=== PATIENT | female | born 1970 | race Caucasian/White ===

== ENCOUNTER → 2020-02-26 09:39 | Outpatient (BNVA) | payer OTHER, SELFPAY | PROVIDERS: PCP Internal Medicine; Referring Provider Internal Medicine; Visit Provider Physician Assistant | DX: K58.0 Irritable bowel syndrome with diarrhea (principal); K21.9 Gastro-esophageal reflux disease without esophagitis; Z79.899 Other long term (current) drug therapy | CPT/HCPCS: 99212 ==

== ENCOUNTER → 2020-03-02 09:09 | Outpatient (REF) | payer OTHER, SELFPAY ==
--- NOTE | 2020-03-02 09:16 | CA_ITS ---
Acquisition Time: 2020-03-02 10:24:54 Total Exercise Time: 00:06:39 Test Indications: Palpitations Medications: SEE H Protocol: SAVANNA Max HR: 160 BPM 93% of Pred: 172 BPM Max BP: 154/072 mmHG Max Work Load: 8.0 METS Exercise nuclear stress test using Savanna protocol. Total of 6 min 39 sec. THR up to 87% anf with METS 8.0. Pt tolerated well, denies any anginal sx. Isolated PVC in recovery. EKG with no ischemic changes. Nuclear images to follow. Normotensive resaponse to exercise. Test reviewed with Dr. Obando. Referred By: Hoang Bowman Overread By: Edgard Tapia
--- NOTE | 2020-03-02 09:30 | NM_ITS ---
Exercise Myocardial perfusion study Indication: Chest pain to evaluate for myocardial ischemia Technique: The patient was brought in for an exercise perfusion study on 03/02/2020. Patient performed exercise as per Bimal protocol and was injected 30 mCi of sestamibi was given intravenously one target HR was achieved. Images were obtained using the SPECT gamma camera interlaced with the gating device. Images were obtained in supine position. Resting perfusion study was performed on 03/03/2020. Patient was administered 30 mCi of sestamibi intravenously at rest. Images were then obtained in supine position. Images obtained with and without CT attenuation. Total DLP 96 MGY-CM. Images were processed with the software and compared side to side in short axis, horizontal long axis and vertical long axis views. Findings: The stress perfusion study showed non attenuated images show normal uptake of radiotracer in all segments LV myocardium. Impression corrected images show mildly reduced uptake in the apex of the LV myocardium. The gated study shows normal LV systolic function with calculated LVEF of greater than 70 %. LV cavity is normal in size. The gated study shows normal systolic wall thickening and contraction of all segments. There is no transient ischemic dilation. Resting study shows no change in perfusion pattern compared to stress perfusion study. Gating at rest reveals normal systolic wall motion with ejection fraction at 59%. The findings are consistent with normal myocardial perfusion. NM/NM rocky perf SPECT rest & str Impression: 1. Normal myocardial perfusion 2. Gated LVEF is 69% 3. Transient ischemic dilatation not present Stress EKG is negative for ischemia
== END ==
LOC: HO.CARD 09:09
PROVIDERS: Visit Provider Internal Medicine Cardiovascular Disease
DX: R07.89 Other chest pain (principal)
CPT/HCPCS: 78452; 93017; A9500

== ENCOUNTER → 2020-05-19 12:14 | Outpatient (BNVA) | payer OTHER, SELFPAY | PROVIDERS: PCP Internal Medicine; Visit Provider Physician Assistant | DX: Z76.89 Persons encountering health services in other specified circumstances (principal) | CPT/HCPCS: Q3014 ==

== ENCOUNTER → 2020-07-14 08:55 | Outpatient (BNVA) | payer OTHER, SELFPAY | PROVIDERS: Visit Provider Physician Assistant | DX: R19.7 Diarrhea, unspecified (principal); K58.9 Irritable bowel syndrome, unspecified | CPT/HCPCS: Q3014 ==

== ENCOUNTER 2020-08-17 08:46 | Day surgery (SDC) | payer OTHER, SELFPAY ==
[2020-08-12 12:25] VITALS: BMI 40.6
--- NOTE | 2020-08-13 14:18 | HO.ANESPROP2 ---
Documented by User: Shelby Rivas 08/14/20 11:57 HPI - Anesthesia Eval Consult details Narrative: 50yo F for Upper Endoscopy and Colonoscopy Cardiac cleared Last K 04/2019 elevated at 5.9. Repeat DOS. PMFSH Active Problems Active Problems: All Active Problems (Updated 08/12/20 @ 12:30 by Adry Nguyen) Gastric bypass status for obesity (Acute) Acid reflux (Acute) PTSD (post-traumatic stress disorder) (Acute) IBS (irritable bowel syndrome) (Acute) Past Medical History Medical History (Updated 08/12/20 @ 12:30 by Adry Nguyen) Acid reflux Anemia Arthritis COVID-19 vaccine administered Depression History of anxiety Hx MRSA infection Hx of renal calculi IBS (irritable bowel syndrome) Myocardial infarction PTSD (post-traumatic stress disorder) Family History Family History Father No problems noted. Mother No problems noted. Surgical History Surgical History (Updated 08/12/20 @ 12:28 by Adry Nguyen) Gastric bypass status for obesity Hx of cardiac catheterization Social History Social History (Updated 08/12/20 @ 12:31 by Adry Nguyen) Household Members: None Household Members Other:: Daughter has a cystic fibrosis Are you a primary acute care assistant to a significant other at home: No Do you presently have visiting nurse or other home services: No Alcohol intake: former Year quit: 5 Smoking Status: Never smoker Use of substances other than those prescribed or required for medical reasons: No Have you been hit, kicked, punched, or otherwise hurt by someone within the past year? If so, by whom?: No Advance Directives Information Provided: No Recently lost weight without trying: No Eating poorly because of decreased appetite: No Nutrition Risks: No Nutritional Risk Patient : No FDLMP: 08/04/20 Poor oral hygiene: No (upper & lower full denture) Current occupational status: disabled Meds Allergies Allergy/AdvReac Type Severity Reaction Status Date / Time latex Allergy Severe Rash Verified 08/12/20 12:32 lisinopril Allergy Severe anaphylaxis Verified 07/14/20 08:57 NSAIDS (Non-Steroidal Allergy Mild Diarrhea Verified 08/12/20 12:32 Anti-Inflamma Home Medications Medication Instructions Recorded Confirmed Last Taken Type cholecalciferol (vitamin D3) 25 25 mcg PO DAILY 02/26/20 08/12/20 Unknown History mcg (1,000 unit) capsule gabapentin 600 mg tablet 600 mg PO BID 02/26/20 08/12/20 08/17/20 04:30 History metoprolol succinate 50 mg 50 mg PO DAILY 02/26/20 08/12/20 08/17/20 04:30 History tablet,extended release 24 hr vitamin B complex 1 tab PO DAILY 02/26/20 08/12/20 Unknown History vitamin B12 0.5 mg-folic acid 1 mg 1 tab PO DAILY 02/26/20 08/12/20 Unknown History tablet trazodone 50 mg tablet 50 mg PO BEDTIME PRN 05/19/20 08/12/20 Unknown History citalopram [Celexa] 40 mg PO DAILY 08/12/20 08/12/20 08/17/20 04:30 History Exam Exam Date and Time: August 13, 2020 1418 Height,Weight and Vital Signs: Height 4 ft 11 in Weight 91.172 kg Narrative Narrative: EKG NSR @ 73 Inferior infarct, old ECHO 05/2019 Normal LV function LV systolic function is normal with EF 55-60% Diastolic filling pattern normal NM rocky perf SPECT rest & str 03/02/20 Impression: 1. Normal myocardial perfusion 2. Gated LVEF is 69% 3. Transient ischemic dilatation not present Stress EKG is negative for ischemia Assessment and Plan Assessment Anesthesia Assessment: Chart Reviewed Documented by User: Sary Turner 08/17/20 09:57 [facility] Past Medical History Medical History (Updated 08/12/20 @ 12:30 by Adry Nguyen) Acid reflux Anemia Arthritis COVID-19 vaccine administered Depression History of anxiety Hx MRSA infection Hx of renal calculi IBS (irritable bowel syndrome) Myocardial infarction PTSD (post-traumatic stress disorder) Family History Family History Father No problems noted. Mother No problems noted. Surgical History Surgical History (Updated 08/12/20 @ 12:28 by Adry Nguyen) Gastric bypass status for obesity Hx of cardiac catheterization Social History Social History (Updated 08/12/20 @ 12:31 by Adry Nguyen) Household Members: None Household Members Other:: Daughter has a cystic fibrosis Are you a primary acute care assistant to a significant other at home: No Do you presently have visiting nurse or other home services: No Alcohol intake: former Year quit: 5 Smoking Status: Never smoker Use of substances other than those prescribed or required for medical reasons: No Have you been hit, kicked, punched, or otherwise hurt by someone within the past year? If so, by whom?: No Advance Directives Information Provided: No Recently lost weight without trying: No Eating poorly because of decreased appetite: No Nutrition Risks: No Nutritional Risk Patient : No FDLMP: 08/04/20 Poor oral hygiene: No (upper & lower full denture) Current occupational status: disabled Meds Allergies Allergy/AdvReac Type Severity Reaction Status Date / Time latex Allergy Severe Rash Verified 08/12/20 12:32 lisinopril Allergy Severe anaphylaxis Verified 07/14/20 08:57 NSAIDS (Non-Steroidal Allergy Mild Diarrhea Verified 08/12/20 12:32 Anti-Inflamma Home Medications Medication Instructions Recorded Confirmed Last Taken Type cholecalciferol (vitamin D3) 25 25 mcg PO DAILY 02/26/20 08/12/20 Unknown History mcg (1,000 unit) capsule gabapentin 600 mg tablet 600 mg PO BID 02/26/20 08/12/20 08/17/20 04:30 History metoprolol succinate 50 mg 50 mg PO DAILY 02/26/20 08/12/20 08/17/20 04:30 History tablet,extended release 24 hr vitamin B complex 1 tab PO DAILY 02/26/20 08/12/20 Unknown History vitamin B12 0.5 mg-folic acid 1 mg 1 tab PO DAILY 02/26/20 08/12/20 Unknown History tablet trazodone 50 mg tablet 50 mg PO BEDTIME PRN 05/19/20 08/12/20 Unknown History citalopram [Celexa] 40 mg PO DAILY 08/12/20 08/12/20 08/17/20 04:30 History Exam Airway Mallampati Class: II TM Dist: >3cm Neck ROM: Full Denture: Upper and Lower Heart: RRR Lungs: CtA. L Assessment and Plan Assessment Anesthesia Assessment: Anesthesia Plan Discussed and Chart Reviewed Final Anesthetic Review NPO: Yes (Sip water with med) ASA Class: III Final Preanesthetic Review: No Changes in Pt Med Stat and Consent Obtained/Reviewed Patient Risk: Intermediate Procedure Risk: Intermediate Anesthetic Plan Anesthetic Plan: MAC: Disposition: Standard PACU
[2020-08-17 09:24] LABS: UPreg QC Valid YES; Urine Pregnancy NEGATIVE (NEGATIVE)
[2020-08-17] MEDS: Lactated Ringers 1,000 ML 100 ML IVCONT (09:28)
--- NOTE | 2020-08-17 09:31 | P.HPSUR_ITS ---
Pre-Procedural Eval Section B Chief Complaint: Iritable bowel syndrome, Acid Reflux Details of Present Illness: diarrhea Relevant Family History (Specify if Yes): No Relevant Social History: None Present Medications: see Short Stay Collaborative assessment Medical History: Significant History (Acid reflux Anemia Arthritis COVID-19 vaccine administered Depression History of anxiety Hx MRSA infection Hx of renal calculi IBS (irritable bowel syndrome) Myocardial infarction PTSD (post- traumatic stress disorder)) History of Previous Operations: Relevant previous surgery/procedure and date(s) (gastric bypass surgery, cardiac cath) Allergies: Allergies Allergy/AdvReac Type Severity Reaction Status Date / Time latex Allergy Severe Rash Verified 08/12/20 12:32 lisinopril Allergy Severe anaphylaxis Verified 07/14/20 08:57 NSAIDS (Non-Steroidal Allergy Mild Diarrhea Verified 08/12/20 12:32 Anti-Inflamma Review of Systems Sugical H&P ROS: Negative: Constitution, Cardiovascular, Respiratory, Neurological, Psychiatric, Hem-Onc, Allergic/Immunologic, Gastrointestinal, Genitourinary, Musculoskeletal, Integumentary, Endocrine and Eyes/Ears/Nose/Throat Exam Surgical H&P Exam: Normal: HEENT, Normal: Heart, Normal: Lungs, Normal: Extremities, Normal: Abdomen, Normal: Skin and Normal: Neurological Plan Diagnosis/Plan: Unchanged I have reviewed the history and physical and performed a pertinent physical examination on my patient. No changes have occurred unless specified.
[2020-08-17 09:45] LABS: Anion Gap 9 (12-20); Blood Urea Nitrogen 10 mg/dL (9-16); Calcium 9.1 mg/dL (8.4-10.2); Carbon Dioxide 29 mmol/L (22-29); Chloride 104 mmol/L (96-108); Creatinine Clr Calc Pharmacy 79.6; Estimated Glomerular Filt Rate > 60; Glucose Fasting 96 mg/dL (60-99); Potassium 4.2 mmol/L (3.3-5.1); Sodium 138 mmol/L (135-145)
--- NOTE | 2020-08-17 10:17 | P.BOP_ITS ---
Brief Operative Note Date of Service: 08/17/20 Pre-op diagnosis: diarrhea, GERD Post-op diagnosis: same Procedure: see op note Surgeon: Bella Park MD Anesthesia: MAC Was an Public Health Assistant used for this Procedure?: No Estimated blood loss (mL): 0 Condition: stable Disposition: PACU
--- NOTE | 2020-08-17 10:18 | P.OP_ITS ---
Operative Note Operative Note Date of Service: 08/17/20 Narrative: Operative Information Procedure Description: EGD, Colonoscopy FLEXIBLE TRANSORAL UPPER GASTROINTESTINAL ENDOSCOPY AND COLONOSCOPY PROCEDURE NOTE UPPER ENDOSCOPY Consent: Indications for the procedure and potential complications of bleeding, perforation, reaction to medications and missed diagnosis were discussed with the patient and informed consent was obtained. Instrument: Olympus GIF H 190 J mid size upper endoscope Monitoring: Vital signs and clinical assessment, continuous EKG monitoring, Pulse oximetry, Carbon Dioxide monitoring and blood pressure monitoring were done throughout the procedure. Procedure: The patient was placed in the left lateral decubitis position and pre-procedure medications were administered and a bite block was placed. The endoscope was inserted into the mouth and advanced under direct vision to the third part of duodenum. A careful inspection was made as the upper endoscope was withdrawn including a retroflexed examination of the proximal stomach; Findings and interventions are described below. Hx of gastric miguel a en Y bypass Findings: Larynx:normal Esophagus: GE junction at 35 cm, diaphragm hiatus at 35 cm, random esophagus bx taken also one salmon pink path noted in distal esophagus about 10 mm, biopsy taken to r/o Barretts Stomach pouch: Pretty short, measured about 4 cm. Normal mucosa. Biopsies were obtained. Grade 2 flap valve on retroflexed examination of the cardia. No fistula noted. Jejunum: Normal--bx taken Intervention: Biopsies as noted above COLONOSCOPY Instrument: Olympus variable stiffness pediatric scope 190L Colonoscopy Monitoring: Vital signs and clinical assessment, continuous EKG monitoring, Pulse oximetry, Carbon Dioxide monitoring and blood pressure monitoring were done throughout the procedure. Colon withdrawal time was 8 minutes. Procedure: The patient was placed in the left lateral decubitis position and pre-procedure medications were administered. After a digital rectal examination of the ano-rectum, the video colonoscope was inserted into the rectum and advanced through the colon to the cecum/TI. The colonoscope was slowly withdrawn in a retrograde panoramic fashion and the colon mucosa was carefully examined including a retroflexed view of the rectum. Findings and interventions are described below. Procedure Difficulty:easy Findings: Terminal Ileum-normal, bx taken random colon bx also taken Cecum:normal Ascending Colon: normal Transverse Colon -normal Descending Colon:normal Sigmoid Colon: normal Rectum: Retroflexion with small internal hemorrhoids, grade I Anorectum - normal Colon preparation: [place] Bowel Preparation Scale Right colon; 2 Transverse colon: 2 Left colon; 2 (0 = Unprepared colon segment with mucosa not seen due to solid stool that cannot be cleared. 1 = Portion of mucosa of the colon segment seen, but other areas of the colon segment not well seen due to staining, residual stool and/or opaque liquid. 2 = Minor amount of residual staining, small fragments of stool and/or opaque liquid, but mucosa of colon segment seen well. 3 = Entire mucosa of colon segment seen well with no residual staining, small fragments of stool or opaque liquid) Impression and Post Procedure Diagnosis: Endoscopy Findings: possible barretts Colonoscopy Findings: internal hemorrhoids Plan: Await Pathology results Repeat Colonoscopy in 10 years or earlier if clinically indicated High fiber diet leaflet avoid straining at stool, epsom salts and sitz bath, anusol supps or cream may need repeat EGD in 3-5 yrs will await bx Above findings were reviewed with the patient and relevant handouts were provided if indicated.
[2020-08-17 10:40] VITALS: BP 128/72; PULSE 64; RESP 16; TEMP 36.1; O2SAT 96
[2020-08-17 10:55] VITALS: BP 139/83; PULSE 62; RESP 18; TEMP 36.1; O2SAT 100
== END 2020-08-17 11:50 | disposition home or self-care (01) ==
PROVIDERS: Nurse Practitioner; PCP Family Medicine; Visit Provider Internal Medicine Gastroenterology
PROC: (CPT 45378; principal; 2020-08-17 10:10)
DX: K58.9 Irritable bowel syndrome, unspecified (principal); K64.0 First degree hemorrhoids; K21.9 Gastro-esophageal reflux disease without esophagitis; K44.9 Diaphragmatic hernia without obstruction or gangrene; Z98.84 Bariatric surgery status; I10 Essential (primary) hypertension; Z79.899 Other long term (current) drug therapy; Z86.14 Personal history of Methicillin resistant Staphylococcus aureus infection; Z88.8 Allergy status to other drugs, medicaments and biological substances; Z91.040 Latex allergy status
CPT/HCPCS: 45378; 43239; 36415; 80048; 81025; 88305; 88342

== ENCOUNTER → 2020-08-27 09:51 | Outpatient (BNVA) | payer OTHER, SELFPAY | PROVIDERS: Visit Provider Physician Assistant | DX: K21.9 Gastro-esophageal reflux disease without esophagitis (principal) | CPT/HCPCS: Q3014 ==

== ENCOUNTER 2020-10-13 09:34 | Outpatient (REF) | payer OTHER, SELFPAY ==
--- NOTE | ~2020-10-13 | XR_ITS ---
EXAMINATION: XR HAND, RIGHT CLINICAL INFORMATION: Right hand pain COMPARISON: None TECHNIQUE: PA, lateral, and oblique views of the right hand. FINDINGS: Normal alignment. No acute fracture. Mild degenerative changes of the MCP joints. No periarticular osteopenia, erosions, or suspicious soft tissue calcifications. XR/XR hand RT min 3V IMPRESSION: Mild degenerative changes as described. No acute abnormality.
== END 2020-10-13 09:35 | disposition home or self-care (01) ==
LOC: HO.XRAY 09:34
PROVIDERS: PCP Family Medicine; Visit Provider Family Medicine
DX: M79.641 Pain in right hand (principal)
CPT/HCPCS: 73130

== ENCOUNTER 2020-10-27 12:12 | Outpatient (REF) | payer OTHER, SELFPAY ==
--- NOTE | ~2020-10-27 | XR_ITS ---
EXAMINATION: XR CHEST CLINICAL INFORMATION: Shortness of breath COMPARISON: None TECHNIQUE: 2 views of the chest were obtained. FINDINGS: The cardiac and mediastinal contours are normal. The lungs are clear. There is no pleural fusion or pneumothorax. There are degenerative changes of the spine. XR/XR chest 2V IMPRESSION: Unremarkable examination.
--- NOTE | 2020-10-27 14:30 | ECG_ITS ---
Test Reason : RO6.02 Blood Pressure : / mmHG Vent. Rate : 075 BPM Atrial Rate : 075 BPM P-R Int : 160 ms QRS Dur : 076 ms QT Int : 416 ms P-R-T Axes : 016 002 020 degrees QTc Int : 464 ms Normal sinus rhythm Normal ECG No previous ECGs available Referred By: Analia Castro Electronically Signed By:Joe Haynes
[2020-10-27 14:52] LABS: MANUAL DIFF FLAG NO
[2020-10-27 14:54] LABS: Basophils Percent Auto 0.4 % (0-2); Eosinophils Absolute Auto 0.1 X10*3/uL (0.0-0.4); Eosinophils Percent Auto 1.3 % (0-4); Hemoglobin 12.9 g/dl (12.0-16.0); Imm Gran Abs Auto 0.03 X10*3/uL (0.00-0.03); Imm Gran Pct Auto 0.4 % (0.0-0.4); Lymphocytes Absolute Auto 2.1 X10*3/uL (1.2-4.9); Mean Corpuscular HGB Conc 33.1 g/dl (31.0-35.0); Mean Corpuscular Hemoglobin 31.4 pg (27.0-33.0); Mean Corpuscular Volume 94.9 fL (80-98); Mean Platelet Volume 9.8 fL (9.4-12.3); Monocytes Absolute Auto 0.3 X10*3/uL (0.1-1.2); Monocytes Percent Auto 4.6 % (2-11); Neutrophils Absolute Auto 4.6 X10*3/uL (2.0-8.3); Neutrophils Percent Auto 64.3 % (45-73); Platelet Count 243 X10*3/uL (160-400); Red Blood Count 4.11 X10*6/uL (4.20-5.50); White Blood Count 7.1 X10*3/uL (4.8-10.8)
[2020-10-27 15:08] LABS: Estimated Average Glucose 100 mg/dL; Hemoglobin A1c % 5.1 %
[2020-10-27 15:20] LABS: Alanine Aminotransferase 51 U/L (0-31); Albumin Level 3.7 g/dL (3.5-5.0); Alkaline Phosphatase 80 U/L (39-117); Anion Gap 13 (12-20); Aspartate Amino Transferase 18 U/L (5-31); Bilirubin Total 0.3 mg/dL (0.0-1.0); Blood Urea Nitrogen 12 mg/dL (9-16); C Reactive Protein 0.55 mg/dL (< or = 0.50); Calcium 8.7 mg/dL (8.4-10.2); Carbon Dioxide 26 mmol/L (22-29); Chloride 105 mmol/L (96-108); Cholesterol 175 mg/dL; Estimated Glomerular Filt Rate > 60; Glucose Fasting 109 mg/dL (60-99); HDL Cholesterol 45 mg/dL; Iron 45 mcg/dL (30-160); LDL Cholesterol Calculated 85 mg/dl; Percent Iron Saturation 14 % (15-50); Potassium 4.7 mmol/L (3.3-5.1); Sodium 139 mmol/L (135-145); Total Iron Binding Capacity 316 mcg/dL (228-428); Triglycerides 225 mg/dL; Unsaturated Iron Binding 271 ug/dL
[2020-10-27 15:41] LABS: Vitamin D 25-OH Total 22.8 ng/mL (>30)
[2020-10-27 15:48] LABS: Vitamin B12 494 pg/mL (200-900)
[2020-10-28 13:51] LABS: Calcium (PTHI) 8.6 mg/dL (8.6-10.2); PTHI 90 pg/mL (14-64)
[2020-10-30 15:47] LABS: Zinc 42 mcg/dL (60-130)
[2020-10-31 12:06] LABS: Vitamin B1 22 nmol/L (8-30)
[2020-11-02 19:05] LABS: Vitamin A 73 mcg/dL (38-98)
== END 2020-10-27 12:13 | disposition home or self-care (01) ==
LOC: HO.LAB 12:12
PROVIDERS: PCP Family Medicine; Referring Provider Family Medicine; Visit Provider Surgery
DX: Z01.818 Encounter for other preprocedural examination (principal); K91.2 Postsurgical malabsorption, not elsewhere classified; R06.02 Shortness of breath; E66.01 Morbid (severe) obesity due to excess calories; Z68.42 Body mass index [BMI] 45.0-49.9, adult; Z98.84 Bariatric surgery status; Z90.3 Acquired absence of stomach [part of]; Z71.3 Dietary counseling and surveillance
CPT/HCPCS: 36415; 71046; 80053; 80061; 82306; 82607; 83036; 83540; 83970; 84425; 84443; 84590; 84630; 85025; 86140; 93005; 99202

== ENCOUNTER 2020-11-05 09:59 | Outpatient (REF) | payer OTHER, SELFPAY ==
--- NOTE | ~2020-11-05 | XR_ITS ---
EXAMINATION: XR HAND, LEFT CLINICAL INFORMATION: Injury. COMPARISON: None TECHNIQUE: 4 views of the left and, including scaphoid view. FINDINGS: No fracture or dislocation. Alignment is anatomic. Joint spaces are maintained. Prominent soft tissue swelling of the hand. Carpal rows are well aligned. XR/XR hand wrist LT IMPRESSION: Prominent soft tissue swelling without acute osseous abnormality.
== END 2020-11-05 10:00 | disposition home or self-care (01) ==
LOC: HO.XRAY 09:59
PROVIDERS: PCP Family Medicine; Referring Provider Family Medicine; Visit Provider General Practice
DX: S69.92XA Unspecified injury of left wrist, hand and finger(s), initial encounter (principal); X58.XXXA Exposure to other specified factors, initial encounter; Y93.9 Activity, unspecified; Y92.9 Unspecified place or not applicable; Y99.8 Other external cause status
CPT/HCPCS: 73110; 73130

== ENCOUNTER → 2020-11-12 08:30 | Outpatient (BNVA) | payer OTHER, SELFPAY | PROVIDERS: PCP Family Medicine; Referring Provider Family Medicine; Visit Provider Physician Assistant | DX: E66.01 Morbid (severe) obesity due to excess calories (principal); Z98.84 Bariatric surgery status | CPT/HCPCS: 99212 ==

== ENCOUNTER 2020-11-18 06:13 | Day surgery (SDC) | payer OTHER, SELFPAY ==
--- NOTE | 2020-11-17 09:17 | HO.ANESPROP2 ---
Documented by User: Shelby Rivas 11/17/20 09:22 HPI - Anesthesia Eval Consult details Narrative: 50yo F for ?Upper Endoscopy s/p EGD and colo 08/2020 with [facility] Active Problems Active Problems: All Active Problems (Updated 11/16/20 @ 12:49 by Mell Chavez, [facility]) Anxiety (Acute) Normal colonoscopy (Acute) Shortness of breath (Acute) Preoperative examination (Acute) Morbid obesity due to excess calories (Acute) Vitamin D deficiency (Acute) Zinc deficiency (Acute) Mild episode of recurrent major depressive disorder (Acute) Gastric bypass status for obesity (Acute) Acid reflux (Acute) PTSD (post-traumatic stress disorder) (Acute) IBS (irritable bowel syndrome) (Acute) Past Medical History Medical History Acid reflux Anemia Anxiety Arthritis BMI 45.0-49.9, adult COVID-19 vaccine administered Depression History of anxiety HTN (hypertension) Hx MRSA infection Hx of renal calculi Hypercholesterolemia IBS (irritable bowel syndrome) Insomnia Myocardial infarction PCOS (polycystic ovarian syndrome) PTSD (post-traumatic stress disorder) Family History Family History Father No problems noted. Mother No problems noted. Sister No problems noted. Brother MYLK2-related hypertropic cardiomyopathy Daughter Cystic fibrosis Daughter No problems noted. Surgical History Surgical History Gastric bypass status for obesity Hx of cardiac catheterization Hx of section Hx of colonoscopy Hx of endoscopy S/P panniculectomy Social History Social History Household Members: None Household Members Other:: Daughter has a cystic fibrosis Are you a primary healthcare marketer to a significant other at home: No Do you presently have visiting nurse or other home services: No Alcohol intake: former Year quit: 5 Patient Tobacco Use Status: Never used Tobacco Advance Directives Information Provided: No Current occupational status: unemployed Meds Allergies Allergy/AdvReac Type Severity Reaction Status Date / Time latex Allergy Severe Rash Verified 11/18/20 06:57 lisinopril Allergy Severe anaphylaxis Verified 11/18/20 06:57 NSAIDS (Non-Steroidal Allergy Mild Diarrhea Verified 11/18/20 06:57 Anti-Inflamma Home Medications Medication Instructions Recorded Confirmed Last Taken Type cholecalciferol (vitamin D3) 25 25 mcg PO DAILY 02/26/20 11/12/20 Unknown History mcg (1,000 unit) capsule gabapentin 600 mg tablet 600 mg PO BID 02/26/20 11/12/20 11/18/20 04:00 History metoprolol succinate 50 mg 50 mg PO DAILY 02/26/20 11/12/20 11/18/20 04:00 History tablet,extended release 24 hr vitamin B complex (B 1 tab PO DAILY 02/26/20 11/12/20 Unknown History Complex-Vitamin B12) vitamin B12 0.5 mg-folic acid 1 mg 1 tab PO DAILY 02/26/20 11/12/20 Unknown History tablet (Foltrate) trazodone 50 mg tablet 50 mg PO BEDTIME PRN 05/19/20 11/12/20 Unknown History citalopram 40 mg tablet (Celexa) 40 mg PO DAILY 08/12/20 11/12/20 11/18/20 04:00 History Lactobacillus acidophilus 100 mmu cells PO TID 10/27/20 11/12/20 Unknown History (Acidophilus) methylcellulose (laxative) 500 mg 500 mg PO DAILY 10/27/20 11/12/20 Unknown History tablet (Fiber Laxative (methylcellulose)) multivitamin 1 tab PO DAILY 10/27/20 11/12/20 Unknown History terbinafine HCl 250 mg tablet 250 mg PO DAILY 10/27/20 11/12/20 Unknown History oxycodone 5 mg tablet 0 mg PO 11/12/20 11/12/20 Unknown History Exam Exam Date and Time: November 17, 2020 0917 Height,Weight and Vital Signs: Height 4 ft 10.5 in Narrative Narrative: EKG 10/2020 Vent. Rate : 075 BPM ? ? Atrial Rate : 075 BPM ?? P-R Int : 160 ms? QRS Dur : 076 ms ? ? QT Int : 416 ms ? ? ? P-R-T Axes : 016 002 020 degrees ?? QTc Int : 464 ms ? Normal sinus rhythm Normal ECG No previous ECGs available ECHO 05/2019 Normal LV function LV systolic function is normal with EF 55-60% Diastolic filling pattern normal NM rocky perf SPECT rest & str 03/02/20 Impression: ? 1.? Normal myocardial perfusion 2.? Gated LVEF is 69% 3. Transient ischemic dilatation not present ? Stress EKG is negative for ischemia Assessment and Plan Assessment Anesthesia Assessment: Chart Reviewed Documented by User: Rashida Guillen 11/18/20 08:01 [facility] Past Medical History Medical History Acid reflux Anemia Anxiety Arthritis BMI 45.0-49.9, adult COVID-19 vaccine administered Depression History of anxiety HTN (hypertension) Hx MRSA infection Hx of renal calculi Hypercholesterolemia IBS (irritable bowel syndrome) Insomnia Myocardial infarction PCOS (polycystic ovarian syndrome) PTSD (post-traumatic stress disorder) Family History Family History Father No problems noted. Mother No problems noted. Sister No problems noted. Brother MYLK2-related hypertropic cardiomyopathy Daughter Cystic fibrosis Daughter No problems noted. Family history of problems with anesthesia: No Surgical History Surgical History Gastric bypass status for obesity Hx of cardiac catheterization Hx of section Hx of colonoscopy Hx of endoscopy S/P panniculectomy History of Problems with Anesthesia: No Social History Social History Household Members: None Household Members Other:: Daughter has a cystic fibrosis Are you a primary healthcare marketer to a significant other at home: No Do you presently have visiting nurse or other home services: No Alcohol intake: former Year quit: 5 Patient Tobacco Use Status: Never used Tobacco Advance Directives Information Provided: No Current occupational status: unemployed Meds Allergies Allergy/AdvReac Type Severity Reaction Status Date / Time latex Allergy Severe Rash Verified 11/18/20 06:57 lisinopril Allergy Severe anaphylaxis Verified 11/18/20 06:57 NSAIDS (Non-Steroidal Allergy Mild Diarrhea Verified 11/18/20 06:57 Anti-Inflamma Home Medications Medication Instructions Recorded Confirmed Last Taken Type cholecalciferol (vitamin D3) 25 25 mcg PO DAILY 02/26/20 11/12/20 Unknown History mcg (1,000 unit) capsule gabapentin 600 mg tablet 600 mg PO BID 02/26/20 11/12/20 11/18/20 04:00 History metoprolol succinate 50 mg 50 mg PO DAILY 02/26/20 11/12/20 11/18/20 04:00 History tablet,extended release 24 hr vitamin B complex (B 1 tab PO DAILY 02/26/20 11/12/20 Unknown History Complex-Vitamin B12) vitamin B12 0.5 mg-folic acid 1 mg 1 tab PO DAILY 02/26/20 11/12/20 Unknown History tablet (Foltrate) trazodone 50 mg tablet 50 mg PO BEDTIME PRN 05/19/20 11/12/20 Unknown History citalopram 40 mg tablet (Celexa) 40 mg PO DAILY 08/12/20 11/12/20 11/18/20 04:00 History Lactobacillus acidophilus 100 mmu cells PO TID 10/27/20 11/12/20 Unknown History (Acidophilus) methylcellulose (laxative) 500 mg 500 mg PO DAILY 10/27/20 11/12/20 Unknown History tablet (Fiber Laxative (methylcellulose)) multivitamin 1 tab PO DAILY 10/27/20 11/12/20 Unknown History terbinafine HCl 250 mg tablet 250 mg PO DAILY 10/27/20 11/12/20 Unknown History oxycodone 5 mg tablet 0 mg PO 11/12/20 11/12/20 Unknown History Exam Height,Weight and Vital Signs: Height 4 ft 10.5 in Vital Signs Temp Pulse Resp BP Pulse Ox 11/18/20 07:20 98.0 F 73 20 113/68 97 Lab Results 11/18/20 11/18/20 Range/Units 07:05 07:05 Urine Test NEGATIVE (NEGATIVE) COVID-19 (JOYCE) Negative (Negative) COVID-19 Clin Com See Note Airway Mallampati Class: II (Short large tongue) TM Dist: >3cm Neck ROM: Full Denture: Upper and Lower Heart: RRR Lungs: CTAB Assessment and Plan Assessment Anesthesia Assessment: Anesthesia Plan Discussed and Chart Reviewed Final Anesthetic Review Family History of Problems with Anesthesia: No History of Problems with Anesthesia: No NPO: Yes ASA Class: III Final Preanesthetic Review: No Changes in Pt Med Stat, Meds/Allgs Chart Reviewed, Consent Obtained/Reviewed and Anes Risks/Benef Reviewed Patient Risk: Intermediate Procedure Risk: Low Assessment/Block/Sedation in SS: Assess/Block/Sedation-SS Anesthetic Plan Anesthetic Plan: MAC: Disposition: Standard PACU
--- NOTE | 2020-11-17 16:34 | MHC.SHP ---
Pre-Procedural Eval Section A Date of Service: 11/17/20 Section B Chief Complaint: Bariatric Surgery Status Allergies: Allergies Allergy/AdvReac Type Severity Reaction Status Date / Time latex Allergy Severe Rash Verified 11/12/20 08:41 lisinopril Allergy Severe anaphylaxis Verified 11/12/20 08:41 NSAIDS (Non-Steroidal Allergy Mild Diarrhea Verified 11/12/20 08:41 Anti-Inflamma Review of Systems Sugical H&P ROS: Negative: Constitution, Cardiovascular, Respiratory, Neurological, Psychiatric, Hem-Onc, Allergic/Immunologic, Gastrointestinal, Genitourinary, Musculoskeletal, Integumentary, Endocrine and Eyes/Ears/Nose/Throat Exam Surgical H&P Exam: Normal: HEENT, Normal: Heart, Normal: Lungs, Normal: Extremities, Normal: Abdomen, Normal: Skin and Normal: Neurological Plan Diagnosis/Plan: Unchanged I have reviewed the history and physical and performed a pertinent physical examination on my patient. No changes have occurred unless specified. Patient has severe GERD we will plan to evaluate the stomach for hiatal hernia or other mucosal lesions and perform biopsy of the antrum to rule out H pylori.
[2020-11-18 07:20] VITALS: BP 113/68; PULSE 73; RESP 20; TEMP 36.7; O2SAT 97
[2020-11-18 07:22] VITALS: BMI 42.7
[2020-11-18 07:28] LABS: UPreg QC Valid YES; Urine Pregnancy NEGATIVE (NEGATIVE)
[2020-11-18] MEDS: Lactated Ringers 1,000 ML 100 ML IVCONT (07:30)
[2020-11-18 07:56] LABS: COVID-19 Test Negative (Negative)
[2020-11-18 08:11] VITALS: BP 106/58; PULSE 81; RESP 16; TEMP 36.4; O2SAT 99
[2020-11-18 08:26] VITALS: BP 112/73; PULSE 76; RESP 16; TEMP 36.4; O2SAT 99
--- NOTE | 2020-11-18 08:29 | P.BOP_ITS ---
Brief Operative Note Date of Service: 11/18/20 Pre-op diagnosis: Weight gain after gastric bypass, gastroesophageal reflux disease Post-op diagnosis: same Procedure: Esophagogastroduodenoscopy, enteroscopy to 90 cm from the incisors, gastric pouch biopsy x2 Implants: None Surgeon: Analia Castro MD Anesthesia: MAC Was an Ecommerce Marketing Manager used for this Procedure?: No Estimated blood loss (mL): 0 Pathology: other (Gastric biopsy x2) Condition: stable Disposition: PACU
--- NOTE | 2020-11-18 08:51 | OP_ITS ---
SURGEON: Analia Castro MD PREOPERATIVE DIAGNOSIS: POSTOPERATIVE DIAGNOSIS: PROCEDURE PERFORMED: Esophagogastroduodenoscopy, enteroscopy to 90 cm from incisors, and gastric pouch biopsy. ESTIMATED BLOOD LOSS: COMPLICATIONS: None. ANESTHESIA: Total intravenous anesthesia with propofol given by the nurse windows deployment technician. ASSISTANTS: None. SPECIMENS: PREPROCEDURE DIAGNOSES: Severe gastroesophageal reflux disease as well as weight gain after gastric bypass. FINDINGS: A gastric pouch, which was slightly larger than it should be for its age. The anastomosis was located about 2 to 3 cm from the GE junction. There was no evidence of hiatal hernia. There was some mild erythema into the gastric pouch. The gastrojejunal anastomosis was enlarged. No other abnormalities were seen. CONDITION: Postprocedure, good. DESCRIPTION OF PROCEDURE: The patient was brought into the operating room on the stretcher and placed in the left lateral decubitus position. A safety time-out was performed. Total intravenous anesthesia was administered using propofol by the nurse windows deployment technician. Once the patient was adequately sedated, the gastroscope was placed into posterior oropharynx, passed down the esophagus, evaluating the esophageal mucosa which was normal. The GE junction was located at 36 cm from the incisors. There was no evidence of hiatal hernia or mucosal lesions. The gastroscope was easily passed into the gastric pouch, which was slightly enlarged for its age. There was a small extra pouch located laterally. The anastomosis was medially located. The anastomosis was very large. There was slight erythema of the enlarged portion of the gastric pouch, which was biopsied x2 for H pylori. There were no mucosal lesions. The anastomosis was located at about 38 to 39 cm from the incisors. The gastroscope was easily passed into the efferent limb of the Ada limb. This was passed down to 90 cm from the incisors, all of which was normal. All of these portions of the upper endoscopy were documented using photo documentation. Gastroscope was retracted back into the stomach and stomach was desufflated without difficulty. The patient tolerated the procedure well and was sent to recovery room in stable condition. Analia Castro MD UM/MODL / [id number]
== END 2020-11-18 09:25 | disposition home or self-care (01) ==
PROVIDERS: Nurse Practitioner; PCP Family Medicine; Visit Provider Surgery
PROC: 0DJ08ZZ Inspection of Upper Intestinal Tract, Via Natural or Artificial Opening Endoscopic (ICD-10-PCS; CPT 43235; principal; 2020-11-18 07:30)
DX: K21.9 Gastro-esophageal reflux disease without esophagitis (principal); Z98.84 Bariatric surgery status; E66.01 Morbid (severe) obesity due to excess calories; Z68.42 Body mass index [BMI] 45.0-49.9, adult; I10 Essential (primary) hypertension; D64.9 Anemia, unspecified; Z79.899 Other long term (current) drug therapy; Z88.8 Allergy status to other drugs, medicaments and biological substances; Z91.040 Latex allergy status; Z20.822 Contact with and (suspected) exposure to COVID-19
CPT/HCPCS: 43239; 36415; 81025; 87635; 88305; 88342

== ENCOUNTER → 2020-11-26 08:15 | Outpatient (BNVA) | payer OTHER, SELFPAY | PROVIDERS: PCP Family Medicine; Visit Provider Dietitian, Registered | DX: E66.01 Morbid (severe) obesity due to excess calories (principal) | CPT/HCPCS: 97802 ==

== ENCOUNTER 2020-12-01 15:42 | Outpatient (REF) | payer OTHER, SELFPAY ==
[2020-12-02 14:41] LABS: H Pylori Breath Test NOT DETECTED (NOT DETECTED)
== END 2020-12-01 15:43 | disposition home or self-care (01) ==
LOC: HO.LNP 15:42
PROVIDERS: PCP Family Medicine; Referring Provider Family Medicine; Visit Provider Surgery
DX: Z01.818 Encounter for other preprocedural examination (principal); Z11.0 Encounter for screening for intestinal infectious diseases; E66.01 Morbid (severe) obesity due to excess calories; Z68.41 Body mass index [BMI] 40.0-44.9, adult
CPT/HCPCS: 83013; 99211; 99212

== ENCOUNTER → 2020-12-23 08:09 | Outpatient (BNVA) | payer OTHER, SELFPAY | PROVIDERS: PCP Family Medicine; Referring Provider Family Medicine; Visit Provider Dietitian, Registered | DX: E66.01 Morbid (severe) obesity due to excess calories (principal); Z68.41 Body mass index [BMI] 40.0-44.9, adult | CPT/HCPCS: 97803 ==

== ENCOUNTER 2020-12-30 09:15 | Outpatient (REF) | payer OTHER, SELFPAY ==
--- NOTE | ~2020-12-30 | XR_ITS ---
EXAMINATION: XR WRIST, LEFT CLINICAL INFORMATION: Pain COMPARISON: 11/05/2020 TECHNIQUE: PA, lateral, oblique, and scaphoid views of the left wrist. FINDINGS: There is a subacute fracture of the base of the second metacarpal extending to the CMC articulation with the trapezoid. The fracture fragments are displaced 2 mm, with mild impaction. There is ill-definition of the fracture margins with increasing lucency at the fracture margins reflective. Soft tissue swelling dorsal to the hand is decreased from the previous exam. No soft tissue gas. XR/XR wrist LT min 3V IMPRESSION: Subacute fracture at the base of the second metacarpal with intra-articular extension to the CMC joint, mild displacement and impaction as described.
== END 2020-12-30 09:16 | disposition home or self-care (01) ==
LOC: HO.XRAY 09:15
PROVIDERS: PCP Family Medicine; Visit Provider Family Medicine
DX: M79.642 Pain in left hand (principal)
CPT/HCPCS: 73110

== ENCOUNTER 2021-01-08 09:38 | Outpatient (REF) | payer OTHER, SELFPAY ==
[2021-01-08 12:25] LABS: MANUAL DIFF FLAG NO
[2021-01-08 12:26] LABS: Basophils Percent Auto 0.6 % (0-2); Eosinophils Absolute Auto 0.1 X10*3/uL (0.0-0.4); Eosinophils Percent Auto 1.9 % (0-4); Hematocrit 41.5 % (37-47); Hemoglobin 13.9 g/dl (12.0-16.0); Imm Gran Abs Auto 0.01 X10*3/uL (0.00-0.03); Imm Gran Pct Auto 0.2 % (0.0-0.4); Lymphocytes Absolute Auto 1.1 X10*3/uL (1.2-4.9); Lymphocytes Percent Auto 20.8 % (20-40); Mean Corpuscular HGB Conc 33.5 g/dl (31.0-35.0); Mean Corpuscular Hemoglobin 31.4 pg (27.0-33.0); Mean Corpuscular Volume 93.7 fL (80-98); Mean Platelet Volume 10.1 fL (9.4-12.3); Monocytes Absolute Auto 0.4 X10*3/uL (0.1-1.2); Monocytes Percent Auto 7.2 % (2-11); Neutrophils Absolute Auto 3.6 X10*3/uL (2.0-8.3); Neutrophils Percent Auto 69.3 % (45-73); Platelet Count 270 X10*3/uL (160-400); Red Blood Count 4.43 X10*6/uL (4.20-5.50); Red Cell Distribution Width 12.7 % (11.0-16.0); White Blood Count 5.3 X10*3/uL (4.8-10.8)
[2021-01-08 13:01] LABS: Vitamin D 25-OH Total 35.1 ng/mL (>30)
[2021-01-08 13:02] LABS: Thyroid Stimulating Hormone 1.31 uIU/mL (0.32-4.0)
[2021-01-12 13:37] LABS: Zinc 110 mcg/dL (60-130)
== END 2021-01-08 09:39 | disposition home or self-care (01) ==
LOC: HO.LAB 09:38
PROVIDERS: Physician Assistant; PCP Family Medicine; Referring Provider Family Medicine; Visit Provider Surgery
DX: Z01.818 Encounter for other preprocedural examination (principal); K59.09 Other constipation; R74.01 Elevation of levels of liver transaminase levels; E55.9 Vitamin D deficiency, unspecified; E60 Dietary zinc deficiency; E66.01 Morbid (severe) obesity due to excess calories; Z68.41 Body mass index [BMI] 40.0-44.9, adult; Z71.3 Dietary counseling and surveillance
CPT/HCPCS: 36415; 82306; 84443; 84630; 85025; 99212

== ENCOUNTER → 2021-01-11 08:14 | Outpatient (BNVA) | payer OTHER, SELFPAY | PROVIDERS: PCP Family Medicine; Visit Provider Dietitian, Registered | DX: E66.01 Morbid (severe) obesity due to excess calories (principal) | CPT/HCPCS: 97803 ==

== ENCOUNTER → 2021-02-04 11:13 | Outpatient (BNVA) | payer OTHER, SELFPAY | PROVIDERS: PCP Family Medicine; Referring Provider Family Medicine; Visit Provider Physician Assistant Surgical | DX: E66.01 Morbid (severe) obesity due to excess calories (principal); K21.9 Gastro-esophageal reflux disease without esophagitis; Z68.41 Body mass index [BMI] 40.0-44.9, adult | CPT/HCPCS: 99212 ==

== ENCOUNTER → 2021-03-08 08:46 | Outpatient (BNVA) | payer OTHER, SELFPAY | PROVIDERS: PCP Family Medicine; Referring Provider Family Medicine; Visit Provider Physician Assistant Surgical | DX: E66.01 Morbid (severe) obesity due to excess calories (principal); Z68.41 Body mass index [BMI] 40.0-44.9, adult | CPT/HCPCS: 99212 ==

== ENCOUNTER → 2021-04-07 08:04 | Outpatient (BNVA) | payer OTHER, SELFPAY | PROVIDERS: PCP Family Medicine; Visit Provider Physician Assistant Surgical | DX: E66.01 Morbid (severe) obesity due to excess calories (principal); Z68.41 Body mass index [BMI] 40.0-44.9, adult | CPT/HCPCS: Q3014 ==

== ENCOUNTER 2021-04-22 07:51 | Outpatient (REF) | payer OTHER, SELFPAY ==
--- NOTE | ~2021-04-22 | US_ITS ---
EXAMINATION: US COMPLETE ABDOMEN WITH LIVER ELASTOGRAPHY CLINICAL INFORMATION: Bariatric service evaluation. E66.01 COMPARISON: None. TECHNIQUE: Real-time imaging of the abdominal viscera. Noninvasive ultrasound liver fibrosis assessment is performed using [employer] point quantification shear wave elastography (2D-SWE) with a C5-2 MHz transducer. Multiple elastography samples are obtained. FINDINGS: PANCREAS: The visualized pancreas is normal in size and contour and echogenicity. No pancreatic ductal distention. Pancreatic tail obscured by bowel gas and not imaged. ABDOMINAL AORTA: The visualized aorta is normal in caliber. Portions mid abdominal aorta obscured by bowel gas and not imaged. INFERIOR VENA CAVA: Visualized portions are normal. LIVER: The liver is within limits of normal size and smooth in contour. There is increased hepatic parenchymal echogenicity consistent with hepatic steatosis. No focal hepatic parenchymal lesion. No intrahepatic biliary ductal dilatation. The right lobe measures 18.0 cm in length. The left lobe measures 9.6 cm in length. Portal flow is towards the liver (hepatopetal). Shear wave liver elastography median stiffness is 1.73 m/s (reference: normal median stiffness is 1.3 m/s or less). IQR/median stiffness to assess sampling precision is 0.2 (reference: good quality data set is IQR/median stiffness of 0.15 or less). GALLBLADDER: There is a 0.6 cm stone seen in the dependent gallbladder, possibly second smaller calculus present. No gallbladder wall thickening. Negative sonographic Caldera's sign. COMMON BILE DUCT: Mild fullness common duct measuring 0.8-1.0 cm. No visible ductal calculus or sludge. RIGHT KIDNEY: Normal. No hydronephrosis. No renal calculi or focal parenchymal lesions. The kidney measures 11.6 cm in maximum dimension. LEFT KIDNEY: No hydronephrosis. No renal calculi. The kidney measures 10.6 cm in maximum dimension. There is a complicated circumscribed cyst interpolar region measuring 2.3 x 1.9 x 1.9 cm. This has a mildly thickened avascular internal septation measuring just under 4 mm thickness. The lesion is consistent with Bosniak 2F lesion and six-month follow-up imaging is recommended to confirm stability. SPLEEN: Normal. The spleen measures 10.9 cm in maximum dimension. FREE FLUID: None. US/US abdomen comp w elastography IMPRESSION: 1. Hepatic steatosis. No focal parenchymal lesion. 2. Liver elastography: Although measurements are suggestive of compensated advanced chronic liver disease, there is statistical variability of the sampling which decreases accuracy. 3. Complicated cyst interpolar left kidney 2.3 cm with mildly thickened avascular internal septation (Bosniak 2F). Recommend six-month follow-up imaging confirm stability (ultrasound or pre and postcontrast MRI). REFERENCE: Society of Radiologists in Ultrasound Liver Stiffness Thresholds (2020): LIVER STIFFNESS THRESHOLDS: *Liver Stiffness equal or less than 1.3 m/s: High probability of being normal. *Liver Stiffness less than 1.7 m/s: In the absence of other known clinical signs, rules out compensated advanced chronic liver disease. *Liver Stiffness 1.7-2.1 m/s: Suggestive of compensated advanced chronic liver disease but need further test for confirmation. *Liver Stiffness over 2.1 m/s: Rules in compensated advanced chronic liver disease. *Liver Stiffness over 2.4 m/s: Suggestive of clinically significant portal hypertension. QUALITY OF DATA SET: *IQR/Median value equal or less than 0.15 implies a quality data set. *IQR/Median value over 0.15 implies a poor quality data set. SIGNIFICANT CHANGE FROM PRIOR EXAM: Significant change if liver stiffness measurement is 10% or greater from prior exam. OTHER CONSIDERATIONS: The stage of liver fibrosis may be overestimated in the setting of acute hepatitis, liver inflammation, elevated liver function tests, hepatic vascular congestion, obstructive cholestasis, non-fasting state, and infiltrative diseases such as amyloidosis and lymphoma. In some patients with NAFLD, the liver stiffness thresholds for compensated advanced chronic liver disease may be lower. In causes other than viral hepatitis and NAFLD, liver stiffness thresholds are not well established.
--- NOTE | ~2021-04-22 | FL_ITS ---
EXAMINATION: FL FLUOROSCOPY UPPER GI WITH AIR CLINICAL INFORMATION: Morbid to severe obesity due to excess calories. COMPARISON: None TECHNIQUE: Routine upper GI air-contrast study. FINDINGS: Following oral administration of thick barium and effervescent granules, there is normal propagation of the bolus from the oral cavity through the pharynx, esophagus into the stomach without any evidence of obstruction, narrowing or stricture. On placing the patient supine and prone lying, a very small stomach is noted with the gastrojejunal anastomosis being widely patent. Mild gastroesophageal reflux is seen in the right decubitus view. The duodenum appears unremarkable. FLUOROSCOPY TIME: 1.5 minutes DOSE AREA PRODUCT: 28.029 uGy-m2 (microgray-meter squared) FL/FL upper GI w air IMPRESSION: There is a very small stomach visualized post surgery with patent gastrojejunal anastomosis. There is mild gastroesophageal reflux in the right decubitus view. The mucosal pattern is unremarkable. The esophagus is unremarkable.
== END 2021-04-22 07:52 | disposition home or self-care (01) ==
LOC: HO.US 07:51
PROVIDERS: PCP Family Medicine; Visit Provider Physician Assistant Surgical
DX: E66.01 Morbid (severe) obesity due to excess calories (principal); N28.1 Cyst of kidney, acquired; K31.89 Other diseases of stomach and duodenum; E65 Localized adiposity; I10 Essential (primary) hypertension; E78.00 Pure hypercholesterolemia, unspecified; F41.8 Other specified anxiety disorders; Z68.41 Body mass index [BMI] 40.0-44.9, adult; Z88.2 Allergy status to sulfonamides; Z88.8 Allergy status to other drugs, medicaments and biological substances; Z91.040 Latex allergy status; Z79.899 Other long term (current) drug therapy; Z71.3 Dietary counseling and surveillance
CPT/HCPCS: 74246; 76705; 76981; 99212

== ENCOUNTER → 2021-05-17 08:30 | Outpatient (BNVA) | payer OTHER, SELFPAY | PROVIDERS: PCP Family Medicine; Visit Provider Physician Assistant Surgical | DX: E66.01 Morbid (severe) obesity due to excess calories (principal); Z68.41 Body mass index [BMI] 40.0-44.9, adult | CPT/HCPCS: Q3014 ==

== ENCOUNTER → 2021-06-30 08:20 | Outpatient (BNVA) | payer OTHER, SELFPAY | PROVIDERS: PCP Family Medicine; Referring Provider Family Medicine; Visit Provider Physician Assistant Surgical | DX: E66.9 Obesity, unspecified (principal); Z68.38 Body mass index [BMI] 38.0-38.9, adult | CPT/HCPCS: Q3014 ==

== ENCOUNTER → 2021-07-06 08:21 | Outpatient (BNVA) | payer OTHER, SELFPAY | PROVIDERS: PCP Family Medicine; Referring Provider Family Medicine; Visit Provider Physician Assistant | DX: K52.9 Noninfective gastroenteritis and colitis, unspecified (principal); K21.9 Gastro-esophageal reflux disease without esophagitis; K58.9 Irritable bowel syndrome, unspecified; Z98.84 Bariatric surgery status | CPT/HCPCS: 99212 ==

== ENCOUNTER 2021-07-16 08:27 | Outpatient (REF) | payer OTHER, SELFPAY ==
[2021-07-16 08:59] LABS: MANUAL DIFF FLAG NO
[2021-07-16 09:17] LABS: Basophils Absolute Auto 0.1 X10*3/uL (0.0-0.2); Basophils Percent Auto 0.8 % (0-2); Eosinophils Absolute Auto 0.2 X10*3/uL (0.0-0.4); Eosinophils Percent Auto 2.5 % (0-4); Hematocrit 41.2 % (37.0-47.0); Hemoglobin 13.4 g/dl (12.0-16.0); Imm Gran Abs Auto 0.02 X10*3/uL (0.00-0.03); Imm Gran Pct Auto 0.3 % (0.0-0.4); Lymphocytes Absolute Auto 1.8 X10*3/uL (1.2-4.9); Lymphocytes Percent Auto 29.8 % (20-40); Mean Corpuscular HGB Conc 32.5 g/dl (31.0-35.0); Mean Corpuscular Hemoglobin 29.9 pg (27.0-33.0); Mean Platelet Volume 10.1 fL (9.4-12.3); Monocytes Absolute Auto 0.3 X10*3/uL (0.1-1.2); Monocytes Percent Auto 4.7 % (2-11); Neutrophils Absolute Auto 3.6 x10*3/uL (2.0-8.3); Neutrophils Percent Auto 61.9 % (45-73); Platelet Count 292 X10*3/uL (160-400); Red Blood Count 4.48 X10*6/uL (4.20-5.50); Red Cell Distribution Width 13.1 % (11.0-16.0); White Blood Count 5.9 X10*3/uL (4.8-10.8)
[2021-07-16 09:52] LABS: Alanine Aminotransferase 15 U/L (0-31); Alkaline Phosphatase 64 U/L (39-117); Anion Gap 11 (12-20); Aspartate Amino Transferase 14 U/L (5-31); Bilirubin Total 0.2 mg/dL (0.0-1.0); Blood Urea Nitrogen 12 mg/dL (9-16); Calcium 9.6 mg/dL (8.4-10.2); Carbon Dioxide 28 mmol/L (22-29); Chloride 104 mmol/L (96-108); Estimated Glomerular Filt Rate 58; Gamma Glutamyl Transpeptidase 23 U/L (7-33); Glucose Random 110 mg/dL (60-115); Potassium 4.8 mmol/L (3.3-5.1); Sodium 138 mmol/L (135-145); Total Protein 6.3 g/dL (6.5-8.0)
[2021-07-16 10:02] LABS: Thyroid Stimulating Hormone 1.91 uIU/mL (0.32-4.0)
[2021-07-16 10:08] LABS: Erythrocyte Sedimentation Rate 6 MM/HR (0-20)
[2021-07-19 13:52] LABS: Transglutaminase IgA <1.0 U/mL
[2021-07-21 15:21] LABS: Endomysial IgA Antibody Negative (Negative)
== END 2021-07-16 08:28 | disposition home or self-care (01) ==
LOC: HO.LAB 08:27
PROVIDERS: PCP Family Medicine; Visit Provider Physician Assistant
DX: K21.9 Gastro-esophageal reflux disease without esophagitis (principal); K58.9 Irritable bowel syndrome, unspecified; K52.9 Noninfective gastroenteritis and colitis, unspecified; K59.09 Other constipation
CPT/HCPCS: 36415; 80053; 82977; 84443; 85025; 85652; 86231; 86364

== ENCOUNTER 2021-07-22 09:10 | Outpatient (REF) | payer OTHER, SELFPAY ==
[2021-07-28 23:51] LABS: Calprotectin, Fecal 155 mcg/g
== END 2021-07-22 09:11 | disposition home or self-care (01) ==
LOC: HO.LNP 09:10
PROVIDERS: Visit Provider Physician Assistant
DX: R19.7 Diarrhea, unspecified (principal)
CPT/HCPCS: 83993; 87329

== ENCOUNTER → 2021-08-03 08:44 | Outpatient (BNVA) | payer OTHER, SELFPAY | PROVIDERS: PCP Family Medicine; Referring Provider Family Medicine; Visit Provider Physician Assistant | DX: Z13.89 Encounter for screening for other disorder (principal) | CPT/HCPCS: Q3014 ==

== ENCOUNTER → 2021-08-05 08:12 | Outpatient (BNVA) | payer OTHER, SELFPAY | PROVIDERS: PCP Family Medicine; Referring Provider Surgery; Visit Provider Physician Assistant Surgical | DX: E66.01 Morbid (severe) obesity due to excess calories (principal); Z68.41 Body mass index [BMI] 40.0-44.9, adult | CPT/HCPCS: Q3014 ==

== ENCOUNTER → 2021-09-28 09:22 | Outpatient (BNVA) | payer OTHER, SELFPAY | PROVIDERS: PCP Family Medicine; Visit Provider Physician Assistant | DX: K58.9 Irritable bowel syndrome, unspecified (principal) | CPT/HCPCS: Q3014 ==

== ENCOUNTER → 2021-10-05 08:58 | Outpatient (BNVA) | payer OTHER, SELFPAY | PROVIDERS: PCP Family Medicine; Visit Provider Physician Assistant Surgical | DX: E66.9 Obesity, unspecified (principal); R53.83 Other fatigue; Z68.38 Body mass index [BMI] 38.0-38.9, adult | CPT/HCPCS: Q3014 ==

== ENCOUNTER 2021-10-11 14:36 | Outpatient (REF) | payer OTHER, SELFPAY ==
--- NOTE | ~2021-10-11 | US_ITS ---
EXAMINATION: US RETROPERITONEAL LIMITED (RENAL ONLY) CLINICAL INFORMATION: Cyst of kidney, acquired. COMPARISON: US abdomen complete with liver elastography 04/22/2021. TECHNIQUE: Real-time imaging of the kidneys. FINDINGS: RIGHT KIDNEY: 10.7 x 5.1 x 6.7 cm (SAG x AP x TRV). The kidney is normal in size, contour, and echogenicity. Renal cortical thickness is normal. No calculi or focal parenchymal lesions. No hydronephrosis. LEFT KIDNEY: 10.5 x 5.4 x 5.5 cm (SAG x AP x TRV). The kidney is normal in size, contour, and echogenicity. Renal cortical thickness is normal. No calculi or focal parenchymal lesions. No hydronephrosis. The previously noted left renal complex cyst is not identified on today's study. US/US renal BI IMPRESSION: No renal abnormality appreciated. Previously noted complex left renal cyst is not identified on today's study..
[2021-10-11 16:27] LABS: MANUAL DIFF FLAG NO
[2021-10-11 16:33] LABS: Basophils Percent Auto 0.5 % (0-2); Eosinophils Absolute Auto 0.2 X10*3/uL (0.0-0.4); Eosinophils Percent Auto 2.8 % (0-4); Hematocrit 39.3 % (37.0-47.0); Imm Gran Abs Auto 0.04 X10*3/uL (0.00-0.03); Imm Gran Pct Auto 0.5 % (0.0-0.4); Lymphocytes Absolute Auto 2.3 X10*3/uL (1.2-4.9); Lymphocytes Percent Auto 26.5 % (20-40); Mean Corpuscular HGB Conc 33.1 g/dl (31.0-35.0); Mean Corpuscular Hemoglobin 30.7 pg (27.0-33.0); Mean Corpuscular Volume 92.9 fL (80.0-98.0); Mean Platelet Volume 10.1 fL (9.4-12.3); Monocytes Absolute Auto 0.6 X10*3/uL (0.1-1.2); Monocytes Percent Auto 6.5 % (2-11); Neutrophils Absolute Auto 5.4 x10*3/uL (2.0-8.3); Neutrophils Percent Auto 63.2 % (45-73); Platelet Count 265 X10*3/uL (160-400); Red Blood Count 4.23 X10*6/uL (4.20-5.50); Red Cell Distribution Width 12.8 % (11.0-16.0); White Blood Count 8.6 X10*3/uL (4.8-10.8)
[2021-10-11 16:58] LABS: Iron 165 mcg/dL (30-160); Percent Iron Saturation 54 % (15-50); Total Iron Binding Capacity 307 mcg/dL (228-428); Unsaturated Iron Binding 142 ug/dL
[2021-10-11 17:19] LABS: Vitamin D 25-OH Total 24.5 ng/mL (>30)
[2021-10-11 17:24] LABS: Vitamin B12 872 pg/mL (200-900)
[2021-10-16 05:57] LABS: Vitamin B1 16 nmol/L (8-30)
[2021-10-16 16:51] LABS: Vitamin A 48 mcg/dL (38-98)
== END 2021-10-11 14:37 | disposition home or self-care (01) ==
LOC: HO.HMGCX 14:36
PROVIDERS: PCP Family Medicine; Visit Provider Physician Assistant Surgical
DX: R53.83 Other fatigue (principal); E66.9 Obesity, unspecified
CPT/HCPCS: 36415; 76775; 82306; 82607; 82746; 83540; 84425; 84590; 85025

== ENCOUNTER 2021-10-15 12:28 | Outpatient (REF) | payer OTHER, SELFPAY ==
[2021-10-22 01:07] LABS: Calprotectin, Fecal 181 mcg/g
== END 2021-10-15 12:29 | disposition home or self-care (01) ==
LOC: HO.LNP 12:28
PROVIDERS: Visit Provider Physician Assistant
DX: R19.7 Diarrhea, unspecified (principal)
CPT/HCPCS: 83993

== ENCOUNTER → 2021-11-03 10:26 | Outpatient (BNVA) | payer OTHER, SELFPAY | PROVIDERS: PCP Family Medicine; Visit Provider Physician Assistant | DX: K52.9 Noninfective gastroenteritis and colitis, unspecified (principal); R19.5 Other fecal abnormalities; F41.9 Anxiety disorder, unspecified | CPT/HCPCS: Q3014 ==

== ENCOUNTER 2021-12-06 13:55 | Outpatient (REF) | payer OTHER, SELFPAY ==
--- NOTE | ~2021-12-06 | CT_ITS ---
EXAMINATION: CT ENTEROGRAPHY ABDOMEN AND PELVIS WITH CONTRAST CLINICAL INFORMATION: Noninfective gastroenteritis and colitis COMPARISON: Abdominal ultrasound April 2021 and renal ultrasound September 2021 TECHNIQUE: Study performed with oral VoLumen (1350 mL) and 480 mL of water to distend the abdomen. The patient was injected with 85 mL Omnipaque 350 intravenous contrast which was administered without adverse effect. Coronal and sagittal reformatted images were obtained at the technologist's workstation. This CT examination was performed using dose optimization techniques as appropriate, variously including the following: *Automated exposure control *Adjustment of mA and/or kV according to patient size (this includes techniques or standardized protocols for targeted exams where dose is matched to indication/reason for exam; i.e. extremities or head) *Use of iterative reconstruction technique DLP: 337 mGy-cm FINDINGS: GASTROINTESTINAL FINDINGS: Stomach: There are postsurgical changes from gastric bypass. The stomach is otherwise unremarkable. Small intestine: Satisfactorily distended. There are postsurgical changes from gastric bypass with surgical staple lines in the left upper quadrant. Small bowel is otherwise normal. Large intestine: Well-distended and normal in appearance. No perirectal changes demonstrated. The appendix is normal. Additional findings: No abnormal enhancement of the vasa recta or significant mesenteric or retroperitoneal lymphadenopathy is seen. No abdominal abscess or fistulous tract demonstrated. ABDOMINAL AND PELVIC CT FINDINGS: Liver, gallbladder, biliary tract: Normal Pancreas: Normal Spleen: Normal Adrenal glands and kidneys: The adrenal glands are normal. There is a small 2 mm stone in the upper pole of the right kidney. The kidneys are otherwise normal. Ureters and bladder: Normal Lymphovascular structures: Normal Bones: Degenerative changes of the lower lumbar spine. Lung bases: Normal Small umbilical hernia containing fat. CT/CT enterography IMPRESSION: Postsurgical change from gastric bypass. Small nonobstructing right renal stone. Otherwise unremarkable exam. No evidence of enteritis or colitis.
[2021-12-06] MEDS: Sorbitol/Mannit/Xanth Imaging 500 ML LIQUID 1500 ML PO (15:52)
[2021-12-06] MEDS: iohexoL 350 MG/ML 100 ML INFUS..BTL IV (15:53)
== END 2021-12-06 13:56 | disposition home or self-care (01) ==
LOC: HO.US 13:55
PROVIDERS: PCP Family Medicine; Visit Provider Physician Assistant
DX: K52.9 Noninfective gastroenteritis and colitis, unspecified (principal); R19.5 Other fecal abnormalities
CPT/HCPCS: 74177; Q9967

== ENCOUNTER → 2021-12-14 13:24 | Outpatient (BNVA) | payer OTHER, SELFPAY | PROVIDERS: PCP Family Medicine; Visit Provider Physician Assistant | DX: K52.9 Noninfective gastroenteritis and colitis, unspecified (principal) | CPT/HCPCS: Q3014 ==

== ENCOUNTER 2022-09-08 10:39 | Outpatient (REF) | payer OTHER, SELFPAY ==
--- NOTE | ~2022-09-08 | XR_ITS ---
EXAMINATION: BILATERAL KNEES AND LEFT ANKLE CLINICAL INFORMATION: Pain after injury 2 weeks ago. COMPARISON: None available. TECHNIQUE: 3 views of each knee and 3 views of the left ankle. FINDINGS: Views of the left ankle demonstrate a large amount of edema about the ankle. No acute fracture is identified. The ankle mortise appears intact. Joint spaces are maintained. Plantar and Achilles calcaneal spurs are present. Views of the right knee do not demonstrate any evidence of acute fracture or dislocation. No knee effusion is appreciated. Knee joint spaces are maintained. There is mild spurring at the patellofemoral joint. Views of the left knee do not demonstrate any evidence of acute fracture or dislocation. Joint spaces are maintained. Mild spurring about the patellofemoral joint is present. No knee effusion is seen. XR/XR ankle LT 2V IMPRESSION: 1. No significant bony abnormality of the left ankle or bilateral knees identified. 2. Mild patellofemoral joint degenerative change involving both knees. 3. Calcaneal spurs of the left foot.
--- NOTE | ~2022-09-08 | XR_ITS ---
EXAMINATION: BILATERAL KNEES AND LEFT ANKLE CLINICAL INFORMATION: Pain after injury 2 weeks ago. COMPARISON: None available. TECHNIQUE: 3 views of each knee and 3 views of the left ankle. FINDINGS: Views of the left ankle demonstrate a large amount of edema about the ankle. No acute fracture is identified. The ankle mortise appears intact. Joint spaces are maintained. Plantar and Achilles calcaneal spurs are present. Views of the right knee do not demonstrate any evidence of acute fracture or dislocation. No knee effusion is appreciated. Knee joint spaces are maintained. There is mild spurring at the patellofemoral joint. Views of the left knee do not demonstrate any evidence of acute fracture or dislocation. Joint spaces are maintained. Mild spurring about the patellofemoral joint is present. No knee effusion is seen. XR/XR knee LT 3V IMPRESSION: 1. No significant bony abnormality of the left ankle or bilateral knees identified. 2. Mild patellofemoral joint degenerative change involving both knees. 3. Calcaneal spurs of the left foot.
--- NOTE | ~2022-09-08 | XR_ITS ---
EXAMINATION: BILATERAL KNEES AND LEFT ANKLE CLINICAL INFORMATION: Pain after injury 2 weeks ago. COMPARISON: None available. TECHNIQUE: 3 views of each knee and 3 views of the left ankle. FINDINGS: Views of the left ankle demonstrate a large amount of edema about the ankle. No acute fracture is identified. The ankle mortise appears intact. Joint spaces are maintained. Plantar and Achilles calcaneal spurs are present. Views of the right knee do not demonstrate any evidence of acute fracture or dislocation. No knee effusion is appreciated. Knee joint spaces are maintained. There is mild spurring at the patellofemoral joint. Views of the left knee do not demonstrate any evidence of acute fracture or dislocation. Joint spaces are maintained. Mild spurring about the patellofemoral joint is present. No knee effusion is seen. XR/XR knee RT 3V IMPRESSION: 1. No significant bony abnormality of the left ankle or bilateral knees identified. 2. Mild patellofemoral joint degenerative change involving both knees. 3. Calcaneal spurs of the left foot.
== END 2022-09-08 10:40 | disposition home or self-care (01) ==
LOC: HO.XRAY 10:39
PROVIDERS: PCP Family Medicine; Visit Provider Family Medicine
DX: M25.572 Pain in left ankle and joints of left foot (principal); M25.561 Pain in right knee; M25.562 Pain in left knee
CPT/HCPCS: 73562; 73600

== ENCOUNTER 2023-01-30 10:31 | Outpatient (REF) | payer OTHER, SELFPAY ==
[2023-01-30 14:04] LABS: MANUAL DIFF FLAG NO
[2023-01-30 14:11] LABS: Basophils Absolute Auto 0.1 X10*3/uL (0.0-0.2); Basophils Percent Auto 1.1 % (0-2); Eosinophils Absolute Auto 0.3 X10*3/uL (0.0-0.4); Eosinophils Percent Auto 3.9 % (0-4); Hematocrit 40.6 % (37.0-47.0); Hemoglobin 13.1 g/dl (12.0-16.0); Imm Gran Abs Auto 0.01 X10*3/uL (0.00-0.03); Imm Gran Pct Auto 0.2 % (0.0-0.4); Lymphocytes Absolute Auto 2.1 X10*3/uL (1.2-4.9); Lymphocytes Percent Auto 33.1 % (20-40); Mean Corpuscular HGB Conc 32.3 g/dl (31.0-35.0); Mean Corpuscular Hemoglobin 31.5 pg (27.0-33.0); Mean Corpuscular Volume 97.6 fL (80.0-98.0); Mean Platelet Volume 10.4 fL (9.4-12.3); Monocytes Absolute Auto 0.5 X10*3/uL (0.1-1.2); Monocytes Percent Auto 8.3 % (2-11); Neutrophils Absolute Auto 3.4 x10*3/uL (2.0-8.3); Neutrophils Percent Auto 53.4 % (45-73); Platelet Count 292 X10*3/uL (160-400); Red Blood Count 4.16 X10*6/uL (4.20-5.50); Red Cell Distribution Width 14.4 % (11.0-16.0); White Blood Count 6.4 X10*3/uL (4.8-10.8)
[2023-01-30 15:11] LABS: TSH reflex Free T4 2.89 uIU/mL (0.32-4.0)
[2023-01-30 16:13] LABS: Alanine Aminotransferase 29 U/L (0-31); Albumin Level 4.1 g/dL (3.5-5.0); Alkaline Phosphatase 119 U/L (39-117); Anion Gap 18 (12-20); Aspartate Amino Transferase 30 U/L (5-31); Bilirubin Total 0.3 mg/dL (0.0-1.0); Blood Urea Nitrogen 16 mg/dL (9-16); Calcium 9.3 mg/dL (8.4-10.2); Carbon Dioxide 22 mmol/L (22-29); Chloride 103 mmol/L (96-108); Estimated Glomerular Filt Rate > 60; Glucose Fasting 58 mg/dL (60-99); Potassium 3.8 mmol/L (3.3-5.1); Sodium 139 mmol/L (135-145); Total Protein 6.8 g/dL (6.5-8.0)
[2023-02-03 01:34] LABS: VITAMIN D (1,25 OH) D3 62 pg/mL; Vit D (1,25-Dihydroxy) Total 62 pg/mL (18-72); Vitamin D (1,25 OH) D2 <8 pg/mL
== END 2023-01-30 10:32 | disposition home or self-care (01) ==
LOC: HO.CHCLDS 10:31
PROVIDERS: Visit Provider Family Medicine
DX: R53.83 Other fatigue (principal)
CPT/HCPCS: 36415; 80053; 82652; 84443; 85025

== ENCOUNTER 2023-06-16 09:06 | Outpatient (REF) | payer OTHER, SELFPAY ==
[2023-06-16 14:20] LABS: MANUAL DIFF FLAG NO
[2023-06-16 14:23] LABS: Basophils Absolute Auto 0.1 X10*3/uL (0.0-0.2); Basophils Percent Auto 0.8 % (0-2); Eosinophils Absolute Auto 0.1 X10*3/uL (0.0-0.4); Eosinophils Percent Auto 1.4 % (0-4); Hematocrit 41.2 % (37.0-47.0); Hemoglobin 13.4 g/dl (12.0-16.0); Imm Gran Abs Auto 0.02 X10*3/uL (0.00-0.03); Imm Gran Pct Auto 0.3 % (0.0-0.4); Lymphocytes Absolute Auto 2.3 X10*3/uL (1.2-4.9); Lymphocytes Percent Auto 35.9 % (20-40); Mean Corpuscular HGB Conc 32.5 g/dl (31.0-35.0); Mean Corpuscular Hemoglobin 31.2 pg (27.0-33.0); Mean Corpuscular Volume 95.8 fL (80.0-98.0); Mean Platelet Volume 10.1 fL (9.4-12.3); Monocytes Absolute Auto 0.4 X10*3/uL (0.1-1.2); Monocytes Percent Auto 6.2 % (2-11); Neutrophils Absolute Auto 3.5 x10*3/uL (2.0-8.3); Neutrophils Percent Auto 55.4 % (45-73); Platelet Count 402 X10*3/uL (160-400); Red Cell Distribution Width 14.9 % (11.0-16.0); White Blood Count 6.3 X10*3/uL (4.8-10.8)
[2023-06-16 15:01] LABS: Alanine Aminotransferase 11 U/L (0-31); Albumin Level 3.8 g/dL (3.5-5.0); Alkaline Phosphatase 77 U/L (39-117); Anion Gap 13 (12-20); Aspartate Amino Transferase 14 U/L (5-31); Bilirubin Total 0.3 mg/dL (0.0-1.0); Blood Urea Nitrogen 20 mg/dL (9-16); Calcium 8.9 mg/dL (8.4-10.2); Carbon Dioxide 25 mmol/L (22-29); Chloride 107 mmol/L (96-108); Cholesterol 224 mg/dL (<200); Estimated Glomerular Filt Rate > 60; Glucose Random 71 mg/dL (60-115); HDL Cholesterol 57 mg/dL (>40); LDL Cholesterol Calculated 144 mg/dL (<100); Potassium 3.8 mmol/L (3.3-5.1); Sodium 141 mmol/L (135-145); Total Protein 6.6 g/dL (6.5-8.0); Triglycerides 119 mg/dL (<150)
[2023-06-16 15:18] LABS: TSH reflex Free T4 3.24 uIU/mL (0.32-4.0); Vitamin D 25-OH Total 24.2 ng/mL (>30)
== END 2023-06-16 09:07 | disposition home or self-care (01) ==
LOC: HO.CHCLDS 09:06
PROVIDERS: Visit Provider Family Medicine
DX: E66.01 Morbid (severe) obesity due to excess calories (principal); Z68.41 Body mass index [BMI] 40.0-44.9, adult
CPT/HCPCS: 36415; 80053; 80061; 82306; 84443; 85025

== ENCOUNTER 2023-06-20 09:07 | Emergency (ER) | payer OTHER, SELFPAY ==
[2023-06-20 09:09] VITALS: BP 125/86; PULSE 66; RESP 18; TEMP 36.2; O2SAT 99; BMI 35.9
[2023-06-20 09:20] LABS: MANUAL DIFF FLAG NO
[2023-06-20 09:23] LABS: Basophils Absolute Auto 0.1 X10*3/uL (0.0-0.2); Basophils Percent Auto 1.1 % (0-2); Eosinophils Absolute Auto 0.2 X10*3/uL (0.0-0.4); Eosinophils Percent Auto 2.7 % (0-4); Hematocrit 39.8 % (37.0-47.0); Hemoglobin 13.3 g/dl (12.0-16.0); Imm Gran Abs Auto 0.02 X10*3/uL (0.00-0.03); Imm Gran Pct Auto 0.3 % (0.0-0.4); Lymphocytes Absolute Auto 2.2 X10*3/uL (1.2-4.9); Lymphocytes Percent Auto 30.8 % (20-40); Mean Corpuscular HGB Conc 33.4 g/dl (31.0-35.0); Mean Corpuscular Hemoglobin 31.4 pg (27.0-33.0); Mean Corpuscular Volume 93.9 fL (80.0-98.0); Mean Platelet Volume 9.7 fL (9.4-12.3); Monocytes Absolute Auto 0.5 X10*3/uL (0.1-1.2); Monocytes Percent Auto 7.5 % (2-11); Neutrophils Absolute Auto 4.1 x10*3/uL (2.0-8.3); Neutrophils Percent Auto 57.6 % (45-73); Platelet Count 379 X10*3/uL (160-400); Red Blood Count 4.24 X10*6/uL (4.20-5.50); Red Cell Distribution Width 14.6 % (11.0-16.0); White Blood Count 7.1 X10*3/uL (4.8-10.8)
[2023-06-20 09:39] LABS: Anion Gap 10 (12-20); Blood Urea Nitrogen 22 mg/dL (9-16); Calcium 8.7 mg/dL (8.4-10.2); Carbon Dioxide 26 mmol/L (22-29); Chloride 107 mmol/L (96-108); Creatinine Clr Calc Pharmacy 62.4; Estimated Glomerular Filt Rate 60; Glucose Random 94 mg/dL (60-115); Potassium 4.4 mmol/L (3.3-5.1); Sodium 139 mmol/L (135-145)
--- NOTE | 2023-06-20 11:49 | ED_ITS ---
HPI - Wound/Laceration General Chief Complaint: Wound/Laceration Stated Complaint: Infection [employer] Time Seen by Provider: 06/20/23 11:05 Source: patient Mode of arrival: ambulatory History of Present Illness HPI narrative: 53-year-old female with a umbilical infection and recently completed a course of doxycycline/cephalexin but states that she continues to have mild drainage and also has a history of MRSA which she is concerned for. Her primary care doctor has switch her over to clindamycin and cephalexin and she denies any associated fever, chills. Related Data Home Medications Medication Instructions Recorded Confirmed cholecalciferol (vitamin D3) 25 25 mcg PO DAILY 02/26/20 10/05/21 mcg (1,000 unit) capsule gabapentin 600 mg tablet 600 mg PO BID 02/26/20 10/05/21 metoprolol succinate 50 mg 50 mg PO DAILY 02/26/20 10/05/21 tablet,extended release 24 hr vitamin B complex (B 1 tab PO DAILY 02/26/20 10/05/21 Complex-Vitamin B12 tablet) trazodone 50 mg tablet 50 mg PO BEDTIME PRN Insomnia 05/19/20 10/05/21 citalopram 40 mg tablet (Celexa) 40 mg PO DAILY 08/12/20 10/05/21 Lactobacillus acidophilus 100 mmu cells PO TID 10/27/20 10/05/21 (Acidophilus capsule) multivitamin 1 tab PO DAILY 10/27/20 10/05/21 terbinafine HCl 250 mg tablet 250 mg PO DAILY 10/27/20 10/05/21 bupropion HCl 150 mg tablet,12 hr 150 mg PO DAILY 09/28/21 10/05/21 sustained-release oxycodone 5 mg tablet 5 mg PO Q12H PRN 09/28/21 10/05/21 Previous Rx's Medication Instructions Recorded pantoprazole 20 mg tablet,delayed 20 mg PO QAM #30 tabs 08/27/20 release ondansetron HCl 4 mg tablet 4 mg PO Q8-12H PRN nausea and 08/03/21 vomiting #20 tabs loperamide 2 mg capsule 4 mg (2 x 2 mg) PO QID #120 caps 01/03/22 Allergies Allergy/AdvReac Type Severity Reaction Status Date / Time latex Allergy Severe Rash Verified 12/14/21 13:25 lisinopril Allergy Severe anaphylaxis Verified 12/14/21 13:25 sulfamethoxazole Allergy Intermediate rash Verified 12/14/21 13:25 [From Bactrim] trimethoprim [From Bactrim] Allergy Intermediate rash Verified 12/14/21 13:25 NSAIDS (Non-Steroidal Allergy Mild Diarrhea Verified 12/14/21 13:25 Anti-Inflamma Review of Systems 2 Review of Systems: Pertinent positives and negatives as stated in HPI [facility] Past Medical History Source: nursing notes reviewed Medical History Chronic diarrhea BMI 45.0-49.9, adult Insomnia Anxiety Hypercholesterolemia PCOS (polycystic ovarian syndrome) HTN (hypertension) COVID-19 vaccine administered Hx MRSA infection Arthritis Anemia Hx of renal calculi History of anxiety Depression Myocardial infarction Acid reflux PTSD (post-traumatic stress disorder) IBS (irritable bowel syndrome) Surgical History Hx of endoscopy Hx of colonoscopy Hx of section S/P panniculectomy Hx of cardiac catheterization Gastric bypass status for obesity Family History Family History Father No problems noted. Mother No problems noted. Sister No problems noted. Brother MYLK2-related hypertropic cardiomyopathy Daughter Cystic fibrosis Daughter No problems noted. Social History Social History Household Members: None Household Members Other:: Daughter has a cystic fibrosis Are you a primary respiratory care faculty to a significant other at home: No Do you presently have visiting nurse or other home services: No Alcohol intake: former Year quit: 5 Patient Tobacco Use Status: Never used Tobacco Advance Directives: No Current occupational status: unemployed Physical Exam 2 Vital Signs: Vital Signs: Last Vital Signs Temp 97.2 F 06/20/23 09:09 Pulse 66 06/20/23 09:09 Resp 18 06/20/23 09:09 BP 125/86 06/20/23 09:09 Pulse Ox 99 06/20/23 09:09 O2 Del Method Room Air 06/20/23 09:09 BMI result Body Mass Index 35.9 VITAL SIGNS: Reviewed. GENERAL: Well developed, well nourished, in no acute distress. HEAD: Normocephalic/atraumatic EYES: PERRLA, EOMI LUNGS: Normal breath sounds. No adventitious sounds or accessory muscle use. SpO2<99> CARDIOVASCULAR: Regular rate and rhythm without noted murmurs ABDOMEN: Soft, non-tender, non-distended with bowel sounds. Superficial irritation is attributed to tape allergy according to patient, umbilicus looks to be within normal limits but there is noted drainage within the deeper recesses. MUSCULOSKELETAL: No tenderness, deformities, or effusions noted on gross inspection. EXTREMITIES: No cyanosis, clubbing or edema. SKIN: Inspection of the skin reveals no rashes NEUROLOGIC: Alert and oriented x 4. Strength and sensation to light touch were grossly intact x 4. Medical Decision Making Medical Decision Making [facility] Narrative: 53-year-old female who will be asked to continue with her antibiotics, she will be provided with a referral to follow-up with infectious disease doctor Dr. Glez, and we will obtain a MRSA culture that her primary care doctor and the infectious disease doctor can follow-up on. I reviewed all investigations and hematologic indices are grossly within normal limits without any noted derangements. Patient is afebrile. Chemistry indices negative for IVANA or electrolyte derangements. Differential Diagnosis Differential Diagnoses: The differential diagnosis associated with the presentation includes Please see the discussion above Admission/Observation Consideration of admission/observation: Escalation of care including admission/observation considered Please see the discussion above Lab Data [facility] Lab Attestation statement: I reviewed the patient's lab results. Please see the discussion above 06/20/23 09:17 06/20/23 09:17 Labs: Lab Results 06/20/23 Range/Units 09:17 WBC 7.1 (4.8-10.8) X10*3/uL RBC 4.24 (4.20-5.50) X10*6/uL Hgb 13.3 (12.0-16.0) g/dl Hct 39.8 (37.0-47.0) % MCV 93.9 (80.0-98.0) fL MCH 31.4 (27.0-33.0) pg MCHC 33.4 (31.0-35.0) g/dl RDW 14.6 (11.0-16.0) % Plt Count 379 (160-400) X10*3/uL MPV 9.7 (9.4-12.3) fL Immature Gran % (Auto) 0.3 (0.0-0.4) % Neut % (Auto) 57.6 (45-73) % Lymph % (Auto) 30.8 (20-40) % [place] % (Auto) 7.5 (2-11) % Eos % (Auto) 2.7 (0-4) % Baso % (Auto) 1.1 (0-2) % Lymph # (Auto) 2.2 (1.2-4.9) X10*3/uL [place] # (Auto) 0.5 (0.1-1.2) X10*3/uL Eos # (Auto) 0.2 (0.0-0.4) X10*3/uL Baso # (Auto) 0.1 (0.0-0.2) X10*3/uL Abs Immat Gran (auto) 0.02 (0.00-0.03) X10*3/uL Absolute Neuts (auto) 4.1 (2.0-8.3) x10*3/uL Absolute Nucleated RBC 0.000 (0.0-0.012) X10*3/uL Nucleated RBC % (auto) 0.0 (0.0-0.2) /100WBC Sodium 139 (135-145) mmol/L Potassium 4.4 (3.3-5.1) mmol/L Chloride 107 (96-108) mmol/L Carbon Dioxide 26 (22-29) mmol/L Anion Gap 10 L (12-20) BUN 22 H (9-16) mg/dL Creatinine 0.98 (0.5-1.4) mg/dL Estim Creat Clear Calc 62.4 Estimated GFR 60 Random Glucose 94 (60-115) mg/dL Calcium 8.7 (8.4-10.2) mg/dL External Record Review External record reviewed: Outpatient record and Prior outpatient labs Critical Care Time Critical Care Time Critical Care Time: Yes Total Critical Care Time: 30 Attestation: I personally attest to this time spent taking care of the patient. Discharge Plan Discharge Clinical Impression: Cellulitis, umbilical Patient Disposition: Home, Self-Care Instructions: Cellulitis (ED) Additional Instructions: 1. Please continue home medications as prescribed. 2. I have provided you with a referral to Infectious Disease, the referral is located below and you should call the office to set up an appointment for re- evaluation further outpatient management. 3. Please follow-up with your outpatient doctor Return to the ER for any worsening symptoms. Prescriptions: No Action loperamide 2 mg capsule 4 mg PO QID Qty: 120 5RF citalopram [Celexa] 40 mg Tablet 40 mg PO DAILY gabapentin 600 mg tablet 600 mg PO BID metoprolol succinate 50 mg tablet extended release 24 hr 50 mg PO DAILY vitamin B complex [B Complex-Vitamin B12] Tablet 1 tab PO DAILY cholecalciferol (vitamin D3) 25 mcg (1,000 unit) capsule 25 mcg PO DAILY multivitamin Tablet 1 tab PO DAILY terbinafine HCl 250 mg tablet 250 mg PO DAILY Lactobacillus acidophilus [Acidophilus] Capsule 100 mmu cells PO TID trazodone 50 mg tablet 50 mg PO BEDTIME PRN (Reason: Insomnia) pantoprazole 20 mg tablet,delayed release (DR/EC) 20 mg PO QAM Qty: 30 6RF oxycodone 5 mg tablet 5 mg PO Q12H PRN bupropion HCl 150 mg tablet sustained-release 12 hr 150 mg PO DAILY ondansetron HCl 4 mg tablet 4 mg PO Q8-12H PRN (Reason: nausea and vomiting) Qty: 20 0RF Referrals: Usha Glez MD [Physician] - Reina Seth MD [Primary Care Provider] -
[2023-06-20] MEDS: Acetaminophen 325 MG TABLET 975 MG PO (12:06)
[2023-06-20 12:11] VITALS: BP 116/50; PULSE 66; RESP 18; TEMP 36.4; O2SAT 100
== END 2023-06-20 12:31 | disposition home or self-care (01) ==
PROVIDERS: Emergency Provider Student in an Organized Health Care Education/Training Program; PCP Family Medicine
DX: L03.316 Cellulitis of umbilicus (principal); Z79.899 Other long term (current) drug therapy
CPT/HCPCS: 36415; 80048; 85025; 87081; 99283

== ENCOUNTER 2023-07-18 10:52 | Outpatient (REF) | payer OTHER, SELFPAY | END 2023-07-18 10:53 | disposition home or self-care (01) | LOC: HO.CHCLNP 10:52 | PROVIDERS: Visit Provider Internal Medicine | DX: B37.9 Candidiasis, unspecified (principal) | CPT/HCPCS: 87070; 87147; 87205 ==

== ENCOUNTER 2023-10-05 10:23 | Outpatient (REF) | payer MEDICARE, MEDICAID, SELFPAY ==
--- NOTE | ~2023-10-05 | US_ITS ---
EXAMINATION: US ABDOMEN LIMITED CLINICAL INFORMATION: Swelling and drainage from man-made umbilicus. Per sheeting puller patient states she had a gastric bypass in 2007 and had a man-made umbilicus which started draining 5 months ago. Drainage resolved 2 months ago after course of antibiotics. COMPARISON: CT enterography abdomen and pelvis with contrast 12/06/2021. Renal ultrasound 10/11/2021. Ultrasound abdomen complete with liver elastography 04/22/2021. TECHNIQUE: Real-time imaging of the periumbilical area. FINDINGS: Targeted ultrasound images were obtained by the sheeting puller of the area of concern as indicated by the patient. The periumbilical region demonstrates no discrete hernia, mass or fluid collection. Limited visualization due to bowel gas. Radiologist was not in attendance. Images were later provided for interpretation. US/US abdomen limited IMPRESSION: No discrete hernia, mass or fluid collection identified in the area of concern as indicated by the patient in the superficial soft tissues in the periumbilical region. Limited visualization due to bowel gas. CT scan could be considered for further evaluation.
== END 2023-10-05 10:24 | disposition home or self-care (01) ==
LOC: HO.US 10:23
PROVIDERS: PCP Family Medicine; Visit Provider Family Medicine
DX: B99.9 Unspecified infectious disease (principal); P83.81 Umbilical granuloma
CPT/HCPCS: 76705

== ENCOUNTER 2024-07-17 11:59 | Outpatient (REF) | payer OTHER, SELFPAY ==
[2024-07-17 14:12] LABS: MANUAL DIFF FLAG NO
[2024-07-17 14:23] LABS: Basophils Absolute Auto 0.1 X10*3/uL (0.0-0.2); Basophils Percent Auto 0.7 % (0-2); Eosinophils Absolute Auto 0.3 X10*3/uL (0.0-0.4); Eosinophils Percent Auto 4.9 % (0-4); Hematocrit 35.1 % (37.0-47.0); Hemoglobin 11.5 g/dl (12.0-16.0); Imm Gran Abs Auto 0.02 X10*3/uL (0.00-0.03); Imm Gran Pct Auto 0.3 % (0.0-0.4); Lymphocytes Absolute Auto 2.6 X10*3/uL (1.2-4.9); Lymphocytes Percent Auto 38.7 % (20-40); Mean Corpuscular HGB Conc 32.8 g/dl (31.0-35.0); Mean Corpuscular Hemoglobin 31.2 pg (27.0-33.0); Mean Corpuscular Volume 95.1 fL (80.0-98.0); Mean Platelet Volume 10.4 fL (9.4-12.3); Monocytes Absolute Auto 0.5 X10*3/uL (0.1-1.2); Monocytes Percent Auto 7.2 % (2-11); Neutrophils Absolute Auto 3.2 x10*3/uL (2.0-8.3); Neutrophils Percent Auto 48.2 % (45-73); Platelet Count 278 X10*3/uL (160-400); Red Blood Count 3.69 X10*6/uL (4.20-5.50); Red Cell Distribution Width 13.6 % (11.0-16.0); White Blood Count 6.7 X10*3/uL (4.8-10.8)
--- OUTSIDE RECORDS SUMMARY | 2024-07-17 14:32 | XMS_ITS | Encounter Summary ---
Author Organization [employer] Address [address] [place] [address] Care Team Providers Care Ore Mixer Name Role Phone Reina Seth MD Primary Care Provider [phone] Taylor Oh MD Unavailable Encounter Details Date Type Department Care Team ([facility] st Contact Info) Description 07/27/2022 Telephone [facility] MED[facility]INE [address] [place] [address] Reina Seth MD [address] [place], [place] [id number] Social History Tobacco Use Types Packs/Day Years Used Date Smoking Tobacco: Never Smokeless Tobacco: Never Alcohol Use Standard Drinks/Week Comments Not Currently 0 (1 standard drink = 0.6 oz pur e alcohol) Depression Answer Date Recorded Patient Health Questionnaire-9 Score 6 07/27/2022 Depression Answer Date Recorded Patient Health Questionnaire-2 Score 0 07/27/2022 Comments No Sex and Gender Information Value Date Recorded Sex Assigned at Female 02/14/2022 10:35 AM EDT Legal Sex Female 10:35 AM EDT Gender Identity Female 02/14/2022 10:35 AM EDT Sexual Orientation Straight 02/14/2022 10 :35 AM EDT COVID-19 Exposure Response Date Recorded In the last 10 days, have yo u been in contact with someone who was confirmed or suspected to have Coronavirus/COVID-19? No / Unsure 07/25/2022 2:44 PM EDT documented as of this encounter Plan of Treatment Not on file documented as of this encounter Visit Diagnoses Not on filedocumented in this encounter Additional Health Concerns Assessment Noted Time PHQ-9 Depression Total Score: 6 07/28/19 23 8:47 AM EDT documented as of this encounter Care Teams Ore Mixer Relationship Specialty Start Date End Date Reina Seth MD [address] [place] [phone] PCP - General Family Medicine 06/17/20 Taylor Oh MD [address] [place] [address] Referring Physician Internal Medicine 07/25/22 documented as of this encounter
--- OUTSIDE RECORDS SUMMARY | 2024-07-17 14:32 | XMS_ITS | Encounter Summary ---
Author Organization [email or web address] Address [address] [place] [address] Care Team Providers Care Supervisor Payroll Name Role Phone Reina Seth MD Primary Care Provider [phone] Taylor Oh MD Unavailable Reason for Visit * Reason Comments Med Refill Encounter Details Date Type Department Care Team ([facility] Contact Info) Description 07/08/2022 Refill [facility] [address] [place] [address] Reina Seth MD [address] [place] [id number] Social History Tobacco Use Types Packs/Day Years Used Date Smoking Tobacco: Never Smokeless Tobacco: Never Alcohol Use Standard Drinks/Week Comments Not Currently 0 (1 standard drink = 0.6 oz pur e alcohol) Comments No Sex and Gender Information Value [...] suspected to have Coronavirus/COVID-19? No / Unsure 06/22/2022 12:50 PM EST documented as of this encounter Plan of Treatment Not on file documented as of this encounter Visit Diagnoses Not on filedocumented in this encounter Care Teams Supervisor Payroll Relationship Specialty Start Date End Date Reina Seth MD [address] [place] [phone] PCP - General Family Medicine 06/17/20 Taylor Oh MD [address] [place] [address] Referring Physician Internal Medicine 07/25/22 documented as of this encounter
--- OUTSIDE RECORDS SUMMARY | 2024-07-17 14:32 | XMS_ITS | Encounter Summary ---
Author Organization [employer] Address [address] [place] [address] Care Team Providers Care Confectionery Cooker Name Role Phone Reina Seth MD Primary Care Provider [phone] Taylor Oh MD Unavailable Reason for Visit * Reason Comments Med Refill Encounter Details Date Type Department Care Team ([facility] Contact Info) Description 10/31/2022 Refill [facility] MED & PEDS [address] [place] [address] Reina Seth MD [address] [place] [address] Social History Tobacco Use Types Packs/Day Years [...] Orientation Straight 02/14/2022 10 :35 AM EDT documented as of this encounter Plan of Treatment Not on file documented as of this encounter Visit Diagnoses Not on filedocumented in this encounter Additional Health Concerns Assessment Noted Time PHQ-9 Depression Total Score: 6 07/28/19 23 8:47 AM EDT documented as of this encounter Care Teams Confectionery Cooker Relationship Specialty Start Date End Date Reina Seth MD [address] [place] [phone] PCP - General Family Medicine 06/17/20 Taylor Oh MD [address] [place] [phone] Referring Physician Internal Medicine 07/25/22 documented as of this encounter
--- OUTSIDE RECORDS SUMMARY | 2024-07-17 14:32 | XMS_ITS | Encounter Summary ---
Author Organization [employer] Address [address] [place] [address] Care Team Providers Care Geophysical Prospector Name Role Phone Reina Seth MD Primary Care Provider [phone] Taylor Oh MD Unavailable Reason for Visit * Reason Onset Date Comments Appointment Request 06/22/2022 Encounter Details Date Type Department Care Team ([facility] Contact Info) Description 06/22/2022 Telephone [facility] MED[facility]INE [address] [place] [address] Reina Seth MD [address] [place], [place] [phone] Appointment Request Social History Tobacco Use Types Packs/Day Years [...] PM EST documented as of this encounter Miscellaneous Notes * Telephone Encounter - Marc Tsai Shannon - 06/22/2022 11:19 AM EST Tc from pt requesting to r/s appt for 06/09/2022 for Shingrix Dose 2. Pt would like to schedule appt in this Monday06/24/2022 Please contact pt at [phone] documented in this encounter Plan of Treatment Not on file documented as of this encounter Visit Diagnoses Not on filedocumented in this encounter Care Teams Geophysical Prospector Relationship Specialty Start Date End Date Reina Seth MD [address] [place] [phone] PCP - General Family Medicine 06/17/20 Taylor Oh MD [address] [place] [address] Referring Physician Internal Medicine 07/25/22 documented as of this encounter
--- OUTSIDE RECORDS SUMMARY | 2024-07-17 14:32 | XMS_ITS | Encounter Summary ---
Author Organization [employer] Address [address] [place] [address] Care Team Providers Care Hardwood Sawyer Name Role Phone Reina Seth MD Primary Care Provider [phone] Taylor Oh MD Unavailable Reason for Visit * Reason Comments Med Refill Encounter Details Date Type Department Care Team ([facility] Contact Info) Description 09/23/2022 Refill [facility] MED & PEDS [address] [place] [address] Reina Seth MD [address] [place] [address] Neck pain, musculoskeletal Social History Tobacco Use Types Packs/Day Years [...] suspected to have Coronavirus/COVID-19? No / Unsure 09/06/2022 3:15 PM EDT documented as of this encounter Plan of Treatment Not on file documented as of this encounter Visit Diagnoses Diagnosis Neck pain, musculoskeletal documented in this encounter Additional Health Concerns Assessment Noted Time PHQ-9 Depression Total Score: 6 07/28/19 23 8:47 AM EDT documented as of this encounter Care Teams Hardwood Sawyer Relationship Specialty Start Date End Date Reina Seth MD [address] [place] [id number] PCP - General Family Medicine 06/17/20 Taylor Oh MD [address] [place] [address] Referring Physician Internal Medicine 07/25/22 documented as of this encounter
--- OUTSIDE RECORDS SUMMARY | 2024-07-17 14:32 | XMS_ITS | Data Portability ---
Author Organization [facility], [place] Address [address], [place] Assessment Encounter Date Assessment Date Assessment LastModified by Organization Details LastModified Time 09/18/2015 09/18/2015 Multiple medical problems were evaluated and discuss during this visit. Medication's list, possible drug interactions and side effect were discussed. Dietary management addressed as well. Importance of healthy life style was emphasized. Plan:( see Diagnosis and plan section) jtrister Not available 09/19/2015 21:01:10 Plan of Treatment Reminders Order Date Submit Date Provider Last Modified By Organization Details Last Modified Time Details Appointments None recorded. Lab vitamin B12 + folate, serum or blood 2015 016 KANWAL [facility], [address] [place] [address], [address], 6 08:36:41 vitamin D, 1,25-dihyd yordy, serum 2015 016 KANWAL [facility], [address] [place] [address], [address], 6 08:36:40 vitamin D, 25-hydroxy , total, serum 2015 016 KANWAL [facility], [address] [place] [address], [address], 6 05:02:05 TIBC (total iron-pancho ng capacity), serum 2015 016 KANWAL [facility], [address] [place] [address], [address], 6 08:36:40 microalbum in/creatin ine, mass ratio, urine 2015 016 [facility], [address] [place] [address], [address], 6 08:36:40 gamma-glut amyl transferas e (ggt), serum 2015 016 [facility], [address] [place] [address], [address], 6 08:36:41 urinalysis complete, reflex culture 2015 016 [facility], [address] [place] [address], [address], 6 08:36:39 BMP, serum or plasma 2015 016 [facility], [address] [place] [address], [address], 6 08:36:39 CBC 2015 016 [facility], [address] [place] [address], [address], 6 08:36:39 HbA1c (hemoglobi n A1c), blood 2015 016 [facility], [address] [place] [address], [address], 6 08:36:41 Referral None recorded. Procedures None recorded. Surgeries None recorded. Imaging XR, foot, 2 view - left, history or broken toes last two, pain [address] ([facility]), [address] [place] [address], [address], 6 07:54:25 Medication Orders Augmentin 875 mg-125 mg tablet 2015 016 [facility], [address] [place] [address], [address], 6 14:06:55 lidocaine 5 % topical patch 2015 016 [facility] [address] [place] [address], [address], 6 12:05:08 triamcinol one acetonide 0.1 % topical cream 2015 016 [facility], [address] [place] [address], [address], 6 12:05:08 permethrin 1 % topical liquid 2015 016 [facility], [address] [place] [address], [address], 6 23:26:10 Patient TargetsNo targets recorded. Patient Instructions Encounter Date Encounter Id Patient Instructions Last Modified By Organization Details Last Modified Time 09/18/2015 [id number] learning about mood disorders KANWAL Not available 03/20/2016 05:03:32 Take medications as prescribed.Follow recommended diet.Contact office at [phone] if any problems develop. jtrister Not available 09/18/2015 15:00:58 I, {{Everett Amaya MD* Lesley Amaya DO-Family Physician Lesley Amaya, DO Sports Medicine Physician Fanta Edmondson WIRE TURNING MACHINE OPERATOR with Everett Lopez PA with Everett Amaya MD}} spent {{60 minutes 45 minutes* 30 minutes 20 minutes 15 minutes}} examining the patient , reviewing diagnostic, consultative and imaging findings. I explained to patient the nature of the problems and other possible treatments: {{pharmacological and dietary management* in the form of osteopathic manipulation intra - and janes-articular injections ligamen anais injections nerve block trigger points injections Acupunc ture physical therapy surgical intervention}} {{# pharmacologica l and dietary management in the form of osteopathic manipulation intra - and janes-articular injections ligamen anais injections nerve block trigger points injections Acupunc ture physical therapy surgical intervention}} {{# pharmacologica l and dietary management in the form of osteopathic manipulation intra - and janes-articular injections ligamen anais injections nerve block trigger points injections Acupunc ture physical therapy surgical intervention}} {{# pharmacologica l and dietary management in the form of osteopathic manipulation intra - and janes-articular injections ligamen anais injections nerve block trigger points injections Acupunc ture physical therapy surgical intervention}} Risk and benefits of these interventions were discussed in details.50 % of this visit was dedicated to counseling. jtrister Not available 09/23/2015 23:26:10 10/05/2015 [id number] Take medications as prescribed.Follow recommended diet.Contact office at [phone] if any problems develop. pgyapon Not available 10/08/2015 12:05:06 I, {{MD Lesley Lozoya,DO-Family Physician Lesley Amaya DO Sports Medicine Physician Fanta Edmondson WIRE TURNING MACHINE OPERATOR with Everett Lopez PA with Everett Amaya MD*}} spent {{60 minutes 45 minutes 30 minutes* 20 minutes 15 minutes}} examining the patient , reviewing diagnostic, consultative and imaging findings. I explained to patient the nature of the problems and other possible treatments: {{pharmacological and dietary management* in the form of osteopathic manipulation intra - and janes-articular injections ligamen anais injections nerve block trigger points injections Acupunc ture physical therapy surgical intervention}} {{# pharmacologica l and dietary management in the form of osteopathic manipulation intra - and janes-articular injections ligamen anais injections nerve block trigger points injections Acupunc ture physical therapy surgical intervention}} {{# pharmacologica l and dietary management in the form of osteopathic manipulation intra - and janes-articular injections ligamen anais injections nerve block trigger points injections Acupunc ture physical therapy surgical intervention}} {{# pharmacologica l and dietary management in the form of osteopathic manipulation intra - and janes-articular injections ligamen anais injections nerve block trigger points injections Acupunc ture physical therapy surgical intervention}} Risk and benefits of these interventions were discussed in details.50 % of this visit was dedicated to counseling. pgyapon Not available 10/08/2015 12:05:06 10/09/2015 [id number] Take medications as prescribed.Follow recommended diet.Contact office at [phone] if any problems develop. pgyapon Not available 11/17/2015 22:01:07 I, {{MD Lesley Lozoya,DO-Family Physician Lesley Amaya DO Sports Medicine Physician Fanta Edmondson WIRE TURNING MACHINE OPERATOR with Everett Lopez PA with Everett Amaya MD* }} spent {{60 minutes 45 minutes 30 minutes 20 minutes* 15 minutes}} examining the patient , reviewing diagnostic, consultative and imaging findings. I explained to patient the nature of the problems and other possible treatments: {{pharmacological and dietary management* in the form of osteopathic manipulation intra - and janes-articular injections ligamen anais injections nerve block trigger points injections Acupunc ture physical therapy surgical intervention}} {{pharmacological and dietary management in the form of osteopathic manipulation intra - and janes-articular injections ligamen anais injections nerve block trigger points injections Acupunc ture physical therapy surgical intervention}} {{pharmacological and dietary management in the form of osteopathic manipulation intra - and janes-articular injections ligamen anais injections nerve block trigger points injections Acupunc ture physical therapy surgical intervention}} {{pharmacological and dietary management in the form of osteopathic manipulation intra - and janes-articular injections ligamen anais injections nerve block trigger points injections Acupunc ture physical therapy surgical intervention}} Risk and benefits of these interventions were discussed in details.50 % of this visit was dedicated to counseling. [email or web address] Not available 11/17/2015 22:01:28 Reason for Referral None Reported. Results Created Date Observation Date Name Description Value Unit Range Abnormal Flag Note LastModifiedBy Organization Detail LastModifiedTime 09/29/19 16 09/30/2015 urina lysis compl ete, refle x cultu re specific gravity 1.028 1.005- 1.030 Not Available [facility] ([facility]) [address] [place], [address], 10/04/2015 08:36:39 09/29/19 16 09/30/2015 urina lysis compl ete, refle x cultu re pH 7.0 5.0-7. 5 Not Available [facility] ([facility]) [address] [place], [address], 10/04/2015 08:36:39 09/29/19 16 09/30/2015 urina lysis compl ete, refle x cultu re urine-color YELLOW yellow Not Available [facility] ([facility]) [address] [place], [address], 10/04/2015 08:36:39 09/29/19 16 09/30/2015 urina lysis compl ete, refle x cultu re appearance CLEAR clear Not Available [facility] ([facility]) [address] [place], [address], 10/04/2015 08:36:39 09/29/19 16 09/30/2015 urina lysis compl ete, refle x cultu re WBC esterase NEGATI VE negati ve Not Available [facility] ([facility]) [address] [place], [address], 10/04/2015 08:36:39 09/29/19 16 09/30/2015 urina lysis compl ete, refle x cultu re protein NEGATI VE negati ve/tra ce Not Available [facility] ([facility]) [address] [place], [address], 10/04/2015 08:36:39 09/29/19 16 09/30/2015 urina lysis compl ete, refle x cultu re glucose NEGATI VE negati ve Not Available [facility] ([facility]) [address] [place], [address], 10/04/2015 08:36:39 09/29/19 16 09/30/2015 urina lysis compl ete, refle x cultu re ketones NEGATI VE negati ve Not Available [facility] ([facility]) [address] [place], [address], 10/04/2015 08:36:39 09/29/19 16 09/30/2015 urina lysis compl ete, refle x cultu re occult blood NEGATI VE negati ve Not Available [facility] ([facility]) [address] [place], [address], 10/04/2015 08:36:39 09/29/19 16 09/30/2015 urina lysis compl ete, refle x cultu re bilirubin NEGATI VE negati ve Not Available [facility] ([facility]) [address] [facility], [place], [address], 10/04/2015 08:36:39 09/29/19 16 09/30/2015 urina lysis compl ete, refle x cultu re urobilinogen ,semi-qn 1.0 eu/dL 0.2-1. 0 Not Available [facility] ([facility]) [address] [facility], [place], [address], 10/04/2015 08:36:39 09/29/19 16 09/30/2015 urina lysis compl ete, refle x cultu re nitrite, urine NEGATI VE negati ve Not Available [facility] ([facility]) [address] [facility], [place], [address], 10/04/2015 08:36:39 09/29/19 16 09/30/2015 urina lysis compl ete, refle x cultu re microscopic examination COMMEN T MICRO SCOPI C FOLLO WS IF INDIC ATED. Not Available [facility] ([facility]) [address] [facility], [place], [address], 10/04/2015 08:36:39 09/29/19 16 09/30/2015 urina lysis compl ete, refle x cultu re urinalysis reflex COMMEN T THIS SPECI MEN WILL NOT REFLE X TO A URINE CULTU RE. Not Available [facility] ([facility]) [address] [facility], [place], [address], 10/04/2015 08:36:39 09/29/19 16 09/30/2015 CBC WBC 6.4 x10e3 /uL 3.4-10 .8 Not Available [facility] ([facility]) [address] [facility], [place], [address], 10/04/2015 08:36:39 09/29/19 16 09/30/2015 CBC RBC 4.50 x10e6 /uL 3.77-5 .28 Not Available [facility] ([facility]) [address] [place], [address], 10/04/2015 08:36:39 09/29/19 16 09/30/2015 CBC hemoglobin 12.0 g/dL 11.1-1 5.9 Not Available [facility] ([facility]) [address] [place], [address], 10/04/2015 08:36:39 09/29/19 16 09/30/2015 CBC hematocrit 39.2 % 34.0-4 6.6 Not Available [facility] ([facility]) [address] [place], [address], 10/04/2015 08:36:39 09/29/19 16 09/30/2015 CBC MCV 87 fL 79-97 Not Available [facility] ([facility]) [address] [place], [address], 10/04/2015 08:36:39 09/29/19 16 09/30/2015 CBC MCH 26.7 pg 26.6-3 3.0 Not Available [facility] ([facility]) [address] [place], [address], 10/04/2015 08:36:39 09/29/19 16 09/30/2015 CBC MCHC 30.6 g/dL 31.5-3 5.7 below low normal Not Available [facility] ([facility] [address] [place], [address], 10/04/2015 08:36:39 09/29/19 16 09/30/2015 CBC RDW 15.4 % 12.3-1 5.4 Not Available [facility] ([facility] [address] [place], [address], 10/04/2015 08:36:39 06/14/20 16 09/30/2015 CBC platelets 400 x10e3 /uL 150-37 9 above high normal Not Available [facility] ([facility]) [address] [place], [address], 10/04/2015 08:36:39 09/29/19 16 09/30/2015 CBC NRBC WIRE TURNING MACHINE OPERATOR Not Available [facility] ([facility]) [address] [place], [address], 10/04/2015 08:36:39 09/29/19 16 09/30/2015 BMP, serum or plasm a glucose, serum 119 mg/dL 65-99 above high normal Not Available [facility] ([facility]) [address] [place], [address], 10/04/2015 08:36:39 09/29/19 16 09/30/2015 BMP, serum or plasm a BUN 10 mg/dL 6-24 Not Available [facility] ([facility]) [address] [place], [address], 10/04/2015 08:36:39 09/29/19 16 09/30/2015 BMP, serum or plasm a creatinine, serum 0.76 mg/dL 0.57-1 .00 Not Available [facility] ([facility]) [address] [place], [address], 10/04/2015 08:36:39 09/29/19 16 09/30/2015 BMP, serum or plasm a eGFR if nonafricn AM 96 mL/mi n/1.7 3 >59 Not Available [facility] ([facility]) [address] [place], [address], 10/04/2015 08:36:39 09/29/19 16 09/30/2015 BMP, serum or plasm a eGFR if africn AM 111 mL/mi n/1.7 3 >59 Not Available [facility] ([facility]) [address] [place], [address], 10/04/2015 08:36:39 09/29/19 16 09/30/2015 BMP, serum or plasm a BUN/creatini ne ratio 13 9-23 Not Available [facility] ([facility]) [address] [place], [address], 10/04/2015 08:36:39 09/29/19 16 09/30/2015 BMP, serum or plasm a sodium, serum 140 mmol/ L 134-14 4 Not Available [facility] ([facility]) [address] [place], [address], 10/04/2015 08:36:39 09/29/19 16 09/30/2015 BMP, serum or plasm a potassium, serum 4.6 mmol/ L 3.5-5. 2 Not Available [facility] ([facility]) [address] [place], [address], 10/04/2015 08:36:39 09/29/19 16 09/30/2015 BMP, serum or plasm a chloride, serum 100 mmol/ L 97-108 Not Available [facility] ([facility]) [address] [place], [address], 10/04/2015 08:36:39 09/29/19 16 09/30/2015 BMP, serum or plasm a carbon dioxide, total 25 mmol/ L 18-29 Not Available [facility] ([facility]) [address] [place], [address], 10/04/2015 08:36:39 09/29/19 16 09/30/2015 TIBC (tota l iron- pancho ng capac ity), serum iron bind.cap.(TI BC) 418 ug/dL 250-45 0 Not Available [facility] ([facility]) [address] [place], [address], 10/04/2015 08:36:40 09/29/19 16 09/30/2015 TIBC (tota l iron- pancho ng capac ity), serum UIBC 326 ug/dL 131-42 5 Not Available [facility] ([facility]) [address] [place], [address], 10/04/2015 08:36:40 09/29/19 16 09/30/2015 TIBC (tota l iron- pancho ng capac ity), serum iron, serum 92 ug/dL 27-159 Not Available [facility] ([facility]) [address] [place], [address], 10/04/2015 08:36:40 09/29/19 16 09/30/2015 TIBC (tota l iron- pancho ng capac ity), serum iron saturation 22 % 15-55 Not Available [facility] ([facility]) [address] [facility], [place], [address], 10/04/2015 08:36:40 09/29/19 16 10/03/2015 vitam in D, 1,25- dihyd yordy, serum total 1,25-dihydro xy,vitamin D 90 pg/mL REFER ENCE RANGE : ADULT S: 21 - 65 Not Available [facility] [address] [place], [address], 10/04/2015 08:36:40 09/29/19 16 10/03/2015 vitam in D, 1,25- dihyd yordy, serum 1,25-dihydro xy, vitamin D-2 17 pg/mL Not Available [facility] [address] [facility], [place], [address], 10/04/2015 08:36:40 09/29/19 16 10/03/2015 vitam in D, 1,25- dihyd yordy, serum 1,25-dihydro xy, vitamin D-3 73 pg/mL Not Available [facility] [address] [place], [address], 10/04/2015 08:36:40 09/29/19 16 09/30/2015 micro album in/cr eatin ine, mass ratio , urine creatinine, urine 174.5 mg/dL not estab. Not Available [facility] ([facility]) [address] [place], [address], 10/04/2015 08:36:40 09/29/19 16 09/30/2015 micro album in/cr eatin ine, mass ratio , urine microalbumin , urine 5.1 ug/mL not estab. Not Available [facility] ([facility]) [address] [place], [address], 10/04/2015 08:36:40 09/29/19 16 09/30/2015 micro album in/cr eatin ine, mass ratio , urine microalb/cre at ratio 2.9 mg/g_ creat 0.0-30 .0 Not Available [facility] ([facility]) [address] [place], [address], 10/04/2015 08:36:40 09/29/19 16 09/30/2015 vitam in B12 + folat e, serum or blood vitamin B12 222 pg/mL 211-94 6 Not Available [facility] ([facility]) [address] [place], [address], 10/04/2015 08:36:41 09/29/19 16 09/30/2015 vitam in B12 + folat e, serum or blood folate (folic acid), serum >20.0 NG/mL >3.0 A SERUM FOLAT E GORDON NTRAT ION OF LESS THAN 3.1 NG/ML IS CONSI DERED TO REPRE SENT CLINI [facility]IC IENCY . Not Available [facility] ([facility]) [address] [place], [address], 10/04/2015 08:36:41 09/29/19 16 09/30/2015 HbA1c (hemo globi n A1c), blood hemoglobin A1C 6.0 % 4.8-5. 6 above high normal PRE-D IABET ES: 5.7 - 6.4 DIABE CHAYO: >6.4 GLYCE AG CONTR OL FOR ADULT S WITH DIABE CHAYO: <7.0 Not Available [facility] ([facility]) [address] [place], [address], 10/04/2015 08:36:41 09/29/19 16 09/30/2015 HbA1c (hemo globi n A1c), blood estim. avg glu (EAG) 126 mg/dL Not Available [facility] ([facility]) [address] [place], [address], 10/04/2015 08:36:41 09/29/19 16 09/30/2015 gamma -glut amyl trans feras e (ggt) , serum GGT 29 IU/L 0-60 Not Available [facility] ([facility]) [address] [place], [address], 10/04/2015 08:36:41 10/09/19 16 10/09/2015 foot 2 views [facility] [address] [place] [address], [address] Name: RADHA SELLERS : [id number] Date of Servic e: [birth year] Acct Number : [id number] Order Number : [id number] Locati on: [facility] Report Number : [id number] Servic e: REG REF/ Reques ting Physic margi: Didier -Kendra m,Jeff man Catego ry: RADIOL OGY [facility] Exam: FOOT 2 VIEWS Left Access ion #: [id number] [facility] Signs/ Sympto ms: PAIN Report Status : Sig meliza Study: 2 views of left foot Indica tions: pain, histor y of fractu res Compar lily:N o compar lily studie s are availa ble. Findin gs:The re is subacu te, healin g fractu re of the base of the proxim al phalan x of fourth toe with displa otto fragme nts but callus format ion. There is anothe r fractu re of the distal metadi aphysi s of the proxim al phalan x of fifth toe. The rest of the foot are unrema rkable . Impres hayley:S ubacut e fractu res of proxim al phalan x of fourth and fifth toes. Date/T maritza of Dictat ion: 1525 Radiol ogy Reside nt (if applic able): Approv ed By Attend ing Radiol ogist: Anamaria Elias 1525 Orderi ng physic margi: Denny Ryanh -Affra egan Other provid ers: Denny Ryanh -Affra egan, , , Everett Mills r, Denny Robbinsimah -Affra egan, Everett salter, jtrshawn [facility] [address] [place] [address], [address], 10/11/2015 17:21:17 Result Notes None recorded. Problems Name Problem SNOMED Code Status Onset Date Resolution Date Notes Provider Name and Address Organization Details Recorded Time Chronic back pain 343862539 Active [place] gyimah-af fram null, [facility], 6 12:05:27 Purpuric rash 526581356 Active [place] gyimah-af fram null, [facility], 6 12:05:27 Diabetes mellitus 86578460 Active [place] gyimah-af fram null, [facility], 6 12:05:27 Depressive disorder 50798093 Active [place] gyimah-af fram null, [facility], 6 12:05:27 Pain in left foot 7668721261877 07 Active [place] gyimah-af fram null, [facility], 6 12:05:27 Eruption 755213015 Active [place] gyimah-af fram null, [facility], 6 12:05:27 Subcutaneou s nodule 77103726 Active [place] gyimah-af fram null, [facility], 6 12:05:27 Mastoiditis 56137987 Active [place] gyimah-af fram null, [facility], 6 14:06:52 Problem Notes None recorded. Procedures Surgical History Date Name Laterality Status Provider Name and Address Organization Details Recorded Time Gastric Bypass completed Everett Amaya MD [address] [place], [address], [facility], 09/19/2015 20:57:55 Imaging Results Imaging Date Name Status LastModified by Organiz ation Details LastModified Time 10/09/2015 foot 2 views completed jtrister [facility] [address] [address], [place], [address], 10/11/2015 17:21:17 Procedure Notes None recorded. Medical Equipment None Reported. Allergies Allergen ID Allergen Name Allergen Category Reaction Reaction Severity Criticality Documentation Date Start Date Code Code System Note Provider Name and Address Organization Details Recorded Time [address] [facility] medicatio n anaphylax is Not available Not available 09/18/2015 05517 RxNorm jethro ramos, [facility], 6 14:50:56 92939 latex environme nt,medica tion rash Not available Not available 10/05/2015 65409 91 RxNorm Yuval ramos, [facility], 6 12:02:56 Medications Name Sig Start Date Stop Date Status Note LastModified by Organization Details LastModified Time Augmentin 875 mg-125 mg tablet Take 1 tablet twice a day by oral route for 7 days. 2015 active Not Available Not Available Not Avai lable Wellbutrin SR 100 mg tablet, 12 hr sustained-re lease Take 1 tablet every day by oral route. active Not Available Not Available No t Available triamcinolon e acetonide 0.1 % topical cream APPLY A THIN LAYER TO THE AFFECTED AREA(S) BY TOPICAL ROUTE 2 TIMES PER DAY 2015 active Not Available Not Available Not Avai lable amitriptylin e 10 mg tablet Take 1 tablet 3 times a day by oral route as directed for 30 days. active Not Available Not Available No t Available lidocaine 5 % topical patch APPLY 1 PATCH BY TRANSDERMAL ROUTE ONCE DAILY (MAY WEAR UP TO 12HOURS.) 2015 active Not Available Not Available Not Avai lable Tylenol 325 mg tablet Take 1 tablet every 6 hours by oral route as directed for 30 days. active Not Available Not Available No t Available Seroquel 100 mg tablet Take 1 tablet every day by oral route as directed for 30 days. active Not Available Not Available No t Available permethrin 1 % topical liquid APPLY A SUFFICIENT AMOUNT OF SHAMPOO BY TOPICAL ROUTE ONCE ALLOW TO REMAIN ON HAIR FOR 10 MINUTES BEFORE RINSING OFF WITH WATER 2015 active Not Available Not Available Not Avai lable Celexa 40 mg tablet Take 1 tablet every day by oral route as directed for 30 days. active Not Available Not Available No t Available Iron (ferrous sulfate) active Not Available Not Available Not Available Neurontin active Not Available Not Clarisse ilable Not Available multivitamin active Not Available Not Available Not Available Seroquel 50 mg tablet Take 1 tablet twice a day by oral route as directed for 30 days. active Not Available Not Available No t Available Vitals Date Recorded Body temperature Body height Heart rate Body weight Body mass index (BMI) Systolic blood pressure Diastolic blood pressure Provider Name and Address Organization Details Last Updated DateTime 6 100 [degF] 149.86 cm 75 /min 96927.8 1134 g 36.8 kg/m2 128 mm[Hg] 100 mm[Hg] jethro wright [facility], 6 14:43:27 Date Recorded Body height Body weight Heart rate Body mass index (BMI) Body temperature Systolic blood pressure Diastolic blood pressure Provider Name and Address Organization Details Last Updated DateTime 6 149.86 cm 58149.9 61381 g 126 /min 35.6 kg/m2 99.8 [degF] 110 mm[Hg] 86 mm[Hg] Yuval leal [facility], 6 12:02:35 Date Recorded Body height Body mass index (BMI) Body temperature Body weight Heart rate Systolic blood pressure Diastolic blood pressure Provider Name and Address Organization Details Last Updated DateTime 6 149.86 cm 35.5 kg/m2 97.8 [degF] 32051.2 5712 g 78 /min 118 mm[Hg] 78 mm[Hg] mora allen [facility], 6 13:58:57 Social History Question Answer Notes LastModified by Organizat ion Details LastModified Time Tobacco Smoking Status Smoker, Current Status Unknown Not Available [facility]/2020 03:10:44 What Is Your Level Of Alcohol Consumption? None [id number] Information not available 01/31/2020 Are You Currently Employed? No [id number] Information not available 01/31/2020 Marital Status merna Bacono n not available 09/19/2015 How Many Children Do You Have? 0 [id number] Information not available 01/31/2020 Sex: Unknown Functional Status None recorded. Mental Status None recorded. Family History Nothing Reported. Medical History Condition Response Coronary Artery Disease N Gout N Metabolic Syndrome N Bipolar disorder N Hyperthyroidism N Hyperipidemia N Lung Disease N Hypothyroidism N Depression Y COPD N Pneumonia N Myofascial pain syndrome N TIA N Diabetes Mellutus type 1 N TMJ OA N Tobacco dependence N Headache (Migraines) N Knee OA N Alcoholism N Food sensitivity and intollerance N Valvular heart disease N Obesity Y Cholecystitis N Diabetes Mellitus Type 2 N Cancer N Shoulder OA N Feet OA N Substance dependence N Skin disorder N Hepatitis alcoholic N Rheumatoid Arthritis N Hip OA N Schizophrenia N Fibromyalgia N Atrial fibrillation N Inflammatory bowel disease N Allergies/Hayfever N DVT/PE N Skin Infection N Heart Conditions N Anxiety N Hepatitis A N Somatic dysfunction N Back pain (lumbar OA) Y Gluten sensitivity N Headache (Tension) N Acne N Lyme disease N Hypertriglyceridemia N Hepatitis C N Anemia Y Anemia B-12 defficiency N Back pain (thoracic OA) N Venous insufficiency N Heart Attack ([place]) N Radiculopathy N Dyspepsia N Bleeding Disorder N CHF N Seizures/Epilepsy N Joints replacement N Ankle OA N Fingers OA N BPH N Wrist OA N Somatization N Carpal tunnel Syndrome N Urinary Tract Infection N Diverticulitis N CVA N Asthma N Hepatitis B N Neck (Cervical) OA N Peripheral Vascular Disease N Elbow joint pain N Sleep Disorder N GERD/Reflux N Neuropathy N Pulmonary Embolism N Peptic Ulcer disease N Hypertension N Osteoporosis N Gynecological HistoryNo gynecological history recorded. Obstetrics History GPAL:G 0 P 0 0 0 0 Past Encounters Encounter ID Performer Location Encounter Start Date Encounter Closed Date Diagnosis/Indication Diagnosis SNOMED-CT Code Diagnosis ICD10 Code Diagnosis Note [id number] Everett Amaya MD [address] [address] 09/18/2015 13:46:15 09/18/2015 15:01:49 Chronic back pain 797293906 M54.9 Purpuric rash 628264808 D69.2 Diabetes mellitus 849282 09 E11.9 Depressive disorder 3548 9007 F32.9 History of obesity 26492 3001 Z91.89 Depression screening 171 536008 Z13.89 [id number] Yuval gyimah-aff elida [facility] [address] [place] [address] 10/05/2015 10:52:22 10/05/2015 13:05:32 Pain in left foot 8057558584 33269 M79.672 Eruption 058559675 R21 Subcutaneous nodule 9532 5000 R22.9 sebaceous cyst left occipital region, follow up for excision Chronic back pain 116691 002 M54.9 [id number] Everett Amaya MD [address] [address] 10/09/2015 13:54:05 10/09/2015 14:10:50 Mastoiditis 09997219 H70.91 Health Concerns Section Related Observation LastModified by Organization Detai ls LastModified Time None Recorded Concern Status LastModified by Organization Details LastModified Time None Recorded Advance Directives Directive None Recorded Payers Encounter Date Sequence Insurance Name Policy Number Policy Bello Covered Member ID Bello Member ID Guarantor Name 09/18/2015 1 [place] [employer] Estephanie L Efracuis [id number] Estephanie Zicuis 09/18/2015 2 [place] Estephanie L Zicuis [id number] Estephanie Zicuis 10/05/2015 1 [place] [employer] Estephanie L Zicuis [id number] Estephanie Zicuis 10/05/2015 2 [place] Estephanie L Zicuis [id number] Estephanie Zicuis 10/09/2015 1 [place] [employer] Estephanie L Zicuis [id number] Estephanie Zicuis 10/09/2015 2 [place] Estephanie L Zicuis [id number] Estephanie Sellers Notes Date Note Type Note Provider Name and Address Organization Details Recorded Time 6 text/html Anxiety/DepressionReported bypatient.Notes:Depressive screening PHQ-2 PATIENT HEALTH QUSTIONNAIRE: Feeling bad about yourself or like a failure - intermittent Let yourself or your family down -not at all Moving or speaking so slowly that other noticed - occasionally Being fidgety or restless - occasional Thoughts of being better off -not at all Hurting yourself in some way -not at al Little interest or pleasure in doing things-intermittent Feeling down, depressed or hopeless -not at all Trouble falling or staying asleep or sleep too much -occasional Feeling tired or having little energy - occasional Poor appetite or overeating - frequent Conclusion: Mild depression.Will continue periodic monitoring. Goal of treatment: to improve mode, ADL, reduce risk of progression of the depression. Patient was educated about mood disorder, symptoms, of the depression, possible therapeutic and psychological interventions, healthy life style, follow up care.Back PainReported bypatient.Location:pain is not radiating Severity:improving Associated Symptoms:no fever; no weak limbs; no numbness of the legs/feet; no tingling; no incontinence; no shortness of breathObesityReported bypatient.Diagnosis Summary:(normal) examination: screening exam: nutritional disorders: obesity Context:no oral steroids Associated Symptoms:no depression; no chronic illness; no hypothyroidism Co-morbidities:no new co-morbidities since last visit Lifestyle changes:few constitutional symptoms related to diagnosis; motivated to continue lifestyle changes; losing weight; exercising more Medication Education:understands potential side effects; understands administration; understands role of diet as primary therapySkin LesionReported bypatient.Location:chest; arms; legs Context:no known trigger Associated Symptoms:no fever; no cold symptoms; no nausea; no vomiting; no diarrhea; no urinary symptoms; no skin flakes; no scabbing; no bruising; no draining; no lesions multiplying; no lesions spreading Everett Amaya MD [address] [place] [address], [phone], [facility], 09/23/2015 23:27:11 6 text/html Back PainReported bypatient.Location:pain is not radiating Severity:moderate (5-7) Duration:chronic Associated Symptoms:no fever; no weak limbsFootReported bypatient.Location:left Quality:deep Severity:moderate Timing:chronic Context:previous fracture Associated Symptoms:no weakness; no numbness patient also with sebacious cyst in head also with erruption in the head, no pain just bother her and wants to check it out. Yuval ramos, [facility], 10/08/2015 12:06:06 6 text/html patient came in due to pain? ? ?behind right ear for a few days, she reports of no drainage in the ear, no fever no chills, throbs slightly, no other concerns Everett Amaya MD [address] [place] [address], [phone], [facility], 11/20/2015 11:26:04 OBGyn Episode No OBEpisode recorded.
--- OUTSIDE RECORDS SUMMARY | 2024-07-17 14:32 | XMS_ITS | Encounter Summary ---
Author Organization [employer] Address [address] [place] [address] Care Team Providers Care Gear Shaver Set Up Operator Name Role Phone Reina Seth MD Primary Care Provider [phone] Taylor Oh MD Unavailable Reason for Visit * Reason Comments Med Refill Encounter Details Date Type Department Care Team ([facility] Contact Info) Description 06/11/2022 Refill [facility] PEDS [address] [place] [address] Reina Seth MD [address] [place] [address] Social History Tobacco Use Types Packs/Day Years [...] suspected to have Coronavirus/COVID-19? No / Unsure 06/02/2022 9:33 AM EST documented as of this encounter Plan of Treatment Not on file documented as of this encounter Visit Diagnoses Not on filedocumented in this encounter Care Teams Gear Shaver Set Up Operator Relationship Specialty Start Date End Date Reina Seth MD [address] [place] [address] PCP - General Family Medicine 06/17/20 Taylor Oh MD [address] [place] [address] Referring Physician Internal Medicine 07/25/22 documented as of this encounter
--- OUTSIDE RECORDS SUMMARY | 2024-07-17 14:32 | XMS_ITS | Encounter Summary ---
Author Organization [employer] Address [address] [place] [address] Care Team Providers Care Pharmacy Intake Coordinator Name Role Phone Reina Seth MD Primary Care Provider [phone] Taylor Oh MD Unavailable Reason for Visit * Reason Onset Date Comments triage 05/03/2022 Encounter Details Date Type Department Care Team ([facility] Contact Info) Description 05/03/2022 Telephone [facility] MED & PEDS [address] [place] [address] Reina Seth MD [address] [place] [address] triage Social History Tobacco Use Types Packs/Day Years Used Date Smoking Tobacco: Never Assessed Comments Unknown Sex and Gender Information Value Date Recorded [...] suspected to have Coronavirus/COVID-19? 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 Pt reports scalp is opened again and now lymph nodes are swollen behind ears and on neck. Pt is requesting antibiotic again. Advised to come to [facility] 05/04 @200pm [facility]. Pt agreed with disposition . Insurance is verified as active prior to booking. Protocol Used: Wound Infection (Adult) Protocol-Based Disposition: See in Office or Video Visit Today Override (Final) Disposition: See in Office or Video Visit Today or Tomorrow Override Reason: No appointments available Video visit not offered Positive Triage Question: * Patient wants to be seen * All higher-acuity triage questions were negative Care Advice Discussed: * Reasons To Call Back - Wound becomes more tender - Redness starts to spread - Pus, drainage, or fever occurs - You become worse * Telephone Encounter - Radha Juarez - 05/03/2022 8:28 AM EST Tc from pt requesting a triage call, pt is having a flare up of mrsa in scalp, thinks she needs antibiotics, also states she has swollen lymph nodes in back of neck, please call [phone]. Vincentian documented in this encounter Plan of Treatment Not on file documented as of this encounter Visit Diagnoses Diagnosis Other chronic pain documented in this encounter Care Teams Pharmacy Intake Coordinator Relationship Specialty Start Date End Date Riena Seth MD [address] [place] [address] PCP - General Family Medicine 06/17/20 Taylor Oh MD [address] [place] [address] Referring Physician Internal Medicine 07/25/22 documented as of this encounter
--- OUTSIDE RECORDS SUMMARY | 2024-07-17 14:33 | XMS_ITS | Encounter Summary ---
Author Organization [employer] Address [address] [place] [address] Care Team Providers Care Specification Manager Name Role Phone Reina Seth MD Primary Care Provider [phone] Taylor Oh MD Unavailable Reason for Visit * Reason Onset Date Comments ER Follow-up 06/20/2023 Encounter Details Date Type Department Care Team ([facility] Contact Info) Description 06/20/[address] [facility] MED & PEDS [address] [place] [address] Reina Seth MD [address] [place] [address] ER Follow-up Social History Tobacco Use Types Packs/Day Years Used Date Smoking Tobacco: Never Smokeless Tobacco: Never Alcohol Use Standard Drinks/Week Comments Not Currently 0 (1 standard drink = 0.6 oz pur e alcohol) Depression Answer Date Recorded Patient Health Questionnaire-9 Score 6 07/27/2022 Housing Stability Answer Date Recorded What is your housing situation today? I have angy snyder 01/30/[address] you li ve. Do you have problems with any of the following? None of the above 01/30/2023 Food Insecurity Answer Date Recorded Within the past 12 months, y ou worried that your food would run out before you got money to buy more: Never True 01/30/2023 Within the past 12 months,th e food you bought just didn't last and you didn't have enough money to get more: Never True Transportation Answer Date Recorded In the past 12 months, has l ack of transportation kept you from medical appts, meetings, work or from getting things needed for daily living? No 01/30/2023 Utilities Answer Date Recorded In the past 12 months, has t he electric, gas, oil or water company threatened to shut off services in your home? No 01/30/2023 Depression Answer Date Recorded Patient Health Questionnaire-2 Score 0 07/27/2022 Comments No Sex and Gender Information Value Date Recorded Sex Assigned at Female 02/14/2022 10:35 AM EDT Legal Sex Female 10:35 AM EDT Gender Identity Female 02/14/2022 10:35 AM EDT Sexual Orientation Straight 02/14/2022 10 :35 AM EDT documented as of this encounter Miscellaneous Notes * Telephone Encounter - Wing Alex RN - 06/21/2023 9:36 AM EST Tc to pt regarding [facility] ED visit om 06/19 for umbilical infection. Pt reports wound has been ongoing for 3.5 weeks and is very painful. Reports wound draining is reddish brown and that pt also is feeling nauseous but denies vomiting. Also reports her BP taken at home this morning was 110/50. Pt denies any dizziness. Scheduled pt to be seen by PCP on 06/27 at 11:30 am. Pt verbalizes understanding and agreement with plan. * Telephone Encounter - Belen Ahn - 06/20/2023 2:20 PM EST Patient calling to report ED visit on : Date: 06/19 Hospital: [facility] Seen for: Wound/laceration Patient advised will forward to team nurse for follow up Please contact pt at [phone] documented in this encounter Plan of Treatment Not on file documented as of this encounter Visit Diagnoses Not on filedocumented in this encounter Additional Health Concerns Assessment Noted Time PHQ-9 Depression Total Score: 6 07/28/19 23 8:47 AM EDT documented as of this encounter Care Teams Specification Manager Relationship Specialty Start Date End Date Reina Seth MD [address] [place] [address] PCP - General Family Medicine 06/17/20 Taylor Oh MD [address] [place] [address] [place] [address] Referring Physician Internal Medicine 07/25/22 documented as of this encounter
--- OUTSIDE RECORDS SUMMARY | 2024-07-17 14:33 | XMS_ITS | Encounter Summary ---
Author Organization [employer] Address [address] [place] [address] Care Team Providers Care Brick Burner Name Role Phone Reina Seth MD Primary Care Provider [phone] Taylor Oh MD Unavailable Reason for Visit * Reason Onset Date Comments nurse triage 07/16/2024 Encounter Details Date Type Department Care Team ([facility] st Contact Info) Description 07/16/2024 Telephone [facility] [address] [place], [place] [id number] Reina Seth MD [address] [place], [place] [phone] nurse triage Social History Tobacco Use Types Packs/Day [...] encounter Miscellaneous Notes * Telephone Encounter - Moon Massey RN - 07/16/2024 4:09 PM EDT Call returned to Estephanie Smith to triage below. Reports having pain from hip down bilateral legs x 1 month. No swelling redness, or rash. Pt having random bruising all over body. Pt is also having chronic low back pain. Per pt had an injury where had a fall that landed onto buttocks [facility] at [facility]. Did not seek ER or UC> Per pt having heaviness and pain worse when ambulating. Pt states feels as if has shuffling gait. Pt advised of disposition, agrees to sick onsite with team provider tomorrow. Reviewed home care advise, ER precautions and reasons to call back. Protocol Used: Leg Pain (Adult) Protocol-Based Disposition: See in Office or Video Visit within 3 Days Future Appointments Date Time Provider Department Center 07/17/2024 11:15 AM [facility] Insurance verified as active per Real Time Eligibility in [facility]. Positive Triage Question: * Leg pain which occurs after walking a certain distance and disappears with rest, AND age > 50 * All higher-acuity triage questions were negative Care Advice Discussed: * Reassurance and Education - Leg Pain * Reasons To Call Back - You become worse * Telephone Encounter - Matt Medina - 07/16/2024 4:03 PM EDT TC from pt reports pain in both legs when waking up and when she walk. States feels a heaviness in her legs when walking. Denies Swelling. documented in this encounter Plan of Treatment Not on file documented as of this encounter Visit Diagnoses Not on filedocumented in this encounter Additional Health Concerns Assessment Noted Time PHQ-9 Depression Total Score: 6 07/28/19 23 8:47 AM EDT documented as of this encounter Care Teams Brick Burner Relationship Specialty Start Date End Date Reina Seth MD [address] [place] [id number] PCP - General Family Medicine 06/17/20 Taylor Oh MD [address] [place] [address] Referring Physician Internal Medicine 07/25/22 documented as of this encounter
--- OUTSIDE RECORDS SUMMARY | 2024-07-17 14:33 | XMS_ITS | Clinical Summary ---
Author Organization [facility] it Address [address] [place] [address] Care Team Providers Care Anesthesia Attending Name Role Phone Reina Seth MD Primary Care Provider [phone] Surgical History Surgery Date Site/Laterality Comments GASTRIC BYPASS PROCEDURE: [place] GASTRIC RSTCV W/BYP W/SM INT RCNSTJ LIMIT ABSRPJ SECTION N/A PROCEDURE: [place] DELIVERY ONLY; COMMENT: X 2 Medical History Medical History Date Comments GERD (gastroesophageal reflux disease) DX:GERD (gastroesophageal reflux disease) Depression DX:Depression Paronychia of left thumb DX:Paro nychia of left thumb Social History Tobacco Use Types Packs/Day Years Used Date Smoking Tobacco: Never Smokeless Tobacco: Never Alcohol Use Standard Drinks/Week Comments Never 0 (1 standard drink = 0.6 oz pur e alcohol) Comments Unknown Sex and Gender Information Value Date Recorded Sex Assigned at Not on file Legal Sex Female 10:47 AM EST Gender Identity Not on file Sexual Orientation Not on file Obstetrics History Last Filed Vital Signs Vital Sign Reading Time Taken Comments Blood Pressure - - Pulse - - Temperature - - Respiratory Rate - - Oxygen Saturation - - Inhaled Oxygen Concentration - - Weight 75.3 kg (166 lb) 12/27/2023 1:10 PM EDT Height 148.6 cm (4' 10.5 ) 12/27/2023 1:10 PM ED T Body Mass Index 34.1 12/27/2023 1:10 PM EDT Plan of Treatment Health Maintenance Due Date Last Done Comments Breast Cancer Screening 1970 DTaP,Tdap,and Td Vaccines (1 - Tdap) 01/02/1991 Hepatitis B Vaccines (1 of 3 - 19+ 3-dose series) 01/02/1991 Cervical Cancer Screening: P ap Smear 01/02/1993 Pneumococcal Vaccine: 50+ Ye ars (1 of 1 - PCV) 01/02/2022 Zoster Vaccines (1 of 2) 01/02/2022 Cholesterol Screening (Lipid Panel) 03/21/2022 Colorectal Cancer Screening: Colonoscopy 03/21/2022 Depression Screening 03/21/2022 HIV Screening 03/21/2022 Hepatitis C Screening 03/21/2022 Social Influencers of Health Screening 03/21/2022 COVID-19 Vaccine (1 - 2023-2 5 season) 2023 Hypertension/CHF/CAD Annual BMP Blood Test 01/29/2024 Influenza Vaccine (Season Ended) 2024 HIB Vaccines Aged Out No longer eligi ble based on patient's age to complete this topic HPV Vaccines Aged Out No longer eligi ble based on patient's age to complete this topic Hepatitis A Vaccines Aged Out No long er eligible based on patient's age to complete this topic IPV Vaccines Aged Out No longer eligi ble based on patient's age to complete this topic MMR Vaccines Aged Out No longer eligi ble based on patient's age to complete this topic Meningococcal ACWY Vaccine Aged Out N o longer eligible based on patient's age to complete this topic Meningococcal B Vacine Aged Out No lo nger eligible based on patient's age to complete this topic Pneumococcal Vaccine: Pediat rics (0 to 5 Years) and At-Risk Patients (6 to 64 Years) Aged Out No longer eligible b ased on patient's age to complete this topic RSV Immunization Patients Un nandini 20 months Aged Out No longer eligible b ased on patient's age to complete this topic Varicella Vaccines Aged Out No longer eligible based on patient's age to complete this topic Care Teams Anesthesia Attending Relationship Specialty Start Date End Date Reina Seth MD [address] [place] [address] PCP - General 04/05/21
--- OUTSIDE RECORDS SUMMARY | 2024-07-17 14:33 | XMS_ITS | Clinical Summary ---
Author Organization [employer] Address [address] [place] [address] Care Team Providers Care Architecture Intern Name Role Phone Reina Seth MD Primary Care Provider [phone] Taylor Oh MD Unavailable Allergies Active Allergy Reactions Criticality Noted Date Comments Amitriptyline 05/12/2015 Rash on palms and soles Amlodipine Anaphylaxis High 11/22/2021 Cyclobenzaprine Rash Low 05/01/2015 Paraesthesias Latex Rash Low 11/19/2009 Other reaction(s): Maculopapular Rash bandage Lisinopril Anaphylaxis High 01/01/2012 angioedema Methocarbamol 06/01/2015 Tics and spasms, ? Dystonic reaction Nsaids 04/30/2015 History of gastric bypass surgery Sulfamethoxazole Rash Low 12/03/2020 Other reaction(s): Rash Trimethoprim Rash Low 12/03/2020 Other reaction(s): Rash Medications * This document contains information received from the source organization and may not represent a complete record from that organization. buPROPion SR (Wellbutrin SR) 150 MG 12 hr tablet Take 150 mg by mouth in the morning. 07/13/19 23 Active clobetasol (Temovate) 0.05 % external solution Apply topically in the morning. Use in scalp once a day for 2 weeks topically 50 mL 01/31/20 23 Active mupirocin (Bactroban) 2 % ointment Apply topically 2 times daily. 22 g 06/28/19 24 Active clotrimazole (Lotrimin) 1 % cream Apply topically 2 times daily. 60 g 06/28/19 24 Active traZODone (Desyrel) 100 MG tablet 06/14/19 24 Active econazole nitrate 1 % creamIndication s:Candidiasis Apply topically in the morning. 30 g 07/18/19 24 025 Active hydrOXYzine HCl (Atarax) 25 MG tablet Take 1 tablet (25 mg) by mouth if needed in the morning, at noon, and at bedtime for itching. 07/18/19 24 Active citalopram (CeleXA) 40 MG tabletIndicatio ns:Depression, unspecified depression type TAKE 1 TABLET BY MOUTH IN THE MORNING 30 tablet 5 12/14/19 24 Active lidocaine (Xylocaine) 5 % ointmentIndicat ions:Chronic iliotibial band syndrome of right side Apply topically if needed for mild pain. 240 g 3 01/08/20 24 025 Active Acetaminophen Extra Strength 500 MG tablet TAKE 2 TABLETS BY MOUTH EVERY 8 HOURS NEEDED FOR PAIN 60 tablet 02/07/20 24 Active Diclofenac Sodium 1 % gel APPLY TO THE AFFECTED AREA TOPICALLY NEEDED IN THE MORNING, AT NOON, AND AT BEDTIME FOR PAIN 100 g 1 02/28/20 24 Active fexofenadine (Radha) 180 MG tablet TAKE 1 TABLET BY MOUTH ONCE DAILY 90 tablet 1 03/18/20 24 Active pantoprazole (ProtoNix) 20 MG EC tablet TAKE 1 TABLET BY MOUTH ONCE DAILY 90 tablet 1 04/19/19 25 Active metoprolol tartrate (Lopressor) 50 MG tabletIndicatio ns:Hypertension , unspecified type TAKE 1 TABLET BY MOUTH two (2) times a day take with food 60 tablet 5 06/06/19 25 Active D3 Super Strength 50 MCG (2000 UT) capsule TAKE 1 CAPSULE BY MOUTH ONCE DAILY IN THE MORNING 30 capsule 5 07/09/19 25 Active topiramate (Topamax) 100 MG tablet TAKE 1 TABLET BY MOUTH two (2) times a day 60 tablet 2 07/09/19 25 Active gabapentin (Neurontin) 100 MG capsuleIndicati ons:Myalgia Take 1 capsule by oral route nightly. May increase up to 3 capsules (300mg) if needed for symptom relief 270 capsule 11 07/18/19 25 Active D3 Super Strength 50 MCG (2000 UT) capsule TAKE 1 CAPSULE BY MOUTH ONCE DAILY IN THE MORNING 30 capsule 5 01/31/20 24 025 Discontinued topiramate (Topamax) 100 MG tablet TAKE 1 TABLET BY MOUTH two (2) times a day 60 tablet 2 03/18/20 24 025 Discontinued Active Problems Problem Noted Date Diagnosed Date Chronic iliotibial band syndrome of right side 0 01/08/2024 Assessment & Plan (01/08/2024 11:31 AM EDT): Continue to follow up with Orthopaedic and PT sessions. Prescribing Tylenol for Sx and Lidocaine. Relevant Medications Acetaminophen Extra Strength 500 mg tablet Left hand pain 10/12/2023 Assessment & Plan (10/13/2023 12:14 PM EDT): Relevant orders: -Diclofenac Sodium 1 % gel -XR Hand 3+ Views Left Depending on X-ray results, referral to occupational therapy will be ordered. Infected umbilicus (man made) 07/10/2023 Assessment & Plan (07/10/2023 10:45 PM EDT): Plan to continue monitoring, advised against self-intervention with Q-tips. Considering referral to plastic surgery for further evaluation. Advised to keep the area clean and avoid putting anything on it until further assessment. - Recommended to continue use of probiotics and Imodium as needed for gastrointestinal symptoms. Warm baths for hemorrhoid management. - Discussed the need for potentially more medication to manage pain. The patient expressed a desire for only short-term pain management solutions. Prescribed OxyCodone. - F/U: She has an upcoming appointment next week for further evaluation. Future Appointments Date Time Provider Department Center 07/18/2023 9:00 AM Paulina De Leon MD [facility] Chronic back pain 06/12/2023 Depressive disorder 06/12/2023 Mastoiditis 06/12/2023 Pain in left foot 06/12/2023 Rash 06/12/2023 Purpura 06/12/2023 Subcutaneous nodule 06/12/2023 Insulin resistance 06/12/2023 Dietary counseling 06/12/2023 Acute otitis externa of left ear 03/03/2023 Assessment & Plan (03/03/2023 10:20 AM EST): Patient that presented visit with complaints of L ear pain will be prescribed ear drops to administer on affected area. Other fatigue 01/30/2023 Assessment & Plan (01/30/2023 10:21 AM EDT): -Labs: CBC, Met. Panel, TSH/FT4, Vit.D 1,25 Intestinal malabsorption following gastrectomy 0 09/19/2022 Acute left ankle pain 09/06/2022 Assessment & Plan (09/06/2022 4:22 PM EDT): Patient with L ankle pain s/p fall. Will send for xrays. Acute pain of both knees 09/06/2022 Assessment & Plan (09/06/2022 4:21 PM EDT): Patient with bilateral knee pain and swelling s/p fall. Will start on topical lidocaine. Refer to Physical therpay and send for xrays. Class 3 severe obesity due t o excess calories with serious comorbidity and body mass index (BMI) of 40.0 to 44.9 in adult 07/27/2022 Assessment & Plan (06/12/2023 5:01 PM EST): Patient reported Adipex-d hasn't been helping her loss weight but has helped maintain her weight, has not achieved 5% wt loss in 3 months of max dose, will discontinue med. I have sent a prior approval for Wegovy injections. Discontinue Topamax Discussed calorie deficit, recommended reduction of 20-30% of maintenance calories Recommended to decrease soda and sugary beverage consumption. Recommended at least 20 g per meal of protein to assist with satiety. Recommended at least 150 min/week of moderate intensity exercise. Labs: CBC, Comprehensive Metabolic Panel, Lipid panel, Vitamin D - 25-hydroxy, TSH w/ reflex to FT4 Assessment & Plan (03/03/2023 10:19 AM EST): Discussed calorie deficit, recommended reduction of 20-30% of maintenance calories; java scala developer referral offered. Recommended to decrease soda and sugary beverage consumption. Recommended at least 20 g per meal of protein to assist with satiety. Recommended at least 150 min/week of moderate intensity exercise. Assessment & Plan (01/30/2023 1:02 PM EDT): -Change medication for tablets, if concern doesn't show improvements, will stop medication. -Follow up in 1 month. Phentermine/topamax: 37.5/200 mg. Discussed side effects-> tachycardia, HTN, teratogenic, cognitive dysfuction, metabolic acidosis, constipation, dysgeusia. Denies hx of , hyperthyroidism, MAOI use or glaucoma. Denies hx of kidney stones. Assessment & Plan (09/07/2022 8:39 AM EDT): Insurance did not cover wegovy. Patient reports filing an appeal but has not heard back. Will trial topamax & phentermine. Phentermine/topamax: 15/50 mg. Discussed side effects-> tachycardia, HTN, teratogenic, cognitive dysfuction, metabolic acidosis, constipation, dysgeusia. Denies hx of , hyperthyroidism, MAOI use or glaucoma. Denies hx of kidney stones. Assessment & Plan (07/27/2022 9:21 AM EDT): Patient underwent gastric sleeve with minimal weight loss, will send Wegovy for weight loss, did discuss with patient concern of insurance not covering. Discussed with patient that ozempic is not FDA approved for weight los, nor Monjauro. Irritable bowel syndrome with diarrhea 3 Nausea and vomiting 07/27/2022 S/P laparoscopic sleeve gastrectomy 02/24/2022 Overview (12/02/2022): Last Assessment & Plan: This is a 52-year-old woman who underwent a laparoscopic sleeve knee of a Ada-en-Y gastric bypass in February 2022 who has had very poor weight loss and has gained weight after having her weight loss surgery. The patient has been lost to follow-up since May when she last saw me. The patient has gained all of the weight back that she lost since her initial visit. She is only 0.8 pounds away from her initial starting weight. She reports seeing her primary who has placed her on weight loss medications and she reports a 60 pound weight loss since starting those medications. She appears to be following an eating plan and exercise plan and drinking plenty of water. I have asked the patient to keep a food journal on a daily basis and to follow-up with the dietitian in 3 weeks and follow-up with me again in 6 weeks timeframe. She was supposed to have blood work last month for her 6-month follow-up. I have ordered this fasting blood work today and she will have this drawn and I will call her with any abnormalities. Patient will continue current medications as reviewed. She is not stable and is considered obese. Resolved Problems Problem Noted Date Diagnosed Date Resolved Date Diabetes mellitus 06/12/2023 06/12/2023 Encounters Date Type Department Care Team Description 07/17/2024 11:15 AM EDT Office Visit [facility] [address] [place] [address] Pati, Lashell, SURVEILLANCE MONITOR Myalgia (Primary Dx); Other fatigue 07/17/2024 Travel 07/16/2024 Telephone [facility] [address] [place] [address] Reina Seth MD nurse triage 07/06/2024 Refill [facility] [address] [place] [address] Reina Seth MD 06/06/2024 Refill [facility] [address], [place] [phone] Reina Seth MD Hypertension, unspecified type from Last 3 Months Immunizations Name Administration Dates Next Due Influenza injectable quadriv alent IIV4 with preservative 01/31/2019 Influenza injectable quadriv alent preservative free 01/30/2023,12/31/2021,02/17/2021,12/13,01/27/2014,02/13/2013 Influenza, IIV3, injectable 01/19/2012, 1,01/22/2010 Novel [id number], all formulations 04/16/2009 Pneumococcal Polysaccharide PPSV23 03/06/2021, Tdap 01/14/2020,10/23/2006 Zoster, Recombinant 07/10/2023,04/05/2022 Social History Tobacco Use Types Packs/Day Years Used Date Smoking Tobacco: Never Smokeless Tobacco: Never Tobacco Cessation:Counseling Given: Not Answered Alcohol Use Standard Drinks/Week Comments Not Currently [...] Orientation Straight 02/14/2022 10 :35 AM EDT Last Filed Vital Signs Vital Sign Reading Time Taken Comments Blood Pressure 105/56 07/17/2024 11:13 AM EDT Pulse 63 07/17/2024 11:13 AM EDT Temperature 36.6 ??C (97.8 ??F) 07/17/2024 11:13 AM E DT Respiratory Rate 12 07/17/2024 11:13 AM EDT Oxygen Saturation 96% 07/17/2024 11:13 AM EDT Inhaled Oxygen Concentration - - Weight 69.7 kg (153 lb 9.6 oz) 07/17/2024 11:13 AM EDT Height 149.9 cm (4' 11 ) 07/17/2024 11:13 AM EDT Body Mass Index 31.02 07/17/2024 11:13 AM EDT Plan of Treatment Health Maintenance Due Date Last Done Comments CT Colonography 1972 FIT DNA/Cologuard 1972 FIT 1972 FOBT 1972 Sigmoidoscopy 1972 Alcohol/Substance Use Screening 1984 Family Planning (PISQ) 01/02/1987 Hepatitis B Vaccines (1 of 3 - 19+ 3-dose series) 01/02/1991 Pap Smear 01/02/1993 Cervical Cancer Screening 01/02/2002 HPV/Cotest 01/02/2002 Mammogram 10/05/2020 10/05/2018, 10/05/2018 Pneumococcal Vaccine: 50+ Years (2 of 2 - PCV) 03/06/2022 03/06/2021, 11/09/2007 Depression Screening 07/28/2023 07/27/2022, 07/28/19 COVID-19 Vaccine ( season) 2023 03/06/2021, 08/06/2020, 07/15/2020 Influenza Vaccine (#1) 2023 , 12/31/2021, 02/17/2021, Additional history exists SDOH Screening 05/23/2024 05/23/2023 Tobacco Screening 01/07/2025 01/08/2024 Lipid Panel 06/15/2028 06/16/2023, 10/12/2020 DTaP/Tdap/Td Vaccines (3 - Td or Tdap) 01/13/2030 01/14/2020, 10/23/2006 Colonoscopy 08/17/2030 Colorectal Cancer Screening 08/17/2030 RSV Patients and Patients Aged 60 years or older (1 - 1-dose 75+ series) 01/02/2047 HIV Screening Completed 01/08/2020 Hepatitis C Screening Completed 01/08/2020 Zoster Vaccines Completed 07/10/2023, 04/05/2022 HIB Vaccines Aged Out No longer eligi [...] patient's age to complete this topic Meningococcal Vaccine Aged Out No homer dionte eligible based on patient's age to complete this topic RSV under 20 months Aged Out No longe r eligible based on patient's age to complete this topic Rotavirus Vaccines Aged Out No longer eligible based on patient's age to complete this topic Procedures Procedure Name Priority Date/Time Associated Diagnosis Comments CBC WITH AUTO DIFFERENTIAL Routine 07/17/2024 12:02 PM EDT Myalgia Other fatigue LIPID PANEL, STANDARD Routine 06/16/2023 9:10 AM EST Class 3 severe obesity due to excess calories with serious comorbidity and body mass index (BMI) of 40.0 to 44.9 in adult (CMS/HCC) ZZZ HISTORICAL HEPATITIS C AB W/REFL TO HCV RNA, QN, PCR Routine 01/08/2020 9:22 AM EDT HIV 1/2 ANTIGEN/ANTIBODY, FOURTH GENERATION W/RFL Routine 01/08/2020 9:22 AM EDT BI MAMMOGRAM SCREENING BILATERAL Routine 10/05/2018 12:12 PM EDT from Last 3 Months or Most Recently Relevant to Health Maintenance Results * (ABNORMAL) CBC auto differential (07/17/2024 12:02 PM EDT) White Blood Count 6.7 4.8 - 10.8 X10*3/uL [facility] Red Blood Count 3.69(L) 4.20 - 5.50 X10*6/uL [facility] Hemoglobin 11.5(L) 12.0 - 16.0 g/dl [facility] Hematocrit 35.1(L) 37.0 - 47.0 % [facility] Mean Corpuscular Volume 95.1 80.0 - 98.0 fL [facility] Mean Corpuscular Hemoglobin 31.2 27.0 - 33.0 pg [facility] Mean Corpuscular HGB Conc 32.8 31.0 - 35.0 g/dl [facility] Red Cell Distribution Width 13.6 11.0 - 16.0 % [facility] Platelet Count 278 160 - 400 X10*3/uL [facility] Mean Platelet Volume 10.4 9.4 - 12.3 fL [facility] Neutrophils Percent Auto 48.2 45 - 73 % [facility] Imm Gran Pct Auto 0.3 0.0 - 0.4 % [facility] Lymphocytes Percent Auto 38.7 20 - 40 % [facility] Monocytes Percent Auto 7.2 2 - 11 % [facility] Eosinophils Percent Auto 4.9(H) 0 - 4 % [facility] Basophils Percent Auto 0.7 0 - 2 % [facility] NRBC Pct Auto 0.0 0.0 - 0.2 /100WBC [facility] Neutrophils Absolute Auto 3.2 2.0 - 8.3 x10*3/uL [facility] Imm Gran Abs Auto 0.02 0.00 - 0.03 X10*3/uL [facility] Lymphocytes Absolute Auto 2.6 1.2 - 4.9 X10*3/uL [facility] Monocytes Absolute Auto 0.5 0.1 - 1.2 X10*3/uL [facility] Eosinophils Absolute Auto 0.3 0.0 - 0.4 X10*3/uL [facility] Basophils Absolute Auto 0.1 0.0 - 0.2 X10*3/uL [facility] NRBC Abs Auto 0.000 0.0 - 0.012 X10*3/uL [facility] Blood Venous blood specimen / Unknown 07/17/2024 12:02 PM EDT 07/17/2024 2:05 PM EDT [facility] SURVEILLANCE MONITOR LAB BLOOD ORDERABLES Final Re sult [facility] [address], [place] [phone] * (ABNORMAL) Lipid Panel, Standard (06/16/2023 9:10 AM EST) Triglycerides 119 <150 mg/dL [facility] Comment:Desirable Triglyceri de: less than 150 mg/dLBorderline High Triglyceride 150-199 mg/dLHigh Triglyceride: 200-499 mg/dLVery High Triglyceride: greater than or equal to 5OO mg/dL Cholesterol 224(H) <200 mg/dL [facility] Comment:Desirable Cholestero l: less than 200 mg/dLBorderline High Cholesterol: 200-239 mg/dLHigh Cholesterol: greater than 239 mg/dL LDL Cholesterol Calculated 144(H) <100 mg/dL [facility] Comment:Desirable LDL: less than 100 mg/dLNear Optimal/Above Optimal LDL: 110- 129 mg/dLBorderline High LDL: 130-159 mg/dLHigh LDL: 160-189 mg/dLVery High LDL: greater than or equal to 190 mg/dL HDL Cholesterol 57 >40 mg/dL [facility] Comment:Desirable HDL: great er than 40 mg/dL Note: This HDL assay may give artificially low results in patients with liver disease. Blood Venous blood specimen / Unknown 06/16/2023 9:10 AM EST 06/16/2023 2:23 PM EST us Reina Seth MD LAB BLOOD ORDERABLES Final Re sult [facility] [address] [place] [phone] * HEPATITIS C AB W/REFL TO HCV RNA, QN, PCR (01/08/2020 9:22 AM EDT) HEPATITIS C ANTIBODY NON-REACT [facility] NON-REACT [facility] INDEX 0.01 <1.00 [facility] Comment: ?? HCV antibody was non-reactive. There is no laboratory ?? evidence of HCV infection. ?? In most cases, no further action is required. However, if recent HCV exposure is suspected, a test for HCV RNA (test code 97705) is suggested. ?? For additional information please refer to http://[employer]/faq/UII60e0 (This link is being provided for informational/ educational purposes only.) ?? 01/08/2020 9:22 AM EDT Lisa Landeros MD HISTORICAL/NON ORDERA BLE LABS Final Result [facility] [address] * HIV 1/2 ANTIGEN/ANTIBODY,FOURTH GENERATION W/RFL (01/08/2020 9:22 AM EDT) HIV-1/2 ANTIGEN AND ANTIBODIES, 4TH GENERATION W/ REFLEX NON-REACT [facility] NON-REACT [facility] Comment: HIV-1 antigen and HIV-1/HIV-2 antibodies were not detected. There is no laboratory evidence of HIV infection. ?? PLEASE NOTE: This information has been disclosed to you from records whose confidentiality may be protected by state law. ??If your state requires such protection, then the state law prohibits you from making any further disclosure of the information without the specific written consent of the person to whom it pertains, or as otherwise permitted by law. A general authorization for the release of medical or other information is NOT sufficient for this purpose. ? For additional information please refer to http://[employer]/faq/TKJ318 (This link is being provided for informational/ educational purposes only.) ? The performance of this assay has not been clinically validated in patients less than 2 years old. ?? HIV-1/2 ANTIGEN AND ANTIBODIES, 4TH GENERATION W/ REFLEX NON-REACT [facility] NON-REACT [facility] Comment: HIV-1 antigen and HIV-1/HIV-2 antibodies were not detected. There is no laboratory evidence of HIV infection. ?? PLEASE NOTE: This information has been disclosed to you from records whose confidentiality may be protected by state law. ??If your state requires such protection, then the state law prohibits you from making any further disclosure of the information without the specific written consent of the person to whom it pertains, or as otherwise permitted by law. A general authorization for the release of medical or other information is NOT sufficient for this purpose. ? For additional information please refer to http://education.[employer]/faq/LVL050 (This link is being provided for informational/ educational purposes only.) ? The performance of this assay has not been clinically validated in patients less than 2 years old. ?? 01/08/2020 9:22 AM EDT Lisa Landeros MD LAB BLOOD ORDERABLES Final Result [facility] [address] * DIGITAL BILATERAL SCREEN 1 (10/05/2018 12:12 PM EDT) Anatomical Region Laterality Modality Breast Bilateral Mammography 10/05/2018 12:1 2 PM EDT Narrative 10/05/2018 12:15 PM EDT Refer to the Notes tab for result details [facility] Procedure: DIGITAL BILATERAL SCREEN 1 Procedure Note Provider, MD Mira - 07/09/2022 Refer to the Notes tab for result details [facility] Procedure: DIGITAL BILATERAL SCREEN 1 us Lisa Landeros MD IMG BI PROCEDURES Fin al Result from Last 3 Months or Most Recently Relevant to Health Maintenance Insurance [facility] Care Teams Architecture Intern Relationship Specialty Start Date End Date Reina Seth MD [address] [place] [id number] PCP - General Family Medicine 06/17/20 Taylor Oh MD [address] [place] [id number] Referring Physician Internal Medicine 07/25/22
--- OUTSIDE RECORDS SUMMARY | 2024-07-17 14:33 | XMS_ITS | Encounter Summary ---
Author Organization [employer] Address [address] [place] [address] Care Team Providers Care Insurance Billing Specialist Name Role Phone Reina Seth MD Primary Care Provider [phone] Taylor Oh MD Unavailable Reason for Visit * Reason Comments Follow-up Bilateral leg pain Encounter Details Date Type Department Care Team ([facility] st Contact Info) Description 07/17/2024 11:15 AM EDT Office Visit [facility] MED & PEDS [address] [place] [address] [facility] [address] [place] [address] Myalgia (Primary Dx); Other fatigue Social History Tobacco Use Types Packs/Day Years [...] AM EDT documented as of this encounter Last Filed Vital Signs Vital Sign Reading [...] Mass Index 31.02 07/17/2024 11:13 AM EDT documented in this encounter Plan of Treatment Scheduled Orders Name Type Priority Associated Diagnoses Orde r Schedule Comprehensive Metabolic Panel Lab Routine Myalgia Other fatigue Expected: 07/17/2024 (Approximate), Expires: 07/17/2025 Ferritin Lab Routine Myalgia Other fatigue Expected: 07/17/2024, Expires: 07/17/2025 TSH W/Reflex to FT4 Lab Routine Myalgia Other fatigue Expected: 07/17/2024 (Approximate), Expires: 07/17/2025 Vitamin D, 25-Hydroxy, Total, Immunoassay Lab Routine Myalgia Other fatigue Expected: 07/17/2024 (Approximate), Expires: 07/17/2025 Creatine Kinase Isoenzymes (CK Isoenzymes) w/ Total CK Lab Routine Myalgia Other fatigue Expected: 07/17/2024 (Approximate), Expires: 07/17/2025 documented as of this encounter Procedures Procedure Name Priority Date/Time Associated Diagnosis Comments CBC WITH AUTO DIFFERENTIAL Routine 07/17/2024 12:02 PM EDT Myalgia Other fatigue documented in this encounter Results * (ABNORMAL) CBC auto differential (07/17/2024 12:02 PM EDT) White Blood Count 6.7 4.8 - 10.8 X10*3/uL [facility] Red Blood Count 3.69(L) 4.20 - 5.50 X10*6/uL [facility] Hemoglobin 11.5(L) 12.0 - 16.0 g/dl [facility] Hematocrit 35.1(L) 37.0 - 47.0 % [facility] Mean Corpuscular Volume 95.1 80.0 - 98.0 fL [facility] Mean Corpuscular Hemoglobin 31.2 27.0 - 33.0 pg [facility] Mean Corpuscular HGB Conc 32.8 31.0 - 35.0 g/dl [facility] Red Cell Distribution Width 13.6 11.0 - 16.0 % [facility] Platelet Count 278 160 - 400 X10*3/uL [facility] Mean Platelet Volume 10.4 9.4 - 12.3 fL [facility] Neutrophils Percent Auto 48.2 45 - 73 % [facility] Imm Gran Pct Auto 0.3 0.0 - 0.4 % [facility] Lymphocytes Percent Auto 38.7 20 - 40 % [facility] Monocytes Percent Auto 7.2 2 - 11 % [facility] Eosinophils Percent Auto 4.9(H) 0 - 4 % [facility] Basophils Percent Auto 0.7 0 - 2 % [facility] NRBC Pct Auto 0.0 0.0 - 0.2 /100WBC [facility] Neutrophils Absolute Auto 3.2 2.0 - 8.3 x10*3/uL [facility] Imm Gran Abs Auto 0.02 0.00 - 0.03 X10*3/uL [facility] Lymphocytes Absolute Auto 2.6 1.2 - 4.9 X10*3/uL [facility] Monocytes Absolute Auto 0.5 0.1 - 1.2 X10*3/uL [facility] Eosinophils Absolute Auto 0.3 0.0 - 0.4 X10*3/uL [facility] Basophils Absolute Auto 0.1 0.0 - 0.2 X10*3/uL [facility] NRBC Abs Auto 0.000 0.0 - 0.012 X10*3/uL [facility] Blood Venous blood specimen / Unknown 07/17/2024 12:02 PM EDT 07/17/2024 2:05 PM EDT [facility] PLANNER/SCHEDULER LAB BLOOD ORDERABLES Final Re sult [facility] [address] [place] [address] [phone] documented in this encounter Visit Diagnoses Diagnosis Myalgia- Primary Unspecified myalgia and myositis Other fatigue documented in this encounter Additional Health Concerns Assessment Noted Time PHQ-9 Depression Total Score: 6 07/28/19 23 8:47 AM EDT documented as of this encounter Care Teams Insurance Billing Specialist Relationship Specialty Start Date End Date Reina Seth MD [address] [place] [id number] PCP - General Family Medicine 06/17/20 Taylor Oh MD [address] [place] [address] Referring Physician Internal Medicine 07/25/22 documented as of this encounter
--- OUTSIDE RECORDS SUMMARY | 2024-07-17 14:33 | XMS_ITS | Encounter Summary ---
Author Organization [employer] Address [address] [place] [address] Care Team Providers Care Bicycle Courier Name Role Phone Reina Seth MD Primary Care Provider [phone] Taylor Oh MD Unavailable Encounter Details Date Type Department Care Team (Latest Contact Info) Description 07/17/2024 Travel Social History Tobacco Use Types Packs/Day Years [...] documented as of this encounter Care Teams Bicycle Courier Relationship Specialty Start Date End Date Reina Seth MD [address] [place] [id number] PCP - General Family Medicine 06/17/20 Taylor Oh MD [address] [place] [address] Referring Physician Internal Medicine 07/25/22 documented as of this encounter
[2024-07-17 14:44] LABS: Alanine Aminotransferase 14 U/L (0-31); Albumin Level 3.8 g/dL (3.5-5.0); Alkaline Phosphatase 51 U/L (39-117); Anion Gap 9 (12-20); Aspartate Amino Transferase 24 U/L (5-31); Bilirubin Total 0.3 mg/dL (0.0-1.0); Blood Urea Nitrogen 18 mg/dL (9-16); Carbon Dioxide 27 mmol/L (22-29); Chloride 106 mmol/L (96-108); Estimated Glomerular Filt Rate 44; Glucose Random 79 mg/dL (60-115); Potassium 4.3 mmol/L (3.3-5.1); Sodium 138 mmol/L (135-145); Total Protein 6.2 g/dL (6.5-8.0)
[2024-07-17 15:03] LABS: Ferritin 21 ng/mL (10-250); TSH reflex Free T4 2.56 uIU/mL (0.32-4.0); Vitamin D 25-OH Total 68.3 ng/mL (>30)
[2024-07-22 20:33] LABS: CK-BB None Detected (None Detected); CK-MB 0 % (<5); CK-MM 100 % (95-100); Creatine Kinase,Total,Serum 42 U/L (21-240)
== END 2024-07-17 12:00 | disposition home or self-care (01) ==
LOC: HO.CHCLDS 11:59
PROVIDERS: Visit Provider Registered Nurse
DX: M79.10 Myalgia, unspecified site (principal); R53.83 Other fatigue
CPT/HCPCS: 36415; 80053; 82306; 82552; 82728; 84443; 85025

== ENCOUNTER 2024-11-21 14:40 | Outpatient (AMB) | payer OTHER, SELFPAY ==
--- OUTSIDE RECORDS SUMMARY | 2024-11-21 14:43 | XMS_ITS | Encounter Summary ---
Author Organization [facility] Address [address] [place] [address] Phone Care Team Providers Care Curriculum Facilitator Name Role Phone Reina Seth MD Primary Care Provider [phone] Encounter Details Date Type Department Care Team (Late st Contact Info) Description 02/24/2022 Procedure Pass OR Admitting Dept - Virtual Department [address] [place] [address] Social History Tobacco Use Types Packs/Day Years Used Date Smoking Tobacco: Never Smokeless Tobacco: Never Alcohol Use Standard Drinks/Week Comments Never 0 (1 standard drink = 0.6 oz pur e alcohol) Comments Unknown Sex and Gender Information Value Date Recorded Sex Assigned at Not on file Legal Sex Female 2:08 PM EDT Gender Identity Not on file Sexual Orientation Not on file documented as of this encounter Functional Status * Calculated C-SSRS Risk Score (Lifetime/Recent) Answer Date of Assessment Author No Risk Indicated 02/24/2022 4:32 PM Breanna Sears RN * [place] Suicide Severity Rating Scale (Screener/Recent Self-Report) Question Answer Date of Assessment Author 1. Wish to be (Past 1 Month) No 022 4:32 PM Breanna Sears RN 2. Non-Specific Active Suici cesar Thoughts (Past 1 Month) No 02/24/2022 4:32 PM Katelynn Sears RN 6. Suicidal Behavior (Lifetime) No 4:32 PM Breanna Sears RN documented as of this encounter Plan of Treatment Not on file documented as of this encounter Visit Diagnoses Not on filedocumented in this encounter Care Teams Curriculum Facilitator Relationship Specialty Start Date End Date Reina Seth MD PCP - General Family Medicine 11/22/21 documented as of this encounter Additional Source Comments The information contained in this document represents components of the legal health record. It is not the complete legal health record.[facility]
--- OUTSIDE RECORDS SUMMARY | 2024-11-21 14:43 | XMS_ITS | Encounter Summary ---
Author Organization [employer] Address [address] [place] [address] [address] [place] [address] Care Team Providers Care Counselor At Law Name Role Phone Reina Seth MD Primary Care Provider [phone] Tyalor Oh MD Unavailable Reason for Visit * Reason Onset Date Comments triage 05/03/2022 Encounter Details Date Type Department Care Team ([facility] Contact Info) Description 05/03/2022 Telephone [facility] CHC MED & PEDS [address] [place] [address] Reina Seth MD [address] [place] [address] triage Social History Tobacco Use Types Packs/Day [...] requesting antibiotic again. [place] [facility]200[place] [facility]. Pt agreed with disposition . Insurance [...] nodes in back of neck, please call [phone]. Austrian documented in this encounter Plan of Treatment Not on file documented as of this encounter Visit Diagnoses Diagnosis Other chronic pain documented in this encounter Care Teams Counselor At Law Relationship Specialty Start Date End Date Reina Seth MD [address] [place] [id number] PCP - General Family Medicine 06/17/20 Taylor Oh MD [address] [place] [address] Referring Physician Internal Medicine 07/25/22 documented as of this encounter
--- OUTSIDE RECORDS SUMMARY | 2024-11-21 14:43 | XMS_ITS | Clinical Summary ---
Author Organization [facility] it Address [address] [place] [address] Care Team Providers Care Sewing Machine Maintenance Mechanic Name Role Phone Reina Seth MD Primary Care Provider [phone] Surgical History Surgery Date Site/Laterality Comments GASTRIC BYPASS PROCEDURE: [place] GASTRIC RSTCV W/BYP W/SM INT RCNSTJ LIMIT ABSRPJ SECTION N/A PROCEDURE: [place] DELIVERY ONLY; COMMENT: X 2 Medical History [...] Panel) 03/21/2022 Colorectal Cancer Screening: Colonoscopy 03/21/2022 HIV Screening 03/21/2022 Hepatitis C Screening 03/21/2022 Social Influencers of Health Screening 03/21/2022 COVID-19 Vaccine (1 - 2023-2 5 season) 2023 Hypertension/CHF/CAD Annual BMP Blood Test 01/29/2024 Depression Screening 04/17/2024 Influenza Vaccine (#1) 2024 HIB Vaccines Aged Out No longer [...] age to complete this topic Meningococcal B Vaccine Aged Out No l onger eligible based on patient's age to complete this topic RSV Immunization Patients Un nandini 20 months Aged Out No longer eligible b ased on patient's age to complete this topic Varicella Vaccines Aged Out No longer eligible based on patient's age to complete this topic Care Teams Sewing Machine Maintenance Mechanic Relationship Specialty Start Date End Date Reina Seth MD [address] [place] [address] PCP - General 04/05/21
--- NOTE | 2024-11-21 14:45 | MHC.OFFVIS ---
Vital Signs 11/21/24 14:53 Height 4 ft 10.5 in Weight 132 lb 4 oz BMI 27.2 BP 107/63 Blood Pressure Location Rt brachial Position Sitting Pulse 79 Pulse Source Pulse Oximeter Pulse Oximetry (%) 98 Oxygen Delivery Method Room Air Intake Visit Reasons: POLYARTHRALGIA Intake Note: Pain today 10/24 Licensed Esthetician Required: No Accompanied by: Self / Same As Patient Allergies latex Allergy (Severe, Verified 11/21/24 14:47) Rash lisinopril Allergy (Severe, Verified 11/21/24 14:47) anaphylaxis sulfamethoxazole (From Bactrim) Allergy (Intermediate, Verified 11/21/24 14:47) rash trimethoprim (From Bactrim) Allergy (Intermediate, Verified 11/21/24 14:47) rash NSAIDS (Non-Steroidal Anti-Inflamma Allergy (Mild, Verified 11/21/24 14:47) Diarrhea HPI Comments Details: The patient is a 54-year-old female presenting with polyarthralgia and associated pain symptoms. She reports experiencing pain in her back, neck, knee, and joints for approximately two years, with no specific injury preceding the onset. The pain was progressive, initially attributed to aging, and has significantly impacted her quality of life, affecting sleep and daily activities. The patient has a history of significant weight loss following a Ada-en-Y gastric bypass surgery performed in [place], which contributed to her current weight of 130 pounds from an initial 358 pounds. She maintains a diet high in protein and low in carbohydrates, with no sugar intake, and takes various supplements including iron and vitamin D due to lifelong anemia. The patient reports that her pain is worse at night, particularly in the coccyx, right buttock and hip regions, and describes it as a constant, bruising, stabbing, throbbing, pinching, pulling, aching, and radiating sensations. She has tried various medications including gabapentin, which caused weight gain and blurred vision, and tramadol, which is partially effective. Previously, she was on Percocet, which provided relief, but was discontinued due to concerns about long-term use. The patient has a history of depression, anxiety, and PTSD, for which she is receiving therapy. She has undergone physical therapy, intensive care medicine specialist, and massage therapy for pain management, with limited success. - Onset: Progressive over two years, initially attributed to aging - Quality: Described as a constant, bruising, throbbing, aching, stabbing sensation - Location: Back, neck, knee, joints, right buttock, coccyx, and hip - Radiation: Pain radiates into the right leg - Exacerbating factors: Worse at night, particularly in the coccyx and hip regions - Relieving factors: Percocet was most effective; tramadol provides partial pain relief - Interference: Affects sleep, daily activities, and quality of life - Affect: Pain impacts sleep, daily activities, and mood - Analgesia: Current medications include tramadol, previously on gabapentin and Percocet - Adverse Effects: Gabapentin caused weight gain and blurred vision - Activities of Daily Living: Pain affects daily activities and quality of life - Aberrant Drug Related Behaviors: None reported [facility] Medical History (Updated 11/24/24 @ 13:14 by GARDENIA Horton) Iliotibial band syndrome of right side Fibromyalgia Insulin resistance Mastoiditis Intestinal malabsorption following gastrectomy Irritable bowel syndrome with diarrhea Chronic back pain Chronic diarrhea BMI 45.0-49.9, adult Insomnia Anxiety Hypercholesterolemia PCOS (polycystic ovarian syndrome) HTN (hypertension) COVID-19 vaccine administered Hx MRSA infection Arthritis Anemia Hx of renal calculi History of anxiety Depression Myocardial infarction Acid reflux PTSD (post-traumatic stress disorder) IBS (irritable bowel syndrome) Surgical History Hx of endoscopy Hx of colonoscopy Hx of section S/P panniculectomy Hx of cardiac catheterization Gastric bypass status for obesity Family History Father No problems noted. Mother No problems noted. Sister No problems noted. Brother MYLK2-related hypertropic cardiomyopathy Daughter Cystic fibrosis Daughter No problems noted. Social History Household Members: None Household Members Other:: Daughter has a cystic fibrosis Are you a primary career development facilitator to a significant other at home: No Do you presently have visiting nurse or other home services: No Alcohol intake: former Year quit: 5 Patient Tobacco Use Status: Never used Tobacco Current occupational status: unemployed Review of Systems Const Details: - Musculoskeletal: Reports polyarthralgia, worse at night, particularly in the coccyx and hip regions - Neurological: Denies any falls or injuries; denies weakness, footdrop, bladder or bowel dysfunction, saddle anesthesia - Hematological: Reports lifelong anemia - Psychiatric: Reports depression, anxiety, and PTSD - Sleep: Reports insomnia due to pain All systems reviewed & are unremarkable except as noted in HPI and below Physical Exam Vital Signs: Last Vital Signs Pulse 79 11/21/24 14:53 BP 107/63 11/21/24 14:53 Pulse Ox 98 11/21/24 14:53 Oxygen Delivery Method Room Air 11/21/24 14:53 BMI result Body Mass Index 27.2 General: Appears afebrile. No acute distress. Alert and oriented. Pleasant. Mood and affect appropriate. Clear speech. Follows and participates in conversation appropriately. Respiratory effort is unlabored. No cough. Able to transition from sit to stand unassisted. Ambulates with bilaterally normal heel strike and toe off. General: Yes no CVA tenderness Back/Spine/Pelvis Other: Patient is able to walk and stand on heels and tip toes with no difficulties demonstrating good motor tone. Normal gait, no limping. Lumbar extension and axial rotations reproduce moderate pain, flexion reproduces mild pain. Demonstrates 5/5 strength of quadriceps bilaterally as well as flexion/dorsiflexion of bilateral feet against resistance. 2+ pedal pulses bilaterally. Straight leg rise with dorsiflexion negative bilaterally. +2 patellar and achilles reflexes bilaterally. Facet loading test positive bilaterally. Michael sign, Dillon?s, Gaenslen, Pelvic compression and Stinchfield tests are positive on the right. No groin pain with I/E hip rotations. Valsalva maneuver negative. Back: no CVA tenderness Cervical Spine: cervical ROM normal, No Lhermitte's sign positive, cervical muscular tenderness, pain with cervical ROM, No Cervical spine scars present, cervical spasm, No Cervical spine tenderness and No step off deformity Thoracic/Lumbar Spine: thoracic and lumbar spine normal to inspection, No Thoracic/lumbar spine scar(s), Lasegue's sign negative, straight leg raise negative bilaterally, pain with thoraco-lumbar ROM, paraspinal muscle tenderness on the right greater than left, No thoracic spinal tenderness and lumbar spinal tenderness at L4 and at L5 Pelvis: buttock tenderness on the right Sacroiliac joints: on the right tender to palpation and on the left nontender Extrem General: Yes capillary refill normal, Yes no clubbing, cyanosis or edema and Yes no calf tenderness Assessment & Plan Assessment & Plan (1) Chronic low back pain: Code(s): M54.50 - Low back pain, unspecified; G89.29 - Other chronic pain Category: Medical (2) Lumbosacral spondylosis: Code(s): M47.817 - Spondylosis without myelopathy or radiculopathy, lumbosacral region Category: Medical (3) Chronic back pain: Code(s): M54.9 - Dorsalgia, unspecified; G89.29 - Other chronic pain Category: Medical (4) Fibromyalgia: Code(s): M79.7 - Fibromyalgia Category: Medical (5) Sacroiliac joint pain: Code(s): M53.3 - Sacrococcygeal disorders, not elsewhere classified Category: Medical (6) Greater trochanteric bursitis of right hip: Code(s): M70.61 - Trochanteric bursitis, right hip Category: Medical Plan The plan includes obtaining x-rays of the lumbar spine to assess for lumbar spondylosis and facet joint arthritis, as these are suspected based on the patient's symptoms, history and exam. Additionally, the patient will be considered for bursa injections to address right hip pain, with the procedure potentially guided by fluoroscopy. Patient has been on medical management through her current PCP on tramadol which is partially effective. Patient may benefit from rotating opioid back to Percocet as this allowed her to be more functional and less symptomatic without known adverse effects. The patient was informed about the potential for lumbar medial branch blocks as a treatment option to address predominantly axial low back pain. The use of radiofrequency ablation, peripheral nerve and spinal cord stimulation was also mentioned as longer-term solutions if the diagnostic blocks prove beneficial. The patient will continue with her current therapy for depression, anxiety, and PTSD, and maintain her dietary regimen and supplement intake as well regularly follow up with her providers to manage anemia. All questions and concerns have been answered and patient agrees with the treatment plan. Follow-up for x-ray results and sooner as needed. Patient was informed and verbally consented to the use of an ambient scribe for clinic note documentation during this visit. Orders: Orders XR lumbar spine 4V min 11/21/24 G89.29 - Other chronic pain, M47.817 - Spondylosis without myelopathy or radiculopathy, lumbosacral region, M54.50 - Low back pain, unspecified XR sacroiliac joint min 3V 11/21/24 G89.29 - Other chronic pain, M47.817 - Spondylosis without myelopathy or radiculopathy, lumbosacral region, M54.50 - Low back pain, unspecified Coding Level of Care Code New Pt Level 4 (88978) Diagnoses Chronic low back pain M54.50; G89.29 Lumbosacral spondylosis M47.817 Chronic back pain M54.9; G89.29 Fibromyalgia M79.7 Sacroiliac joint pain M53.3 Greater trochanteric bursitis of right hip M70.61
[2024-11-21 14:53] VITALS: BP 107/63; PULSE 79; O2SAT 98; BMI 27.2
== END 2024-11-21 15:28 | disposition home or self-care (01) ==
PROVIDERS: PCP Family Medicine; Referring Provider Family Medicine; Visit Provider Nurse Practitioner Family
DX: M54.50 Low back pain, unspecified (principal); G89.29 Other chronic pain; M47.817 Spondylosis without myelopathy or radiculopathy, lumbosacral region; M54.9 Dorsalgia, unspecified; M79.7 Fibromyalgia; M53.3 Sacrococcygeal disorders, not elsewhere classified; M70.61 Trochanteric bursitis, right hip
CPT/HCPCS: 99204

== ENCOUNTER → 2024-11-21 14:40 | Outpatient (BNVA) | payer OTHER, SELFPAY | PROVIDERS: PCP Family Medicine; Referring Provider Family Medicine; Visit Provider Nurse Practitioner Family | DX: M70.61 Trochanteric bursitis, right hip (principal); M53.3 Sacrococcygeal disorders, not elsewhere classified; M79.7 Fibromyalgia; M54.9 Dorsalgia, unspecified; M54.50 Low back pain, unspecified; G89.29 Other chronic pain; M47.817 Spondylosis without myelopathy or radiculopathy, lumbosacral region | CPT/HCPCS: 99202 ==

== ENCOUNTER 2024-11-30 13:26 | Outpatient (REF) | payer OTHER, SELFPAY ==
--- NOTE | ~2024-11-30 | XR_ITS ---
EXAMINATION: XR SACROILIAC JOINTS CLINICAL INFORMATION: M54.50 - Low back pain, unspecified COMPARISON: Correlated to CT abdomen pelvis dated December 06, 2021 TECHNIQUE: AP and oblique views of the sacroiliac joints FINDINGS: No acute cortical disruption. Mild sclerosis and the inferior aspect of the left sacroiliac joint. No lytic or blastic lesions. Spina bifida occulta, S1, congenital. XR/XR sacroiliac joint min 3V IMPRESSION: Mild sacroiliitis, left-sided. Electronically signed by: Keshawn Gonzales MD 12/02/2024 10:05 AM EDT
--- NOTE | ~2024-11-30 | XR_ITS ---
EXAMINATION: XR LUMBOSACRAL SPINE CLINICAL INFORMATION: M54.50 - Low back pain, unspecified COMPARISON: Collated to CT abdomen and pelvis dated December 06, 2021. TECHNIQUE: AP oblique and lateral views FINDINGS: Grade 1 anterolisthesis L4-5 likely secondary to spondylolysis pars interarticularis. Multilevel endplate sclerosis and small marginal osteophyte formation throughout the lower thoracic spine and lumbar spine. No lytic or blastic lesions. Vascular calcifications, aorta. Rudimentary ribs, T12. Spina bifida occulta, S1. 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 Multilevel spondylosis. Atherosclerosis disease. Electronically signed by: Keshawn Gonzales MD 12/02/2024 10:03 AM EDT
--- OUTSIDE RECORDS SUMMARY | 2024-11-30 13:28 | XMS_ITS | Encounter Summary ---
Author Organization [facility] Address [address] [place] [address] Phone Care Team Providers Care Behavioral Scientist Name Role Phone Reina Seth MD Primary Care Provider [phone] Encounter Details Date Type Department Care Team (Late st Contact Info) Description 02/24/2022 Procedure Pass OR Admitting Dept - Virtual Department [address] [place] [address] Social History Tobacco Use Types Packs/Day Years [...] 02/24/2022 4:32 PM Breanna Sears RN * [place] Suicide Severity Rating Scale (Screener/Recent Self-Report) Question [...] on filedocumented in this encounter Care Teams Behavioral Scientist Relationship Specialty Start Date End Date Reina Seth MD PCP - General Family Medicine 11/22/21 documented as of this encounter Additional Source Comments The information contained in this document represents components of the legal health record. It is not the complete legal health record.[facility]
--- OUTSIDE RECORDS SUMMARY | 2024-11-30 13:28 | XMS_ITS | Clinical Summary ---
Author Organization [facility] it Address [address] [place] [address] Care Team Providers Care Business Project Analyst Name Role Phone Reina Seth MD Primary Care Provider [phone] Surgical History Surgery Date Site/Laterality Comments GASTRIC BYPASS PROCEDURE: [place] GASTRIC RSTCV W/BYP W/SM INT RCNSTJ LIMIT ABSRPJ SECTION N/A PROCEDURE: [place] DELIVERY ONLY; COMMENT: X 2 Medical History [...] complete this topic RSV Immunization Patients Un nadnini 20 months Aged Out No longer eligible b ased on patient's age to complete this topic Varicella Vaccines Aged Out No longer eligible based on patient's age to complete this topic Care Teams Business Project Analyst Relationship Specialty Start Date End Date Reina Seth MD [address] [place] [address] PCP - General 04/05/21
== END 2024-11-30 13:27 | disposition home or self-care (01) ==
LOC: HO.HMGCX 13:26
PROVIDERS: PCP Family Medicine; Visit Provider Nurse Practitioner Family
DX: M47.817 Spondylosis without myelopathy or radiculopathy, lumbosacral region (principal); G89.29 Other chronic pain; M54.50 Low back pain, unspecified
CPT/HCPCS: 72110; 72202

== ENCOUNTER → 2024-11-30 13:30 | Outpatient (BNV) | payer OTHER, SELFPAY | PROVIDERS: PCP Family Medicine; Visit Provider Radiology Diagnostic Radiology | DX: M47.816 Spondylosis without myelopathy or radiculopathy, lumbar region (principal); I70.90 Unspecified atherosclerosis; M54.50 Low back pain, unspecified | CPT/HCPCS: 72110; 72202 ==

== ENCOUNTER 2024-12-23 14:49 | Outpatient (AMB) | payer OTHER, SELFPAY ==
--- NOTE | 2024-12-23 14:52 | A.OFFVIS_ITS ---
Vital Signs 12/23/24 14:53 Height 4 ft 11 in Weight 133 lb BMI 26.9 BP 118/63 Blood Pressure Location Lt brachial Position Sitting Respiration 18 Pulse 76 Pulse Source Pulse Oximeter Pulse Oximetry (%) 95 Oxygen Delivery Method Room Air Intake Visit Reasons: Discuss X-Ray Results Aerial Advertiser Required: No Allergies latex Allergy (Severe, Verified 12/23/24 14:52) Rash lisinopril Allergy (Severe, Verified 12/23/24 14:52) anaphylaxis sulfamethoxazole (From Bactrim) Allergy (Intermediate, Verified 12/23/24 14:52) rash trimethoprim (From Bactrim) Allergy (Intermediate, Verified 12/23/24 14:52) rash NSAIDS (Non-Steroidal Anti-Inflamma Allergy (Mild, Verified 12/23/24 14:52) Diarrhea HPI Comments Details: The patient is a 54-year-old female presenting with chronic back pain radiating to the left buttock. The pain has been persistent and is associated with a hi story of sacroiliitis, which was confirmed by x-ray and provocative testing. 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 The patient also has a history of multilevel arthritis, which contributes to her chronic pain. She reports that the arthritis was known prior to the current visit and has been managed conservatively, including tramadol with partial relief. The patient has fibromyalgia, which exacerbates her pain symptoms. She has not undergone any injections previously but is considering sacroiliac joint injections for pain relief. The patient also experiences bursitis, particularly affecting her right hip, which flares up with weather changes. She notes that the bursitis pain is manageable but worsens during rainy weather. Denies any recent cough, cold, infection, fever or any other significant changes in medical history since last office visit. PRIOR: The patient is a 54-year-old female presenting with polyarthralgia and associated pain symptoms. She reports experiencing pain in her back, neck, knee, and joints for approximately two years, with no specific injury preceding the onset. The pain was progressive, initially attributed to aging, and has significantly impacted her quality of life, affecting sleep and daily activities. The patient has a history of significant weight loss following a Ada-en-Y gastric bypass surgery performed in [place], which contributed to her current weight of 130 pounds from an initial 358 pounds. She maintains a diet high in p rotein and low in carbohydrates, with no sugar intake, and takes various supplements including iron and vitamin D due to lifelong anemia. The patient reports that her pain is worse at night, particularly in the coccyx, right buttock and hip regions, and describes it as a constant, bruising, stabbing, throbbing, pinching, pulling, aching, and radiating sensations. She has tried various medications including gabapentin, which caused weight gain and blurred vision, and tramadol, which is partially effective. Previously, she was on Percocet, which provided relief, but was discontinued due to concerns about long-term use. The patient has a history of depression, anxiety, and PTSD, for which she is receiving therapy. 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 - Onset: Progressive over two years, initially attributed to aging - Quality: Described as a constant, bruising, throbbing, aching, stabbing sensation - Location: Back, neck, knee, joints, right buttock, coccyx, and hip - Radiation: Pain radiates into the right leg - Exacerbating factors: Worse at night, particularly in the coccyx and hip regions - Relieving factors: Percocet was most effective; tramadol provides partial pain relief - Interference: Affects sleep, daily activities, and quality of life - Affect: Pain impacts sleep, daily activities, and mood - Analgesia: Current medications include tramadol, previously on gabapentin and Percocet - Adverse Effects: Gabapentin caused weight gain and blurred vision - Activities of Daily Living: Pain affects daily activities and quality of life - Aberrant Drug Related Behaviors: None reported [facility] Medical History (Updated 12/23/24 @ 14:55 by GARDENIA Horton) Iliotibial band syndrome of right side Fibromyalgia Insulin resistance Mastoiditis Intestinal malabsorption following gastrectomy Irritable bowel syndrome with diarrhea Chronic back pain Chronic diarrhea BMI 45.0-49.9, adult Insomnia Anxiety Hypercholesterolemia PCOS (polycystic ovarian syndrome) HTN (hypertension) COVID-19 vaccine administered Hx MRSA infection Arthritis Anemia Hx of renal calculi History of anxiety Depression Myocardial infarction Acid reflux PTSD (post-traumatic stress disorder) IBS (irritable bowel syndrome) Surgical History Hx of endoscopy Hx of colonoscopy Hx of section S/P panniculectomy Hx of cardiac catheterization Gastric bypass status for obesity Family History Father No problems noted. Mother No problems noted. Sister No problems noted. Brother MYLK2-related hypertropic cardiomyopathy Daughter Cystic fibrosis Daughter No problems noted. Social History Household Members: None Household Members Other:: Daughter has a cystic fibrosis Are you a primary home health care provider to a significant other at home: No Do you presently have visiting nurse or other home services: No Alcohol intake: former Year quit: 5 Patient Tobacco Use Status: Never used Tobacco Current occupational status: unemployed Review of Systems Const Details: - Musculoskeletal: Reports chronic back pain radiating to the left buttock, denies new joint pain - Neurological: Denies bladder or bowel dysfunction or saddle anesthesia All systems reviewed & are unremarkable except as noted in HPI and below Physical Exam Vital Signs: Last Vital Signs Pulse 76 12/23/24 14:53 Resp 18 12/23/24 14:53 BP 118/63 12/23/24 14:53 Pulse Ox 95 12/23/24 14:53 Oxygen Delivery Method Room Air 12/23/24 14:53 BMI result Body Mass Index 26.9 General: Appears afebrile. Alert and oriented. Pleasant. Mood and affect appropriate. Clear speech. Follows and participates in conversation appropriately. Respiratory effort is unlabored. No cough. Able to transition from sit to stand unassisted. Ambulates with bilaterally normal heel strike and toe off. General: Yes no CVA tenderness Back/Spine/Pelvis Other: Normal gait, no limping. Lumbar extension and axial rotations reproduce mild to moderate pain, flexion reproduces mild pain. Demonstrates 5/5 strength of quadriceps bilaterally as well as flexion/dorsiflexion of bilateral feet against resistance. 2+ pedal pulses bilaterally. Straight leg rise with dorsiflexion negative bilaterally. +2 patellar and achilles reflexes bilaterally. Facet loading test positive bilaterally. Michael sign, Dillon?s, Gaenslen, Pelvic compression and Stinchfield tests are positive bilaterally, left>right. No groin pain with I/E hip rotations. Valsalva maneuver negative. Back: no CVA tenderness Cervical Spine: cervical ROM normal, No Lhermitte's sign positive, cervical muscular tenderness, pain with cervical ROM, No Cervical spine scars present, cervical spasm, No Cervical spine tenderness and No step off deformity Thoracic/Lumbar Spine: thoracic and lumbar spine normal to inspection, No Thoracic/lumbar spine scar(s), Lasegue's sign negative, straight leg raise negative bilaterally, pain with thoraco-lumbar ROM, paraspinal muscle tenderness on the right greater than left, No thoracic spinal tenderness and lumbar spinal tenderness at L4 and at L5 Pelvis: buttock tenderness bilaterally Sacroiliac joints: bilaterally (left>right) tender to palpation Extrem General: Yes capillary refill normal, Yes no clubbing, cyanosis or edema and Yes no calf tenderness Results Reviewed Results Reviewed: XR SACROILIAC JOINTS 11/30/24 CLINICAL INFORMATION: M54.50 - Low back pain, unspecified COMPARISON: Correlated to CT abdomen pelvis dated December 06, 2021 TECHNIQUE: AP and oblique views of the sacroiliac joints FINDINGS: No acute cortical disruption. Mild sclerosis and the inferior aspect of the left sacroiliac joint. No lytic or blastic lesions. Spina bifida occulta, S1, congenital. IMPRESSION: Mild sacroiliitis, left-sided. XR LUMBOSACRAL SPINE 11/30/24 CLINICAL INFORMATION: M54.50 - Low back pain, unspecified COMPARISON: Collated to CT abdomen and pelvis dated December 06, 2021. TECHNIQUE: AP oblique and lateral views FINDINGS: Grade 1 anterolisthesis L4-5 likely secondary to spondylolysis pars interarticularis. Multilevel endplate sclerosis and small marginal osteophyte formation throughout the lower thoracic spine and lumbar spine. No lytic or blastic lesions. Vascular calcifications, aorta. Rudimentary ribs, T12. Spina bifida occulta, S1. 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 Multilevel spondylosis. Atherosclerosis disease. Assessment & Plan Assessment & Plan (1) Chronic low back pain: Code(s): M54.50 - Low back pain, unspecified; G89.29 - Other chronic pain Category: Medical (2) Lumbosacral spondylosis: Code(s): M47.817 - Spondylosis without myelopathy or radiculopathy, lumbosacral region Category: Medical (3) Sacroiliac joint pain: Code(s): M53.3 - Sacrococcygeal disorders, not elsewhere classified Category: Medical (4) Spondylolisthesis, lumbar region: Code(s): M43.16 - Spondylolisthesis, lumbar region Category: Medical (5) Chronic back pain: Code(s): M54.9 - Dorsalgia, unspecified; G89.29 - Other chronic pain Category: Medical (6) Fibromyalgia: Code(s): M79.7 - Fibromyalgia Category: Medical Plan Lumbar spine and sacroiliac joint xray results were discussed with patient today. Schedule Left Therapeutic Sacroiliac Joint Injection with local and fluoroscopy. Expectations, risks and benefits were reviewed. Patient is aware she will be contacted to schedule this procedure. The patient was also informed about the potential for lumbar medial branch blocks as a treatment option to address axial low back pain. The use of radiofrequency ablation, peripheral nerve and spinal cord stimulation was also mentioned as longer-term solutions. Patient has been on medical management through her current PCP on tramadol which is partially effective. Patient may benefit from rotating opioid back to Percocet as this allowed her to be more functional and less symptomatic without known adverse effects. All questions and concerns have been answered and patient agrees with the treatment plan. Follow-up after injections and sooner as needed. Patient was informed and verbally consented to the use of an ambient scribe for clinic note documentation during this visit. Coding Level of Care Code Est Pt Level 4 (17233) Complex EM visit Add On G2211 Diagnoses Chronic low back pain M54.50; G89.29 Lumbosacral spondylosis M47.817 Sacroiliac joint pain M53.3 Spondylolisthesis, lumbar region M43.16 Chronic back pain M54.9; G89.29 Fibromyalgia M79.7
[2024-12-23 14:53] VITALS: BP 118/63; PULSE 76; RESP 18; O2SAT 95; BMI 26.9
--- OUTSIDE RECORDS SUMMARY | 2024-12-23 18:05 | XMS_ITS | Clinical Summary ---
Author Organization Located Within [facility] Address [address] [place] [address] Phone Care Team Providers Care Bedspread Cutter Name Role Phone Reina Seth MD Primary Care Provider [phone] Allergies Active Allergy Reactions Criticality Noted Date Comments Amitriptyline 05/12/2015 Rash on palms and soles Amlodipine Anaphylaxis High 11/22/2021 Cyclobenzaprine Hcl Other (See Comments) 2015 Paraesthesias Latex Maculopapular Rash,Rash Low 11/19/2009 bandage Lisinopril Other (See Comments) 01/01/2012 angioedema Methocarbamol 06/01/2015 Tics and spasms, ? Dystonic reaction Nsaids (Non-Steroidal Anti-Inflammatory Drug) 04/30/2015 History of gastric bypass surgery Sulfamethoxazole Rash Low 12/03/2020 Other reaction(s): Rash Trimethoprim Rash Low 12/03/2020 Other reaction(s): Rash Medications multivitamins capsule Bariatric vitamin Ac tive buPROPion (WELLBUTRIN SR) 150 MG SR 12 hr tablet TAKE 1 TABLET BY MOUTH two (2) times a day 11/18/19 Active citalopram (CELEXA) 40 MG tablet daily. Active fexofenadine (JOHN) 180 MG tablet Take 180 mg by mouth daily. 11/03/19 22 Active loperamide (IMODIUM) 2 mg capsule Take 2 mg by mouth daily. 11/03/19 22 Active metoprolol tartrate (LOPRESSOR) 50 MG tablet TAKE 1 TABLET BY MOUTH two (2) times a day WITH MEALS 11/03/19 Active pantoprazole (PROTONIX) 20 MG tablet Take 20 mg by mouth daily. 08/03/20 22 Active traZODone (DESYREL) 50 MG tablet TAKE 1 TO 2 TABLETS BY MOUTH ONCE DAILY AT BEDTIME 11/03/19 22 Active triamcinolone acetonide 0.1 % cream triamcinolone acetonide 0.1 % topical cream APPLY A THIN LAYER TO THE AFFECTED AREA(S) BY TOPICAL ROUTE 2 TIMES PER DAY Active acetaminophen (TYLENOL) 500 MG tablet Take 2 tablets (1,000 mg total) by mouth every 6 (six) hours as needed for pain (specific location in comments). 60 tablet 1 02/25/20 22 Active docusate sodium (COLACE) 100 MG capsule Take 1 capsule (100 mg total) by mouth 2 (two) times a day. 60 capsule 6 02/25/20 22 Active famotidine (PEPCID) 20 MG tablet Take 1 tablet (20 mg total) by mouth 2 (two) times a day. 30 tablet 3 02/25/20 22 Active ondansetron (ZOFRAN-ODT) 4 MG disintegrating tablet Take 1 tablet (4 mg total) by mouth every 8 (eight) hours as needed for nausea. 20 tablet 1 02/25/20 22 Active simethicone (MYLICON) 80 mg chewable tablet Take 1 tablet (80 mg total) by mouth every 6 (six) hours as needed. 20 tablet 1 02/25/20 22 Active phentermine 15 MG capsule TAKE ONE CAPSULE BY MOUTH BEFORE breakfast 09/07/19 23 Active topiramate (TOPAMAX) 50 MG tablet TAKE ONE TABLET BY MOUTH BEDTIME 09/07/19 23 Active Active Problems Problem Noted Date Diagnosed Date Intestinal malabsorption following gastrectomy 0 09/19/2022 Postoperative state 03/21/2022 BMI 38.0-38.9,adult 03/21/2022 Assessment & Plan (05/30/2022 10:30 AM EST): This is a 52-year-old woman who underwent a laparoscopic sleeving of an existing Ada-en-Y gastric bypass to help with more restriction. This was performed on February 24, 2022. The patient had to reschedule her last appointment and during that time she frame she was not following the eating plan as well as she should have been and has not started any formalized exercise. We discussed her eating plan and recommended that she only use 1 protein source at a meal setting. She has ordered a treadmill which should be delivered in the next 2 weeks and she will start formalized exercise. I recommended 40 minutes of exercise 4 times weekly. The patient reports she will walk on a daily basis. She will continue current medications as reviewed. We discussed weaning her Pepcid and pantoprazole as she has no evidence of reflux. She will continue current water intake and medications as reviewed otherwise. She is not stable and is considered obese. She will follow-up with the dietitian in 3 weeks timeframe and follow-up with me again in 6 weeks timeframe. S/P laparoscopic sleeve gastrectomy 02/24/2022 Assessment & Plan (09/19/2022 10:43 AM EDT): This is a 52-year-old woman who underwent [...] is not stable and is considered obese. Morbid obesity with BMI of 40.0-44.9, adult 12/2021 Assessment & Plan (12/24/2021 10:27 AM EDT): This is a 51-year-old lady who is interested in undergoing laparoscopic sleeving of her gastric bypass as her gastric pouch is too large. I documented this with an endoscopy that I performed within the past year. The patient has pretty much hit her goal weight loss prior to being a surgical weight loss candidate. She was supposed to be at a goal weight of 198 prior to surgery and she is 199 currently. Patient has had some difficulty with increased snacking likely due to the change in her eating plan. She also is not consuming enough food during the day. I have switched her eating plan to consume 2 protein meal replacements and 2 meals of 4 ounces of protein with vegetables. 1 of those meals will also have 1/2 cup of carbohydrate for either lunchtime or dinner. The patient will continue her current water intake and exercise plan. She will monitor for nighttime snacking. The patient will obtain behavioral health clearance from her own behavioral health therapist, she will obtain cardiac clearance from her electronic security technician on 06 January, she will obtain a primary care doctor clearance letter as well. I have ordered blood work, chest x-ray, EKG, H. pylori studies. The patient will follow up with the dietitian in 2 weeks. She will complete all 5 nutrition classes and questions that go along with those. I will follow-up with the patient in 3 weeks timeframe at which point she should have all requirements met and we will submit her information to the insurance company for approval for laparoscopic sleeving of gastric bypass to decrease the size of her gastric pouch and renew weight loss. We have discussed risk benefits and alternatives in detail regarding this procedure and the patient would like to proceed. The patient will continue current medications as reviewed. She is not stable is considered morbidly obese. Preoperative examination 12/24/2021 History of Ada-en-Y gastric bypass 11/22/2021 Class 2 obesity due to exces s calories without serious comorbidity with body mass index (BMI) of 39.0 to 39.9 in adult 11/22/2021 Assessment & Plan (01/14/2022 10:44 AM EDT): This is a 52-year-old lady who had some weight gain after Ada-en-Y gastric bypass. I performed an endoscopy that showed the gastric pouch was significantly larger than it should be. I have discussed sleeve and the gastric bypass in order to give the patient better restriction and to help her have renewed weight loss. The patient has been compliant with the medical component of the program and has done well with weight loss and has lost all the required weight plus an additional amount. Patient has completed all required testing and classes for nutrition. She still needs clearance from behavioral health in order to be submitted to the insurance company. Patient will continue current eating plan and water intake. She must increase her exercise and exercise intensity. Once the patient has clearance from the behavioral health specialist we will submit her information to the insurance company for approval for laparoscopic sleeving of the Ada-en-Y gastric bypass with possible hiatal hernia repair and intraoperative endoscopy. Risk benefits alternatives were discussed with the patient she would like to proceed. Patient will continue current medications as reviewed. She is not stable is considered obese. Assessment & Plan (11/22/2021 11:25 AM EDT): This is a 51-year-old lady who underwent laparoscopic Ada-en-Y gastric bypass many years ago. She had a significant weight gain but since seeing me at [facility] and being placed on a lower carbohydrate eating plan has lost a significant amount of weight. Patient had a weight loss stall after I left the program and had been gaining weight since that timeframe. Patient would like to restart the medically monitored program. She reports we were discussing sleeving her gastric bypass to make it slightly smaller which may also help her with her reflux. I do not have the records from [facility] as of yet. We have requested those records. I will schedule her for a consultation with a dietitian to help keep her on track in terms of her eating. The patient will continue the eating plan that I had given her previously which is a Sammarinese yogurt or cottage cheese at 6 AM, a protein shake or bar at 9 AM and 3 PM. At 12 PM the patient will consume 4 ounces of protein with vegetables. At 6 PM patient will consume 4 ounces of protein with vegetables. Patient may have a piece of fruit following the 6 PM dinner if needed. Patient should continue at least 64 ounces of water intake on a daily basis. She must add formalize exercise at least 40 minutes 3-4 times weekly. Exercise should be cardiovascular. Patient will continue current medications as reviewed. She is not stable is considered obese. I will follow-up with her in the office in 4 weeks timeframe and we will discuss the plan going forward for her continued weight loss. Family History Medical History Relation Comments Hyperlipidemia Brother Hypertrophic cardiomyopathy Brother Diabetes type II Father Heart attack Father Heart disease Father Hyperlipidemia Father Hypertension Father Myasthenia gravis Father Obesity Father COPD Mother Obesity Sister Relation Status Comments Brother Alive Father Mother Alive Sister Alive Social History Tobacco Use Types Packs/Day Years Used Date Smoking Tobacco: Never Smokeless Tobacco: Never Tobacco Cessation:Counseling Given: Not Answered Alcohol Use Standard Drinks/Week Comments Never 0 (1 standard drink = 0.6 oz pur e alcohol) Education Answer Date Recorded Are you interested in more education? Not on sayra e 08/12/2022 Are you concerned about learning? Not on file 08/12/2022 No 08/12/2022 No 08/12/2022 Digital Access Answer Date Recorded No 09/11/2022 No 09/11/2022 Reliable internet access at home? Not on file 09/11/2022 Device with a working camera? Not on file Comments Unknown Sex and Gender Information Value Date Recorded Sex Assigned at Not on file Legal Sex Female 2:08 PM EDT Gender Identity Not on file Sexual Orientation Not on file Last Filed Vital Signs Vital Sign Reading Time Taken Comments Blood Pressure 100/70 09/19/2022 9:00 AM EDT Pulse 73 09/19/2022 9:00 AM EDT Temperature 36.5 C (97.7 F) 09/19/2022 9:00 AM EDT Respiratory Rate 18 02/25/2022 8:06 AM EST Oxygen Saturation 96% 09/19/2022 9:00 AM EDT Inhaled Oxygen Concentration - - Weight 86.6 kg (191 lb) 10/25/2022 9:04 AM EDT Height 149.9 cm (4' 11.02 ) 09/19/2022 9:00 AM E DT Body Mass Index 38.56 09/19/2022 9:00 AM EDT Plan of Treatment Health Maintenance Due Date Last Done Comments DEPRESSION SCREENING 1984 HEPATITIS C SCREENING 01/02/1990 HIV ONE-TIME SCREENING (18-65 YEARS) 01/02/1990 PAP SMEAR 01/02/1993 COLOGUARD 01/02/2017 COLONOSCOPY 01/02/2017 COLORECTAL CANCER SCREENING 01/02/2017 FIT TEST 01/02/2017 FOBT 01/02/2017 SIGMOIDOSCOPY 01/02/2017 VIRTUAL COLONOSCOPY 01/02/2017 MAMMOGRAM 10/05/2020 10/05/2018 PNEUMOCOCCAL VACCINES (50+ years) (2 of 2 - PCV) 03/06/2022 03/06/2021, 11/09/2007 ZOSTER VACCINES (2 of 2) 05/31/2022 04/05/2022 INFLUENZA VACCINE (#1) 2024 2, 02/17/2021, 12/14/2019, Additional history exists COVID-19 VACCINE ( - 2024- season) 2024 03/06/2021, 08/06/2020, 07/15/2020 SCREENING FOR DIABETES 09/19/2025 09/19/2022, 2022 LIPID PANEL 09/20/2027 09/19/2022, 01/10/2022 Adult Td,Tdap Booster 01/13/2030 01/14/2020, 007 SMOKING STATUS SCREENING (Once After 26 Yrs) Completed 09/19/2022 HEPATITIS A VACCINES Aged Out No long er eligible based on patient's age to complete this topic HIB VACCINES Aged Out No longer eligi ble based on patient's age to complete this topic MENINGOCOCCAL VACCINES (ACWY) Aged Out No longer eligible based on patient's age to complete this topic MENINGOCOCCAL VACCINES (B) Aged Out N o longer eligible based on patient's age to complete this topic Medical Devices Not on file Procedures Procedure Name Priority Date/Time Associated Diagnosis Comments LIPID PANEL Routine 09/19/2022 10:40 AM EDT Intestinal malabsorption following gastrectomy from Last 3 Months or Most Recently Relevant to Health Maintenance Results * (ABNORMAL) Lipid panel (09/19/2022 10:40 AM EDT) HDL 56 mg/dL [facility] Comment: Interpretation <40 mg/dL: Low HDL cholesterol (major risk factor for CHD) Greater than or equal to 60 mg/dL: High HDL cholesterol ( negative risk factor for CHD) HDL - cholesterol is affected by a number of factors, e.g. smoking, excerise, hormones, sex and age. CHOLESTEROL 198 0 - 240 mg/dL [facility] TRIGLYCERIDES 246(H) 30 - 160 mg/dL [facility] LDL 93 50 - 129 mg/dL [facility] Comment: LDL levels in terms of risk for coronary heart disease: <100 mg/dL: Optimal 100-129 mg/dL: Near or above optimal 130-159 mg/dL: Borderline high 160-189 mg/dL: High >190 mg/dL: Very High CARDIAC RISK RATIO 3.5 3.3 - 4.4 C [facility] Blood 09/19/2022 10:4 0 AM EDT 09/19/2022 10:49 AM EDT us Analia Castro MD LAB BLOOD ORDERABLES Final Result [facility] [address] [place] [address] from Last 3 Months or Most Recently Relevant to Health Maintenance Insurance [place] [id number] [facility] ONE CARE MEDICARE REPLACEMENT DOMINIK OLSON [address] MEDICARE PART A & B Member Subscriber Plan / Payer ( fective 2017-Present) Name:Estephanie Smith Member ID:[id number] Relation to Subscriber:Self Name:Estephanie Smith Subscriber ID:[id number] Payer ID:[id number] Group ID:Not on file Type:Medicare Address: [employer] [address] ONE CARE MEDICARE REPLACEMENT DOMINIK OLSON [facility] MEDICARE PART A & B Member Subscriber Plan / Payer ( fective 2017-Present) Name:Estephanie Smith Member ID:[id number] Relation to Subscriber:Self Name:Estephanie Smith Subscriber ID:[id number] Payer ID:[id number] Group ID:Not on file Type:Medicare Address: [employer] [address] [place] [id number] [place] [address] ONE CARE MEDICARE REPLACEMENT MEDICARE PART A & B [employer] [facility] CARE MEDICARE REPLACEMENT MEDICARE PART A & B [facility] ONE CARE MEDICARE REPLACEMENT MEDICARE PART A & B [facility] ONE CARE MEDICARE REPLACEMENT MEDICARE PART A & B Member Subscriber Plan / Payer ( fective 2017-Present) Name:Estephanie Smith Member ID:[id number] Relation to Subscriber:Self Name:Estephanie Smith Subscriber ID:[id number] Payer ID:[id number] Group ID:Not on file Type:Medicare Address: [employer] [address] [place] [address] [place] [address] ONE CARE MEDICARE REPLACEMENT MEDICARE PART A & B [facility] CARE MEDICARE REPLACEMENT MEDICARE PART A & B [facility] ONE CARE MEDICARE REPLACEMENT Member Subscriber Plan / Payer (Ef fective 2018-Present) Name:Estephanie Smith Relation to Subscriber:Self Name:Estephanie Smith Payer ID:[id number] (NAIC) Group ID:[id number] Type:Medicare Address: [place] [address] DOMINIK OLSON [facility] Advance Directives For more information, please contact: [phone] (9AM - 5PM [facility], Monday-Monday) * Full Code (Latest Code Status on File) Date Activated Date Inactivated Comments 02/24/2022 5:16 PM Question Answer Comments Code Status Confirmed With: Patient * Full Code Date Activated Date Inactivated Comments 02/24/2022 8:36 AM 02/24/2022 5:16 PM Question Answer Comments Code Status Confirmed With: Patient Care Teams Bedspread Cutter Relationship Specialty Start Date End Date Reina Seth MD PCP - General Family Medicine 11/22/21 Additional Source Comments The information contained in this document represents components of the legal health record. It is not the complete legal health record.Located Within [facility]
--- OUTSIDE RECORDS SUMMARY | 2024-12-23 18:05 | XMS_ITS | Encounter Summary ---
Author Organization [employer] Address [address] [place] [address] [address]t [place] [address] Care Team Providers Care Technical Cable Jointer Name Role Phone Reina Seth MD Primary Care Provider [phone] Taylor Oh MD Unavailable Reason for Visit * Reason Comments Med Refill Encounter Details Date Type Department Care Team ([facility] Contact Info) Description 06/11/2022 Refill [facility] MED & PEDS [address] [place], [place] [phone] Reina Seth MD [address] [place], [place] [phone] Social History Tobacco Use Types Packs/Day Years [...] on filedocumented in this encounter Care Teams Technical Cable Jointer Relationship Specialty Start Date End Date Reina Seth MD [address] [place] [address] PCP - General Family Medicine 06/17/20 Taylor hO MD [address] [place] [address] Referring Physician Internal Medicine 07/25/22 documented as of this encounter
--- OUTSIDE RECORDS SUMMARY | 2024-12-23 18:05 | XMS_ITS | Encounter Summary ---
Author Organization [employer] Address [address] [facility] [address] [address] [place] [address] Care Team Providers Care Heat Treat Furnace Operator Name Role Phone Reina Seth MD Primary Care Provider [phone] Taylor Oh MD Unavailable Encounter Details Date Type Department Care Team ([facility] st Contact Info) Description 09/04/2024 Telephone [facility] MEDICINE [address] [place], [place] [phone] Reina Seth MD [address] [place], [place] [phone] Social History Tobacco Use Types Packs/Day Years Used Date Smoking Tobacco: Never Smokeless Tobacco: Never Alcohol Use Standard Drinks/Week Comments Not Currently 0 (1 standard drink = 0.6 oz pur e alcohol) Depression Answer Date Recorded Patient Health Questionnaire-9 Score 6 07/27/2022 Housing Stability Answer Date Recorded What is your housing situation today? I have angyrakel snyder 08/28/[address] you li ve. Do you have problems with any of the following? None of the above 08/28/2024 Food Insecurity Answer Date Recorded Within the past 12 months, y ou worried that your food would run out before you got money to buy more: Never True 08/28/2024 Within the past 12 months,th e food you bought just didn't last and you didn't have enough money to get more: Never True Transportation Answer Date Recorded In the past 12 months, has l ack of transportation kept you from medical appts, meetings, work or from getting things needed for daily living? No 08/28/2024 Utilities Answer Date Recorded In the past 12 months, has t he electric, gas, oil or water company threatened to shut off services in your home? No 08/28/2024 Depression Answer Date Recorded Patient Health Questionnaire-2 Score 0 07/27/2022 Internet Access Answer Date Recorded Internet Access Q1 Yes 08/28/2024 Internet Access Q2 Not on file 08/28/2024 Comments No Sex and Gender Information Value [...] documented as of this encounter Care Teams Heat Treat Furnace Operator Relationship Specialty Start Date End Date Reina Seth MD [address] [place] [address] PCP - General Family Medicine 06/17/20 Taylor Oh MD [address] [place] [address] Referring Physician Internal Medicine 07/25/22 documented as of this encounter
--- OUTSIDE RECORDS SUMMARY | 2024-12-23 18:05 | XMS_ITS | Encounter Summary ---
Author Organization [employer] Address [address] [facility] 7t [place] [address] Care Team Providers Care Business Information Consultant Name Role Phone Reina Seth MD Primary Care Provider [phone] Taylor Oh MD Unavailable Reason for Visit * Reason Comments Med Refill Encounter Details Date Type Department Care Team ([facility] Contact Info) Description 10/31/2024 Refill [facility] CH[facility] MED & PEDS [address] [place], [place] [phone] Reina Seth MD [address] [place], [place] [phone] Social History Tobacco Use Types Packs/Day Years Used Date Smoking Tobacco: Never Smokeless Tobacco: Never Alcohol Use Standard Drinks/Week Comments Not Currently 0 (1 standard drink = 0.6 oz pur e alcohol) Depression Answer Date Recorded Patient Health Questionnaire-9 Score 6 07/27/2022 Housing Stability Answer Date Recorded What is your housing situation today? I have angy snyder 08/28/[address] you [...] documented as of this encounter Care Teams Business Information Consultant Relationship Specialty Start Date End Date Reina Seth MD [address] [place] [address] PCP - General Family Medicine 06/17/20 Taylor Oh MD [address] [place] [address] Referring Physician Internal Medicine 07/25/22 documented as of this encounter
--- OUTSIDE RECORDS SUMMARY | 2024-12-23 18:05 | XMS_ITS | Encounter Summary ---
Author Organization [employer] Address [address] [facility] [address] [place] [address] Care Team Providers Care Entertainer & Comic Name Role Phone Reina Seth MD Primary Care Provider [phone] Taylor Oh MD Unavailable Reason for Visit * Reason Onset Date Comments Med Refill 10/08/2024 Encounter Details Date Type Department Care Team (Late st Contact Info) Description 10/08/2024 Telephone [facility] MEDICINE [address] [place] [address] Reina Seth MD [address] [place], [place] [phone] Med Refill Social History Tobacco Use Types Packs/Day Years [...] encounter Miscellaneous Notes * Telephone Encounter - Mayo Ramirez - 10/08/2024 2:22 PM EDT TC from pt requesting medication refill. Medications needing refill : traMADol (Ultram) 50 MG tablet To be sent to: [facility] pharmacy documented in this encounter Plan of Treatment Not on file documented as of this encounter Visit Diagnoses Not on filedocumented in this encounter Additional Health Concerns Assessment Noted Time PHQ-9 Depression Total Score: 6 07/28/19 23 8:47 AM EDT documented as of this encounter Care Teams Entertainer & Comic Relationship Specialty Start Date End Date Reina Seth MD [address] [place] [phone] PCP - General Family Medicine 06/17/20 Taylor Oh MD [address] [place] [address] Referring Physician Internal Medicine 07/25/22 documented as of this encounter
--- OUTSIDE RECORDS SUMMARY | 2024-12-23 18:05 | XMS_ITS | Clinical Summary ---
Author Organization [facility] it Address [address] [place] [address] Care Team Providers Care Client Delivery Specialist Name Role Phone Reina Seth MD Primary Care Provider [phone] Surgical History Surgery Date Site/Laterality Comments GASTRIC BYPASS PROCEDURE: ND GASTRIC RSTCV W/BYP W/SM INT RCNSTJ LIMIT ABSRPJ SECTION N/A PROCEDURE: ND DELIVERY ONLY; COMMENT: X 2 Medical History [...] 03/21/2022 Social Influencers of Health Screening 03/21/2022 Hypertension/CHF/CAD Annual BMP Blood Test 01/29/2024 Depression Screening 04/17/2024 COVID-19 Vaccine (1 - 2023-2 5 season) 2024 Influenza Vaccine (#1) 2024 HIB Vaccines Aged [...] age to complete this topic Care Teams Client Delivery Specialist Relationship Specialty Start Date End Date Reina Seth MD [address] [place] [address] PCP - General 04/05/21
--- OUTSIDE RECORDS SUMMARY | 2024-12-23 18:05 | XMS_ITS | Encounter Summary ---
Author Organization [facility] Address [address] [place] [phone] Phone Care Team Providers Care Garland Maker Name Role Phone Reina Seth MD Primary Care Provider [phone] Encounter Details Date Type Department Care Team (Late st Contact Info) Description 02/24/2022 Procedure Pass OR Admitting Dept - Virtual Department [address] [place] [address] Social History Tobacco Use Types Packs/Day Years [...] 02/24/2022 4:32 PM Breanna Sears RN * [place] Suicide Severity Rating Scale (Screener/Recent Self-Report) Question [...] on filedocumented in this encounter Care Teams Garland Maker Relationship Specialty Start Date End Date Reina Seth MD PCP - General Family Medicine 11/22/21 documented as of this encounter Additional Source Comments The information contained in this document represents components of the legal health record. It is not the complete legal health record.[facility]
--- OUTSIDE RECORDS SUMMARY | 2024-12-23 18:05 | XMS_ITS | Encounter Summary ---
Author Organization [employer] Address [address] [place] [address] 7t [place] [address] Care Team Providers Care Supervisor Telephone Clerks Name Role Phone Reina Seth MD Primary Care Provider [phone] Taylor Oh MD Unavailable Reason for Visit * Reason Comments Med Refill Encounter Details Date Type Department Care Team ([facility] st Contact Info) Description 07/08/2022 Refill [facility] [address] [place] [address] Reina Seth MD [address] [place], [place] [phone] Social History Tobacco Use Types Packs/Day Years [...] filedocumented in this encounter Care Teams Supervisor Telephone Clerks Relationship Specialty Start Date End Date Reina Seth MD [address] [place] [address] PCP - General Family Medicine 06/17/20 Taylor Oh MD [address] [place] [phone] Referring Physician Internal Medicine 07/25/22 documented as of this encounter
--- OUTSIDE RECORDS SUMMARY | 2024-12-23 18:05 | XMS_ITS | Encounter Summary ---
Author Organization [employer] Address [address] [place] [address] 7[address] [place] [address] Care Team Providers Care Corner Block Cutter Name Role Phone Reina Seth MD Primary Care Provider [phone] Taylor Oh MD Unavailable Reason for Visit * Reason Comments Med Refill Encounter Details Date Type Department Care Team ([facility] st Contact Info) Description 09/23/2022 Refill [facility] & [facility] [address] [place], [place] [phone] Reina Seth MD [address] [place], [place] [phone] Neck pain, musculoskeletal Social History Tobacco Use [...] documented as of this encounter Care Teams Corner Block Cutter Relationship Specialty Start Date End Date Reina Seth MD [address] [place] [address] PCP - General Family Medicine 06/17/20 Taylor Oh MD [address] [place] [address] Referring Physician Internal Medicine 07/25/22 documented as of this encounter
--- OUTSIDE RECORDS SUMMARY | 2024-12-23 18:05 | XMS_ITS | Clinical Summary ---
Author Organization [email or web address] Address [address] [place] [address] 7t [place] [address] Care Team Providers Care Imager Name Role Phone Reina Steh MD Primary Care Provider [phone] Taylor Oh MD Unavailable Allergies Active Allergy [...] represent a complete record from that organization. clobetasol (Temovate) 0.05 % external solution Apply [...] (Desyrel) 100 MG tablet 06/14/19 24 Active hydrOXYzine HCl (Atarax) 25 MG tablet [...] PAIN 100 g 1 02/28/20 24 Active D3 Super Strength 50 MCG (2000 UT) capsule TAKE 1 CAPSULE BY MOUTH ONCE DAILY IN THE MORNING 30 capsule 5 07/09/19 25 Active gabapentin (Neurontin) 100 MG capsuleIndicati ons:Myalgia Take 1 capsule by oral route nightly. May increase up to 3 capsules (300mg) if needed for symptom relief 270 capsule 11 07/18/19 25 Active buPROPion SR (Wellbutrin SR) 200 MG 12 hr tablet 08/14/19 25 Active topiramate (Topamax) 100 MG tablet TAKE 1 TABLET BY MOUTH two (2) times a day 60 tablet 2 10/15/19 25 Active fexofenadine (Radha) 180 MG tablet TAKE 1 TABLET BY MOUTH ONCE DAILY 90 tablet 1 10/24/19 25 Active Tirzepatide-Swapnil ght Management (Zepbound) 5 MG/0.5ML solution Inject 5 mg under the skin 1 (one) time per week. Do not start before December 11, 2024. 2 mL 3 12/12/19 25 Active pantoprazole (ProtoNix) 20 MG EC tablet TAKE 1 TABLET BY MOUTH ONCE DAILY 90 tablet 1 11/22/19 25 Active metoprolol tartrate (Lopressor) 50 MG tabletIndicatio ns:Hypertension , unspecified type TAKE 1 TABLET BY MOUTH two (2) times a day take with food 60 tablet 5 12/18/19 25 Active metoprolol tartrate (Lopressor) 50 MG tabletIndicatio ns:Hypertension , unspecified type TAKE 1 TABLET BY MOUTH two (2) times a day take with food 60 tablet 5 06/06/19 25 025 Discontinued ondansetron (Zofran) 4 MG tablet Take 1 tablet (4 mg) by mouth every 8 (eight) hours if needed for nausea or vomiting for up to 7 days. 20 tablet 11/21/19 25 025 Active Problems Problem Noted Date Diagnosed Date Hypertension 12/05/2024 Nausea 09/19/2024 Assessment & Plan (09/19/2024 9:13 AM EDT): Symptoms started about 1 week ago after first dose of zepbound, encouraged to keep small meals, will provide zofran for a few day if symptoms persist told to call back Fibromyalgia muscle pain 08/28/2024 Assessment & Plan (08/28/2024 2:15 PM EDT): # Chronic widespread pain / Suspected fibromyalgia Patient reports chronic, widespread pain for nearly a year, with leg pain being most severe. Symptoms include allodynia, joint pain, bone pain, and intense nocturnal pain disrupting sleep. Patient also experiences internal itching and fatigue. Previous treatments, including gabapentin, were discontinued due to side effects (weight gain). Physical therapy noted leg bowing and inward turning. Symptoms are variable, with some days being debilitating. Patient's psychiatrist believes the condition may be related to a traumatic incident. Labs show mild anemia. Given the clinical presentation and previous specialist evaluations, fibromyalgia remains the leading differential diagnosis. Plan: - Initiate trial of tramadol for pain management - Informed patient about tramadol's partial opioid properties and interaction with serotonergic medications (e.g., Celexa) - Submit referral for health care consultant - Encourage continuation of psychiatric care (appointments scheduled twice monthly) - Follow up in one month Chronic iliotibial band syndrome of right side [...] 07/18/2023 9:00 AM Paulina De Leon MD [facility] Chronic back pain 06/12/2023 Depressive disorder 06/12/2023 [...] 44.9 in adult 07/27/2022 Assessment & Plan (08/28/2024 2:16 PM EDT): Reviewed indications for pharmacotherapy with patient, which is treatment for patient w/ obesity or a patient with a BMI > 27 w/ CV risk factors who have failed lifestyle modifications alone. These are always prescribed in combination with ongoing lifestyle modification; and will be titrated up from the lowest dose. Will start patient on Zepbound, given know efficacy. Reviewed mechanism of action with patient. Discussed side effects with patient: nausea, vomiting, diarrhea & risk of pancreatitis. No contraindications identified: , hx of pancreatitis, hx of medullary thyroid cancer or MEN 2. Patient has prior trial of phentermine/Topamax with inadequate response, did not achieved 5% weight loss in 3 months of max dose. Discussed calorie deficit, recommended reduction of 20-30% of maintenance calories; home theater installer referral offered. Recommended to decrease soda and sugary beverage consumption. Recommended at least 20 g per meal of protein to assist with satiety. Recommended at least 150 min/week of moderate intensity exercise. Patient was made aware that insurance may not cover AOM but will like to proceed to attempt to help with her condition. Assessment & Plan (06/12/2023 5:01 PM EST): [...] recommended reduction of 20-30% of maintenance calories; home theater installer referral offered. 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 11/21/2024 Refill [facility] MED & PEDS [address] [place] [address] Reina Seth MD 11/20/2024 Refill [facility] [address] [place] [address] Reina Seth MD 10/31/2024 Refill [facility]ED[facility] [address] [place] [address] Reina Seth MD 10/30/2024 Telephone [facility]ED[facility] [address] [place] [address] Reina Seth MD 10/21/2024 3:45 PM EDT Office Visit [facility] PED[facility] [address] [place] [address] Reina Seth MD Fibromyalgia muscle pain (Primary Dx); Class 3 severe obesity due to excess calories with serious comorbidity and body mass index (BMI) of 40.0 to 44.9 in adult; Polyarthralgia; Nausea 10/21/2024 Travel 10/21/2024 Refill [facility] PEDS [address] [place] [address] Reina Seth MD 10/12/2024 Refill [facility] PED[facility] [address] [place] [address] Paulina De Leon MD 10/09/2024 2:40 PM EDT Office Visit [facility] PED[facility] [address] [place] [address] Paulina De Leon MD Nausea (Primary Dx); Fibromyalgia muscle pain; Hypertension, unspecified type 10/09/2024 Travel 10/09/2024 Telephone [facility] [address] [place] [address] Reina Seth MD 10/08/2024 Travel 10/08/2024 Refill [facility]ED[facility] [address] [place] [address] Sonja Weathers, SATHYA Fibromyalgia muscle pain (Primary Dx) 10/08/2024 Telephone [facility] [address] [place] [phone] Reina Seth MD Nurse Triage 10/08/[address] [address] Reina Seth MD Med Refill 10/07/[address] [address] Reina Seth MD Appointment Request from Last 3 Months Immunizations Immunization Administration Dates Next Due Influenza injectable quadriv alent IIV4 with preservative 01/31/2019 Influenza injectable quadriv alent preservative free 01/30/2023,12/31/2021,02/17/2021,12/13,01/27/2014,02/13/2013 Influenza, IIV3, injectable 01/19/2012, 1,01/22/2010 Novel [id number], all formulations 04/16/2009 Pneumococcal Polysaccharide PPSV23 03/06/2021, [...] Sign Reading Time Taken Comments Blood Pressure 119/80 10/21/2024 3:41 PM EDT Pulse 75 10/21/2024 3:41 PM EDT Temperature 36.8 C (98.2 F) 10/21/2024 3:41 PM EDT Respiratory Rate 20 10/21/2024 3:41 PM EDT Oxygen Saturation 93% 10/21/2024 3:41 PM EDT Inhaled Oxygen Concentration - - Weight 63.5 kg (140 lb) 10/21/2024 3:41 PM EDT Height 149.9 cm (4' 11 ) 10/21/2024 3:41 PM EDT Body Mass Index 28.28 10/21/2024 3:41 PM EDT Plan of Treatment Health Maintenance Due Date Last Done Comments CT Colonography 1972 Dental Oral Exam 1972 Dental Prophylaxis 1972 Dental X-Ray: Bitewings 1972 FIT DNA/Cologuard 1972 FIT 1972 FOBT 1972 Sigmoidoscopy 1972 Family Planning (PISQ) 01/02/1987 Hepatitis B Vaccines (1 of 3 - 19+ 3-dose series) 01/02/1991 Pap Smear 01/02/1993 Cervical Cancer Screening 01/02/2002 HPV/Cotest 01/02/2002 Mammogram 10/05/2020 10/05/2018, 10/05/2018 Pneumococcal Vaccine: 50+ Years (2 of 2 - PCV) 03/06/2022 03/06/2021, 11/09/2007 Depression Screening 07/28/2023 07/27/2022, 07/28/19 23 COVID-19 Vaccine ( - 2024- season) 2024 03/06/2021, 08/06/2020, 07/15/2020 Influenza Vaccine (#1) 2024 3, 12/31/2021, 02/17/2021, Additional history exists Disability Screening 08/27/2025 08/27/2024 Alcohol/Substance Use Screening 08/28/2025 08/28/2024 SDOH Screening 08/28/2025 08/28/2024 Tobacco Screening 12/05/2025 12/05/2024 Dental X-Ray: Full Mouth 12/07/2027 12/05/2024 Lipid Panel 06/15/2028 06/16/2023, 12/17, 10/12/2020 DTaP/Tdap/Td Vaccines (3 - Td or [...] Procedure Name Priority Date/Time Associated Diagnosis Comments PANORAMIC RADIOGRAPHIC IMAGE Routine 12/05/2024 1:00 PM EDT LIMITED ORAL EVALUATION - PROBLEM FOCUSED Routine 12/05/2024 1:00 PM EDT CASE PRESENTATION, DETAILED AND EXTENSIVE TREATMENT PLANNING Routine 12/05/2024 1:00 PM EDT XR SACROILIAC JOINTS 3+ VIEWS Routine 11/30/2024 1:32 PM EDT XR LUMBAR SPINE COMPLETE 4+ VIEWS Routine 11/30/2024 1:32 PM EDT LIPID PANEL, STANDARD Routine 06/16/2023 9:10 AM [...] Recently Relevant to Health Maintenance Results * XR Sacroiliac Joints 3+ Views (11/30/2024 1:32 PM EDT) Anatomical Region Laterality Modality Sacroiliac joint, Pelvis Radiogr aphic Imaging 11/30/2024 1:32 PM EDT Narrative 12/02/2024 10:[address] [facility] Adult Primary Care [facility] [place] [address] XRay Report Signed Patient: Estephanie Smith MR#: [id number] 661 : 1970 Acct:[id number] Age/Sex: 54 / F ADM Date: 11/30/24 Loc: HO.[facility]X Attending Dr: Rea VARNER Ordering Physician: Rea Flower Date of Service: 11/30/24 Procedure(s): XR sacroiliac joint min 3V Accession Number(s): [id number] cc: Rea Flower; Reina Seth MD EXAMINATION: XR SACROILIAC JOINTS CLINICAL INFORMATION: M54.50 - Low back pain, unspecified COMPARISON: Correlated to CT abdomen pelvis dated December 06, 2021 TECHNIQUE: AP and oblique views of the sacroiliac joints FINDINGS: No acute cortical disruption. Mild sclerosis and the inferior aspect of the left sacroiliac joint. No lytic or blastic lesions. Spina bifida occulta, S1, congenital. XR/XR sacroiliac joint min 3V IMPRESSION: Mild sacroiliitis, left-sided. Electronically signed by: Keshawn Gonzales MD 12/02/2024 10:05 AM EDT RP Dictated By: Keshawn Sapp MD Signed By: <Electronically signed by Keshawn Banda MD in OV> 12/02/24 1005 DD/ 1332 TD/TT: 11/30/24 1344 Lead Quality Control Technician: Procedure Note Donotuseinterpreter, Image - 12/02/2024 [facility] [address] [place] [address] [place] [address] XRay Report Signed Patient: Estephanie Smith LMR#: [id number] 661 : 1970Acct:[id number] Age/Sex: 54 / FADM Date: 11/30/24 [facility]: Rea VARNER Ordering Physician: Rea Flower Date of Service: 11/30/24 Procedure(s): XR sacroiliac joint min 3V Accession Number(s): [id number] cc: Rea Flower; Reina Seth MD EXAMINATION: XR SACROILIAC JOINTS CLINICAL INFORMATION: M54.50 - Low back pain, unspecified COMPARISON: Correlated to CT abdomen pelvis dated December 06, 2021 TECHNIQUE: AP and oblique views of the sacroiliac joints FINDINGS: No acute cortical disruption. Mild sclerosis and the inferior aspect of the left sacroiliac joint. No lytic or blastic lesions. Spina bifida occulta, S1, congenital. XR/XR sacroiliac joint min 3V IMPRESSION: Mild sacroiliitis, left-sided. Electronically signed by: Keshawn Gonzales MD 12/02/2024 10:05 AM EDT RP Dictated By: Keshawn Sapp MD Signed By: <Electronically signed by Keshawn Banda MDin OV> 12/02/24 1005 DD/ 1332 TD/TT: 11/30/24 1344 Lead Quality Control Technician: [facility] External Provider IMG XR PROCEDURES Final Result * XR Lumbar Spine Complete 4+ Views (11/30/2024 1:32 PM EDT) Anatomical Region Laterality Modality Spine, L-spine Radiographic Jagruti ging 11/30/2024 1:32 PM EDT Narrative 12/02/2024 10:[address] [facility] Adult Primary Care [address] [place] [address] [place]. [place], [place] [address] XRay Report Signed Patient: Estephanie Smith MR#: [id number] 661 : 1970 Acct:[id number] Age/Sex: 54 / F ADM Date: 11/30/24 [facility] Dr: Rea VARNER Ordering Physician: Rea Flower Date of Service: 11/30/24 Procedure(s): XR lumbar spine 4V min Accession Number(s): [id number] cc: Rea Flower; Reina Seth MD EXAMINATION: XR LUMBOSACRAL SPINE CLINICAL INFORMATION: M54.50 - Low back pain, unspecified COMPARISON: Collated to CT abdomen and pelvis dated December 06, 2021. TECHNIQUE: AP oblique and lateral views FINDINGS: Grade 1 anterolisthesis L4-5 likely secondary to spondylolysis pars interarticularis. Multilevel endplate sclerosis and small marginal osteophyte formation throughout the lower thoracic spine and lumbar spine. No lytic or blastic lesions. Vascular calcifications, aorta. Rudimentary ribs, T12. Spina bifida occulta, S1. 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 Multilevel spondylosis. Atherosclerosis disease. Electronically signed by: Keshawn Gonzales MD 12/02/2024 10:03 AM EDT Dictated By: Keshawn Sapp MD Signed By: <Electronically signed by Keshawn Banda MD in OV> 12/02/24 1003 DD/ 1332 TD/TT: 11/30/24 1344 Lead Quality Control Technician: Procedure Note Donotjyothiter, Image - 12/02/2024 [facility] [address] [place] [address] [place] [address] XRay Report Signed Patient: Estephanie Smith LMR#: [id number] 661 : 1970Acct:[id number] Age/Sex: 54 / FADM Date: 11/30/24 Loc: [facility] Attending Dr: Rea VARNER Ordering Physician: Rea Flower Date of Service: 11/30/24 Procedure(s): XR lumbar spine 4V min Accession Number(s): [id number] cc: Rea Flower; Reina Seth MD EXAMINATION: XR LUMBOSACRAL SPINE CLINICAL INFORMATION: M54.50 - Low back pain, unspecified COMPARISON: Collated to CT abdomen and pelvis dated December 06, 2021. TECHNIQUE: AP oblique and lateral views FINDINGS: Grade 1 anterolisthesis L4-5 likely secondary to spondylolysis pars interarticularis. Multilevel endplate sclerosis and small marginal osteophyte formation throughout the lower thoracic spine and lumbar spine. No lytic or blastic lesions. Vascular calcifications, aorta. Rudimentary ribs, T12. Spina bifida occulta, S1. 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 Multilevel spondylosis. Atherosclerosis disease. Electronically signed by: Keshawn Gonzales MD 12/02/2024 10:03 AM EDT Dictated By: Keshawn Sapp MD Signed By: <Electronically signed by Keshawn Banda MDin OV> 12/02/24 1003 DD/ 1332 TD/TT: 11/30/24 1344 Lead Quality Control Technician: [facility] External Provider IMG XR PROCEDURES Final Result * (ABNORMAL) Lipid Panel, Standard (06/16/2023 9:10 AM EST) Triglycerides 119 <150 mg/dL [facility] Comment:Desirable Triglyceri de: less than 150 mg/dLBorderline High Triglyceride 150-199 mg/dLHigh Triglyceride: 200-499 mg/dLVery High Triglyceride: greater than or equal to 5OO mg/dL Cholesterol 224(H) <200 mg/dL [facility] Comment:Desirable Cholestero l: less than 200 mg/dLBorderline High Cholesterol: 200-239 mg/dLHigh Cholesterol: greater than 239 mg/dL LDL Cholesterol Calculated 144(H) <100 mg/dL [facility] Comment:Desirable LDL: less than 100 mg/dLNear Optimal/Above Optimal LDL: 110- 129 mg/dLBorderline High LDL: 130-159 mg/dLHigh LDL: 160-189 mg/dLVery High LDL: greater than or equal to 190 mg/dL HDL Cholesterol 57 >40 mg/dL [facility] Comment:Desirable HDL: great er than 40 mg/dL Note: This HDL assay may give artificially low results in patients with liver disease. Blood Venous blood specimen / Unknown 06/16/2023 9:10 AM EST 06/16/2023 2:23 PM EST us Reina Seth MD LAB BLOOD ORDERABLES Final Re sult [facility] [address] [place] [phone] * HEPATITIS C AB W/REFL TO HCV RNA, QN, PCR (01/08/2020 9:22 AM EDT) HEPATITIS C ANTIBODY NON-REACT [facility] NON-REACT [facility] INDEX 0.01 <1.00 [facility] Comment: HCV antibody was non-reactive. There is no laboratory evidence of HCV infection. In most cases, no further action is required. However, if recent HCV exposure is suspected, a test for HCV RNA (test code 75112) is suggested. For additional information please refer to http://education.Driver Hire/faq/FBD94t2 (This link is being provided for informational/ educational purposes only.) 01/08/2020 9:22 AM EDT Lisa Landeros MD HISTORICAL/NON ORDERA BLE LABS Final Result [facility] [address] [place] [address], * HIV 1/2 ANTIGEN/ANTIBODY,FOURTH GENERATION W/RFL (01/08/2020 9:22 AM EDT) HIV-1/2 ANTIGEN AND ANTIBODIES, 4TH GENERATION W/ REFLEX NON-REACT [facility] NON-REACT [facility] Comment: HIV-1 antigen and HIV-1/HIV-2 antibodies were not detected. There is no laboratory evidence of HIV infection. PLEASE NOTE: This information has been disclosed to you from records whose confidentiality may be protected by state law. If your state requires such protection, then the state law prohibits you from making any further disclosure of the information without the specific written consent of the person to whom it pertains, or as otherwise permitted by law. A general authorization for the release of medical or other information is NOT sufficient for this purpose. For additional information please refer to http://Bravofly.Driver Hire/faq/EUV271 (This link is being provided for informational/ educational purposes only.) The performance of this assay has not been clinically validated in patients less than 2 years old. HIV-1/2 ANTIGEN AND ANTIBODIES, 4TH GENERATION W/ REFLEX NON-REACT [facility] NON-REACT [facility] Comment: HIV-1 antigen and HIV-1/HIV-2 antibodies were not detected. There is no laboratory evidence of HIV infection. PLEASE NOTE: This information has been disclosed to you from records whose confidentiality may be protected by state law. If your state requires such protection, then the state law prohibits you from making any further disclosure of the information without the specific written consent of the person to whom it pertains, or as otherwise permitted by law. A general authorization for the release of medical or other information is NOT sufficient for this purpose. For additional information please refer to http://Bravofly.DataMarket.Doyenz/faq/MGY931 (This link is being provided for informational/ educational purposes only.) The performance of this assay has not been clinically validated in patients less than 2 years old. 01/08/2020 9:22 AM EDT us Lisa Landeros MD LAB BLOOD ORDERABLES Final Result [facility] [address] * DIGITAL BILATERAL SCREEN 1 (10/05/2018 12:12 PM EDT) Anatomical Region Laterality Modality Breast Bilateral Mammography 10/05/2018 12:1 2 PM EDT Narrative 10/05/2018 12:15 PM EDT Refer to the Notes tab for result details [facility] Procedure: DIGITAL BILATERAL SCREEN 1 Procedure Note Provider, MD Mira - 07/09/2022 Refer to the Notes tab for result details [facility] Procedure: DIGITAL BILATERAL SCREEN 1 Lisa Landeros MD IMG BI PROCEDURES Fin al Result from Last 3 Months or Most Recently Relevant to Health Maintenance Insurance [facility] ONE CARE < 65 [address] [id number] [facility] MEDICAID STAND ADULT Care Teams Imager Relationship Specialty Start Date End Date Reina Seth MD [address] [place] [phone] PCP - General Family Medicine 06/17/20 Taylor Oh MD [address] [place] [phone] Referring Physician Internal Medicine 07/25/22
--- OUTSIDE RECORDS SUMMARY | 2024-12-23 18:05 | XMS_ITS | Encounter Summary ---
Author Organization [employer] Address [address] [place] [address] Care Team Providers Care Mastic Man Name Role Phone Reina Seth MD Primary Care Provider Taylor Oh MD Unavailable Encounter Details Date Type Department Care Team ([facility] st Contact Info) Description 07/27/2022 Telephone [facility] MEDICINE [address] [place], [place] [phone] Reina Seth MD [address] [place], [place] [phone] Social History Tobacco Use Types Packs/Day Years [...] PM EDT documented as of this encounter Functional Status * Over the past 2 weeks, how often have you been bothered by any of the following problems? Question Answer Date of Assessment Author Patient Health Questionnaire-2 Score 0 07/16 8:47 AM Fay Carney [place] * If you checked off any problems on this questionnaire so far, Question Answer Date of Assessment Author How difficult have these problems made it for you to do your work, take care of things at home, or get along with other people? Somewhat difficult 07/27/2022 8:47 AM EDT Fay Sanchez M A * Over the past 2 weeks, how often have you been bothered by any of the following problems? Question Answer Date of Assessment Author Little interest or pleasure in doing things Not at all 07/27/2022 8:47 AM Colt Carney MA Feeling down, depressed, or hopeless Not at all 07/27/2022 8:47 AM [place] Fay Sanchez M A Trouble falling or staying asleep, or sleeping too much Not at all 07/27/2022 8:47 AM [place] Fay Sanchez M A Feeling tired or having little energy Nearly every day 07/27/2022 8:47 AM Fay Carney M A Poor appetite or overeating Nearly every day 07/27/2022 8:47 AM [place] Fay Sanchze M A Feeling bad about yourself - or that you are a failure or have let yourself or your family down Not at all 07/27/2022 8:47 AM Fay Carney M A Trouble concentrating on things, such as reading the newspaper or watching television Not at all 07/27/2022 8:47 AM Fay Canrey M A Moving or speaking so slowly that other people could have noticed? Or the opposite - being so fidgety or restless that you have been moving around a lot more than usual. Not at all 07/27/2022 8:47 AM Fay Carney M A Thoughts that you would be better off or hurting yourself in some way Not at all 07/27/2022 8:47 AM Fay Carney MA Patient Health Questionnaire-9 Score 6 07/27/2022 8:47 AM aFy Carney [place] documented as of this encounter Plan of Treatment Not on file documented as of this encounter Visit Diagnoses Not on filedocumented in this encounter Additional Health Concerns Assessment Noted Time PHQ-9 Depression Total Score: 6 07/28/19 23 8:47 AM EDT documented as of this encounter Care Teams Mastic Man Relationship Specialty Start Date End Date Reina Seth MD [address] [place] [id number] PCP - General Family Medicine 06/17/20 Taylor Oh MD [address] [place] [address] Referring Physician Internal Medicine 07/25/22 documented as of this encounter
--- OUTSIDE RECORDS SUMMARY | 2024-12-23 18:05 | XMS_ITS | Encounter Summary ---
Author Organization [employer] Address [address] [place] [address] Care Team Providers Care Secondary School Principal Name Role Phone Reina Seth MD Primary Care Provider [phone] Taylor Oh MD Unavailable Reason for Visit * Reason Onset Date Comments Appointment Request 10/07/2024 Encounter Details Date Type Department Care Team ([facility] st Contact Info) Description 10/07/2024 Telephone [facility] MEDICINE [address] [place] [address] Reina Seth MD [address] [place], [place] [phone] Appointment Request Social History Tobacco Use Types [...] Telephone Encounter - Mayo Ramirez - 10/08/2024 8:50 AM EDT Telephone call received from patient returning call regarding previous message. Patient requests a return call at [phone] * Telephone Encounter - Porsha Dye - 10/07/2024 10:27 AM EDT Tc from pt requesting schedule f/u appointment. Unable to schedule due not availability. Recall date: 09/25/2024. [phone] documented in this encounter Plan of Treatment Not on file documented as of this encounter Visit Diagnoses Not on filedocumented in this encounter Additional Health Concerns Assessment Noted Time PHQ-9 Depression Total Score: 6 07/28/19 23 8:47 AM EDT documented as of this encounter Care Teams Secondary School Principal Relationship Specialty Start Date End Date Reina Seth MD [address] [place] [id number] PCP - General Family Medicine 06/17/20 Taylor Oh MD [address] [place] [address] Referring Physician Internal Medicine 07/25/22 documented as of this encounter
--- OUTSIDE RECORDS SUMMARY | 2024-12-23 18:05 | XMS_ITS | Encounter Summary ---
Author Organization [employer] Address [address] [place] [address] 7t [place] [address] Care Team Providers Care Septic Pump Truck Driver Name Role Phone Reian eSth MD Primary Care Provider [phone] Taylor Oh MD Unavailable Reason for Visit * Reason Comments Med Refill Encounter Details Date Type Department Care Team ([facility] st Contact Info) Description 10/31/2022 Refill [facility] MED & PEDS [address] [place] [address] Reina Seth MD [address] [place] [address] Social History Tobacco Use Types Packs/Day Years [...] documented as of this encounter Care Teams Septic Pump Truck Driver Relationship Specialty Start Date End Date Reina Seth MD [address] [place] [address] PCP - General Family Medicine 06/17/20 Taylor Oh MD [address] [place] [address] Referring Physician Internal Medicine 07/25/22 documented as of this encounter
--- OUTSIDE RECORDS SUMMARY | 2024-12-23 18:05 | XMS_ITS | Encounter Summary ---
Author Organization [employer] Address [address] [place] [address] [address]t [place] [address] Care Team Providers Care Occupational Health Nurse Name Role Phone Reina Seth MD Primary Care Provider [phone] Taylor Oh MD Unavailable Reason for Visit * Reason Onset Date Comments triage 05/03/2022 Encounter Details Date Type Department Care Team ([facility] Contact Info) Description 05/03/2022 Telephone [facility] CHC MED & PEDS [address] [place] [address] Reina Seth MD [address] [place] [address] triage Social History Tobacco Use Types Packs/Day [...] requesting antibiotic again. Advised to come to [facility] 05/04 @200pm [facility]. Pt agreed with disposition . Insurance [...] nodes in back of neck, please call [phone]. [place] documented in this encounter Plan of Treatment Not on file documented as of this encounter Visit Diagnoses Diagnosis Other chronic pain documented in this encounter Care Teams Occupational Health Nurse Relationship Specialty Start Date End Date Reina Seth MD [address] [place] [address] PCP - General Family Medicine 06/17/20 Taylor Oh MD [address] [place] [address] Referring Physician Internal Medicine 07/25/22 documented as of this encounter
--- OUTSIDE RECORDS SUMMARY | 2024-12-23 18:05 | XMS_ITS | Encounter Summary ---
Author Organization [employer] Address [address] [place] [address] Care Team Providers Care Electrician Radio Name Role Phone Reina Seth MD Primary Care Provider [phone] Taylor Oh MD Unavailable Reason for Visit * Reason Onset Date Comments Appointment Request 06/22/2022 Encounter Details Date Type Department Care Team ([facility] st Contact Info) Description 06/22/2022 Telephone [facility] MEDICINE [address] [place] [address] Reina Seth MD [address] [place], [place] [phone] Appointment Request Social History Tobacco Use Types [...] Miscellaneous Notes * Telephone Encounter - Marc Higginsrero - 06/22/2022 11:19 AM EST Tc from pt requesting to r/s appt for 06/09/2022 for Shingrix Dose 2. Pt would like to schedule appt in this Monday06/24/2022 Please contact pt at [phone] documented in this encounter Plan of Treatment Not on file documented as of this encounter Visit Diagnoses Not on filedocumented in this encounter Care Teams Electrician Radio Relationship Specialty Start Date End Date Reina Seth MD [address] [place] [address] PCP - General Family Medicine 06/17/20 Taylor Oh MD [address] [place] [address] Referring Physician Internal Medicine 07/25/22 documented as of this encounter
--- OUTSIDE RECORDS SUMMARY | 2024-12-23 18:05 | XMS_ITS | Encounter Summary ---
Author Organization [employer] Address [address] [place] [address] Care Team Providers Care Finnish Rubber Name Role Phone Reina Seth MD Primary Care Provider [phone] Taylor Oh MD Unavailable Reason for Visit * Reason Onset Date Comments ER Follow-up 06/20/2023 Encounter Details Date Type Department Care Team ([facility] Contact Info) Description 06/20/2023 Telephone [facility] CHC MED & PEDS [address] [place], [place] [phone] Reina Seth MD [address] [place] [address] ER Follow-up Social History Tobacco Use Types [...] 9:36 AM EST Tc to pt regarding [facility] ED visit om 06/19 for umbilical infection. [...] ED visit on : Date: 06/19 Hospital: [facility] Seen for: Wound/laceration Patient advised will forward to team nurse for follow up Please contact pt at [phone] documented in this encounter Plan of Treatment Not on file documented as of this encounter Visit Diagnoses Not on filedocumented in this encounter Additional Health Concerns Assessment Noted Time PHQ-9 Depression Total Score: 6 07/28/19 23 8:47 AM EDT documented as of this encounter Care Teams Finnish Rubber Relationship Specialty Start Date End Date Reina Seth MD [address] [place] [address] PCP - General Family Medicine 06/17/20 Taylor Oh MD [address] [place] [address] Referring Physician Internal Medicine 07/25/22 documented as of this encounter
== END 2024-12-23 15:05 | disposition home or self-care (01) ==
LOC: HO.PMC 14:49
PROVIDERS: PCP Family Medicine; Visit Provider Nurse Practitioner Family
DX: M54.50 Low back pain, unspecified (principal); G89.29 Other chronic pain; M47.817 Spondylosis without myelopathy or radiculopathy, lumbosacral region; M53.3 Sacrococcygeal disorders, not elsewhere classified; M43.16 Spondylolisthesis, lumbar region; M54.9 Dorsalgia, unspecified; M79.7 Fibromyalgia
CPT/HCPCS: 99214; G2211

== ENCOUNTER → 2024-12-23 14:49 | Outpatient (BNVA) | payer OTHER, SELFPAY | PROVIDERS: PCP Family Medicine; Visit Provider Nurse Practitioner Family | DX: Z71.2 Person consulting for explanation of examination or test findings (principal); M47.817 Spondylosis without myelopathy or radiculopathy, lumbosacral region; M54.50 Low back pain, unspecified; G89.29 Other chronic pain; M53.3 Sacrococcygeal disorders, not elsewhere classified; M43.16 Spondylolisthesis, lumbar region; M79.7 Fibromyalgia | CPT/HCPCS: 99212 ==

== ENCOUNTER 2025-01-30 11:58 | Outpatient (REF) | payer OTHER, SELFPAY ==
--- OUTSIDE RECORDS SUMMARY | 2025-01-30 11:15 | XMS_ITS | Encounter Summary ---
Author Organization [employer] Address [address] [place] [address] 7 [place] [address] Care Team Providers Care Social Work Assistant Name Role Phone Reina Seth MD Primary Care Provider Taylor Oh MD Unavailable Reason for Referral * Imaging (Routine) - Closed Specialty Diagnoses / Procedures Referred By Contac t Referred To Contact Radiology Diagnoses Breast cancer screening by mammogram Procedures BI Mammogram Screening Tomosynthesis Bilateral Reina Seth MD [address] [place] [address] Phone: tel: fax: [address] Phone: tel: fax: Referral ID Status Reason Start Date Expiration Date Visits Re quested Visits Authorized [id number] Closed 01/30/2025 01/30/2026 1 1 Reason for Visit * Reason Comments Obesity Pain Encounter Details Date Type Department Care Team ([facility] st Contact Info) Description 01/30/2025 11:15 AM EDT Office Visit [facility] [address] [place], [place] [phone] Reina Seth MD [address] [place], [place] [phone] Chronic pain syndrome (Primary Dx); Encounter for immunization; Encounter for vaccination; Class 3 severe obesity due to excess calories with serious comorbidity and body mass index (BMI) of 40.0 to 44.9 in adult (HCC); Breast cancer screening by mammogram Social History Tobacco Use Types Packs/Day Years Used Date Smoking Tobacco: Never Smokeless Tobacco: Never Alcohol Use Standard Drinks/Week Comments Not Currently 0 (1 standard drink = 0.6 oz pur e alcohol) Depression Answer Date Recorded Patient Health Questionnaire-9 Score 4 12/26/2024 Patient Health Questionnaire-9 Score 4 12/26/2024 Last PHQ-9: Questionnaire Data Not on file 0 12/26/2024 Housing Stability Answer Date Recorded What is [...] Answer Date Recorded Patient Health Questionnaire-2 Score 2 12/26/2024 Internet Access Answer Date Recorded Internet Access [...] Sign Reading Time Taken Comments Blood Pressure 118/78 01/30/2025 11:18 AM EDT Pulse 80 01/30/2025 11:18 AM EDT Temperature 36.2 C (97.2 F) 01/30/2025 11:18 AM EDT Respiratory Rate 20 01/30/2025 11:18 AM EDT Oxygen Saturation 98% 01/30/2025 11:18 AM EDT Inhaled Oxygen Concentration - - Weight 53.2 kg (117 lb 3.2 oz) 01/30/2025 11:18 AM EDT Height 147.3 cm (4' 10 ) 01/30/2025 11:18 AM EDT Body Mass Index 24.49 01/30/2025 11:18 AM EDT documented in this encounter Progress Notes * Reina Seth MD - 01/30/2025 11:15 AM EDT Subjective Patient ID: Estephanie Smith is a 55 y.o. female who presents for Obesity and Pain. Estephanie Gaston presents for follow-up care with significant weight loss and fatigue. She has lost 35pounds since August 28, going from 152 pounds to her current weight of 117 pounds. She reports feeling tired, which prompted concern for possible vitamin deficiencies. The patient is experiencing sleep difficulties, noting that while trazodone helps her sleep, she wakes up in pain. She has ongoing lower back and disc issues for which she has an upcoming appointmentwith a pain doctor on the for possible injectable treatments. She reports no problems with her current medications and continues to take her prescribed regimen including Zepbound (tirzepatide), trazodone 100 mg, Topamax 100 mg, Protonix, Percocet, Narcan, mupirocin, metoprolol 50 mg, hydroxyzine 25 mg, gabapentin 100 mg (though she states she doesn't use it),Celexa, Wellbutrin 200 mg, and Tylenol as needed. She also takes a multivitamin, vitamin D, and magnesium twice daily as recommended by her psychiatrist. The patient has developed excess skin from her weight loss. She denies taking any benzodiazepines despite lab results showing a positive benzo result, which her psychiatrist suggested could be a fluke. Medical History - Lower back and disc issues - Depression (currently managed by psychiatrist) - Hypertension - Gastroesophageal reflux disease - Chronic pain condition Medications and Supplements - Multivitamin daily as recommended by psych doctor - Vitamin D daily as recommended by psych doctor - Magnesium twice a day as recommended by psych doctor - Zepbound (tirzepatide) - Trazodone 100 mg - Helps with sleep - Topamax 100 mg - Protonix - Percocet - Narcan - Mupirocin - Metoprolol 50 mg - Hydroxyzine 25 mg - Gabapentin 100 mg - Doesn't use it - Celexa - Wellbutrin 200 mg - Tylenol as needed Review of Systems General: Positive for fatigue. Musculoskeletal: Positive for lower back pain. Review of Systems Constitutional: Negative for appetite change, fatigue and fever. HENT: Negative for congestion, postnasal drip and rhinorrhea. Eyes: Negative for discharge and redness. Respiratory: Negative for apnea, cough, chest tightness and shortness of breath. Cardiovascular: Negative for chest pain. Gastrointestinal: Negative for abdominal pain. Endocrine: Negative for polyphagia. Genitourinary: Negative for difficulty urinating, dysuria and urgency. Musculoskeletal: Positive for back pain. Neurological: Negative for dizziness, light-headedness, numbness and headaches. Hematological: Negative for adenopathy. Does not bruise/bleed easily. Objective Visit Vitals BP 118/78 Pulse 80 Temp 97.2 ??F (36.2 ??C) (Oral) Resp 20 Ht 4' 10 (1.473 m) Wt 117 lb 3.2 oz (53.2 kg) SpO2 98% BMI 24.49 kg/m?? OB Status Having periods Smoking Status Never BSA 1.48 m?? Physical Exam Constitutional: General: She is not in acute distress. Appearance: She is not ill-appearing. HENT: Head: Normocephalic and atraumatic. Nose: No congestion. Pulmonary: Effort: Pulmonary effort is normal. No respiratory distress. Breath sounds: Normal breath sounds. Musculoskeletal: Cervical back: Normal range of motion. Neurological: General: No focal deficit present. Mental Status: She is alert. Psychiatric: Mood and Affect: Mood normal. Assessment/Plan Problem List Items Addressed This Visit Class 3 severe obesity due to excess calories with serious comorbidity and body mass index (BMI) of40.0 to 44.9 in adult (HCC) Relevant Orders Iron And Total Iron Binding Capacity Ferritin CBC auto differential Comprehensive Metabolic Panel Vitamin D, 25-Hydroxy, Total, Immunoassay TSH W/Reflex to FT4 Chronic pain syndrome - Primary Other Visit Diagnoses Encounter for immunization Relevant Medications acetaminophen (Tylenol) 325 MG tablet Other Relevant Orders FLU VACCINE TRIVALENT [id number] (Fluarix) 19 yrs + PCV-20 VACCINE 6 wks + Hepatitis B Surface Antibody, Qualitative Hepatitis B Core Antibody, Total Hepatitis B surface antigen, EIA Encounter for vaccination Relevant Medications acetaminophen (Tylenol) 325 MG tablet Other Relevant Orders COVID-19 VACCINE [id number] (Comirnaty) 19 yrs + Breast cancer screening by mammogram Relevant Orders BI Mammogram Screening Tomosynthesis Bilateral Estephanie Gaston presents for follow-up after 35-pound weight loss since August with fatigue, currently on multiple medications including Zepbound for weight management. Weight loss with fatigue Assessment: Patient has experienced significant weight loss of 35 pounds since August 28, decreasingfrom 152 to 117 pounds while on tirzepatide (Zepbound). Currently experiencing fatigue which raisesconcern for potential vitamin deficiencies given the substantial weight loss. She is taking multivitamin, vitamin D, and magnesium twice daily as recommended by psychiatrist. Plan: - Check for vitamin deficiencies with laboratory studies - Ensure adequate protein and vegetable intake - Continue current vitamin supplementation regimen Chronic pain Assessment: Patient reports waking up in pain despite trazodone helping with sleep. She has lower back and disc issues requiring pain management. Plan: - Pain management appointment scheduled for February 11 for possible injectable treatments for lower back and disc issues - Tylenol 650 mg twice daily as needed for pain Excess skin from weight loss Assessment: Patient has developed excess skin following significant weight loss. Insurance coveragefor surgical removal requires documentation of infections. Plan: - Schedule appointment if rash develops for documentation purposes Preventive care needs Assessment: Patient is due for routine preventive care including mammogram and pap smear. She has received PCV 20 vaccine and is awaiting flu vaccination. She may need hepatitis B vaccine pending labresults. Plan: - Order mammogram, send to [facility] - Schedule pap smear for February 18 at 10:20 AM - Administer flu vaccine - Check hepatitis B vaccine status when labs are drawn Medication management Assessment: Patient is on multiple medications including Zepbound, trazodone 100 mg, Topamax 100 mg, Protonix, Percocet, Narcan, mupirocin, metoprolol 50 mg, hydroxyzine 25 mg, gabapentin 100 mg (notcurrently using), Celexa, and Wellbutrin 200 mg. No current problems with medications reported. Labresults showed benzodiazepine presence despite patient denial of use; psychiatrist suggested this may be a laboratory error. Plan: - Continue current medications - Follow up in three months documented in this encounter Plan of Treatment Upcoming Encounters Date Type Department Care Team ([facility] st Contact Info) Description 02/18/2025 10:20 AM EST Procedure Visit [facility] [address] [place] [address] Reina Seth MD [address] [place] [address] 03/26/2025 9:30 AM EST Clinical Support [facility] [address] [place] [address] Sonja Weathers RN [address] [place] [address] Scheduled Orders Name Type Priority Associated Diagnoses Orde r Schedule BI Mammogram Screening Tomosynthesis Bilateral Imaging Routine Breast cancer screening by mammogram Expected: 01/30/2025, Expires: 04/01/2026 documented as of this encounter Procedures Procedure Name Priority Date/Time Associated Diagnosis Comments VITAMIN D,25-OH,TOTAL,IA Routine 01/30/2025 12:03 PM EDT Class 3 severe obesity due to excess calories with serious comorbidity and body mass index (BMI) of 40.0 to 44.9 in adult ([facility]) TSH W/REFLEX TO FT4 Routine 01/30/2025 1 2:03 PM EDT Class 3 severe obesity due to excess calories with serious comorbidity and body mass index (BMI) of 40.0 to 44.9 in adult ([facility]) CBC WITH AUTO DIFFERENTIAL Routine 01/30/2025 12:03 PM EDT Class 3 severe obesity due to excess calories with serious comorbidity and body mass index (BMI) of 40.0 to 44.9 in adult ([facility]) IRON AND TOTAL IRON BINDING CAPACITY Routine 01/30/2025 12:03 PM EDT Class 3 severe obesity due to excess calories with serious comorbidity and body mass index (BMI) of 40.0 to 44.9 in adult (HCC) HEPATITIS B SURFACE ANTIGEN, EIA Routine 01/30/2025 12:03 PM EDT Encounter for immunization HEPATITIS B CORE AB TOTAL Routine 01/30/2025 12:03 PM EDT Encounter for immunization HEPATITIS B SURFACE ANTIBODY, QUALITATIVE Routine 01/30/2025 12:03 PM EDT Encounter for immunization FERRITIN Routine 01/30/2025 12:03 PM EDT Class 3 severe obesity due to excess calories with serious comorbidity and body mass index (BMI) of 40.0 to 44.9 in adult (HCC) COMPREHENSIVE METABOLIC PANEL Routine 01/30/2025 12:03 PM EDT Class 3 severe obesity due to excess calories with serious comorbidity and body mass index (BMI) of 40.0 to 44.9 in adult (HCC) documented in this encounter Results * Hepatitis B surface antigen, EIA (01/30/2025 12:03 PM EDT) Hepatitis B Surface Ag Negative Negative [facility] Blood Venous blood specimen / Unknown 01/30/2025 12:03 PM EDT 01/30/2025 1:48 PM EDT us Reina Seth MD LAB BLOOD ORDERABLES Final Re sult [facility] [address] [place] [phone] * Hepatitis B Core Antibody, Total (01/30/2025 12:03 PM EDT) Hepatitis B Core Antibody Nonreactive Nonreactive [facility] Blood Venous blood specimen / Unknown 01/30/2025 12:03 PM EDT 01/30/2025 1:48 PM EDT Reina Seth MD LAB BLOOD ORDERABLES Final Re sult Performing Organization Address [facility] Co de Phone Number [facility] [address] [place] [phone] * Hepatitis B Surface Antibody, Qualitative (01/30/2025 12:03 PM EDT) Pathologist [facility] [place] ~Hepatitis B Surface Antibody REACTIVE Nonreactive [facility] Comment:REACTIVE: > 11.99 mI U/mL Blood Venous blood specimen / Unknown 01/30/2025 12:03 PM EDT 01/30/2025 1:48 PM EDT Reina Seth MD LAB BLOOD ORDERABLES Final Re sult Performing Organization Address [facility] Co de Phone Number [facility] [address] [place] [phone] * TSH W/Reflex to FT4 (01/30/2025 12:03 PM EDT) Pathologist [facility] [place] TSH reflex Free T4 2.04 0.32 - 4.0 uIU/mL [facility] Blood Venous blood specimen / Unknown 01/30/2025 12:03 PM EDT 01/30/2025 1:48 PM EDT Reina Seth MD LAB BLOOD ORDERABLES Final Re sult Performing Organization Address [facility] Co de Phone Number [facility] [address] [place] [phone] * Vitamin D, 25-Hydroxy, Total, Immunoassay (01/30/2025 12:03 PM EDT) Pathologist [facility] [place] Vitamin D 25-OH Total 106.3 >30 ng/mL [facility] Comment: Health Based Reference Values*< 20 ng/mL [id number] ng/mL Insufficient> 30 ng/mL Sufficient*Donna COLLINS. N Engl J Med. 2007;357:266-280There is no well-established upper level of normal vitamin Dlevels. Some laboratories use 50 ng/mL as an upper limit ofnormal. However, toxicity is patient-dependent and may occurat any level. Careful correlation with the patient'spresentation is necessary and, if there is concern forvitamin D toxicity, treatment should be consideredirrespective of the serum level.Care must be taken in interpreting Vitamin D results fromdifferent laboratories and methodologies. Published datademonstrated that results from patients undergoinghemodialysis may show a negative bias when tested withvarious automated 25-OH vitamin D assays when compared toLC-MS/MS.When testing samples from patients whose predominant form ofVitamin D is Vitamin D2, such as patients receiving VitaminD2 supplementation, results that are subtherapeutic shouldbe confirmed with another method such as LC-MS/MS. Blood Venous blood specimen / Unknown 01/30/2025 12:03 PM EDT 01/30/2025 1:48 PM EDT us Reina Seth MD LAB BLOOD ORDERABLES Final Re sult [facility] [address] [place] [phone] * (ABNORMAL) Comprehensive Metabolic Panel (01/30/2025 12:03 PM EDT) Sodium 140 135 - 145 mmol/L [facility] Potassium 4.1 3.3 - 5.1 mmol/L [facility] Chloride 108 96 - 108 mmol/L [facility] Carbon Dioxide 25 22 - 29 mmol/L [facility] Anion Gap 11(L) 12 - 20 [facility] Urea Nitrogen (BUN) 19(H) 9 - 16 mg/dL [facility] Creatinine, Serum 1.19 0.5 - 1.4 mg/dL [facility] Estimated Glomerular Filt Rate 47 [facility] Comment:Chronic Kidney Disea se: Estimated GFR < 60 mL/min/1.62i0Ikhlfz Kidney Disease: Estimated GFR < 15 mL/min/1.73m2 Glucose 81 60 - 115 mg/dL [facility] Calcium 9.1 8.4 - 10.2 mg/dL [facility] Bilirubin, Total 0.3 0.0 - 1.0 mg/dL [facility] Aspartate Amino Transferase 26 5 - 31 U/L [facility] Alanine Aminotransferase 17 0 - 31 U/L [facility] Total Protein 6.0(L) 6.5 - 8.0 g/dL [facility] Albumin Level 3.8 3.5 - 5.0 g/dL [facility] Alkaline Phosphatase 79 39 - 117 U/L [facility] Blood Venous blood specimen / Unknown 01/30/2025 12:03 PM EDT 01/30/2025 1:48 PM EDT us Reina Seth MD LAB BLOOD ORDERABLES Final Re sult [facility] [address] [place] [address] [phone] * (ABNORMAL) CBC auto differential (01/30/2025 12:03 PM EDT) White Blood Count 4.1(L) 4.8 - 10.8 X10*3/uL [facility] Red Blood Count 4.15(L) 4.20 - 5.50 X10*6/uL [facility] Hemoglobin 12.9 12.0 - 16.0 g/dl [facility] Hematocrit 38.8 37.0 - 47.0 % [facility] Mean Corpuscular Volume 93.5 80.0 - 98.0 fL [facility] Mean Corpuscular Hemoglobin 31.1 27.0 - 33.0 pg [facility] Mean Corpuscular HGB Conc 33.2 31.0 - 35.0 g/dl [facility] Red Cell Distribution Width 13.0 11.0 - 16.0 % [facility] Platelet Count 258 160 - 400 X10*3/uL [facility] Mean Platelet Volume 10.3 9.4 - 12.3 fL [facility] Neutrophils Percent Auto 38.0(L) 45 - 73 % [facility] Imm Gran Pct Auto 0.2 0.0 - 0.4 % [facility] Lymphocytes Percent Auto 51.4(H) 20 - 40 % [facility] Monocytes Percent Auto 7.4 2 - 11 % [facility] Eosinophils Percent Auto 2.0 0 - 4 % [facility] Basophils Percent Auto 1.0 0 - 2 % [facility] NRBC Pct Auto 0.0 0.0 - 0.2 /100WBC [facility] Neutrophils Absolute Auto 1.6(L) 2.0 - 8.3 x10*3/uL [facility] Imm Gran Abs Auto 0.01 0.00 - 0.03 X10*3/uL [facility] Lymphocytes Absolute Auto 2.1 1.2 - 4.9 X10*3/uL [facility] Monocytes Absolute Auto 0.3 0.1 - 1.2 X10*3/uL [facility] Eosinophils Absolute Auto 0.1 0.0 - 0.4 X10*3/uL [facility] Basophils Absolute Auto 0.0 0.0 - 0.2 X10*3/uL [facility] NRBC Abs Auto 0.000 0.0 - 0.012 X10*3/uL [facility] Blood Venous blood specimen / Unknown 01/30/2025 12:03 PM EDT 01/30/2025 1:48 PM EDT us Reina Seth MD LAB BLOOD ORDERABLES Final Re sult [facility] [address] [place], [place] [phone] * Ferritin (01/30/2025 12:03 PM EDT) Ferritin 90 10 - 250 ng/mL [facility] Blood Venous blood specimen / Unknown 01/30/2025 12:03 PM EDT 01/30/2025 1:48 PM EDT us Reina Seth MD LAB BLOOD ORDERABLES Final Re sult Performing Organization Address [facility] Co de Phone Number [facility] [address] [place] [phone] * (ABNORMAL) Iron And Total Iron Binding Capacity (01/30/2025 12:03 PM EDT) Iron 104 30 - 160 mcg/dL [facility] Total Iron Binding Capacity 180(L) 228 - 428 mcg/dL [facility] Percent Iron Saturation 58(H) 15 - 50 % [facility] Unsaturated Iron Binding 76 ug/dL [facility] Blood Venous blood specimen / Unknown 01/30/2025 12:03 PM EDT 01/30/2025 1:48 PM EDT us Reina Seth MD LAB BLOOD ORDERABLES Final Re sult Performing Organization Address [facility] Co de Phone Number [facility] [address] [place] [address] [phone] documented in this encounter Visit Diagnoses Diagnosis Chronic pain syndrome- Primary Encounter for immunization Encounter for vaccination Class 3 severe obesity due to excess calories with serious comorbidity and body mass index (BMI) of 40.0 to 44.9 in adult (HCC) Breast cancer screening by mammogram documented in this encounter Additional Health Concerns Assessment Noted Time PHQ-9 Depression Total Score: 4 12/27/19 25 11:47 AM EDT documented as of this encounter Care Teams Social Work Assistant Relationship Specialty Start Date End Date Reina Seth MD [address] [place] [phone] PCP - General Family Medicine 06/17/20 Taylor Oh MD [address] [place] [address] Referring Physician Internal Medicine 07/25/22 documented as of this encounter
[2025-01-30 13:55] LABS: MANUAL DIFF FLAG NO
[2025-01-30 14:01] LABS: Hematocrit 38.8 % (37.0-47.0); Hemoglobin 12.9 g/dl (12.0-16.0); Imm Gran Abs Auto 0.01 X10*3/uL (0.00-0.03); Imm Gran Pct Auto 0.2 % (0.0-0.4); Lymphocytes Absolute Auto 2.1 X10*3/uL (1.2-4.9); Mean Corpuscular HGB Conc 33.2 g/dl (31.0-35.0); Mean Corpuscular Hemoglobin 31.1 pg (27.0-33.0); Mean Corpuscular Volume 93.5 fL (80.0-98.0); NRBC Abs Auto 0.000 X10*3/uL (0.0-0.012); NRBC Pct Auto 0.0 /100WBC (0.0-0.2); Platelet Count 258 X10*3/uL (160-400); Red Blood Count 4.15 X10*6/uL (4.20-5.50); White Blood Count 4.1 X10*3/uL (4.8-10.8)
[2025-01-30 14:42] LABS: HBS Num1 161.32 mIU/mL (0-7.99); HBc Num1 0.06 S/CO (0.00-0.79); HBsAGNum1 0.35 S/CO (0.00-0.99); Hepatitis B Surface Antigen Negative (Negative); ~Hepatitis B Surface Antibody REACTIVE (Nonreactive)
[2025-01-30 14:53] LABS: Alanine Aminotransferase 17 U/L (0-31); Albumin Level 3.8 g/dL (3.5-5.0); Alkaline Phosphatase 79 U/L (39-117); Anion Gap 11 (12-20); Aspartate Amino Transferase 26 U/L (5-31); Blood Urea Nitrogen 19 mg/dL (9-16); Calcium 9.1 mg/dL (8.4-10.2); Carbon Dioxide 25 mmol/L (22-29); Chloride 108 mmol/L (96-108); Estimated Glomerular Filt Rate 47; Ferritin 90 ng/mL (10-250); Iron 104 mcg/dL (30-160); Percent Iron Saturation 58 % (15-50); Potassium 4.1 mmol/L (3.3-5.1); Sodium 140 mmol/L (135-145); Total Iron Binding Capacity 180 mcg/dL (228-428); Total Protein 6.0 g/dL (6.5-8.0); Unsaturated Iron Binding 76 ug/dL
--- OUTSIDE RECORDS SUMMARY | 2025-01-30 15:12 | XMS_ITS | Encounter Summary ---
Author Organization [employer] Address [address] [place] [address] [address] [place] [address] Care Team Providers Care Assistant Financial Accountant Name Role Phone Reina Seth MD Primary Care Provider [phone] Taylor Oh MD Unavailable Reason for Visit * Reason Comments Med Refill Encounter Details Date Type Department Care Team ([facility] Contact Info) Description 06/11/[address] [facility] [address] [place] [address] Reina Seth MD [address] [place] [address] Social History Tobacco Use Types Packs/Day Years [...] as of this encounter Plan of Treatment Upcoming Encounters Date Type Department Care Team ([facility] Contact Info) Description 02/18/2025 10:20 AM EST Procedure Visit [facility] [address] [place], [place] [phone] Reina Seth MD [address] [place] [address] 03/26/2025 9:30 AM EST Clinical Support [facility] [address] [place], [place] [phone] Sonja Weathers, SATHYA [address] [place], [place] [phone] documented as of this encounter Visit Diagnoses Not on filedocumented in this encounter Care Teams Assistant Financial Accountant Relationship Specialty Start Date End Date Reina Seth MD [address] [place] [phone] PCP - General Family Medicine 06/17/20 Taylor Oh MD [address] [place] [phone] Referring Physician Internal Medicine 07/25/22 documented as of this encounter
--- OUTSIDE RECORDS SUMMARY | 2025-01-30 15:12 | XMS_ITS | Encounter Summary ---
Author Organization [employer] Address [address] [place] [address] 7 [place] [address] Care Team Providers Care Sole Tacker Name Role Phone Reina Seth MD Primary Care Provider [phone] Taylor Oh MD Unavailable Reason for Visit * Reason Comments Med Refill Encounter Details Date Type Department Care Team ([facility] Contact Info) Description 10/31/2022 Refill [facility] & [facility]EDS [address] [place] [address] Reina Seth MD [address] [place] [address] Social History Tobacco Use Types Packs/Day Years [...] Upcoming Encounters Date Type Department Care Team ([facility] Contact Info) Description 02/18/2025 10:20 AM EST Procedure Visit [facility] [address] [place], [place] [phone] Reina Seth MD [address] [place] [address] 03/26/2025 9:30 AM EST Clinical Support [facility] MED & PEDS [address] [place], [place] [phone] Sonja Weathers, RN [address] [place], [place] [phone] documented as of this encounter Visit Diagnoses Not on filedocumented in this encounter Additional Health Concerns Assessment Noted Time PHQ-9 Depression Total Score: 6 07/28/19 8:47 AM EDT documented as of this encounter Care Teams Sole Tacker Relationship Specialty Start Date End Date Reina Seth MD [address] [place] [address] PCP - General Family Medicine 06/17/20 Taylor Oh MD [address] [place] [address] Referring Physician Internal Medicine 07/25/22 documented as of this encounter
--- OUTSIDE RECORDS SUMMARY | 2025-01-30 15:12 | XMS_ITS | Encounter Summary ---
Author Organization [employer] Address [address] [place] [address] 7t [place] [address] Care Team Providers Care Pile Driving Nozzleman Name Role Phone Reina Seth MD Primary Care Provider [phone] Taylor Oh MD Unavailable Reason for Visit * Reason Comments Med Refill Encounter Details Date Type Department Care Team ([facility] Contact Info) Description 07/08/2022 Refill [facility] MEDICINE [address] [place] [address] eRina Seth MD [address] [place], [place] [phone] Social History Tobacco Use Types Packs/Day Years [...] Upcoming Encounters Date Type Department Care Team ([facility] Contact Info) Description 02/18/2025 10:20 AM EST Procedure Visit [facility] MED & PEDS [address] [place], [place] [phone] Reina Seth MD [address] [place] [address] 03/26/2025 9:30 AM EST Clinical Support [facility] MED & PEDS [address] [place] [address] Sonja Weathers, RN 505 [place], [place] [phone] documented as of this encounter Visit Diagnoses Not on filedocumented in this encounter Care Teams Pile Driving Nozzleman Relationship Specialty Start Date End Date Reina Seth MD [address] [place] [address] PCP - General Family Medicine 06/17/20 Tyalor Oh MD [address] [place] [address] Referring Physician Internal Medicine 07/25/22 documented as of this encounter
--- OUTSIDE RECORDS SUMMARY | 2025-01-30 15:12 | XMS_ITS | Encounter Summary ---
Author Organization [facility] Address [address] [place] [address] Phone Care Team Providers Care Control Room Helper Name Role Phone Reina Seth MD Primary Care Provider [phone] Encounter Details Date Type Department Care Team (Late st Contact Info) Description 02/24/2022 Procedure Pass OR Admitting Dept - Virtual Department [address] [place] [address] Social History Tobacco Use Types Packs/Day Years [...] 02/24/2022 4:32 PM Breanna Sears RN * [place] Suicide Severity Rating Scale (Screener/Recent Self-Report) Question [...] on filedocumented in this encounter Care Teams Control Room Helper Relationship Specialty Start Date End Date Reina Seth MD PCP - General Family Medicine 11/22/21 documented as of this encounter Additional Source Comments The information contained in this document represents components of the legal health record. It is not the complete legal health record.[facility]
--- OUTSIDE RECORDS SUMMARY | 2025-01-30 15:12 | XMS_ITS | Encounter Summary ---
Author Organization [employer] Address [address]t [place] [address] Care Team Providers Care Tennis Ball Cover Cementer Name Role Phone Reina Seth MD Primary Care Provider [phone] Taylor Oh MD Unavailable Encounter Details Date Type Department Care Team ([facility] st Contact Info) Description 07/27/[address] [facility] MEDICINE [address] [place], [place] [phone] Reina Seth MD [address] [place], [place] [phone] Social History Tobacco Use Types Packs/Day Years [...] hopeless Not at all 07/27/2022 8:47 AM [place] Fay Sanchez M A Trouble falling or staying asleep, or sleeping too much Not at all 07/27/2022 8:47 AM [place] Fay Sanchez M A Feeling tired or having little energy Nearly every day 07/27/2022 8:47 AM Fay Carney M A Poor appetite or overeating Nearly every day 07/27/2022 8:47 AM [place] Fay Sanchez M A Feeling bad about yourself - or that you are a failure or have let yourself or your family down Not at all 07/27/2022 8:47 AM Fay Carney M A Trouble concentrating on things, such as reading the newspaper or watching television Not at all 07/27/2022 8:47 AM Fay Carney M A Moving or speaking so slowly [...] Health Questionnaire-9 Score 6 07/27/2022 8:47 AM Fay Carney [place] documented as of this encounter Plan of Treatment Upcoming Encounters Date Type Department Care Team (Late st Contact Info) Description 02/18/2025 10:20 AM EST Procedure Visit [facility] MED & PEDS [address] [place] [address] Reina Seth MD 505 [place] [address] 03/26/2025 9:30 AM EST Clinical Support [facility] MED & PEDS [address] [place], [place] [phone] Sonja Weathers, SATHYA 505 [place], [place] [phone] documented as of this encounter Visit Diagnoses Not on filedocumented in this encounter Additional Health Concerns Assessment Noted Time PHQ-9 Depression Total Score: 6 07/28/19 8:47 AM EDT documented as of this encounter Care Teams Tennis Ball Cover Cementer Relationship Specialty Start Date End Date Reina Seth MD [address] [place] [address] PCP - General Family Medicine 06/17/20 Taylor Oh MD [address] [place] [address] Referring Physician Internal Medicine 07/25/22 documented as of this encounter
--- OUTSIDE RECORDS SUMMARY | 2025-01-30 15:12 | XMS_ITS | Encounter Summary ---
Author Organization [employer] Address [address] [facility] 7t [place] [address] Care Team Providers Care Acoustical Tile Carpenters Supervisor Name Role Phone Reina Seth MD Primary Care Provider [phone] Taylor Oh MD Unavailable Encounter Details Date Type Department Care Team (Latest Contact Info) Description 01/30/2025 Travel Social History Tobacco Use Types Packs/Day [...] Description 02/18/2025 10:20 AM EST Procedure Visit [facility] MED & PEDS [address] [place] [address] Reina Seth MD 505 [place] [address] 03/26/2025 9:30 AM EST Clinical Support [facility] MED & PEDS [address] [place] [address] Sonja Weathers, RN [address] [place] [address] documented as of this encounter Visit Diagnoses Not on filedocumented in this encounter Additional Health Concerns Assessment Noted Time PHQ-9 Depression Total Score: 4 12/27/19 25 11:47 AM EDT documented as of this encounter Care Teams Acoustical Tile Carpenters Supervisor Relationship Specialty Start Date End Date Reina Seth MD [address] [place] [address] PCP - General Family Medicine 06/17/20 Taylor Oh MD [address] [place] [address] Referring Physician Internal Medicine 07/25/22 documented as of this encounter
--- OUTSIDE RECORDS SUMMARY | 2025-01-30 15:12 | XMS_ITS | Encounter Summary ---
Author Organization [employer] Address [address] 7t [place] [address] Care Team Providers Care Litigation Secretary Name Role Phone Reina Seth MD Primary Care Provider [phone] Taylor Oh MD Unavailable Reason for Visit * Reason Onset Date Comments Med Refill 10/08/2024 Encounter Details Date Type Department Care Team (Late st Contact Info) Description 10/08/2024 Telephone [facility] MEDICINE [address] [place] [address] Reina Seth MD [address] [place], [place] [phone] Med Refill Social History Tobacco Use Types [...] (Ultram) 50 MG [facility] documented in this encounter Plan of Treatment Upcoming Encounters Date Type Department Care Team ([facility] st Contact Info) Description 02/18/2025 10:20 AM EST Procedure Visit [facility] MED & PEDS [address] [place] [address] Reina Seth MD 505 [place] [address] 03/26/2025 9:30 AM EST Clinical Support [facility] [address] [place] [address] Sonja Weathers, SATHYA 505 [place] [address] documented as of this encounter Visit Diagnoses Not on filedocumented in this encounter Additional Health Concerns Assessment Noted Time PHQ-9 Depression Total Score: 6 07/28/19 23 8:47 AM EDT documented as of this encounter Care Teams Litigation Secretary Relationship Specialty Start Date End Date Reina Seth MD [address] [place] [address] PCP - General Family Medicine 06/17/20 Taylor Oh MD [address] [place] [address] Referring Physician Internal Medicine 07/25/22 documented as of this encounter
--- OUTSIDE RECORDS SUMMARY | 2025-01-30 15:12 | XMS_ITS | Encounter Summary ---
Author Organization [employer] Address [address] [place] [address] 7t [place] [address] Care Team Providers Care Propeller Mechanic Name Role Phone Reina Seth MD Primary Care Provider [phone] Taylor Oh MD Unavailable Reason for Visit * Reason Onset Date Comments triage 05/03/2022 Encounter Details Date Type Department Care Team ([facility] Contact Info) Description 05/03/2022 Telephone [facility] MED & PEDS [address] [place] [address] Reina Seth MD [address] [place] [address] triage Social History Tobacco Use Types Packs/Day [...] requesting antibiotic again. Advised to come to [facility] 05/04 @200pm [facility]. Pt agreed with disposition . Insurance is [...] nodes in back of neck, please call [phone]. Pashto documented in this encounter Plan of Treatment Upcoming Encounters Date Type Department Care Team (Late st Contact Info) Description 02/18/2025 10:20 AM EST Procedure Visit [facility] PEDS [address] [place] [address] Reina Seth MD [address] [place] [address] 03/26/2025 9:30 AM EST Clinical Support [facility] [address] [place] [address] Sonja Weathers RN 505 [place] [address] documented as of this encounter Visit Diagnoses Diagnosis Other chronic pain documented in this encounter Care Teams Propeller Mechanic Relationship Specialty Start Date End Date Reina Seth MD [address] [place] [address] PCP - General Family Medicine 06/17/20 Taylor Oh MD [address] [place] [address] Referring Physician Internal Medicine 07/25/22 documented as of this encounter
--- OUTSIDE RECORDS SUMMARY | 2025-01-30 15:12 | XMS_ITS | Encounter Summary ---
Author Organization [employer] Address [address] 7[address] [place] [address] Care Team Providers Care Newspaper Illustrator Name Role Phone Renia Seth MD Primary Care Provider [phone] Taylor Oh MD Unavailable Reason for Visit * Reason Onset Date Comments Appointment Request 10/07/2024 Encounter Details Date Type Department Care Team ([facility] st Contact Info) Description 10/07/2024 Telephone [facility] MEDICINE [address] [place] [address] Reina Seth MD [address] [place], [place] [phone] Appointment Request Social History Tobacco Use Types [...] message. Patient requests a return call at [phone] * Telephone Encounter - Porsha Dye - 10/07/2024 10:27 AM EDT Tc from pt requesting schedule f/u appointment. Unable to schedule due not availability. Recall date: 09/25/2024. [phone] documented in this encounter Plan of Treatment Upcoming Encounters Date Type Department Care Team (Late st Contact Info) Description 02/18/2025 10:20 AM EST Procedure Visit [facility] MED & PEDS [address] [place] [address] Reina Seth MD [address] [place] [address] 03/26/2025 9:30 AM EST Clinical Support [facility] MED & PEDS [address] [place] [address] Sonja Weathers RN [address] [place] [address] documented as of this encounter Visit Diagnoses Not on filedocumented in this encounter Additional Health Concerns Assessment Noted Time PHQ-9 Depression Total Score: 6 07/28/19 23 8:47 AM EDT documented as of this encounter Care Teams Newspaper Illustrator Relationship Specialty Start Date End Date Reina Seth MD [address] [place] [address] PCP - General Family Medicine 06/17/20 Taylor Oh MD [address] [place] [address] Referring Physician Internal Medicine 07/25/22 documented as of this encounter
--- OUTSIDE RECORDS SUMMARY | 2025-01-30 15:12 | XMS_ITS | Clinical Summary ---
Author Organization [employer] Address [address] [place] [address] [address] [place] [address] Care Team Providers Care Veneer Manufacturer Name Role Phone Reina Seth MD Primary Care Provider [phone] Taylor Oh MD Unavailable Allergies Active Allergy [...] represent a complete record from that organization. traZODone (Desyrel) 100 MG tablet 06/14/19 24 Active hydrOXYzine HCl (Atarax) 25 MG tablet Take 1 tablet (25 mg) by mouth if needed in the morning, at noon, and at bedtime for itching. 07/18/19 24 Active citalopram (CeleXA) 40 MG tabletIndicati ons:Depression , unspecified depression type TAKE 1 TABLET BY MOUTH IN THE MORNING 30 tablet 5 12/14/19 24 Active D3 Super Strength 50 MCG (1999 UT) capsule TAKE 1 CAPSULE BY MOUTH ONCE DAILY IN THE MORNING 30 capsule 5 07/09/19 25 Active buPROPion SR (Wellbutrin SR) 200 MG 12 hr tablet 08/14/19 25 Active fexofenadine (Radha) 180 MG tablet TAKE 1 TABLET BY MOUTH ONCE DAILY 90 tablet 1 10/24/19 25 Active pantoprazole (ProtoNix) 20 MG EC tablet TAKE 1 TABLET BY MOUTH ONCE DAILY 90 tablet 1 11/22/19 25 Active metoprolol tartrate (Lopressor) 50 MG tabletIndicati ons:Hypertensi on, unspecified type TAKE 1 TABLET BY MOUTH two (2) times a day take with food 60 tablet 5 12/18/19 25 Active Zepbound 5 MG/0.5ML solution auto-injector Inject 0.5 mL (5 mg) under the skin 1 (one) time per week. 2 mL 3 12/27/19 25 Active Diclofenac Sodium 1 % gel APPLY TO THE AFFECTED AREA TOPICALLY NEEDED IN THE MORNING, AT NOON, AND AT BEDTIME FOR PAIN 200 g 1 01/14/20 25 Active topiramate (Topamax) 100 MG tablet TAKE 1 TABLET BY MOUTH two (2) times a day 60 tablet 2 01/18/20 25 Active oxyCODONE-acet aminophen (Percocet) 5-325 MG tabletIndicati ons:Chronic pain syndrome Take 1 tablet by mouth every 6 (six) hours if needed for severe pain for up to 28 days. 112 tablet 01/24/20 25 025 Active naloxone (Narcan) 4 mg/0.1 mL nasal spray Administer 1 spray (4 mg) into affected nostril(s) if needed for opioid reversal. May repeat every 2-3 minutes if needed, alternating nostrils, until medical assistance becomes available. 2 each 2 01/24/20 25 026 Active acetaminophen (Tylenol) 325 MG tablet Take 2 tablets (650 mg) by mouth if needed in the morning and at bedtime for mild pain. 60 tablet 2 01/31/20 25 Active clobetasol (Temovate) 0.05 % external solution Apply topically in the morning. Use in scalp once a day for 2 weeks topically 50 mL 01/31/20 23 025 Discontinued(T herapy completed) mupirocin (Bactroban) 2 % ointment Apply topically 2 times daily. 22 g 06/28/19 24 025 Discontinued(T herapy completed) clotrimazole (Lotrimin) 1 % cream Apply topically 2 times daily. 60 g 06/28/19 24 025 Discontinued(T herapy completed) lidocaine (Xylocaine) 5 % ointmentIndica tions:Chronic iliotibial band syndrome of right side Apply topically if needed for mild pain. 240 g 3 01/08/20 24 Acetaminophen Extra Strength 500 MG tablet TAKE 2 TABLETS BY MOUTH EVERY 8 HOURS NEEDED FOR PAIN 60 tablet 02/07/20 24 025 Discontinued(T herapy completed) Diclofenac Sodium 1 % gel APPLY TO THE AFFECTED AREA TOPICALLY NEEDED IN THE MORNING, AT NOON, AND AT BEDTIME FOR PAIN 100 g 1 02/28/20 24 025 Discontinued gabapentin (Neurontin) 100 MG capsuleIndicat ions:Myalgia Take 1 capsule by oral route nightly. May increase up to 3 capsules (300mg) if needed for symptom relief 270 capsule 11 07/18/19 25 025 Discontinued(T herapy completed) topiramate (Topamax) 100 MG tablet TAKE 1 TABLET BY MOUTH two (2) times a day 60 tablet 2 10/15/19 25 025 Discontinued(R eorder (will not trigger notification to Pharmacy)) oxyCODONE-acet aminophen (Percocet) 5-325 MG tabletIndicati ons:Chronic pain syndrome Take 1 tablet by mouth every 6 (six) hours if needed for severe pain for up to 28 days. 112 tablet 12/27/19 25 025 Discontinued(R eorder (will not trigger notification to Pharmacy)) Active Problems Problem Noted Date Diagnosed Date Long-term current use of opiate analgesic 2024 Chronic pain syndrome 12/27/2024 Assessment & Plan (12/27/2024 9:29 AM EDT): Pain specialist has recommended cycling opioid therapy to Percocet for improved pain control in a patient with chronic back pain. After reviewing the available evidence and current guidelines, there is not full agreement with this recommendation. The [place] Academy [employer] and the [place] Centers for Disease Control and Prevention (CDC) recommend that nonopioid therapies--including nonpharmacologic interventions and nonopioid pharmacologic agents--are preferred for chronic pain management, given the limited evidence for long-term opioid efficacy and the well-documented risks of opioid use disorder, overdose, and other adverse events. Systematic reviews and meta-analyses indicate that, while short-term opioid therapy may provide modest reductions in pain intensity, there is no robust evidence supporting long-term benefit in pain or function for chronic low back pain, and opioids are associated with increased risk of adverse effects and dependence. Opioid therapy should only be considered when the anticipated benefits for both pain and function clearly outweigh the risks, and should be combined with nonopioid and nonpharmacologic therapies whenever possible. Given the above, a trial of Percocet will be provided as recommended by the pain specialist, but with reservations regarding the expected benefit and in accordance with best practices for opioid stewardship. Treatment goals, functional outcomes, and risk mitigation strategies were discussed with the patient prior to initiation, and the lowest effective dose will be used. The patient will be closely monitored for both benefit and harm, with regular reassessment and use of prescription drug monitoring program data as recommended by the CDC. It is also noted that attempts have been made to contact the pain specialist to discuss this recommendation, but calls have not been returned. Interdisciplinary communication is essential for optimal chronic pain management, and further efforts will be made to coordinate care. Hypertension 12/05/2024 Nausea 09/19/2024 Assessment & Plan [...] medications (e.g., Celexa) - Submit referral for home care rn - Encourage continuation of psychiatric care (appointments [...] 07/18/2023 9:00 AM Paulina De Leon MD [facility] Chronic back pain 06/12/2023 Depressive disorder [...] recommended reduction of 20-30% of maintenance calories; traffic monitor specialist referral offered. Recommended to decrease soda and [...] recommended reduction of 20-30% of maintenance calories; traffic monitor specialist referral offered. Recommended to decrease soda and [...] Encounters Date Type Department Care Team Description 01/30/2025 11:15 AM EDT Office Visit [facility] [address] [place] [address] Reina Seth MD Chronic pain syndrome (Primary Dx); Encounter for immunization; Encounter for vaccination; Class 3 severe obesity due to excess calories with serious comorbidity and body mass index (BMI) of 40.0 to 44.9 in adult (HCC); Breast cancer screening by mammogram 01/30/2025 Travel 01/29/2025 Telephone [facility] [address] [place] [address] Reina Seth MD Chart Prep 01/23/2025 11:00 AM EDT Clinical Support [facility] [address] [place] [address] Sonja Weathers RN Chronic pain syndrome (Primary Dx); Long-term current use of opiate analgesic 01/23/2025 Refill [facility] [address] [place] [address] Sonja Weathers RN Chronic pain syndrome 01/23/2025 Travel 01/22/2025 Travel 01/17/2025 Refill [facility] [address] [place] [address] Reina Seth MD 01/11/2025 Refill [facility] [address] [place] [address] Reina Seth MD 12/27/2024 Telephone [facility] [address] [place] [address] Sonja Weathers, SATHYA [employer]IELD CLEANER 12/26/2024 11:15 AM EDT Office Visit [facility] [address] [place] [address] Reina Seth MD Chronic pain syndrome (Primary Dx) 12/26/2024 Travel 12/25/2024 Travel 12/14/2024 Refill [facility] MED[facility] [address] [place] [address] Paulina De Leon MD Hypertension, unspecified type 12/05/2024 1:00 PM EDT Office Visit [facility] ADULT DENTAL [address] [place] [address] [facility] Resistant hypertension (Primary Dx) 12/04/2024 Travel 11/30/2024 Orders Only [facility] External Provider, [facility] 11/21/2024 Refill [facility] PEDS [address] [place] [address] Reina Seth MD 11/20/2024 Refill [facility] [address] [place] [address] Reina Seth MD 10/31/2024 Refill [facility] [address] [place] [address] Reina Seth MD 10/30/2024 Telephone [facility] [address] [place] [address] Reina Seth MD from Last 3 Months Immunizations Immunization Administration Dates Next Due Influenza injectable quadriv alent IIV4 with preservative 01/31/2019 Influenza injectable quadriv alent preservative free 01/30/2023,12/31/2021,02/17/2021,12/13,01/27/2014,02/13/2013 Influenza, IIV3, injectable 01/19/2012, 1,01/22/2010 Influenza, seasonal, injecta ble, preservative free 01/30/2025 Novel [id number], all formulations 04/16/2009 Pfizer Covid-19 Vaccine 12+ 01/30/2025 Pneumococcal Polysaccharide PPSV23 03/06/2021, Tdap 01/14/2020,10/23/2006 Zoster, [...] Mass Index 24.49 01/30/2025 11:18 AM EDT Plan of Treatment Upcoming Encounters Date Type Department Care Team (Late st Contact Info) Description 02/18/2025 10:20 AM EST Procedure Visit [facility] [address] [place] [address] Reina Seth MD [address] [place] [address] 03/26/2025 9:30 AM EST Clinical Support [facility] [address] [place] [address] Sonja Weathers RN [address] [place] [address] Health Maintenance Due Date Last Done Comments CT Colonography 1972 Dental Oral Exam 1972 Dental Prophylaxis 1972 Dental X-Ray: Bitewings 1972 FIT DNA/Cologuard 1972 FIT 1972 FOBT 1972 Sigmoidoscopy 1972 Hepatitis B Vaccines (1 of 3 - 19+ 3-dose series) 01/02/1991 Pap Smear 01/02/1993 Cervical Cancer Screening 01/02/2002 HPV/Cotest 01/02/2002 Mammogram 10/05/2020 10/05/2018, 10/05/2018 Pneumococcal Vaccine: 50+ Years (2 of 2 - PCV) 03/06/2022 03/06/2021, 11/09/2007 SDOH Screening 08/28/2025 08/28/2024 Alcohol/Substance Use Screening 12/26/2025 12/26/2024 Depression Screening 12/26/2025 12/26/2024, 12/27/19 25 Disability Screening 12/26/2025 12/26/2024 Tobacco Screening 01/30/2026 01/30/2025 Dental X-Ray: Full Mouth 12/07/2027 12/05/2024 Lipid Panel 06/15/2028 06/16/2023, 12/17, 10/12/2020 DTaP/Tdap/Td Vaccines (3 - Td or Tdap) 01/13/2030 01/14/2020, 10/23/2006 Colonoscopy 08/17/2030 Colorectal Cancer Screening 08/17/2030 RSV Patients and Patients Aged 60 years or older (1 - 1-dose 75+ series) 01/02/2047 HIV Screening Completed 01/08/2020 Hepatitis C Screening Completed 01/08/2020 Zoster Vaccines Completed 07/10/2023, 04/05/2022 COVID-19 Vaccine Completed 01/30/2025, , 08/06/2020, Additional history exists Influenza Vaccine Completed 01/30/2025, , 12/31/2021, Additional history exists HIB Vaccines Aged Out No longer eligi [...] Procedure Name Priority Date/Time Associated Diagnosis Comments HEPATITIS B SURFACE ANTIGEN, EIA Routine 01/30/2025 12:03 PM EDT Encounter for immunization HEPATITIS B CORE AB TOTAL Routine 01/30/2025 12:03 PM EDT Encounter for immunization HEPATITIS B SURFACE ANTIBODY, QUALITATIVE Routine 01/30/2025 12:03 PM EDT Encounter for immunization TSH W/REFLEX TO FT4 Routine 01/30/2025 1 2:03 PM EDT Class 3 severe obesity due to excess calories with serious comorbidity and body mass index (BMI) of 40.0 to 44.9 in adult (HCC) VITAMIN D,25-OH,TOTAL,IA Routine 01/30/2025 12:03 PM EDT Class 3 severe obesity due to excess calories with serious comorbidity and body mass index (BMI) of 40.0 to 44.9 in adult (HCC) COMPREHENSIVE METABOLIC PANEL Routine 01/30/2025 12:03 PM EDT Class 3 severe obesity due to excess calories with serious comorbidity and body mass index (BMI) of 40.0 to 44.9 in adult ([facility]) CBC WITH AUTO DIFFERENTIAL Routine 01/30/2025 12:03 PM EDT Class 3 severe obesity due to excess calories with serious comorbidity and body mass index (BMI) of 40.0 to 44.9 in adult ([facility]) FERRITIN Routine 01/30/2025 12:03 PM EDT Class 3 severe obesity due to excess calories with serious comorbidity and body mass index (BMI) of 40.0 to 44.9 in adult ([facility]) IRON AND TOTAL IRON BINDING CAPACITY Routine 01/30/2025 12:03 PM EDT Class 3 severe obesity due to excess calories with serious comorbidity and body mass index (BMI) of 40.0 to 44.9 in adult ([facility]) POCT PATRICIA-14 URINE DRUG SCREEN Routine 01/23/2025 11:19 AM EDT Chronic pain syndrome PANORAMIC RADIOGRAPHIC IMAGE Routine 12/05/2024 1:00 PM [...] (BMI) of 40.0 to 44.9 in adult ([facility]) ZZZ HISTORICAL HEPATITIS C AB W/REFL TO HCV RNA, QN, PCR Routine 01/08/2020 9:22 AM EDT HIV 1/2 ANTIGEN/ANTIBODY, FOURTH GENERATION W/RFL Routine 01/08/2020 9:22 AM EDT BI MAMMOGRAM SCREENING BILATERAL Routine 10/05/2018 12:12 PM EDT from Last 3 Months or Most Recently Relevant to Health Maintenance Results * Vitamin D, 25-Hydroxy, Total, Immunoassay (01/30/2025 12:03 PM EDT) Vitamin D 25-OH Total 106.3 >30 ng/mL [facility] Comment: Health Based Reference Values*< 20 ng/mL [id number] ng/mL Insufficient> 30 ng/mL Sufficient*Donna COLLINS. N [...] MD LAB BLOOD ORDERABLES Final Re sult [facility] [address] [place] [address] [phone] * TSH W/Reflex to FT4 (01/30/2025 12:03 PM EDT) TSH reflex Free T4 2.04 0.32 - 4.0 uIU/mL [facility] Blood Venous blood specimen / Unknown 01/30/2025 12:03 PM EDT 01/30/2025 1:48 PM EDT us Reina Seth MD LAB BLOOD ORDERABLES Final Re sult [facility] [address] [place] [phone] * (ABNORMAL) CBC auto differential (01/30/2025 12:03 PM EDT) Pathologist [facility] White Blood Count 4.1(L) 4.8 - 10.8 X10*3/uL [facility] Red Blood Count 4.15(L) 4.20 - 5.50 X10*6/uL [facility] Hemoglobin 12.9 12.0 - 16.0 g/dl [facility] Hematocrit 38.8 37.0 - 47.0 % [facility] Mean Corpuscular Volume 93.5 80.0 - 98.0 fL [facility] Mean Corpuscular Hemoglobin 31.1 27.0 - 33.0 pg [facility] Mean Corpuscular HGB Conc 33.2 31.0 - 35.0 g/dl [facility] Red Cell Distribution Width 13.0 11.0 - 16.0 % [facility] Platelet Count 258 160 - 400 X10*3/uL [facility] Mean Platelet Volume 10.3 9.4 - 12.3 fL [facility] Neutrophils Percent Auto 38.0(L) 45 - 73 % [facility] Imm Gran Pct Auto 0.2 0.0 - 0.4 % [facility] Lymphocytes Percent Auto 51.4(H) 20 - 40 % [facility] Monocytes Percent Auto 7.4 2 - 11 % [facility] Eosinophils Percent Auto 2.0 0 - 4 % [facility] Basophils Percent Auto 1.0 0 - 2 % [facility] NRBC Pct Auto 0.0 0.0 - 0.2 /100WBC [facility] Neutrophils Absolute Auto 1.6(L) 2.0 - 8.3 x10*3/uL [facility] Imm Gran Abs Auto 0.01 0.00 - 0.03 X10*3/uL [facility] Lymphocytes Absolute Auto 2.1 1.2 - 4.9 X10*3/uL [facility] Monocytes Absolute Auto 0.3 0.1 - 1.2 X10*3/uL [facility] Eosinophils Absolute Auto 0.1 0.0 - 0.4 X10*3/uL [facility] Basophils Absolute Auto 0.0 0.0 - 0.2 X10*3/uL [facility] NRBC Abs Auto 0.000 0.0 - 0.012 X10*3/uL [facility] Blood Venous blood specimen / Unknown 01/30/2025 12:03 PM EDT 01/30/2025 1:48 PM EDT Reina Seth MD LAB BLOOD ORDERABLES Final Re sult Performing Organization Address City/[facility] [address]/ZIP Co de Phone Number [facility] [address] [place] [phone] * (ABNORMAL) Iron And Total Iron Binding Capacity (01/30/2025 12:03 PM EDT) Iron 104 30 - 160 mcg/dL [facility] Total Iron Binding Capacity 180(L) 228 - 428 mcg/dL [facility] Percent Iron Saturation 58(H) 15 - 50 % [facility] Unsaturated Iron Binding 76 ug/dL [facility] Blood Venous blood specimen / Unknown 01/30/2025 12:03 PM EDT 01/30/2025 1:48 PM EDT Reina Seth MD LAB BLOOD ORDERABLES Final Re sult Performing Organization Address City/[facility] [address]/ZIP Co de Phone Number [facility] [address] [place] [phone] [phone] * Hepatitis B surface antigen, EIA (01/30/2025 12:03 PM EDT) [facility] Hepatitis B Surface Ag Negative Negative [facility] Blood Venous blood specimen / Unknown 01/30/2025 12:03 PM EDT 01/30/2025 1:48 PM EDT Reina Seth MD LAB BLOOD ORDERABLES Final Re sult Performing Organization Address [facility] [address]/[facility] Co de Phone Number [facility] [address] [place] [phone] * Hepatitis B Core Antibody, Total (01/30/2025 12:03 PM EDT) [facility] Hepatitis B Core Antibody Nonreactive Nonreactive [facility] Blood Venous blood specimen / Unknown 01/30/2025 12:03 PM EDT 01/30/2025 1:48 PM EDT Reina Seth MD LAB BLOOD ORDERABLES Final Re sult Performing Organization Address [facility] [address]/[facility] Co de Phone Number [facility] [address] [place] [phone] * Hepatitis B Surface Antibody, Qualitative (01/30/2025 12:03 PM EDT) [facility] ~Hepatitis B Surface Antibody REACTIVE Nonreactive [facility] Comment:REACTIVE: > 11.99 mI U/mL Blood Venous blood specimen / Unknown 01/30/2025 12:03 PM EDT 01/30/2025 1:48 PM EDT Reina Seth MD LAB BLOOD ORDERABLES Final Re sult Performing Organization Address [facility] [address] [facility] Co de Phone Number [facility] [address] [place] [phone] [phone] * Ferritin (01/30/2025 12:03 PM EDT) Ferritin 90 10 - 250 ng/mL [facility] Blood Venous blood specimen / Unknown 01/30/2025 12:03 PM EDT 01/30/2025 1:48 PM EDT us Reina Seth MD LAB BLOOD ORDERABLES Final Re sult [facility] [address] [place] [phone] [phone] * (ABNORMAL) Comprehensive Metabolic Panel (01/30/2025 12:03 PM EDT) Sodium 140 135 - 145 mmol/L [facility] Potassium 4.1 3.3 - 5.1 mmol/L [facility] Chloride 108 96 - 108 mmol/L [facility] Carbon Dioxide 25 22 - 29 mmol/L [facility] Anion Gap 11(L) 12 - 20 [facility] Urea Nitrogen (BUN) 19(H) 9 - 16 mg/dL [facility] Creatinine, Serum 1.19 0.5 - 1.4 mg/dL [facility] Estimated Glomerular Filt Rate 47 [facility] Comment:Chronic Kidney Disea se: Estimated GFR < 60 mL/min/1.56a2Gezvop Kidney Disease: Estimated GFR < 15 mL/min/1.73m2 Glucose 81 60 - 115 mg/dL [facility] Calcium 9.1 8.4 - 10.2 mg/dL [facility] Bilirubin, Total 0.3 0.0 - 1.0 mg/dL [facility] Aspartate Amino Transferase 26 5 - 31 U/L [facility] Alanine Aminotransferase 17 0 - 31 U/L [facility] Total Protein 6.0(L) 6.5 - 8.0 g/dL [facility] Albumin Level 3.8 3.5 - 5.0 g/dL [facility] Alkaline Phosphatase 79 39 - 117 U/L [facility] Blood Venous blood specimen / Unknown 01/30/2025 12:03 PM EDT 01/30/2025 1:48 PM EDT us Reina Seth MD LAB BLOOD ORDERABLES Final Re sult [facility] [address] [place] [phone] [phone] * (ABNORMAL) POCT PATRICIA-14 Urine Drug Screen (01/23/2025 11:19 AM EDT) THC Negative Negative Cocaine Screen, Urine Negative Negative Opiate Screen, Urine Negative Negative Methamphetamine Screen Urine Negative Negative Amphetamine Screen, Urine Negative Negative Benzodiazepines Screen, Urine Negative Negative Barbiturate Screen, Urine Negative Negative Methadone Screen, Urine Negative Negative Buprenophine Screen, Urine Positive(A) Negative Comment:Wellbutrin rx TCA, Urine Positive(A) Negative MDMA Urine Negative Negative ng/mL Oxycodone Screen, Urine Positive(A) Negative Comment:Rx Phencyclidine (PCP), Urine Negative Negative Propoxyphene, Urine Negative Negative Fentanyl, Urine Negative Negative Urine Urine specimen obtained by clean catch procedure / Unknown 01/23/2025 11:19 AM EDT Narrative Sonja Weathers RN - 01/23/2025 11:19 AM EDT . Internal Pass Control Lot# [id number] Exp: 02-14-26 us Reina Seth MD POINT OF CARE TEST ENTER/EDIT ORDERABLES Final Result * XR Sacroiliac Joints 3+ Views (11/30/2024 1:32 PM EDT) Anatomical Region Laterality Modality Sacroiliac joint, Pelvis Radiogr aphic Imaging 11/30/2024 1:32 PM EDT Narrative 12/02/2024 10:07 AM EDT [facility] Adult Primary Care [address] [place] [address] [place] [address] XRay Report Signed Patient: Estephanie Smith MR#: [id number] 661 : 1970 Acct:[id number] Age/Sex: 54 / F ADM Date: 11/30/24 Loc: JUSTYNA Attending Dr: Rea VARNER Ordering Physician: Rea Flower Date of Service: 11/30/24 Procedure(s): XR sacroiliac joint min 3V Accession Number(s): [id number] cc: Rea Flower; Reina Seth MD EXAMINATION: [...] Keshawn Gonzales MD 12/02/2024 10:05 AM EDT Dictated By: Keshawn Sapp MD Signed By: <Electronically signed by Keshawn Banda MD in OV> 12/02/24 1005 DD/ 1332 TD/TT: 11/30/24 1344 Leacher: Procedure Note Donotuseinterpreter, Image - 12/02/2024 [facility] Adult Primary Care [facility] [place] [address] XRay Report Signed Patient: Estephanie Smith LMR#: [id number] 661 : 1970Acct:[id number] Age/Sex: 54 / FADM Date: 11/30/24 Loc: JUSTYNA Attending Dr: Rea VARNER Ordering Physician: Rea Flower Date of Service: 11/30/24 Procedure(s): XR sacroiliac joint min 3V Accession Number(s): [id number] cc: Rea Flower; Reina Seth MD EXAMINATION: [...] Keshawn Gonzales MD 12/02/2024 10:05 AM EDT Dictated By: Keshawn Sapp MD Signed By: <Electronically signed by Keshawn Banda MDin OV> 12/02/24 1005 DD/ 1332 TD/TT: 11/30/24 1344 Leacher: [facility] External Provider IMG XR PROCEDURES Final Result * XR Lumbar Spine Complete 4+ Views (11/30/2024 1:32 PM EDT) Anatomical Region Laterality Modality Spine, L-spine Radiographic Jagruti ging 11/30/2024 1:32 PM EDT Narrative 12/02/2024 10:06 AM EDT [facility] Adult Primary Care [address] [place] [address] [place] [address] XRay Report Signed Patient: Estephanie Smith MR#: [id number] 661 : 1970 Acct:[id number] Age/Sex: 54 / F ADM Date: 11/30/24 Loc: HO.HMGCX Attending Dr: Rea VARNER Ordering Physician: Rea Flower Date of Service: 11/30/24 Procedure(s): XR lumbar spine 4V min Accession Number(s): [id number] cc: Rea Flower; Reina Seth MD EXAMINATION: [...] Keshawn Gonzales MD 12/02/2024 10:03 AM EDT RP Dictated By: Keshawn Sapp MD Signed By: <Electronically signed by Keshawn Banda MD in OV> 12/02/24 1003 DD/ 1332 TD/TT: 11/30/24 1344 Leacher: Procedure Note Donotuseinterpreter, Image - 12/02/2024 [facility] Adult Primary Care [address] [place] [address] [place] [address] XRay Report Signed Patient: Estephanie Smith LMR#: [id number] 661 : 1970Acct:[id number] Age/Sex: 54 / FADM Date: 11/30/24 Loc: HO.HMGCX Attending Dr: Rea VARNER Ordering Physician: Rea Flower Date of Service: 11/30/24 Procedure(s): XR lumbar spine 4V min Accession Number(s): [id number] cc: Rea Flower; Reina Seth MD EXAMINATION: [...] Keshawn Gonzales MD 12/02/2024 10:03 AM EDT RP Dictated By: Keshawn Sapp MD Signed By: <Electronically signed by Keshawn Banda MDin OV> 12/02/24 1003 DD/ 1332 TD/TT: 11/30/24 1344 [place]: [facility] External Provider IMG XR PROCEDURES Final Result * (ABNORMAL) Lipid Panel, Standard (06/16/2023 9:10 AM EST) Triglycerides 119 <150 mg/dL [facility] Comment:Desirable Triglyceri de: less than 150 mg/dLBorderline High Triglyceride 150-199 mg/dLHigh Triglyceride: 200-499 mg/dLVery High Triglyceride: greater than or equal to 5OO mg/dL Cholesterol 224(H) <200 mg/dL [facility] Comment:Desirable Cholestero l: less than 200 mg/dLBorderline High Cholesterol: 200-239 mg/dLHigh Cholesterol: greater than 239 mg/dL LDL Cholesterol Calculated 144(H) <100 mg/dL [facility] Comment:Desirable LDL: less than 100 mg/dLNear Optimal/Above Optimal LDL: 110- 129 mg/dLBorderline High LDL: 130-159 mg/dLHigh LDL: 160-189 mg/dLVery High LDL: greater than or equal to 190 mg/dL HDL Cholesterol 57 >40 mg/dL [facility] Comment:Desirable HDL: great er than 40 mg/dL Note: This HDL assay may give artificially low results in patients with liver disease. Blood Venous blood specimen / Unknown 06/16/2023 9:10 AM EST 06/16/2023 2:23 PM EST Reina Seth MD LAB BLOOD ORDERABLES Final Re sult [facility] [address] [place] [address] [phone] * HEPATITIS C AB W/REFL TO HCV RNA, QN, PCR (01/08/2020 9:22 AM EDT) HEPATITIS C ANTIBODY NON-REACT DONAVAN NON-REACT DONAVAN [facility] INDEX 0.01 <1.00 [facility] Comment: HCV antibody was non-reactive. There is no laboratory evidence of HCV infection. In most cases, no further action is required. However, if recent HCV exposure is suspected, a test for HCV RNA (test code 38083) is suggested. For additional information please refer to http://FanXT.Ceannate/faq/FFZ69u3 (This link is being provided for informational/ educational purposes only.) 01/08/2020 9:22 AM EDT Lisa Landeros MD HISTORICAL/NON ORDERA BLE LABS Final Result [facility] [address] * HIV 1/2 ANTIGEN/ANTIBODY,FOURTH GENERATION W/RFL (01/08/2020 9:22 AM EDT) HIV-1/2 ANTIGEN AND ANTIBODIES, 4TH GENERATION W/ REFLEX NON-REACT DONAVAN NON-REACT DONAVAN [facility] Comment: HIV-1 antigen and HIV-1/HIV-2 [...] purpose. For additional information please refer to http://FanXT.Ceannate/faq/PBT313 (This link is being provided for informational/ educational purposes only.) The performance of this assay has not been clinically validated in patients less than 2 years old. HIV-1/2 ANTIGEN AND ANTIBODIES, 4TH GENERATION W/ REFLEX NON-REACT DONAVAN NON-REACT DONAVAN [facility] Comment: HIV-1 antigen and HIV-1/HIV-2 [...] purpose. For additional information please refer to http://education.Ceannate/faq/NPH416 (This link is being provided for informational/ educational purposes only.) The performance of this assay has not been clinically validated in patients less than 2 years old. 01/08/2020 9:22 AM EDT us Lisa Landeros MD LAB BLOOD ORDERABLES Final Result [facility] [address] * DIGITAL BILATERAL SCREEN 1 (10/05/2018 [...] Relevant to Health Maintenance Insurance [facility] ONE CARE < 65 DENTAL [facility] DENTAL-HERITAGE [facility] [place] [id number] [place] [id number] [place] [id number] Care Teams Veneer Manufacturer Relationship Specialty Start Date End Date Reina Seth MD [address] [place] [address] PCP - General Family Medicine 06/17/20 Taylor Oh MD [address] [place] [address] Referring Physician Internal Medicine 07/25/22
--- OUTSIDE RECORDS SUMMARY | 2025-01-30 15:12 | XMS_ITS | Encounter Summary ---
Author Organization [employer] Address [address] [place] [address] 7t [place] [address] Care Team Providers Care Senior Logistics Manager Name Role Phone Reina Seth MD Primary Care Provider [phone] Taylor Oh MD Unavailable Reason for Visit * Reason Comments Med Refill Encounter Details Date Type Department Care Team ([facility] Contact Info) Description 09/23/2022 Refill [facility] CHC MED & PEDS [address] [place], [place] [phone] Reina Seth MD 505 [place], [place] [phone] Neck pain, musculoskeletal Social History Tobacco Use [...] Upcoming Encounters Date Type Department Care Team ([facility] Contact Info) Description 02/18/2025 10:20 AM EST Procedure Visit [facility] MED & PEDS [address] [place] [address] Reina Seth MD 505 [place] [address] 03/26/2025 9:30 AM EST Clinical Support [facility] MED & PEDS [address] [place] [address] Sonja Weathers, SATHYA 505 [place], [place] [phone] documented as of this encounter Visit Diagnoses Diagnosis Neck pain, musculoskeletal documented in this encounter Additional Health Concerns Assessment Noted Time PHQ-9 Depression Total Score: 6 07/28/19 23 8:47 AM EDT documented as of this encounter Care Teams Senior Logistics Manager Relationship Specialty Start Date End Date Reina Seth MD [address] [place] [address] PCP - General Family Medicine 06/17/20 Taylor Oh MD [address] [place] [address] Referring Physician Internal Medicine 07/25/22 documented as of this encounter
--- OUTSIDE RECORDS SUMMARY | 2025-01-30 15:12 | XMS_ITS | Encounter Summary ---
Author Organization [employer] Address [address] [facility] 7t [place] [address] Care Team Providers Care Pension Fund Manager Name Role Phone Reina Seth MD Primary Care Provider Taylor Oh MD Unavailable Reason for Visit * Reason Onset Date Comments Chart Prep 01/29/2025 Encounter Details Date Type Department Care Team ([facility] Contact Info) Description 01/29/2025 Telephone [facility] CHC MED & PEDS [address] [place] [address] Reina Seth MD [address] [place] [address] Chart Prep Social History Tobacco Use Types Packs/Day Years [...] encounter Miscellaneous Notes * Telephone Encounter - An Juarez [place] - 01/29/2025 10:04 AM EDT Chart Prep Labs: not applicable Images: not applicable Referrals: complete Vaccines due: Covid, Flu, PCV20, and Hep B Screenings: mammogram, pap smear, and LMP Overdue care gaps: Oral health screening documented in this encounter Plan of Treatment Upcoming Encounters Date Type Department Care Team ([facility] st Contact Info) Description 02/18/2025 10:20 AM EST Procedure Visit [facility] MED & PEDS [address] [place] [address] Reina Seth MD [address] [place] [address] 03/26/2025 9:30 AM EST Clinical Support [facility] MED & PEDS [address] [place] [address] Sonja Weathers RN 505 [place] [address] documented as of this encounter Visit Diagnoses Not on filedocumented in this encounter Additional Health Concerns Assessment Noted Time PHQ-9 Depression Total Score: 4 12/27/19 25 11:47 AM EDT documented as of this encounter Care Teams Pension Fund Manager Relationship Specialty Start Date End Date Reina Seth MD [address] [place] [address] PCP - General Family Medicine 06/17/20 Taylor Oh MD [address] [place] [address] Referring Physician Internal Medicine 07/25/22 documented as of this encounter
--- OUTSIDE RECORDS SUMMARY | 2025-01-30 15:12 | XMS_ITS | Encounter Summary ---
Author Organization [employer] Address [address] 7t [place] [address] Care Team Providers Care Coin Dealer Name Role Phone Reina Seth MD Primary Care Provider [phone] Taylor Oh MD Unavailable Encounter Details Date Type Department Care Team ([facility] st Contact Info) Description 09/04/2024 Telephone [facility] MEDICINE [address] [place], [place] [phone] Reina Seth MD [address] [place], [place] [phone] Social History Tobacco Use Types Packs/Day Years [...] Description 02/18/2025 10:20 AM EST Procedure Visit [facility] MED & PEDS [address] [place] [address] Reina Seth MD 505 [place] [address] 03/26/2025 9:30 AM EST Clinical Support [facility] MED & PEDS 505 [place] [address] Sonja Weathers, SATHYA 505 [place] [address] documented as of this encounter Visit Diagnoses Not on filedocumented in this encounter Additional Health Concerns Assessment Noted Time PHQ-9 Depression Total Score: 6 07/28/19 23 8:47 AM EDT documented as of this encounter Care Teams Coin Dealer Relationship Specialty Start Date End Date Reina Seth MD [address] [place] [address] PCP - General Family Medicine 06/17/20 Taylor Oh MD [address] [place] [address] Referring Physician Internal Medicine 07/25/22 documented as of this encounter
--- OUTSIDE RECORDS SUMMARY | 2025-01-30 15:12 | XMS_ITS | Encounter Summary ---
Author Organization [employer] Address [address] [facility] 7t [place] [address] Care Team Providers Care Electronic Resources Librarian Name Role Phone Reina Seth MD Primary Care Provider [phone] Taylor Oh MD Unavailable Reason for Visit * Reason Comments Med Refill Encounter Details Date Type Department Care Team ([facility] Contact Info) Description 10/31/2024 Refill [facility] CHC MED & PEDS [address] [place], [place] [phone] Reina Seth MD 505 [place], [place] [phone] Social History Tobacco Use Types Packs/Day Years [...] Description 02/18/2025 10:20 AM EST Procedure Visit [facility] MED & PEDS 505 [place] [address] Reina Seth MD 505 [place] [address] 03/26/2025 9:30 AM EST Clinical Support [facility] MED & PEDS [address] [place] [address] Sonja Weathers, SATHYA 505 [place] [address] documented as of this encounter Visit Diagnoses Not on filedocumented in this encounter Additional Health Concerns Assessment Noted Time PHQ-9 Depression Total Score: 6 07/28/19 23 8:47 AM EDT documented as of this encounter Care Teams Electronic Resources Librarian Relationship Specialty Start Date End Date Reina Seth MD [address] [place] [address] PCP - General Family Medicine 06/17/20 Taylor Oh MD [address] [place] [address] Referring Physician Internal Medicine 07/25/22 documented as of this encounter
--- OUTSIDE RECORDS SUMMARY | 2025-01-30 15:12 | XMS_ITS | Encounter Summary ---
Author Organization [employer] Address [address] 7t [place] [address] Care Team Providers Care Workforce Planner Name Role Phone Reina Seth MD Primary Care Provider [phone] Taylor Oh MD Unavailable Reason for Visit * Reason Onset Date Comments Appointment Request 06/22/2022 Encounter Details Date Type Department Care Team ([facility] st Contact Info) Description 06/22/2022 Telephone [facility] MEDICINE [address] [place] [address] Reina Seth MD [address] [place], [place] [phone] Appointment Request Social History Tobacco Use Types [...] in this Monday06/24/2022 Please contact pt at [phone] documented in this encounter Plan of Treatment Upcoming Encounters Date Type Department Care Team (Late st Contact Info) Description 02/18/2025 10:20 AM EST Procedure Visit [facility] MED & PEDS [address] [place] [address] Reina Seth MD [address] [place] [address] 03/26/2025 9:30 AM EST Clinical Support [facility] MED & PEDS [address] [place] [address] Sonja Weathers RN 505 [place] [address] documented as of this encounter Visit Diagnoses Not on filedocumented in this encounter Care Teams Workforce Planner Relationship Specialty Start Date End Date Reina Seth MD [address] [place] [address] PCP - General Family Medicine 06/17/20 Taylor Oh MD [address] [place] [address] Referring Physician Internal Medicine 07/25/22 documented as of this encounter
--- OUTSIDE RECORDS SUMMARY | 2025-01-30 15:13 | XMS_ITS | Clinical Summary ---
Author Organization [facility] Address [address] [place] [address] Phone Care Team Providers Care Metal Handler Name Role Phone Reina Seth MD Primary Care Provider [phone] Allergies Active Allergy Reactions Criticality Noted Date [...] Take 2 mg by mouth daily. 11/03/19 Active metoprolol tartrate (LOPRESSOR) 50 MG tablet [...] she will obtain cardiac clearance from her ultrasonic cleaner on 06 January, she will obtain a [...] weight gain but since seeing me at [facility] and being placed on a lower carbohydrate [...] I do not have the records from [facility] as of yet. We have requested those records. I will schedule her for a consultation with a dietitian to help keep her on track in terms of her eating. The patient will continue the eating plan that I had given her previously which is a Maori yogurt or cottage cheese at 6 AM, [...] 01/02/2017 VIRTUAL COLONOSCOPY 01/02/2017 MAMMOGRAM 10/05/2020 10/05/2018 RSV VACCINE (1 - Risk 50-74 years 1-dose series) 01/02/2022 PNEUMOCOCCAL VACCINES (50+ years) (2 of 2 [...] (09/19/2022 10:40 AM EDT) HDL 56 mg/dL [facility] Comment: Interpretation <40 mg/dL: Low HDL cholesterol (major risk factor for CHD) Greater than or equal to 60 mg/dL: High HDL cholesterol ( negative risk factor for CHD) HDL - cholesterol is affected by a number of factors, e.g. smoking, excerise, hormones, sex and age. CHOLESTEROL 198 0 - 240 mg/dL [facility] TRIGLYCERIDES 246(H) 30 - 160 mg/dL [facility] LDL 93 50 - 129 mg/dL [facility] Comment: LDL levels in terms of risk for coronary heart disease: <100 mg/dL: Optimal 100-129 mg/dL: Near or above optimal 130-159 mg/dL: Borderline high 160-189 mg/dL: High >190 mg/dL: Very High CARDIAC RISK RATIO 3.5 3.3 - 4.4 C [facility] Blood 09/19/2022 10:4 0 AM EDT 09/19/2022 10:49 AM EDT us Analia Castro MD LAB BLOOD ORDERABLES Final Result Performing Organization Address City/State/RUST Co de Phone Number [facility] [address] [place] [address] from Last 3 Months or Most Recently Relevant to Health Maintenance Insurance MEDICARE PART A & B [facility] ONE CARE MEDICARE REPLACEMENT MEDICARE PART A & B [id number] [place] [address] CARE MEDICARE REPLACEMENT MEDICARE PART A & B [facility] ONE CARE MEDICARE REPLACEMENT MEDICARE PART A & B [facility] MEDICARE REPLACEMENT [place] [id number] MEDICARE PART A & B [facility] ONE CARE MEDICARE REPLACEMENT MEDICARE PART A & B [facility] ONE CARE MEDICARE REPLACEMENT MEDICARE PART A & B [facility] ONE CARE MEDICARE REPLACEMENT MEDICARE PART A & B [facility] CARE MEDICARE REPLACEMENT MEDICARE PART A & B [facility] ONE CARE MEDICARE REPLACEMENT Advance Directives For more information, please contact: [phone] (9AM - 5PM [facility], Monday-Monday) * Full Code (Latest Code Status on File) Date Activated Date Inactivated Comments 02/24/2022 5:16 PM Question Answer Comments Code Status Confirmed With: Patient * Full Code Date Activated Date Inactivated Comments 02/24/2022 8:36 AM 02/24/2022 5:16 PM Question Answer Comments Code Status Confirmed With: Patient Care Teams Metal Handler Relationship Specialty Start Date End Date Reina Seth MD PCP - General Family Medicine 11/22/21 Additional Source Comments The information contained in this document represents components of the legal health record. It is not the complete legal health record.[facility]
--- OUTSIDE RECORDS SUMMARY | 2025-01-30 15:13 | XMS_ITS | Clinical Summary ---
Author Organization [facility] it Address [address] [place] [address] Care Team Providers Care Repertoire Manager Name Role Phone Reina Seth MD Primary Care Provider [phone] Surgical History Surgery Date Site/Laterality Comments GASTRIC BYPASS PROCEDURE: AR GASTRIC RSTCV W/BYP W/SM INT RCNSTJ LIMIT ABSRPJ SECTION N/A PROCEDURE: AR DELIVERY ONLY; COMMENT: X 2 Medical History [...] Last Done Comments Breast Cancer Screening 1972 Colorectal Cancer Screening: Colonoscopy 1972 DTaP,Tdap,and Td Vaccines (1 - Tdap) 01/02/1991 Hepatitis B Vaccines (1 of 3 - 19+ 3-dose series) 01/02/1991 Cervical Cancer Screening: P ap Smear 01/02/1993 Pneumococcal Vaccine: 50+ Ye ars (1 of 1 - PCV) 01/02/2022 Zoster Vaccines (1 of 2) 01/02/2022 Cholesterol Screening (Lipid Panel) 03/21/2022 HIV Screening 03/21/2022 Hepatitis C Screening 03/21/2022 Social Influencers of Health Screening 03/21/2022 Hypertension/CHF/CAD Annual BMP Blood Test 01/29/2024 Depression Screening 04/17/2024 COVID-19 Vaccine (1 - 2023-2 5 season) 2024 Influenza Vaccine (#1) 2024 RSV Immunization Adult Patie nts (1 - 1-dose 75+ series) 01/02/2047 HIB Vaccines Aged Out No longer eligi [...] age to complete this topic Care Teams Repertoire Manager Relationship Specialty Start Date End Date Reina Seth MD [address] [place] [address] PCP - General 04/05/21
--- OUTSIDE RECORDS SUMMARY | 2025-01-30 15:13 | XMS_ITS | Encounter Summary ---
Author Organization [employer] Address [address] 7t [place] [address] Care Team Providers Care Wash Plant Operator Name Role Phone Reina Seth MD Primary Care Provider [phone] Taylor Oh MD Unavailable Reason for Visit * Reason Onset Date Comments ER Follow-up 06/20/2023 Encounter Details Date Type Department Care Team ([facility] Contact Info) Description 06/20/2023 Telephone [facility] CHC MED & PEDS [address] [place], [place] [phone] Reina Seth MD [address] [place] [address] ER Follow-up Social History Tobacco Use Types [...] 9:36 AM EST Tc to pt regarding [facility] ED visit om 06/19 for umbilical infection. [...] ED visit on : Date: 06/19 Hospital: [facility] Seen for: Wound/laceration Patient advised will forward to team nurse for follow up Please contact pt at [phone] documented in this encounter Plan of Treatment Upcoming Encounters Date Type Department Care Team ([facility] st Contact Info) Description 02/18/2025 10:20 AM EST Procedure Visit [facility] MED & PEDS [address] [place] [address] Reina Seth MD [address] [place] [address] 03/26/2025 9:30 AM EST Clinical Support [facility] CHC MED & PEDS [address] [place] [address] Sonja Weathers, RN 505 [place] [address] documented as of this encounter Visit Diagnoses Not on filedocumented in this encounter Additional Health Concerns Assessment Noted Time PHQ-9 Depression Total Score: 6 07/28/19 23 8:47 AM EDT documented as of this encounter Care Teams Wash Plant Operator Relationship Specialty Start Date End Date Reina Seth MD [address] [place] [address] PCP - General Family Medicine 06/17/20 Taylor Oh MD [address] [place] [address] Referring Physician Internal Medicine 07/25/22 documented as of this encounter
== END 2025-01-30 11:59 | disposition home or self-care (01) ==
LOC: HO.CHCLDS 11:58
PROVIDERS: Visit Provider Family Medicine
DX: Z01.84 Encounter for antibody response examination (principal); E66.813 Obesity, class 3; Z68.41 Body mass index [BMI] 40.0-44.9, adult
CPT/HCPCS: 36415; 80053; 82306; 82728; 83540; 84443; 85025; 86704; 86706; 87340

== ENCOUNTER 2025-02-11 06:23 | Outpatient (REF) | payer OTHER, SELFPAY ==
--- NOTE | ~2025-02-11 | FL_ITS ---
EXAMINATION: FLUOROSCOPY GUIDANCE FOR NEEDLE PLACEMENT CLINICAL INFORMATION: M53.3 - Sacrococcygeal disorders, not elsewhere classified COMPARISON: Sacroiliac joint x-rays November 2024 TECHNIQUE: Fluoroscopy guidance for pain management procedure FINDINGS: Images demonstrate needle placement and contrast injection over the left sacroiliac joint. FLUOROSCOPY TIME: 11 seconds. 2 saved fluoroscopic images. DOSE AREA PRODUCT: 43 uGy-m2 (microgray-meter squared) FL/FL guidance in treatment room IMPRESSION: Fluoroscopy guidance for pain management procedure. Electronically signed by: Staci Lacy MD 02/11/2025 03:54 PM EDT
--- OUTSIDE RECORDS SUMMARY | 2025-02-11 06:25 | XMS_ITS | Encounter Summary ---
Author Organization [employer] Address [address] 7t [place] [address] Care Team Providers Care Film Librarian Name Role Phone Reina Seth MD Primary Care Provider [phone] Taylor Oh MD Unavailable Encounter Details Date Type Department Care Team ([facility] st Contact Info) Description 07/27/2022 Telephone [facility] MEDICINE [address] [place], [place] [phone] Reina Seth MD [address] [place], [place] [phone] Social History Tobacco Use Types Packs/Day Years [...] Not at all 07/27/2022 8:47 AM Fay aCrney M A Thoughts that you would be better off or hurting yourself in some way Not at all 07/27/2022 8:47 AM Fay Carney [place] Patient Health Questionnaire-9 Score 6 07/27/2022 8:47 AM Fay Carney [place] documented as of this encounter Plan of Treatment Upcoming Encounters Date Type Department Care Team (Late st Contact Info) Description 02/18/2025 10:20 AM EST Procedure Visit [facility] MED & PEDS [address] [place] [address] Reina Seth MD [address] [place] [address] 03/26/2025 9:30 AM EST Clinical Support [facility] MED & PEDS [address] [place], [place] [phone] Sonja Weathers, SATHYA [address] [place], [place] [phone] documented as of this encounter Visit Diagnoses Not on filedocumented in this encounter Additional Health Concerns Assessment Noted Time PHQ-9 Depression Total Score: 6 07/28/19 8:47 AM EDT documented as of this encounter Care Teams Film Librarian Relationship Specialty Start Date End Date Reina Seth MD [address] [place] [address] PCP - General Family Medicine 06/17/20 Taylor Oh MD [address] [place] [address] Referring Physician Internal Medicine 07/25/22 documented as of this encounter
--- OUTSIDE RECORDS SUMMARY | 2025-02-11 06:25 | XMS_ITS | Encounter Summary ---
Author Organization [employer] Address [address] 7[address] [place] [address] Care Team Providers Care Fur Blowing Machine Operator Name Role Phone Reina Seth MD Primary Care Provider [phone] Taylor Oh MD Unavailable Reason for Visit * Reason Onset Date Comments ER Follow-up 06/20/2023 Encounter Details Date Type Department Care Team ([facility] Contact Info) Description 06/20/2023 Telephone [facility] CHC MED & PEDS [address] [place], [place] [phone] Reina Seth MD [address] [place] [address] ER Follow-up Social History Tobacco Use Types [...] 9:36 AM EST Tc to pt regarding [facility] ED visit om 06/19 for umbilical infection. [...] ED visit on : Date: 06/19 Hospital: [facility] Seen for: Wound/laceration Patient advised will forward to team nurse for follow up Please contact pt at [phone] documented in this encounter Plan of Treatment Upcoming Encounters Date Type Department Care Team ([facility] st Contact Info) Description 02/18/2025 10:20 AM EST Procedure Visit [facility] MED & PEDS [address] [place] [address] Reina Seth MD [address] [place] [address] 03/26/2025 9:30 AM EST Clinical Support [facility] CHC MED & PEDS [address] [place] [address] Sonja Weathers, RN [address] [place] [address] documented as of this encounter Visit Diagnoses Not on filedocumented in this encounter Additional Health Concerns Assessment Noted Time PHQ-9 Depression Total Score: 6 07/28/19 23 8:47 AM EDT documented as of this encounter Care Teams Fur Blowing Machine Operator Relationship Specialty Start Date End Date Reina Seth MD [address] [place] [address] PCP - General Family Medicine 06/17/20 Taylor Oh MD [address] [place] [address] Referring Physician Internal Medicine 07/25/22 documented as of this encounter
--- OUTSIDE RECORDS SUMMARY | 2025-02-11 06:25 | XMS_ITS | Encounter Summary ---
Author Organization [employer] Address [address] [place] [address] [address] [place] [address] Care Team Providers Care Lithographic Press Operator Apprentice Name Role Phone Reina Seth MD Primary Care Provider [phone] Taylor Oh MD Unavailable Reason for Visit * Reason Comments Med Refill Encounter Details Date Type Department Care Team ([facility] Contact Info) Description 07/08/2022 Refill [facility] MEDICINE [address] [place] [address] Reina Seth MD [address] [place], [place] [phone] Social History Tobacco Use Types Packs/Day Years [...] Upcoming Encounters Date Type Department Care Team ([facility] Contact Info) Description 02/18/2025 10:20 AM EST Procedure Visit [facility] & PEDS [address] [place], [place] [phone] Reina Seth MD [address] [place] [address] 03/26/2025 9:30 AM EST Clinical Support [facility] [address] [place] [address] Sonja Weathers, RN [address] [place], [place] [phone] documented as of this encounter Visit Diagnoses Not on filedocumented in this encounter Care Teams Lithographic Press Operator Apprentice Relationship Specialty Start Date End Date Reina Seth MD [address] [place] [id number] PCP - General Family Medicine 06/17/20 Taylor Oh MD [address] [place] [id number] Referring Physician Internal Medicine 07/25/22 documented as of this encounter
--- OUTSIDE RECORDS SUMMARY | 2025-02-11 06:25 | XMS_ITS | Clinical Summary ---
Author Organization [facility] Address [address] [place] [address] Care Team Providers Care Vp Director Of Creative Strategy Name Role Phone Reina Seth MD Primary Care Provider [phone] Surgical History Surgery Date Site/Laterality Comments GASTRIC BYPASS PROCEDURE: ME GASTRIC RSTCV W/BYP W/SM INT RCNSTJ LIMIT ABSRPJ SECTION N/A PROCEDURE: ME DELIVERY ONLY; COMMENT: X 2 Medical History [...] age to complete this topic Care Teams Vp Director Of Creative Strategy Relationship Specialty Start Date End Date Reina Seth MD [address] [place] [address] PCP - General 04/05/21
--- OUTSIDE RECORDS SUMMARY | 2025-02-11 06:25 | XMS_ITS | Encounter Summary ---
Author Organization [employer] Address [address] [facility] [address] [place] [address] Care Team Providers Care Camp Dining Room Attendant Name Role Phone Reina Seth MD Primary Care Provider [phone] Taylor Oh MD Unavailable Reason for Visit * Reason Comments Med Refill Encounter Details Date Type Department Care Team ([facility] Contact Info) Description 10/31/2024 Refill [facility] MED & PEDS [address] [place], [place] [phone] Reina Seth MD [address] [place], [place] [phone] Social History Tobacco Use Types Packs/Day Years [...] Visit [facility] [address] [place] [address] Reina Seth MD [address] [place] [address] 03/26/2025 9:30 AM EST Clinical Support [facility] [address] [place] [address] Sonja Weathers, SATHYA [address] [place] [address] documented as of this encounter Visit Diagnoses Not on filedocumented in this encounter Additional Health Concerns Assessment Noted Time PHQ-9 Depression Total Score: 6 07/28/19 23 8:47 AM EDT documented as of this encounter Care Teams Camp Dining Room Attendant Relationship Specialty Start Date End Date Reina Seth MD [address] [place] [id number] PCP - General Family Medicine 06/17/20 Taylor Oh MD [address] [place] [address] Referring Physician Internal Medicine 07/25/22 documented as of this encounter
--- OUTSIDE RECORDS SUMMARY | 2025-02-11 06:25 | XMS_ITS | Clinical Summary ---
Author Organization [employer] Address [address] [place] [address] 7[address] [place] [address] Care Team Providers Care Cellular Equipment Repairer Name Role Phone Reina Seth MD Primary Care Provider [phone] Taylor Oh MD Unavailable Allergies Active Allergy [...] pain. 60 tablet 2 01/31/20 25 Active ferrous gluconate (Fergon) 324 (38 Fe) MG tablet Take 1 tablet (324 mg) by mouth every other day. 45 tablet 1 02/07/20 25 Active clobetasol (Temovate) 0.05 % external solution Apply topically in the morning. Use in scalp once a day for 2 weeks topically 50 mL 01/31/20 025 Discontinued(T herapy completed) mupirocin (Bactroban) 2 % ointment Apply topically 2 times daily. 22 g 06/28/19 24 025 Discontinued(T herapy completed) clotrimazole (Lotrimin) 1 % cream Apply topically 2 times daily. 60 g 06/28/19 025 Discontinued(T herapy completed) Acetaminophen Extra Strength 500 MG tablet TAKE 2 TABLETS BY MOUTH EVERY 8 HOURS NEEDED FOR PAIN 60 tablet 02/07/20 025 Discontinued(T herapy completed) Diclofenac Sodium 1 % gel APPLY TO THE AFFECTED AREA TOPICALLY NEEDED IN THE MORNING, AT NOON, AND AT BEDTIME FOR PAIN 100 g 1 02/28/20 025 Discontinued gabapentin (Neurontin) 100 MG capsuleIndicat ions:Myalgia Take 1 capsule by oral route nightly. May increase up to 3 capsules (300mg) if needed for symptom relief 270 capsule 11 07/18/19 025 Discontinued(T herapy completed) topiramate (Topamax) 100 MG tablet TAKE 1 TABLET BY MOUTH two (2) times a day 60 tablet 2 10/15/19 025 Discontinued(R eorder (will not trigger notification to Pharmacy)) oxyCODONE-acet aminophen (Percocet) 5-325 MG tabletIndicati ons:Chronic pain syndrome Take 1 tablet by mouth every 6 (six) hours if needed for severe pain for up to 28 days. 112 tablet 12/27/19 025 Discontinued(R eorder (will not trigger notification [...] not full agreement with this recommendation. The [employer] and the [place] [...] medications (e.g., Celexa) - Submit referral for healthcare recruiter - Encourage continuation of psychiatric care (appointments [...] 07/18/2023 9:00 AM Paulina De Leon MD [facility] Chronic back pain 06/12/2023 Depressive disorder [...] recommended reduction of 20-30% of maintenance calories; primary products inspectors referral offered. Recommended to decrease soda and [...] recommended reduction of 20-30% of maintenance calories; primary products inspectors referral offered. Recommended to decrease soda and [...] Encounters Date Type Department Care Team Description 02/06/2025 Results Follow-Up [facility] MED & PEDS [address] [place] [address] Reina Seth MD Iron And Total Iron Binding Capacity, Ferritin, CBC auto differential, Additional followed-up results: 6 01/30/2025 11:15 AM EDT Office Visit [facility] MED [facility] [address] [place] [address] Reina Seth MD Chronic pain syndrome (Primary Dx); Encounter for immunization; Encounter for vaccination; Class 3 severe obesity due to excess calories with serious comorbidity and body mass index (BMI) of 40.0 to 44.9 in adult (HCC); Breast cancer screening by mammogram 01/30/2025 Travel 01/29/2025 Telephone [facility] [address] [place] [address] Reina Seth MD Chart Prep 01/23/2025 11:00 AM EDT Clinical Support [facility] [address] [place] [address] Sonja Weathers RN Chronic pain syndrome (Primary Dx); Long-term current use of opiate analgesic 01/23/2025 Refill [facility] [address] [place] [address] Sonja Weathers RN Chronic pain syndrome 01/23/2025 Travel 01/22/2025 Travel 01/17/2025 Refill [facility] [address] [place] [address] Reina Seth MD 01/11/2025 Refill [facility] [address] [place] [address] Reina Seth MD 12/27/2024 Telephone [facility] [address] [place] [address] Sonja Weathers RN SECURITY FIELD SUPERVISOR 12/26/2024 11:15 AM EDT Office Visit [facility] [address] [place] [address] Reina Seth MD Chronic pain syndrome (Primary Dx) 12/26/2024 Travel 12/25/2024 Travel 12/14/2024 Refill [facility] MEDICINE [address] [place] [address] Paulina De Leon MD Hypertension, unspecified type 12/05/2024 1:00 PM EDT Office Visit [facility] ADULT DENTAL [address] [place] [address] Ky Best DDS Resistant hypertension (Primary Dx) 12/04/2024 Travel 11/30/2024 Orders Only [facility] External Provider, [facility] 11/21/2024 Refill [facility] [address] [place] [address] Reina Seth MD 11/20/2024 Refill [facility] [address] [place] [address] Reina Seth MD from Last 3 Months Immunizations Immunization Administration Dates Next Due Influenza injectable quadriv alent IIV4 with preservative 01/31/2019 Influenza injectable quadriv alent preservative free 01/30/2023,12/31/2021,02/17/2021,12/13,01/27/2014,02/13/2013 Influenza, IIV3, injectable 01/19/2012, 1,01/22/2010 Influenza, seasonal, injecta ble, preservative free 01/30/2025 Novel [id number], all formulations 04/16/2009 Pfizer Covid-19 Vaccine 12+ [...] [facility] [address] [place] [address] Reina Seth MD [address] [place] [address] 03/26/2025 9:30 AM EST Clinical Support [facility]EDS [address] [place] [address] Sonja Weathers RN [address] [place] [address] Health Maintenance Due Date Last Done Comments CT Colonography 1972 Dental Oral Exam 1972 Dental Prophylaxis 1972 Dental X-Ray: Bitewings 1972 FIT DNA/Cologuard 1972 FIT 1972 FOBT 1972 Sigmoidoscopy 1972 Pap Smear 01/02/1993 Cervical Cancer Screening 01/02/2002 HPV/Cotest 01/02/2002 Mammogram 10/05/2020 10/05/2018, 10/05/2018 Pneumococcal Vaccine: 50+ Years (2 of 2 - PCV) 03/06/2022 03/06/2021, 11/09/2007 SDOH Screening 08/28/2025 08/28/2024 Alcohol/Substance Use Screening 12/26/2025 12/26/2024 Depression Screening 12/26/2025 12/26/2024, 12/27/19 Disability Screening 12/26/2025 12/26/2024 Tobacco Screening 01/30/2026 [...] patient's age to complete this topic Hepatitis B Vaccines Discontinued IPV Vaccines Aged Out No longer eligi [...] 40.0 to 44.9 in adult ([facility]) VITAMIN D,25-OH,TOTAL,IA Routine 01/30/2025 12:03 PM EDT Class 3 severe obesity due to excess calories with serious comorbidity and body mass index (BMI) of 40.0 to 44.9 in adult ([facility]) COMPREHENSIVE METABOLIC PANEL Routine 01/30/2025 12:03 PM EDT Class 3 severe obesity due to excess calories with serious comorbidity and body mass index (BMI) of 40.0 to 44.9 in adult ([facility]) CBC WITH AUTO DIFFERENTIAL Routine 01/30/2025 12:03 PM EDT Class 3 severe obesity due to excess calories with serious comorbidity and body mass index (BMI) of 40.0 to 44.9 in adult ([facility]) FERRITIN Routine 01/30/2025 12:03 PM EDT Class 3 severe obesity due to excess calories with serious comorbidity and body mass index (BMI) of 40.0 to 44.9 in adult ([facility]) IRON AND TOTAL IRON BINDING CAPACITY Routine 01/30/2025 12:03 PM EDT Class 3 severe obesity due to excess calories with serious comorbidity and body mass index (BMI) of 40.0 to 44.9 in adult ([facility]) POCT PATRICIA-14 URINE DRUG SCREEN Routine [...] (BMI) of 40.0 to 44.9 in adult ([facility]/HCC) ZZZ HISTORICAL HEPATITIS C AB W/REFL TO [...] D 25-OH Total 106.3 >30 ng/mL [facility] Comment: Health Based Reference Values*< 20 ng/mL Rfgakraks07-87 ng/mL Insufficient> 30 ng/mL Sufficient*Donna COLLINS. N [...] LAB BLOOD ORDERABLES Final Re sult [facility] [address] [place] [phone] * TSH W/Reflex to FT4 (01/30/2025 12:03 PM EDT) TSH reflex Free T4 2.04 0.32 - 4.0 uIU/mL [facility] Blood Venous blood specimen / Unknown 01/30/2025 12:03 PM EDT 01/30/2025 1:48 PM EDT us Reina Seth MD LAB BLOOD ORDERABLES Final Re sult [facility] [address] [place] [address] [phone] * (ABNORMAL) CBC auto differential (01/30/2025 12:03 PM EDT) White Blood Count 4.1(L) 4.8 - 10.8 X10*3/uL [facility] Red Blood Count 4.15(L) 4.20 - 5.50 X10*6/uL [facility] Hemoglobin 12.9 12.0 - 16.0 g/dl [facility] Hematocrit 38.8 37.0 - 47.0 % [facility] Mean Corpuscular Volume 93.5 80.0 - 98.0 fL [facility] Mean Corpuscular Hemoglobin 31.1 27.0 - 33.0 pg [facility] Mean Corpuscular HGB Conc 33.2 31.0 - 35.0 g/dl [facility] Red Cell Distribution Width 13.0 11.0 - 16.0 % [facility] Platelet Count 258 160 - 400 X10*3/uL [facility] Mean Platelet Volume 10.3 9.4 - 12.3 fL [facility] Neutrophils Percent Auto 38.0(L) 45 - 73 % [facility] Imm Gran Pct Auto 0.2 0.0 - 0.4 % [facility] Lymphocytes Percent Auto 51.4(H) 20 - 40 % [facility] Monocytes Percent Auto 7.4 2 - 11 % [facility] Eosinophils Percent Auto 2.0 0 - 4 % [facility] Basophils Percent Auto 1.0 0 - 2 % [facility] NRBC Pct Auto 0.0 0.0 - 0.2 /100WBC [facility] Neutrophils Absolute Auto 1.6(L) 2.0 - 8.3 x10*3/uL [facility] Imm Gran Abs Auto 0.01 0.00 - 0.03 X10*3/uL [facility] Lymphocytes Absolute Auto 2.1 1.2 - 4.9 X10*3/uL [facility] Monocytes Absolute Auto 0.3 0.1 - 1.2 X10*3/uL [facility] Eosinophils Absolute Auto 0.1 0.0 - 0.4 X10*3/uL [facility] Basophils Absolute Auto 0.0 0.0 - 0.2 X10*3/uL [facility] NRBC Abs Auto 0.000 0.0 - 0.012 X10*3/uL [facility] Blood Venous blood specimen / Unknown 01/30/2025 12:03 PM EDT 01/30/2025 1:48 PM EDT Reina Seth MD LAB BLOOD ORDERABLES Final Re sult Performing Organization Address City/[facility]/ZIP Co de Phone Number [facility] [address] [place] [phone] * (ABNORMAL) Iron And Total Iron Binding Capacity (01/30/2025 12:03 PM EDT) Iron 104 30 - 160 mcg/dL [facility] Total Iron Binding Capacity 180(L) 228 - 428 mcg/dL [facility] Percent Iron Saturation 58(H) 15 - 50 % [facility] Unsaturated Iron Binding 76 ug/dL [facility] Blood Venous blood specimen / Unknown 01/30/2025 12:03 PM EDT 01/30/2025 1:48 PM EDT Reina Seth MD LAB BLOOD ORDERABLES Final Re sult Performing Organization Address [facility]/ZIP Co de Phone Number [facility] [address] [place] [phone] [phone] * Hepatitis B surface antigen, EIA (01/30/2025 12:03 PM EDT) Pathologist [facility] Hepatitis B Surface Ag Negative Negative [facility] Blood Venous blood specimen / Unknown 01/30/2025 12:03 PM EDT 01/30/2025 1:48 PM EDT Reina Seth MD LAB BLOOD ORDERABLES Final Re sult Performing Organization Address [facility] Co de Phone Number [facility] [address] [place] [phone] * Hepatitis B Core Antibody, Total (01/30/2025 12:03 PM EDT) [facility] [address] Hepatitis B Core Antibody Nonreactive Nonreactive [facility] Blood Venous blood specimen / Unknown 01/30/2025 12:03 PM EDT 01/30/2025 1:48 PM EDT Result [facility] Reina Seth MD LAB BLOOD ORDERABLES Final Re sult Performing Organization Address [facility] de Phone Number [facility] [address] [place] [phone] * Hepatitis B Surface Antibody, Qualitative (01/30/2025 12:03 PM EDT) [facility] [address] ~Hepatitis B Surface Antibody REACTIVE Nonreactive [facility] Comment:REACTIVE: > 11.99 mI U/mL Blood Venous blood specimen / Unknown 01/30/2025 12:03 PM EDT 01/30/2025 1:48 PM EDT Reina Seth MD LAB BLOOD ORDERABLES Final Re sult Performing Organization Address [facility] de Phone Number [facility] [address] [place] [phone] * Ferritin (01/30/2025 12:03 PM EDT) [facility] [address] Ferritin 90 10 - 250 ng/mL [facility] Blood Venous blood specimen / Unknown 01/30/2025 12:03 PM EDT 01/30/2025 1:48 PM EDT us Reina Seth MD LAB BLOOD ORDERABLES Final Re sult [facility] [address] [place] [phone] [phone] * (ABNORMAL) Comprehensive Metabolic Panel (01/30/2025 12:03 PM EDT) Sodium 140 135 - 145 mmol/L [facility] Potassium 4.1 3.3 - 5.1 mmol/L [facility] Chloride 108 96 - 108 mmol/L [facility] Carbon Dioxide 25 22 - 29 mmol/L [facility] Anion Gap 11(L) 12 - 20 [facility] Urea Nitrogen (BUN) 19(H) 9 - 16 mg/dL [facility] Creatinine, Serum 1.19 0.5 - 1.4 mg/dL [facility] Estimated Glomerular Filt Rate 47 [facility] Comment:Chronic Kidney Disea se: Estimated GFR < 60 mL/min/1.72g0Hivkup Kidney Disease: Estimated GFR < 15 mL/min/1.73m2 Glucose 81 60 - 115 mg/dL [facility] Calcium 9.1 8.4 - 10.2 mg/dL [facility] Bilirubin, Total 0.3 0.0 - 1.0 mg/dL [facility] Aspartate Amino Transferase 26 5 - 31 U/L [facility] Alanine Aminotransferase 17 0 - 31 U/L [facility] Total Protein 6.0(L) 6.5 - 8.0 g/dL [facility] Albumin Level 3.8 3.5 - 5.0 g/dL [facility] Alkaline Phosphatase 79 39 - 117 U/L [facility] Blood Venous blood specimen / Unknown 01/30/2025 12:03 PM EDT 01/30/2025 1:48 PM EDT us Reina Seth MD LAB BLOOD ORDERABLES Final Re sult [facility] [address] [place] [phone] [phone] * (ABNORMAL) POCT PATRICIA-14 Urine Drug [...] AM EDT . Internal Pass Control Lot# [id number] Exp: 02-14-26 us Reina Seth MD POINT OF CARE TEST ENTER/EDIT ORDERABLES Final Result * XR Sacroiliac Joints 3+ Views (11/30/2024 1:32 PM EDT) Anatomical Region Laterality Modality Sacroiliac joint, Pelvis Radiogr aphic Imaging 11/30/2024 1:32 PM EDT Narrative 12/02/2024 10:07 AM EDT [facility] Adult Primary Care [address] [place] [address] [place] [address] XRay Report Signed Patient: Estephanie Smith MR#: [id number] 661 : 1970 Acct:[id number] Age/Sex: 54 / F ADM Date: 11/30/24 Loc: HO.HMGCX Attending Dr: Rea Buchachiy [employer] Ordering Physician: Rea Flower Date of Service: 11/30/24 Procedure(s): XR sacroiliac joint min 3V Accession Number(s): [id number] cc: Rea Flower; Reina Seth MD EXAMINATION: [...] 12/02/24 1005 DD/ 1332 TD/TT: 11/30/24 1344 Asp Net Developer: Procedure Note Donotuseinterpreter, Image - 12/02/2024 [facility] Adult Primary Care [address] [place] [address] [place] [address] XRay Report Signed Patient: Estephanie Smith LMR#: [id number] 661 : 1970Acct:[id number] Age/Sex: 54 / FADM Date: 11/30/24 Loc: HO.HMGCX Attending Dr: Rea VARNER Ordering Physician: Rea Flower Date of Service: 11/30/24 Procedure(s): XR sacroiliac joint min 3V Accession Number(s): [id number] cc: Rea Flower; Reina Seth MD EXAMINATION: [...] 12/02/24 1005 DD/ 1332 TD/TT: 11/30/24 1344 Asp Net Developer: [facility] External Provider IMG XR PROCEDURES Final Result * XR Lumbar Spine Complete 4+ Views (11/30/2024 1:32 PM EDT) Anatomical Region Laterality Modality Spine, L-spine Radiographic Jagruti ging 11/30/2024 1:32 PM EDT Narrative 12/02/2024 10:06 AM EDT [facility] Adult Primary Care [address] [place] [address] [place] [address] XRay Report Signed Patient: Estephanie Smith MR#: [id number] 661 : 1970 Acct:[id number] Age/Sex: 54 / F ADM Date: 11/30/24 Loc: HO.HMGCX Attending Dr: Rea VARNER Ordering Physician: Rea Flower Date of Service: 11/30/24 Procedure(s): XR lumbar spine 4V min Accession Number(s): [id number] cc: Rea Flower; Reina Seth MD EXAMINATION: [...] 12/02/24 1003 DD/ 1332 TD/TT: 11/30/24 1344 Asp Net Developer: Procedure Note Donotuseinterpreter, Image - 12/02/2024 [facility] Primary Care [facility] [place] [address] XRay Report Signed Patient: Estephanie Smith LMR#: [id number] 661 : 1970Acct:[id number] Age/Sex: 54 / FADM Date: 11/30/24 [facility] Dr: Rea VARNER Ordering Physician: Rea Flower Date of Service: 11/30/24 Procedure(s): XR lumbar spine 4V min Accession Number(s): [id number] cc: Rea Flower; Reina Seth MD EXAMINATION: [...] 12/02/24 1003 DD/ 1332 TD/TT: 11/30/24 1344 Asp Net Developer: [facility] External Provider IMG XR PROCEDURES Final Result * (ABNORMAL) Lipid Panel, Standard (06/16/2023 9:10 AM EST) Triglycerides 119 <150 mg/dL [facility] Comment:Desirable Triglyceri de: less than 150 mg/dLBorderline High Triglyceride 150-199 mg/dLHigh Triglyceride: 200-499 mg/dLVery High Triglyceride: greater than or equal to 5OO mg/dL Cholesterol 224(H) <200 mg/dL [facility] Comment:Desirable Cholestero l: less than 200 mg/dLBorderline High Cholesterol: 200-239 mg/dLHigh Cholesterol: greater than 239 mg/dL LDL Cholesterol Calculated 144(H) <100 mg/dL [facility] Comment:Desirable LDL: less than 100 mg/dLNear Optimal/Above Optimal LDL: 110- 129 mg/dLBorderline High LDL: 130-159 mg/dLHigh LDL: 160-189 mg/dLVery High LDL: greater than or equal to 190 mg/dL HDL Cholesterol 57 >40 mg/dL [facility] Comment:Desirable HDL: great er than 40 mg/dL Note: This HDL assay may give artificially low results in patients with liver disease. Blood Venous blood specimen / Unknown 06/16/2023 9:10 AM EST 06/16/2023 2:23 PM EST Reina Seth MD LAB BLOOD ORDERABLES Final Re sult [facility] [address] [place] [address] [phone] * HEPATITIS C AB W/REFL TO HCV RNA, QN, PCR (01/08/2020 9:22 AM EDT) HEPATITIS C ANTIBODY NON-REACT DONAVAN NON-REACT DONAVAN [facility] INDEX 0.01 <1.00 [facility] Comment: HCV antibody was non-reactive. There is no laboratory evidence of HCV infection. In most cases, no further action is required. However, if recent HCV exposure is suspected, a test for HCV RNA (test code 14641) is suggested. For additional information please refer to http://textmetix.Apparent/faq/FTV59y1 (This link is being provided for informational/ educational purposes only.) 01/08/2020 9:22 AM EDT Lisa Landeros MD HISTORICAL/NON ORDERA BLE LABS Final Result [facility] [address] * HIV 1/2 ANTIGEN/ANTIBODY,FOURTH GENERATION W/RFL (01/08/2020 9:22 AM EDT) HIV-1/2 ANTIGEN AND ANTIBODIES, 4TH GENERATION W/ REFLEX NON-REACT DONAVAN NON-REACT DONAVAN [facility] Comment: HIV-1 antigen and HIV-1/HIV-2 [...] purpose. For additional information please refer to http://textmetix.Apparent/faq/SBJ090 (This link is being provided for informational/ educational purposes only.) The performance of this assay has not been clinically validated in patients less than 2 years old. HIV-1/2 ANTIGEN AND ANTIBODIES, 4TH GENERATION W/ REFLEX NON-REACT DONAVAN NON-REACT DONAVAN [facility] Comment: HIV-1 antigen and HIV-1/HIV-2 [...] purpose. For additional information please refer to http://education.Apparent/faq/QEH709 (This link is being provided for informational/ educational purposes only.) The performance of this assay has not been clinically validated in patients less than 2 years old. 01/08/2020 9:22 AM EDT Lisa Landeros MD LAB BLOOD ORDERABLES Final Result Performing Organization Address City/State/[facility] Co de [facility] Number [facility] [address] [place] [address] * DIGITAL BILATERAL SCREEN 1 (10/05/2018 12:12 [...] Most Recently Relevant to Health Maintenance Insurance [facility] ONE CARE < 65 DENTAL [facility] STAND ADULT Care Teams Cellular Equipment Repairer Relationship Specialty Start Date End Date Reina Seth MD [address] [place] [phone] PCP - General Family Medicine 06/17/20 Taylor Oh MD [address] [place] [phone] Referring Physician Internal Medicine 07/25/22
--- OUTSIDE RECORDS SUMMARY | 2025-02-11 06:25 | XMS_ITS | Encounter Summary ---
Author Organization [employer] Address [address] [place] [address] Care Team Providers Care Slicing Machine Operator/Tender Name Role Phone Reina Seth MD Primary Care Provider [phone] Taylor Oh MD Unavailable Reason for Visit * Reason Onset Date Comments Med Refill 10/08/2024 Encounter Details Date Type Department Care Team (Late st Contact Info) Description 10/08/2024 Telephone [facility] [address] [place] [address] Reina Seth MD [address] [place], [place] [phone] Med Refill Social History Tobacco Use Types [...] (Ultram) 50 [facility] documented in this encounter Plan of Treatment Upcoming Encounters Date Type Department Care Team ([facility] st Contact Info) Description 02/18/2025 10:20 AM EST Procedure Visit [facility] [address] [place] [address] Reina Seth MD [address] [place] [address] 03/26/2025 9:30 AM EST Clinical Support [facility] [address] [place] [address] Sonja Weathers, SATHYA [address] [place] [address] documented as of this encounter Visit Diagnoses Not on filedocumented in this encounter Additional Health Concerns Assessment Noted Time PHQ-9 Depression Total Score: 6 07/28/19 23 8:47 AM EDT documented as of this encounter Care Teams Slicing Machine Operator/Tender Relationship Specialty Start Date End Date Reina Seth MD [address] [place] [phone] PCP - General Family Medicine 06/17/20 Taylor Oh MD [address] [place] [phone] Referring Physician Internal Medicine 07/25/22 documented as of this encounter
--- OUTSIDE RECORDS SUMMARY | 2025-02-11 06:25 | XMS_ITS | Encounter Summary ---
Author Organization [employer] Address [address] [place] [address] 7t [place] [address] Care Team Providers Care Dumpster Driver Name Role Phone Reina Seth MD Primary Care Provider Taylor Oh MD Unavailable Reason for Visit * Reason Comments Med Refill Encounter Details Date Type Department Care Team ([facility] Contact Info) Description 09/23/2022 Refill [facility] CH[facility] MED & PEDS [address] [place], [place] [phone] Reina Seth MD 505 [place], [place] [phone] Neck pain, musculoskeletal Social History Tobacco Use [...] Upcoming Encounters Date Type Department Care Team ([facility] Contact Info) Description 02/18/2025 10:20 AM EST Procedure Visit [facility] MED & PEDS [address] [place] [address] Reina Seth MD 505 [place] [address] 03/26/2025 9:30 AM EST Clinical Support [facility] MED & PEDS [address] [place] [address] Sonja Weathers, SATHYA 505 [place], [place] [phone] documented as of this encounter Visit Diagnoses Diagnosis Neck pain, musculoskeletal documented in this encounter Additional Health Concerns Assessment Noted Time PHQ-9 Depression Total Score: 6 07/28/19 23 8:47 AM EDT documented as of this encounter Care Teams Dumpster Driver Relationship Specialty Start Date End Date Reina Seth MD [address] [place] [address] PCP - General Family Medicine 06/17/20 Taylor Oh MD [address] [place] [address] Referring Physician Internal Medicine 07/25/22 documented as of this encounter
--- OUTSIDE RECORDS SUMMARY | 2025-02-11 06:25 | XMS_ITS | Encounter Summary ---
Author Organization [employer] Address [address] [facility] [facility] [address] 7t [place] [address] Care Team Providers Care Linux Kernel Engineer Name Role Phone Reina Seth MD Primary Care Provider [phone] Taylor Oh MD Unavailable Reason for Visit * Reason Onset Date Comments Appointment Request 10/07/2024 Encounter Details Date Type Department Care Team ([facility] st Contact Info) Description 10/07/[address] [facility] MEDICINE [address] [place] [address] Reina Seth MD [address] [place], [place] [phone] Appointment Request Social History Tobacco Use Types [...] message. Patient requests a return call at [phone] * Telephone Encounter - Porsha Dye - 10/07/2024 10:27 AM EDT Tc from pt requesting schedule f/u appointment. Unable to schedule due not availability. Recall date: 09/25/2024. [phone] documented in this encounter Plan of Treatment Upcoming Encounters Date Type Department Care Team (Late st Contact Info) Description 02/18/2025 10:20 AM EST Procedure Visit [facility] MED & PEDS [address] [place] [address] Reina Seth MD 505 [place] [address] 03/26/2025 9:30 AM EST Clinical Support [facility] MED & PEDS [address] [place] [address] Sonja Weathers RN 505 [place] [address] documented as of this encounter Visit Diagnoses Not on filedocumented in this encounter Additional Health Concerns Assessment Noted Time PHQ-9 Depression Total Score: 6 07/28/19 23 8:47 AM EDT documented as of this encounter Care Teams Linux Kernel Engineer Relationship Specialty Start Date End Date Reina Seth MD [address] [place] [address] PCP - General Family Medicine 06/17/20 Taylor Oh MD [address] [place] [address] Referring Physician Internal Medicine 07/25/22 documented as of this encounter
--- OUTSIDE RECORDS SUMMARY | 2025-02-11 06:25 | XMS_ITS | Encounter Summary ---
Author Organization [employer] Address [address] [place] [address] 7 [place] [address] Care Team Providers Care Ball Assembler Name Role Phone Reina Seth MD Primary Care Provider [phone] Taylor Oh MD Unavailable Reason for Visit * Reason Comments Med Refill Encounter Details Date Type Department Care Team ([facility] Contact Info) Description 10/31/2022 Refill [facility] MED & PEDS 505 [place] [address] Reina Seth MD 505 [place] [address] Social History Tobacco Use Types Packs/Day Years [...] Upcoming Encounters Date Type Department Care Team ([facility] Contact Info) Description 02/18/2025 10:20 AM EST Procedure Visit [facility] MED & PEDS 505 [place], [place] [phone] Reina Seth MD 505 [place] [address] 03/26/2025 9:30 AM EST Clinical Support [facility] CHC MED & PEDS [address] [place], [place] [phone] Sonja Weathers, RN 505 [place], [place] [phone] documented as of this encounter Visit Diagnoses Not on filedocumented in this encounter Additional Health Concerns Assessment Noted Time PHQ-9 Depression Total Score: 6 07/28/19 8:47 AM EDT documented as of this encounter Care Teams Ball Assembler Relationship Specialty Start Date End Date Reina Seth MD [address] [place] [address] PCP - General Family Medicine 06/17/20 Taylor Oh MD [address] [place] [address] Referring Physician Internal Medicine 07/25/22 documented as of this encounter
--- OUTSIDE RECORDS SUMMARY | 2025-02-11 06:25 | XMS_ITS | Encounter Summary ---
Author Organization [employer] Address [address] [place] [address] 7t [place] [address] Care Team Providers Care Job Placement Officer Name Role Phone Reina Seth MD Primary Care Provider [phone] Taylor Oh MD Unavailable Reason for Visit * Reason Onset Date Comments triage 05/03/2022 Encounter Details Date Type Department Care Team ([facility] Contact Info) Description 05/03/2022 Telephone [facility] CHC MED & PEDS 505 [place] [address] Reina Seth MD 505 [place] [address] triage Social History Tobacco Use Types Packs/Day [...] requesting antibiotic again. Advised to come to [facility] 05/04 @200pm [facility]. Pt agreed with disposition . Insurance [...] nodes in back of neck, please call [phone]. Khmer documented in this encounter Plan of Treatment Upcoming Encounters Date Type Department Care Team (Late st Contact Info) Description 02/18/2025 10:20 AM EST Procedure Visit [facility] MED & PEDS 505 [place] [address] Reina Seth MD 505 [place] [address] 03/26/2025 9:30 AM EST Clinical Support [facility] MED & PEDS 505 [place] [address] Sonja Weathers RN 505 [place] [address] documented as of this encounter Visit Diagnoses Diagnosis Other chronic pain documented in this encounter Care Teams Job Placement Officer Relationship Specialty Start Date End Date Reina Seth MD [address] [place] [address] PCP - General Family Medicine 06/17/20 Taylor Oh MD 73 [place] [address] Referring Physician Internal Medicine 07/25/22 documented as of this encounter
--- OUTSIDE RECORDS SUMMARY | 2025-02-11 06:25 | XMS_ITS | Encounter Summary ---
Author Organization [employer] Address [address] [facility] [facility] [address] 7t [place] [address] Care Team Providers Care Manifest Clerk Name Role Phone Reina Seth MD Primary Care Provider [phone] Taylor Oh MD Unavailable Encounter Details Date Type Department Care Team ([facility] st Contact Info) Description 09/04/[address] [facility] MEDICINE 230 [place], [place] [phone] Reina Seth MD [address] [place], [place] [phone] Social History Tobacco Use Types Packs/Day Years [...] 10:20 AM EST Procedure Visit [facility] MED & PEDS 505 [place] [address] Reina Seth MD 505 [place] [address] 03/26/2025 9:30 AM EST Clinical Support [facility] MED & PEDS 505 [place] [address] Sonja Weathers, SATHYA 505 [place] [address] documented as of this encounter Visit Diagnoses Not on filedocumented in this encounter Additional Health Concerns Assessment Noted Time PHQ-9 Depression Total Score: 6 07/28/19 23 8:47 AM EDT documented as of this encounter Care Teams Manifest Clerk Relationship Specialty Start Date End Date Reina Seth MD [address] [place] [address] PCP - General Family Medicine 06/17/20 Taylor Oh MD [address] [place] [address] Referring Physician Internal Medicine 07/25/22 documented as of this encounter
--- OUTSIDE RECORDS SUMMARY | 2025-02-11 06:25 | XMS_ITS | Encounter Summary ---
Author Organization [facility] Address [address] [place] [address] Phone Care Team Providers Care Coach Cleaner Name Role Phone Reina Seth MD Primary Care Provider Encounter Details Date Type Department Care Team (Late st Contact Info) Description 02/24/2022 Procedure Pass OR Admitting Dept - Virtual Department [address] [place] [address] Social History Tobacco Use Types Packs/Day Years [...] 02/24/2022 4:32 PM Breanna Sears RN * [place] Suicide Severity Rating Scale (Screener/Recent Self-Report) Question [...] on filedocumented in this encounter Care Teams Coach Cleaner Relationship Specialty Start Date End Date Reina Seth MD PCP - General Family Medicine 11/22/21 documented as of this encounter Additional Source Comments The information contained in this document represents components of the legal health record. It is not the complete legal health record.[facility]
--- OUTSIDE RECORDS SUMMARY | 2025-02-11 06:25 | XMS_ITS | Encounter Summary ---
Author Organization [employer] Address [address] 7t [place] [address] Care Team Providers Care Supervisor Reclamation Name Role Phone Reina Seth MD Primary Care Provider [phone] Taylor Oh MD Unavailable Reason for Visit * Reason Onset Date Comments Appointment Request 06/22/2022 Encounter Details Date Type Department Care Team ([facility] st Contact Info) Description 06/22/2022 Telephone [facility] MEDICINE [address] [place] [address] Reina Seth MD [address] [place], [place] [phone] Appointment Request Social History Tobacco Use Types [...] in this Monday06/24/2022 Please contact pt at [phone] documented in this encounter Plan of Treatment Upcoming Encounters Date Type Department Care Team (Late st Contact Info) Description 02/18/2025 10:20 AM EST Procedure Visit [facility] MED & PEDS 505 [place] [address] Reina Seth MD 505 [place] [address] 03/26/2025 9:30 AM EST Clinical Support [facility] MED & PEDS 505 [place] [address] Sonja Weathers RN 505 [place] [address] documented as of this encounter Visit Diagnoses Not on filedocumented in this encounter Care Teams Supervisor Reclamation Relationship Specialty Start Date End Date Reina Seth MD [address] [place] [address] PCP - General Family Medicine 06/17/20 Taylor Oh MD [address] [place] [address] Referring Physician Internal Medicine 07/25/22 documented as of this encounter
--- OUTSIDE RECORDS SUMMARY | 2025-02-11 06:25 | XMS_ITS | Encounter Summary ---
Author Organization [employer] Address [address] [place] [address] 7t [place] [address] Care Team Providers Care Print Decorator Name Role Phone Reina Seth MD Primary Care Provider [phone] Taylor Oh MD Unavailable Reason for Visit * Reason Comments Med Refill Encounter Details Date Type Department Care Team ([facility] Contact Info) Description 06/11/2022 Refill [facility] MED & PEDS 505 [place] [address] Reina Seth MD 505 [place] [address] Social History Tobacco Use Types Packs/Day Years [...] Upcoming Encounters Date Type Department Care Team ([facility] Contact Info) Description 02/18/2025 10:20 AM EST Procedure Visit [facility] MED & PEDS 505 [place], [place] [phone] Reina Seth MD 505 [place] [address] 03/26/2025 9:30 AM EST Clinical Support [facility] CHC MED & PEDS 505 [place], [place] [phone] Sonja Weathers, SATHYA [address] [place], [place] [phone] documented as of this encounter Visit Diagnoses Not on filedocumented in this encounter Care Teams Print Decorator Relationship Specialty Start Date End Date Reina Seth MD [address] [place] [address] PCP - General Family Medicine 06/17/20 Taylor Oh MD [address] [place] [address] Referring Physician Internal Medicine 07/25/22 documented as of this encounter
--- OUTSIDE RECORDS SUMMARY | 2025-02-11 06:25 | XMS_ITS | Encounter Summary ---
Author Organization [employer] Address [address] [place] [address] 7t [place] [address] Care Team Providers Care Firer Locomotive Name Role Phone Reina Seth MD Primary Care Provider [phone] Taylor Oh MD Unavailable Reason for Visit * Reason Onset Date Comments Results 02/06/2025 Encounter Details Date Type Department Care Team ([facility] Contact Info) Description 02/06/2025 Results Follow-Up [facility] CHC MED & PEDS [address] [place] [address] Reina Seth MD 505 [place] [address] Iron And Total Iron Binding Capacity, Ferritin, CBC auto differential, Additional followed-up results: 6 Social History Tobacco Use Types Packs/Day Years [...] encounter Miscellaneous Notes * Telephone Encounter - Francisca Hermosillo RN - 02/06/2025 10:12 AM EDT Called pt, advised that results show low iron but no anemia, PCP prescribed iron supplement to takeevery other day. Educated to increase dietary protein. Pt verbalized understanding, no further questions. * Telephone Encounter - Francisca Hermosillo RN - 02/06/2025 10:06 AM EDT ----- Message from Reina Seth MD sent at 02/06/2025 9:36 AM EDT ----- [facility] Team! Can you please call Estephanie Smith and inform about results? Labs show low iron, but not anemic, will send iron supplementation. Also recommend incr intake of protein. Thanks! Reina ----- Message ----- From: Interface, Lab Results In Sent: 01/30/2025 2:02 PM EDT To: Reina Seth MD documented in this encounter Plan of Treatment Upcoming Encounters Date Type Department Care Team (Late st Contact Info) Description 02/18/2025 10:20 AM EST Procedure Visit [facility] MED & PEDS [address] [place] [address] Reina Seth MD 505 [place] [address] 03/26/2025 9:30 AM EST Clinical Support [facility] MED & PEDS [address] [place] [address] Sonja Weathers, SATHYA 505 [place], [place] [phone] documented as of this encounter Visit Diagnoses Not on filedocumented in this encounter Additional Health Concerns Assessment Noted Time PHQ-9 Depression Total Score: 4 12/27/19 25 11:47 AM EDT documented as of this encounter Care Teams Firer Locomotive Relationship Specialty Start Date End Date Reina Seth MD [address] [place] [address] PCP - General Family Medicine 06/17/20 Taylor Oh MD [address] [place] [address] Referring Physician Internal Medicine 07/25/22 documented as of this encounter
--- OUTSIDE RECORDS SUMMARY | 2025-02-11 06:25 | XMS_ITS | Clinical Summary ---
Author Organization [facility] Address [address] [place] [address] Phone Care Team Providers Care Superintendent Cemetery Name Role Phone Reina Seth MD Primary Care Provider Allergies Active Allergy Reactions Criticality Noted Date [...] Take 180 mg by mouth daily. 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 We have requested those records. I will schedule her for a consultation with a dietitian to help keep her on track in terms of her eating. The patient will continue the eating plan that I had given her previously which is a Estonian yogurt or cottage cheese at 6 AM, [...] (09/19/2022 10:40 AM EDT) HDL 56 mg/dL [facility] Comment: Interpretation <40 mg/dL: Low HDL cholesterol (major risk factor for CHD) Greater than or equal to 60 mg/dL: High HDL cholesterol ( negative risk factor for CHD) HDL - cholesterol is affected by a number of factors, e.g. smoking, excerise, hormones, sex and age. CHOLESTEROL 198 0 - 240 mg/dL [facility] TRIGLYCERIDES 246(H) 30 - 160 mg/dL [facility] LDL 93 50 - 129 mg/dL [facility] Comment: LDL levels in terms of risk for coronary heart disease: <100 mg/dL: Optimal 100-129 mg/dL: Near or above optimal 130-159 mg/dL: Borderline high 160-189 mg/dL: High >190 mg/dL: Very High CARDIAC RISK RATIO 3.5 3.3 - 4.4 [facility] Blood 09/19/2022 10:4 0 AM EDT 09/19/2022 10:49 AM EDT us Analia Castro MD LAB BLOOD ORDERABLES Final Result Performing Organization Address City/State/[facility] Co de Phone Number [facility] [address] [place] [address] from Last 3 Months or Most Recently Relevant to Health Maintenance Insurance MEDICARE PART A & B [facility] CARE MEDICARE REPLACEMENT MEDICARE PART A & B [id number] [place] [address] CARE MEDICARE REPLACEMENT MEDICARE PART A & B [facility] CARE MEDICARE REPLACEMENT MEDICARE PART A & B [facility] MEDICARE REPLACEMENT [place] [id number] MEDICARE PART A & B [facility] CARE MEDICARE REPLACEMENT MEDICARE PART A & B [facility] CARE MEDICARE REPLACEMENT MEDICARE PART A & B [facility] CARE MEDICARE REPLACEMENT MEDICARE PART A & B [facility] MEDIC[facility] REPLACEMENT MEDICARE PART A & B [facility] CARE MEDICARE REPLACEMENT Advance Directives For more information, please contact: [phone] (9AM - 5PM [facility], Monday-Monday) * Full Code (Latest Code Status on File) Date Activated Date Inactivated Comments 02/24/2022 5:16 PM Question Answer Comments Code Status Confirmed With: Patient * Full Code Date Activated Date Inactivated Comments 02/24/2022 8:36 AM 02/24/2022 5:16 PM Question Answer Comments Code Status Confirmed With: Patient Care Teams Superintendent Cemetery Relationship Specialty Start Date End Date Reina Seth MD PCP - General Family Medicine 11/22/21 Additional Source Comments The information contained in this document represents components of the legal health record. It is not the complete legal health record.[facility]
== END 2025-02-11 06:24 | disposition home or self-care (01) ==
LOC: CF 06:23
PROVIDERS: Visit Provider Anesthesiology
DX: M47.817 Spondylosis without myelopathy or radiculopathy, lumbosacral region (principal); M43.16 Spondylolisthesis, lumbar region; M53.3 Sacrococcygeal disorders, not elsewhere classified; M79.7 Fibromyalgia; G89.29 Other chronic pain; Z79.899 Other long term (current) drug therapy
CPT/HCPCS: 27096; J2003; J2795; J3301; Q9967

== ENCOUNTER 2025-02-11 12:15 | Outpatient (AMB) | payer OTHER, SELFPAY ==
--- NOTE | 2025-02-11 12:24 | A.OFFVIS_ITS ---
Vital Signs 02/11/25 12:35 02/11/25 13:26 Height 4 ft 11 in Weight 133 lb BMI 26.9 BP 81/50 L 90/54 L Blood Pressure Location Lt brachial Lt brachial Position Sitting Sitting Respiration 16 16 Pulse 76 81 Pulse Source Pulse Oximeter Pulse Oximeter Pulse Oximetry (%) 100 96 Oxygen Delivery Method Room Air Room Air Intake Visit Reasons: Left Therapeutic Sacroiliac Joint Injection Allergies latex Allergy (Severe, Verified 12/23/24 14:52) Rash lisinopril Allergy (Severe, Verified 12/23/24 14:52) anaphylaxis sulfamethoxazole (From Bactrim) Allergy (Intermediate, Verified 12/23/24 14:52) rash trimethoprim (From Bactrim) Allergy (Intermediate, Verified 12/23/24 14:52) rash NSAIDS (Non-Steroidal Anti-Inflamma Allergy (Mild, Verified 12/23/24 14:52) Diarrhea PFSH Medical History (Updated 12/23/24 @ 14:55 by GARDENIA Horton) Iliotibial band syndrome of right side Fibromyalgia Insulin resistance Mastoiditis Intestinal malabsorption following gastrectomy Irritable bowel syndrome with diarrhea Chronic back pain Chronic diarrhea BMI 45.0-49.9, adult Insomnia Anxiety Hypercholesterolemia PCOS (polycystic ovarian syndrome) HTN (hypertension) COVID-19 vaccine administered Hx MRSA infection Arthritis Anemia Hx of renal calculi History of anxiety Depression Myocardial infarction Acid reflux PTSD (post-traumatic stress disorder) IBS (irritable bowel syndrome) Surgical History Hx of endoscopy Hx of colonoscopy Hx of section S/P panniculectomy Hx of cardiac catheterization Gastric bypass status for obesity Family History Father No problems noted. Mother No problems noted. Sister No problems noted. Brother MYLK2-related hypertropic cardiomyopathy Daughter Cystic fibrosis Daughter No problems noted. Social History Household Members: None Household Members Other:: Daughter has a cystic fibrosis Are you a primary client care specialist to a significant other at home: No Do you presently have visiting nurse or other home services: No Alcohol intake: former Year quit: 5 Patient Tobacco Use Status: Never used Tobacco Current occupational status: unemployed Physical Exam Vital Signs: Last Vital Signs Pulse 81 02/11/25 13:26 Resp 16 02/11/25 13:26 BP 90/54 L 02/11/25 13:26 Pulse Ox 96 02/11/25 13:26 Oxygen Delivery Method Room Air 02/11/25 13:26 BMI result Body Mass Index 26.9 Assessment & Plan Assessment & Plan (1) Chronic low back pain: Code(s): M54.50 - Low back pain, unspecified; G89.29 - Other chronic pain Category: Medical (2) Lumbosacral spondylosis: Code(s): M47.817 - Spondylosis without myelopathy or radiculopathy, lumbosacral region Category: Medical (3) Sacroiliac joint pain: Code(s): M53.3 - Sacrococcygeal disorders, not elsewhere classified Category: Medical (4) Spondylolisthesis, lumbar region: Code(s): M43.16 - Spondylolisthesis, lumbar region Category: Medical (5) Chronic back pain: Code(s): M54.9 - Dorsalgia, unspecified; G89.29 - Other chronic pain Category: Medical (6) Fibromyalgia: Code(s): M79.7 - Fibromyalgia Category: Medical Plan left therapeutic sacroiliac joint injection. Estephanie is 55 years old female suffering from sacroiliitis and sacroiliac joint dysfunction of the left. She came today to the operating room to receive therapeutic left SI joint injection. Informed consent was thoroughly explained to the patient risks and benefits were explained. The patient was positioned prone on the operating table with pillow under her abdomen. The lower back and upper buttocks were prepped with ChloraPrep and draped with sterile self adhesive utility towels. C-arm was brought over the operating field and sq picture of the left sacroiliac joint was demonstrated on the screen. Tilting C- arm contralateral to the right the posterior silhouette of the sacroiliac joint was superimposed on anterior silhouette of the sacroiliac joint. Slightly medial to the projection of the joint to the skin injection of the local anesthetic lidocaine 2% mixed with ropivacaine 0.5% was performed. After that 22 gauge 3-1/2 inch needle was driven to were the point of interest in tunnel vision fashion. When tip of the needle entered posterior capsule of the joint injection of the contrast was performed delineating arthrogram. After that injection of the ropivacaine 0.5% 4 cc mixed with Kenalog 40 mg was performed. Upon completion of the injection needle was withdrawn sterile Band-Aid was applied. The patient tolerated the procedure well. Orders: Orders FL guidance in treatment room Today M53.3 - Sacrococcygeal disorders, not elsewhere classified Coding Level of Care Code Procedure Only Diagnoses Chronic low back pain M54.50; G89.29 Lumbosacral spondylosis M47.817 Sacroiliac joint pain M53.3 Spondylolisthesis, lumbar region M43.16 Chronic back pain M54.9; G89.29 Fibromyalgia M79.7
[2025-02-11 12:35] VITALS: BP 81/50; PULSE 76; RESP 16; O2SAT 100; BMI 26.9
[2025-02-11 13:26] VITALS: BP 90/54; PULSE 81; RESP 16; O2SAT 96
--- OUTSIDE RECORDS SUMMARY | 2025-02-11 15:31 | XMS_ITS | Encounter Summary ---
Author Organization [employer] Address [address] 7t [place] [address] Care Team Providers Care Maltster Name Role Phone Reina Seth MD Primary Care Provider [phone] Taylor Oh MD Unavailable Reason for Visit * Reason Onset Date Comments ER Follow-up 06/20/2023 Encounter Details Date Type Department Care Team ([facility] Contact Info) Description 06/20/2023 Telephone [facility] CHC MED & PEDS [address] [place], [place] [phone] Reina Seth MD 505 [place] [address] ER Follow-up Social History Tobacco Use Types [...] 9:36 AM EST Tc to pt regarding [facility] [place] visit om 06/19 for umbilical infection. [...] ED visit on : Date: 06/19 Hospital: [facility] Seen for: Wound/laceration Patient advised will forward to team nurse for follow up Please contact pt at [phone] documented in this encounter Plan of Treatment Upcoming Encounters Date Type Department Care Team ([facility] st Contact Info) Description 02/18/2025 10:20 AM EST Procedure Visit [facility] MED & PEDS [address] [place] [address] Reina Seth MD 505 [place] [address] 03/26/2025 9:30 AM EST Clinical Support [facility] CHC MED & PEDS [address] [place] [address] Sonja Weathers, RN 505 [place] [address] documented as of this encounter Visit Diagnoses Not on filedocumented in this encounter Additional Health Concerns Assessment Noted Time PHQ-9 Depression Total Score: 6 07/28/19 23 8:47 AM EDT documented as of this encounter Care Teams Maltster Relationship Specialty Start Date End Date Reina Seth MD [address] [place] [address] PCP - General Family Medicine 06/17/20 Taylor Oh MD [address] [place] [address] Referring Physician Internal Medicine 07/25/22 documented as of this encounter
--- OUTSIDE RECORDS SUMMARY | 2025-02-11 15:31 | XMS_ITS | Encounter Summary ---
Author Organization [employer] Address [address] [place] [address] 7t [place] [address] Care Team Providers Care Manufacturing Manager Name Role Phone Reina Seth MD Primary Care Provider [phone] Taylor Oh MD Unavailable Reason for Visit * Reason Comments Med Refill Encounter Details Date Type Department Care Team ([facility] Contact Info) Description 07/08/2022 Refill [facility] [address] [place] [address] Reina Seth MD 505 [place], [place] [phone] Social History Tobacco Use Types Packs/Day Years [...] Upcoming Encounters Date Type Department Care Team ([facility] Contact Info) Description 02/18/2025 10:20 AM EST Procedure Visit [facility] CHC MED & PEDS [address] [place], [place] [phone] Reina Seth MD 505 [place] [address] 03/26/2025 9:30 AM EST Clinical Support [facility] MED & PEDS [address] [place] [address] Sonja Weathers, RN 505 [place], [place] [phone] documented as of this encounter Visit Diagnoses Not on filedocumented in this encounter Care Teams Manufacturing Manager Relationship Specialty Start Date End Date Reina Seth MD [address] [place] [address] PCP - General Family Medicine 06/17/20 Taylor Oh MD [address] [place] [address] Referring Physician Internal Medicine 07/25/22 documented as of this encounter
--- OUTSIDE RECORDS SUMMARY | 2025-02-11 15:31 | XMS_ITS | Encounter Summary ---
Author Organization [employer] Address [address] [facility] 7t [place] [address] Care Team Providers Care Headstart Teacher Name Role Phone Reina Seth MD Primary Care Provider [phone] Taylor Oh MD Unavailable Encounter Details Date Type Department Care Team (Latest Contact Info) Description 02/11/2025 Travel Social History Tobacco Use Types Packs/Day [...] Description 02/18/2025 10:20 AM EST Procedure Visit [facility] MED & PEDS 505 [place] [address] Reina Seth MD 505 [place] [address] 03/26/2025 9:30 AM EST Clinical Support [facility] MED & PEDS [address] [place] [address] Sonja Weathers, RN 505 [place] [address] documented as of this encounter Visit Diagnoses Not on filedocumented in this encounter Additional Health Concerns Assessment Noted Time PHQ-9 Depression Total Score: 4 12/27/19 25 11:47 AM EDT documented as of this encounter Care Teams Headstart Teacher Relationship Specialty Start Date End Date Reina Seth MD [address] [place] [address] PCP - General Family Medicine 06/17/20 Taylor Oh MD [address] [place] [address] Referring Physician Internal Medicine 07/25/22 documented as of this encounter
--- OUTSIDE RECORDS SUMMARY | 2025-02-11 15:31 | XMS_ITS | Encounter Summary ---
Author Organization [facility] Address [address] [place] [address] Phone Care Team Providers Care Car Rental Service Attendant Name Role Phone Reina Seth MD Primary Care Provider [phone] Encounter Details Date Type Department Care Team (Late st Contact Info) Description 02/24/2022 Procedure Pass OR Admitting Dept - Virtual Department [address] [place] [address] Social History Tobacco Use Types Packs/Day Years [...] 02/24/2022 4:32 PM Breanna Sears RN * [place] Suicide Severity Rating Scale (Screener/Recent Self-Report) Question [...] on filedocumented in this encounter Care Teams Car Rental Service Attendant Relationship Specialty Start Date End Date Reina Seth MD PCP - General Family Medicine 11/22/21 documented as of this encounter Additional Source Comments The information contained in this document represents components of the legal health record. It is not the complete legal health record.[facility]
--- OUTSIDE RECORDS SUMMARY | 2025-02-11 15:31 | XMS_ITS | Encounter Summary ---
Author Organization [email or web address] Address [address] [place] [address] 7t [place] [address] Care Team Providers Care Shop Clerk Name Role Phone Reina Seth MD Primary Care Provider [phone] Taylor Oh MD Unavailable Reason for Visit * Reason Comments Med Refill Encounter Details Date Type Department Care Team ([facility] Contact Info) Description 09/23/2022 Refill [facility] CHC MED & PEDS [address] [place], [place] [phone] Reina Seth MD 505 [place], [place] [phone] Neck pain, musculoskeletal Social History Tobacco Use [...] Upcoming Encounters Date Type Department Care Team ([facility] Contact Info) Description 02/18/2025 10:20 AM EST Procedure Visit [facility] MED & PEDS 505 [place] [address] Reina Seth MD 505 [place] [address] 03/26/2025 9:30 AM EST Clinical Support [facility] MED & PEDS 505 [place] [address] Sonja Weathers, SATHYA 505 [place], [place] [phone] documented as of this encounter Visit Diagnoses Diagnosis Neck pain, musculoskeletal documented in this encounter Additional Health Concerns Assessment Noted Time PHQ-9 Depression Total Score: 6 07/28/19 23 8:47 AM EDT documented as of this encounter Care Teams Shop Clerk Relationship Specialty Start Date End Date Reina Seth MD [address] [place] [address] PCP - General Family Medicine 06/17/20 Taylor Oh MD [address] [place] [address] Referring Physician Internal Medicine 07/25/22 documented as of this encounter
--- OUTSIDE RECORDS SUMMARY | 2025-02-11 15:31 | XMS_ITS | Encounter Summary ---
Author Organization [employer] Address [address] [place] [address] 7 [place] [address] Care Team Providers Care Seed Cleaning Machine Operator Name Role Phone Reina Seth MD Primary Care Provider [phone] Taylor Oh MD Unavailable Reason for Visit * Reason Comments Med Refill Encounter Details Date Type Department Care Team ([facility] Contact Info) Description 10/31/2022 Refill [facility] MED & PEDS 505 [place] [address] Reina Seth MD 505 [place] [address] Social History Tobacco Use Types Packs/Day Years [...] Upcoming Encounters Date Type Department Care Team ([facility] Contact Info) Description 02/18/2025 10:20 AM EST Procedure Visit [facility] MED & PEDS 505 [place], [place] [phone] Reina Seth MD 505 [place] [address] 03/26/2025 9:30 AM EST Clinical Support [facility] CHC MED & PEDS 505 [place], [place] [phone] Sonja Weathers, RN 505 [place], [place] [phone] documented as of this encounter Visit Diagnoses Not on filedocumented in this encounter Additional Health Concerns Assessment Noted Time PHQ-9 Depression Total Score: 6 07/28/19 8:47 AM EDT documented as of this encounter Care Teams Seed Cleaning Machine Operator Relationship Specialty Start Date End Date Reina Seth MD [address] [place] [address] PCP - General Family Medicine 06/17/20 Taylor Oh MD [address] [place] [address] Referring Physician Internal Medicine 07/25/22 documented as of this encounter
--- OUTSIDE RECORDS SUMMARY | 2025-02-11 15:31 | XMS_ITS | Encounter Summary ---
Author Organization [employer] Address [address] [facility] 7t [place] [address] Care Team Providers Care Cd Mixer Helper Name Role Phone Reina Seth MD Primary Care Provider [phone] Taylor Oh MD Unavailable Reason for Visit * Reason Comments Med Refill Encounter Details Date Type Department Care Team ([facility] Contact Info) Description 10/31/2024 Refill [facility] CHC MED & PEDS 505 [place], [place] [phone] Reina Seth MD 505 [place], [place] [phone] Social History Tobacco Use Types Packs/Day Years [...] AM EST Procedure Visit [facility] MED & PEDS 505 [place] [address] Reina Seth MD 505 [place] [address] 03/26/2025 9:30 AM EST Clinical Support [facility] MED & PEDS [address] [place] [address] Sonja Weathers, SATHYA 505 [place] [address] documented as of this encounter Visit Diagnoses Not on filedocumented in this encounter Additional Health Concerns Assessment Noted Time PHQ-9 Depression Total Score: 6 07/28/19 23 8:47 AM EDT documented as of this encounter Care Teams Cd Mixer Helper Relationship Specialty Start Date End Date Reina Seth MD [address] [place] [address] PCP - General Family Medicine 06/17/20 Taylor Oh MD [address] [place] [address] Referring Physician Internal Medicine 07/25/22 documented as of this encounter
--- OUTSIDE RECORDS SUMMARY | 2025-02-11 15:31 | XMS_ITS | Clinical Summary ---
Author Organization [facility] it Address [address] [place] [address] Care Team Providers Care Rn Long Term Care Name Role Phone Reina Seth MD Primary Care Provider [phone] Surgical History Surgery Date Site/Laterality Comments GASTRIC [...] age to complete this topic Care Teams Rn Long Term Care Relationship Specialty Start Date End Date Reina Seth MD [address] [place] [address] PCP - General 04/05/21
--- OUTSIDE RECORDS SUMMARY | 2025-02-11 15:31 | XMS_ITS | Encounter Summary ---
Author Organization [employer] Address [address] 7t [place] [address] Care Team Providers Care Culturist Name Role Phone Reina Seth MD Primary Care Provider [phone] Taylor Oh MD Unavailable Reason for Visit * Reason Onset Date Comments Med Refill 10/08/2024 Encounter Details Date Type Department Care Team (Late st Contact Info) Description 10/08/2024 Telephone [facility] MEDICINE [address] [place] [address] Reina Seth MD [address] [place], [place] [phone] Med Refill Social History Tobacco Use Types [...] (Ultram) 50 MG [facility] documented in this encounter Plan of Treatment Upcoming Encounters Date Type Department Care Team ([facility] st Contact Info) Description 02/18/2025 10:20 AM EST Procedure Visit [facility] MED & PEDS 505 [place] [address] Reina Seth MD 505 [place] [address] 03/26/2025 9:30 AM EST Clinical Support [facility] MED & PEDS 505 [place] [address] Sonja Weathers, SATHYA 505 [place] [address] documented as of this encounter Visit Diagnoses Not on filedocumented in this encounter Additional Health Concerns Assessment Noted Time PHQ-9 Depression Total Score: 6 07/28/19 23 8:47 AM EDT documented as of this encounter Care Teams Culturist Relationship Specialty Start Date End Date Reina Seth MD [address] [place] [address] PCP - General Family Medicine 06/17/20 Taylor Oh MD [address] [place] [address] Referring Physician Internal Medicine 07/25/22 documented as of this encounter
--- OUTSIDE RECORDS SUMMARY | 2025-02-11 15:31 | XMS_ITS | Encounter Summary ---
Author Organization [employer] Address [address] [place] [address] 7t [place] [address] Care Team Providers Care Combiner Operator Name Role Phone Reina Seth MD Primary Care Provider [phone] Taylor Oh MD Unavailable Reason for Visit * Reason Onset Date Comments triage 05/03/2022 Encounter Details Date Type Department Care Team ([facility] Contact Info) Description 05/03/2022 Telephone [facility] CHC MED & PEDS 505 [place] [address] Reina Seth MD 505 [place] [address] triage Social History Tobacco Use Types Packs/Day [...] requesting antibiotic again. Advised to come to [facility] 05/04 @200pm [facility]. Pt agreed with disposition . Insurance is [...] nodes in back of neck, please call [phone]. French documented in this encounter Plan of Treatment Upcoming Encounters Date Type Department Care Team (Late st Contact Info) Description 02/18/2025 10:20 AM EST Procedure Visit [facility] MED & PEDS 505 [place] [address] Reina Seth MD 505 [place] [address] 03/26/2025 9:30 AM EST Clinical Support [facility] MED & PEDS [address] [place] [address] Sonja Weathers RN 505 [place] [address] documented as of this encounter Visit Diagnoses Diagnosis Other chronic pain documented in this encounter Care Teams Combiner Operator Relationship Specialty Start Date End Date Reina Seth MD [address] [place] [address] PCP - General Family Medicine 06/17/20 Taylor Oh MD [address] [place] [address] Referring Physician Internal Medicine 07/25/22 documented as of this encounter
--- OUTSIDE RECORDS SUMMARY | 2025-02-11 15:31 | XMS_ITS | Encounter Summary ---
Author Organization [employer] Address [address] [place] [address] 7t [place] [address] Care Team Providers Care Coal Crusher Operator Name Role Phone Reina Seth MD Primary Care Provider [phone] Taylor Oh MD Unavailable Reason for Visit * Reason Comments Med Refill Encounter Details Date Type Department Care Team ([facility] Contact Info) Description 06/11/2022 Refill [facility] MED & PEDS 505 [place] [address] Reina Seth MD 505 [place] [address] Social History Tobacco Use Types Packs/Day Years [...] Upcoming Encounters Date Type Department Care Team ([facility] Contact Info) Description 02/18/2025 10:20 AM EST Procedure Visit [facility] MED & PEDS [address] [place], [place] [phone] Reina Seth MD [address] [place] [address] 03/26/2025 9:30 AM EST Clinical Support [facility] CHC MED & PEDS [address] [place], [place] [phone] Sonja Weathers, SATHYA [address] [place], [place] [phone] documented as of this encounter Visit Diagnoses Not on filedocumented in this encounter Care Teams Coal Crusher Operator Relationship Specialty Start Date End Date Reina Seth MD [address] [place] [address] PCP - General Family Medicine 06/17/20 Taylor Oh MD [address] [place] [address] Referring Physician Internal Medicine 07/25/22 documented as of this encounter
--- OUTSIDE RECORDS SUMMARY | 2025-02-11 15:31 | XMS_ITS | Encounter Summary ---
Author Organization [employer] Address [address] [facility] [address] 7t [place] [address] Care Team Providers Care State Comptroller Name Role Phone Reina Seth MD Primary Care Provider [phone] Taylor Oh MD Unavailable Reason for Visit * Reason Onset Date Comments Appointment Request 10/07/2024 Encounter Details Date Type Department Care Team ([facility] st Contact Info) Description 10/07/2024 Telephone [facility] MEDICINE [address] [place] [address] Reina Seth MD [address] [place], [place] [phone] Appointment Request Social History Tobacco Use Types [...] message. Patient requests a return call at [phone] * Telephone Encounter - Porsha Dye - 10/07/2024 10:27 AM EDT Tc from pt requesting schedule f/u appointment. Unable to schedule due not availability. Recall date: 09/25/2024. [phone] documented in this encounter Plan of Treatment Upcoming Encounters Date Type Department Care Team (Late st Contact Info) Description 02/18/2025 10:20 AM EST Procedure Visit [facility] MED & PEDS 505 [place] [address] Reina Seth MD 505 [place] [address] 03/26/2025 9:30 AM EST Clinical Support [facility] MED & PEDS [address] [place] [address] Sonja Weathers RN 505 [place] [address] documented as of this encounter Visit Diagnoses Not on filedocumented in this encounter Additional Health Concerns Assessment Noted Time PHQ-9 Depression Total Score: 6 07/28/19 23 8:47 AM EDT documented as of this encounter Care Teams State Comptroller Relationship Specialty Start Date End Date Reina Seth MD [address] [place] [address] PCP - General Family Medicine 06/17/20 Taylor Oh MD [address] [place] [address] Referring Physician Internal Medicine 07/25/22 documented as of this encounter
--- OUTSIDE RECORDS SUMMARY | 2025-02-11 15:31 | XMS_ITS | Clinical Summary ---
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 We have requested those records. I will schedule her for a consultation with a dietitian to help keep her on track in terms of her eating. The patient will continue the eating plan that I had given her previously which is a Setswana yogurt or cottage cheese at 6 AM, [...] (09/19/2022 10:40 AM EDT) HDL 56 mg/dL [facility] Comment: Interpretation <40 mg/dL: Low HDL cholesterol (major risk factor for CHD) Greater than or equal to 60 mg/dL: High HDL cholesterol ( negative risk factor for CHD) HDL - cholesterol is affected by a number of factors, e.g. smoking, excerise, hormones, sex and age. CHOLESTEROL 198 0 - 240 mg/dL [facility] TRIGLYCERIDES 246(H) 30 - 160 mg/dL [facility] LDL 93 50 - 129 mg/dL [facility] Comment: LDL levels in terms of risk for coronary heart disease: <100 mg/dL: Optimal 100-129 mg/dL: Near or above optimal 130-159 mg/dL: Borderline high 160-189 mg/dL: High >190 mg/dL: Very High CARDIAC RISK RATIO 3.5 3.3 - 4.4 C [facility] Blood 09/19/2022 10:4 0 AM EDT 09/19/2022 10:49 AM EDT us Analia Castro MD LAB BLOOD ORDERABLES Final Result Performing Organization Address City/State/[facility] Co de Phone Number [facility] [address] [place] [address] from Last 3 Months or Most Recently Relevant to Health Maintenance Insurance MEDICARE PART A & B [facility] ONE CARE MEDICARE REPLACEMENT MEDICARE PART A & B [id number] [place] [address] CARE MEDICARE REPLACEMENT MEDICARE PART A & B [facility] ONE CARE MEDICARE REPLACEMENT MEDICARE PART A & B [facility] MEDICARE REPLACEMENT DOMINIK OLSON [id number] MEDICARE PART A & B [facility] ONE CARE MEDICARE REPLACEMENT MEDICARE PART A & B [facility] ONE CARE MEDICARE REPLACEMENT MEDICARE PART A & B [facility] ONE CARE MEDICARE REPLACEMENT MEDICARE PART A & B [facility] CARE MEDICARE REPLACEMENT MEDICARE PART A & B [facility] ONE CARE MEDICARE REPLACEMENT Advance Directives For more information, please contact: [phone] (9AM - 5PM [facility], Monday-Monday) * Full Code (Latest Code Status on File) Date Activated Date Inactivated Comments 02/24/2022 5:16 PM Question Answer Comments Code Status Confirmed With: Patient * Full Code Date Activated Date Inactivated Comments 02/24/2022 8:36 AM 02/24/2022 5:16 PM Question Answer Comments Code Status Confirmed With: Patient Care Teams Chemical Equipment Repairer Relationship Specialty Start Date End Date Reina Seth MD PCP - General Family Medicine 11/22/21 Additional Source Comments The information contained in this document represents components of the legal health record. It is not the complete legal health record.[facility]
--- OUTSIDE RECORDS SUMMARY | 2025-02-11 15:31 | XMS_ITS | Encounter Summary ---
Author Organization [employer] Address [address] [facility] [address] 7t [place] [address] Care Team Providers Care Sales Performance Manager Name Role Phone Reina Seth MD Primary Care Provider [phone] Taylor Oh MD Unavailable Encounter Details Date Type Department Care Team ([facility] st Contact Info) Description 09/04/2024 Telephone [facility] MEDICINE [address] [place], [place] [phone] Reina Seth MD [address] [place], [place] [phone] Social History Tobacco Use Types Packs/Day Years [...] [facility] 505 [place] [address] Reina Seth MD 505 [place] [address] 03/26/2025 9:30 AM EST Clinical Support [facility] MED & PEDS 505 [place] [address] Sonja Weathers, SATHYA 505 [place] [address] documented as of this encounter Visit Diagnoses Not on filedocumented in this encounter Additional Health Concerns Assessment Noted Time PHQ-9 Depression Total Score: 6 07/28/19 23 8:47 AM EDT documented as of this encounter Care Teams Sales Performance Manager Relationship Specialty Start Date End Date Reina Seth MD [address] [place] [address] PCP - General Family Medicine 06/17/20 Taylor Oh MD [address] [place] [address] Referring Physician Internal Medicine 07/25/22 documented as of this encounter
--- OUTSIDE RECORDS SUMMARY | 2025-02-11 15:31 | XMS_ITS | Encounter Summary ---
Author Organization [employer] Address [address] [place] [address] Care Team Providers Care Active Directory Engineer Name Role Phone Reina Seth MD Primary Care Provider Taylor Oh MD Unavailable Encounter Details Date Type Department Care Team ([facility] st Contact Info) Description 07/27/2022 Telephone [facility] [address] [place], [place] [phone] Reina Seth MD [address] [place], [place] [phone] Social History Tobacco Use Types Packs/Day Years [...] 02/18/2025 10:20 AM EST Procedure Visit [facility] [address] [place] [address] Reina Seth MD 505 [place] [address] 03/26/2025 9:30 AM EST Clinical Support [facility] [address] [place], [place] [phone] Sonja Weathers, SATHYA [address] [place], [place] [phone] documented as of this encounter Visit Diagnoses Not on filedocumented in this encounter Additional Health Concerns Assessment Noted Time PHQ-9 Depression Total Score: 6 07/28/19 8:47 AM EDT documented as of this encounter Care Teams Active Directory Engineer Relationship Specialty Start Date End Date Reina Seth MD [address] [place] [phone] PCP - General Family Medicine 06/17/20 Taylor Oh MD [address] [place] [phone] Referring Physician Internal Medicine 07/25/22 documented as of this encounter
--- OUTSIDE RECORDS SUMMARY | 2025-02-11 15:31 | XMS_ITS | Encounter Summary ---
Author Organization [employer] Address [address] 7[address] [place] [address] Care Team Providers Care Lead Section Supervisor Name Role Phone Reina Seth MD Primary Care Provider [phone] Taylor Oh MD Unavailable Reason for Visit * Reason Onset Date Comments Appointment Request 06/22/2022 Encounter Details Date Type Department Care Team ([facility] st Contact Info) Description 06/22/2022 Telephone [facility] [address] [place] [address] Reina Seth MD [address] [place], [place] [phone] Appointment Request Social History Tobacco Use Types [...] in this Monday06/24/2022 Please contact pt at [phone] documented in this encounter Plan of Treatment Upcoming Encounters Date Type Department Care Team (Late st Contact Info) Description 02/18/2025 10:20 AM EST Procedure Visit [facility] [address] [place] [address] Reina Seth MD 505 [place] [address] 03/26/2025 9:30 AM EST Clinical Support [facility] [address] [place] [address] Sonja Weathers RN 505 [place] [address] documented as of this encounter Visit Diagnoses Not on filedocumented in this encounter Care Teams Lead Section Supervisor Relationship Specialty Start Date End Date Reina Seth MD [address] [place] [phone] PCP - General Family Medicine 06/17/20 Taylor Oh MD [address] [place] [phone] Referring Physician Internal Medicine 07/25/22 documented as of this encounter
--- OUTSIDE RECORDS SUMMARY | 2025-02-11 15:31 | XMS_ITS | Encounter Summary ---
Author Organization [employer] Address [address] [place] [address] 7t [place] [address] Care Team Providers Care Filtration Supervisor Name Role Phone Reina Seth MD Primary Care Provider [phone] Taylor Oh MD Unavailable Reason for Visit * Reason Onset Date Comments Results 02/06/2025 Encounter Details Date Type Department Care Team ([facility] Contact Info) Description 02/06/2025 Results Follow-Up [facility]S [address] [place] [address] Reina Seth MD 505 [place] [address] Iron And Total Iron Binding Capacity, Ferritin, [...] sent at 02/06/2025 9:36 AM EDT ----- [facility] Team! Can you please call Estephanie [...] 02/18/2025 10:20 AM EST Procedure Visit [facility] 505 [place] [address] Reina Seth MD 505 [place] [address] 03/26/2025 9:30 AM EST Clinical Support [facility] 505 [place] [address] Sonja Weathers, SATHYA 505 [place], [place] [phone] documented as of this encounter Visit Diagnoses Not on filedocumented in this encounter Additional Health Concerns Assessment Noted Time PHQ-9 Depression Total Score: 4 12/27/19 25 11:47 AM EDT documented as of this encounter Care Teams Filtration Supervisor Relationship Specialty Start Date End Date Reina Seth MD [address] [place] [phone] PCP - General Family Medicine 06/17/20 Taylor Oh MD [address] [place] [phone] Referring Physician Internal Medicine 07/25/22 documented as of this encounter
--- OUTSIDE RECORDS SUMMARY | 2025-02-11 15:31 | XMS_ITS | Clinical Summary ---
Author Organization [employer] Address [address] [place] [address] 7t [place] [address] Care Team Providers Care Sample Dye Mixer Name Role Phone Reina Seth MD Primary Care Provider [phone] Taylor Oh MD Unavailable Allergies Active Allergy [...] not full agreement with this recommendation. The [place] [employer] and the [place] [...] medications (e.g., Celexa) - Submit referral for critical care registered nurse - Encourage continuation of psychiatric care (appointments [...] 07/18/2023 9:00 AM Paulina De Leon MD [facility] Chronic back pain 06/12/2023 Depressive disorder 06/12/2023 [...] recommended reduction of 20-30% of maintenance calories; chop saw operator referral offered. Recommended to decrease soda and [...] recommended reduction of 20-30% of maintenance calories; chop saw operator referral offered. Recommended to decrease soda and [...] Encounters Date Type Department Care Team Description 02/11/2025 Travel 02/06/2025 Results Follow-Up [facility] [address] [place] [address] Reina Seth MD Iron And Total Iron Binding Capacity, Ferritin, CBC auto differential, Additional followed-up results: 6 01/30/2025 11:15 AM EDT Office Visit [facility] [address] [place] [address] Reina Seth MD Chronic pain syndrome (Primary Dx); Encounter for immunization; Encounter for vaccination; Class 3 severe obesity due to excess calories with serious comorbidity and body mass index (BMI) of 40.0 to 44.9 in adult (HCC); Breast cancer screening by mammogram 01/30/2025 Travel 01/29/2025 Telephone [facility] [address] [place] [address] Reina Seth MD Chart Prep 01/23/2025 11:00 AM EDT Clinical Support [facility] [address] [place] [address] Sonja Weathers RN Chronic pain syndrome (Primary Dx); Long-term current use of opiate analgesic 01/23/2025 Refill [facility] [address] [place] [address] Sonja Weathers RN Chronic pain syndrome 01/23/2025 Travel 01/22/2025 Travel 01/17/2025 Refill [facility] [address] [place] [address] Reina Seth MD 01/11/2025 Refill [facility] [address] [place] [address] Reina Seth MD 12/27/2024 Telephone [facility] [address] [place] [address] Sonja Weathers RN [employer]STING FINISH[employer] 12/26/2024 11:15 AM EDT Office Visit [facility] [address] [place] [address] Reina Seth MD Chronic pain syndrome (Primary Dx) 12/26/2024 Travel 12/25/2024 Travel 12/14/2024 Refill [facility] [address] [place] [address] Paulina De Leon MD Hypertension, unspecified type 12/05/2024 1:00 PM EDT Office Visit [facility] [address] [place] [address] [facility] Resistant hypertension (Primary Dx) 12/04/2024 Travel 11/30/2024 Orders Only [facility] External Provider, [facility] 11/21/2024 Refill [facility] [address] [place] [address] Reina Seth MD 11/20/2024 Refill [facility] [address] [place] [address] Reina Seth MD from Last 3 Months Immunizations Immunization Administration Dates Next Due Influenza injectable quadriv alent IIV4 with preservative 01/31/2019 Influenza injectable quadriv alent preservative free 01/30/2023,12/31/2021,02/17/2021,12/13,01/27/2014,02/13/2013 Influenza, IIV3, injectable 01/19/2012, 1,01/22/2010 Influenza, seasonal, injecta ble, preservative free 01/30/2025 Novel Ebdpintee-[id number], all formulations 04/16/2009 Pfizer Covid-19 Vaccine 12+ [...] Visit [facility] [address] [place] [address] Reina Seth MD [address] [place] [address] 03/26/2025 9:30 AM EST Clinical Support [facility] [address] [place] [address] Sonja Weathers RN [address] [place] [address] Health Maintenance Due Date Last Done Comments [...] (BMI) of 40.0 to 44.9 in adult ([facility]) CBC WITH AUTO DIFFERENTIAL Routine 01/30/2025 12:03 PM EDT Class 3 severe obesity due to excess calories with serious comorbidity and body mass index (BMI) of 40.0 to 44.9 in adult ([facility]) FERRITIN Routine 01/30/2025 12:03 PM EDT Class 3 severe obesity due to excess calories with serious comorbidity and body mass index (BMI) of 40.0 to 44.9 in adult ([facility]) IRON AND TOTAL IRON BINDING CAPACITY Routine 01/30/2025 12:03 PM EDT Class 3 severe obesity due to excess calories with serious comorbidity and body mass index (BMI) of 40.0 to 44.9 in adult ([facility]) POCT PATRICIA-14 URINE DRUG SCREEN Routine 01/23/2025 [...] (BMI) of 40.0 to 44.9 in adult ([facility]/HCC) ZZZ HISTORICAL HEPATITIS C AB W/REFL [...] Vitamin D 25-OH Total 106.3 >30 ng/mL [facility] Comment: Health Based Reference Values*< 20 ng/mL [id number] ng/mL Insufficient> 30 ng/mL Sufficient*Donna COLLINS. N [...] MD LAB BLOOD ORDERABLES Final Re sult [facility] [address] [place] [address] [phone] * TSH W/Reflex to FT4 (01/30/2025 12:03 PM EDT) TSH reflex Free T4 2.04 0.32 - 4.0 uIU/mL [facility] Blood Venous blood specimen / Unknown 01/30/2025 12:03 PM EDT 01/30/2025 1:48 PM EDT us Reina Seth MD LAB BLOOD ORDERABLES Final Re sult [facility] [address] [place], [place] [phone] * (ABNORMAL) CBC auto differential (01/30/2025 12:03 PM EDT) White Blood Count 4.1(L) 4.8 - 10.8 X10*3/uL [facility] Red Blood Count 4.15(L) 4.20 - 5.50 X10*6/uL [facility] Hemoglobin 12.9 12.0 - 16.0 g/dl [facility] Hematocrit 38.8 37.0 - 47.0 % [facility] Mean Corpuscular Volume 93.5 80.0 - 98.0 fL [facility] Mean Corpuscular Hemoglobin 31.1 27.0 - 33.0 pg [facility] Mean Corpuscular HGB Conc 33.2 31.0 - 35.0 g/dl [facility] Red Cell Distribution Width 13.0 11.0 - 16.0 % [facility] Platelet Count 258 160 - 400 X10*3/uL [facility] Mean Platelet Volume 10.3 9.4 - 12.3 fL [facility] Neutrophils Percent Auto 38.0(L) 45 - 73 % [facility] Imm Gran Pct Auto 0.2 0.0 - 0.4 % [facility] Lymphocytes Percent Auto 51.4(H) 20 - 40 % [facility] Monocytes Percent Auto 7.4 2 - 11 % [facility] Eosinophils Percent Auto 2.0 0 - 4 % [facility] Basophils Percent Auto 1.0 0 - 2 % [facility] NRBC Pct Auto 0.0 0.0 - 0.2 /100WBC [facility] Neutrophils Absolute Auto 1.6(L) 2.0 - 8.3 x10*3/uL [facility] Imm Gran Abs Auto 0.01 0.00 - 0.03 X10*3/uL [facility] Lymphocytes Absolute Auto 2.1 1.2 - 4.9 X10*3/uL [facility] Monocytes Absolute Auto 0.3 0.1 - 1.2 X10*3/uL [facility] Eosinophils Absolute Auto 0.1 0.0 - 0.4 X10*3/uL [facility] Basophils Absolute Auto 0.0 0.0 - 0.2 X10*3/uL [facility] NRBC Abs Auto 0.000 0.0 - 0.012 X10*3/uL [facility] Blood Venous blood specimen / Unknown 01/30/2025 12:03 PM EDT 01/30/2025 1:48 PM EDT Reina Seth MD LAB BLOOD ORDERABLES Final Re sult Performing Organization Address [facility]/ZIP Co de Phone Number [facility] [address] [place] [address] [phone] * (ABNORMAL) Iron And Total Iron Binding Capacity (01/30/2025 12:03 PM EDT) Iron 104 30 - 160 mcg/dL [facility] Total Iron Binding Capacity 180(L) 228 - 428 mcg/dL [facility] Percent Iron Saturation 58(H) 15 - 50 % [facility] Unsaturated Iron Binding 76 ug/dL [facility] Blood Venous blood specimen / Unknown 01/30/2025 12:03 PM EDT 01/30/2025 1:48 PM EDT Reina Seth MD LAB BLOOD ORDERABLES Final Re sult Performing Organization Address [facility]/ZIP Co de Phone Number [facility] [address] [place] [address] [phone] * Hepatitis B surface antigen, EIA (01/30/2025 12:03 PM EDT) Pathologist [facility] Hepatitis B Surface Ag Negative Negative [facility] Blood Venous blood specimen / Unknown 01/30/2025 12:03 PM EDT 01/30/2025 1:48 PM EDT Reina Seth MD LAB BLOOD ORDERABLES Final Re sult Performing Organization Address [facility] Co de Phone Number [facility] [address] [place] [phone] * Hepatitis B Core Antibody, Total (01/30/2025 12:03 PM EDT) Pathologist [facility] Hepatitis B Core Antibody Nonreactive Nonreactive [facility] Blood Venous blood specimen / Unknown 01/30/2025 12:03 PM EDT 01/30/2025 1:48 PM EDT Reina Seth MD LAB BLOOD ORDERABLES Final Re sult Performing Organization Address [facility] de Phone Number [facility] [address] [place] [phone] * Hepatitis B Surface Antibody, Qualitative (01/30/2025 12:03 PM EDT) [facility] ~Hepatitis B Surface Antibody REACTIVE Nonreactive [facility] Comment:REACTIVE: > 11.99 mI U/mL Blood Venous blood specimen / Unknown 01/30/2025 12:03 PM EDT 01/30/2025 1:48 PM EDT Reina Seth MD LAB BLOOD ORDERABLES Final Re sult Performing Organization Address [facility] Co de Phone Number [facility] [address] [place] [phone] * Ferritin (01/30/2025 12:03 PM EDT) [facility] Ferritin 90 10 - 250 ng/mL [facility] Blood Venous blood specimen / Unknown 01/30/2025 12:03 PM EDT 01/30/2025 1:48 PM EDT us Reina Seth MD LAB BLOOD ORDERABLES Final Re sult [facility] [address] [place] [phone] [phone] * (ABNORMAL) Comprehensive Metabolic Panel (01/30/2025 12:03 PM EDT) Sodium 140 135 - 145 mmol/L [facility] Potassium 4.1 3.3 - 5.1 mmol/L [facility] Chloride 108 96 - 108 mmol/L [facility] Carbon Dioxide 25 22 - 29 mmol/L [facility] Anion Gap 11(L) 12 - 20 [facility] Urea Nitrogen (BUN) 19(H) 9 - 16 mg/dL [facility] Creatinine, Serum 1.19 0.5 - 1.4 mg/dL [facility] Estimated Glomerular Filt Rate 47 [facility] Comment:Chronic Kidney Disea se: Estimated GFR < 60 mL/min/[id number] Kidney Disease: Estimated GFR < 15 mL/min/1.73m2 Glucose 81 60 - 115 mg/dL [facility] Calcium 9.1 8.4 - 10.2 mg/dL [facility] Bilirubin, Total 0.3 0.0 - 1.0 mg/dL [facility] Aspartate Amino Transferase 26 5 - 31 U/L [facility] Alanine Aminotransferase 17 0 - 31 U/L [facility] Total Protein 6.0(L) 6.5 - 8.0 g/dL [facility] Albumin Level 3.8 3.5 - 5.0 g/dL [facility] Alkaline Phosphatase 79 39 - 117 U/L [facility] Blood Venous blood specimen / Unknown 01/30/2025 12:03 PM EDT 01/30/2025 1:48 PM EDT us Reina Seth MD LAB BLOOD ORDERABLES Final Re sult [facility] [address] [place] [phone] * (ABNORMAL) POCT PATRICIA-14 Urine Drug [...] AM EDT . Internal Pass Control Lot# [id number] Exp: 02-14-26 us Reina Seth MD POINT OF CARE TEST ENTER/EDIT ORDERABLES Final Result * XR Sacroiliac Joints 3+ Views (11/30/2024 1:32 PM EDT) Anatomical Region Laterality Modality Sacroiliac joint, Pelvis Radiogr aphic Imaging 11/30/2024 1:32 PM EDT Narrative 12/02/2024 10:07 AM EDT [facility] [address] [place] [address] [place] [address] XRay Report Signed Patient: Estephanie Smith MR#: [id number] 661 : 1970 Acct:[id number] Age/Sex: 54 / F ADM Date: 11/30/24 Loc: HO.HMGCX Attending Dr: Rea VARNER Ordering Physician: Rea Flower Date of Service: 11/30/24 Procedure(s): XR sacroiliac joint min 3V Accession Number(s): [id number] cc: Rea Flower; Reina Seth MD EXAMINATION: [...] 12/02/24 1005 DD/ 1332 TD/TT: 11/30/24 1344 Telecom Field Technician: Procedure Note Donotuseinterpreter, Image - 12/02/2024 [facility] [address] [place] [address] [place] [address] XRay Report Signed Patient: Estephanie Smith LMR#: [id number] : 1970Acct:[id number] Age/Sex: 54 / FADM Date: 11/30/24 Loc: HO.NABILX Attending Dr: Rea VARNER Ordering Physician: Rea Flower Date of Service: 11/30/24 Procedure(s): XR sacroiliac joint min 3V Accession Number(s): [id number] cc: Rea Flower; Reina Seth MD EXAMINATION: [...] 12/02/24 1005 DD/ 1332 TD/TT: 11/30/24 1344 Telecom Field Technician: [facility] External Provider IMG XR PROCEDURES Final Result * XR Lumbar Spine Complete 4+ Views (11/30/2024 1:32 PM EDT) Anatomical Region Laterality Modality Spine, L-spine Radiographic Jagruti ging 11/30/2024 1:32 PM EDT Narrative 12/02/2024 10:06 AM EDT [facility] [address] [place] [address] [place] [address] XRay Report Signed Patient: Estephanie Smith MR#: [id number] [id number] : 1970 Acct:[id number] Age/Sex: 54 / F ADM Date: 11/30/24 Loc: HO.HMGCX Attending Dr: Rea VARNER Ordering Physician: Rea Flower Date of Service: 11/30/24 Procedure(s): XR lumbar spine 4V min Accession Number(s): [id number] cc: Rea Flower; Reina Seth MD EXAMINATION: [...] 12/02/24 1003 DD/ 1332 TD/TT: 11/30/24 1344 Telecom Field Technician: Procedure Note Donotuseinterpreter, Image - 12/02/2024 [facility] [address] [place] [address] [place] [address] XRay Report Signed Patient: Estephanie Smith LMR#: [id number] : 1970Acct:[id number] Age/Sex: 54 / FADM Date: 11/30/24 [facility] Dr: Rea VARNER Ordering Physician: Rea Flower Date of Service: 11/30/24 Procedure(s): XR lumbar spine 4V min Accession Number(s): [id number] cc: Rea Flower; Reina Seth MD EXAMINATION: [...] 12/02/24 1003 DD/ 1332 TD/TT: 11/30/24 1344 Telecom Field Technician: [facility] External Provider IMG XR PROCEDURES Final Result * (ABNORMAL) Lipid Panel, Standard (06/16/2023 9:10 AM EST) Triglycerides 119 <150 mg/dL [facility] Comment:Desirable Triglyceri de: less than 150 mg/dLBorderline High Triglyceride 150-199 mg/dLHigh Triglyceride: 200-499 mg/dLVery High Triglyceride: greater than or equal to 5OO mg/dL Cholesterol 224(H) <200 mg/dL [facility] Comment:Desirable Cholestero l: less than 200 mg/dLBorderline High Cholesterol: 200-239 mg/dLHigh Cholesterol: greater than 239 mg/dL LDL Cholesterol Calculated 144(H) <100 mg/dL [facility] Comment:Desirable LDL: less than 100 mg/dLNear Optimal/Above Optimal LDL: 110- 129 mg/dLBorderline High LDL: 130-159 mg/dLHigh LDL: 160-189 mg/dLVery High LDL: greater than or equal to 190 mg/dL HDL Cholesterol 57 >40 mg/dL [facility] Comment:Desirable HDL: great er than 40 mg/dL Note: This HDL assay may give artificially low results in patients with liver disease. Blood Venous blood specimen / Unknown 06/16/2023 9:10 AM EST 06/16/2023 2:23 PM EST Reina Seth MD LAB BLOOD ORDERABLES Final Re sult [facility] [address] [place] [phone] * HEPATITIS C AB W/REFL TO HCV RNA, QN, PCR (01/08/2020 9:22 AM EDT) HEPATITIS C ANTIBODY NON-REACT DONAVAN NON-REACT DONAVAN [facility] INDEX 0.01 <1.00 [facility] Comment: HCV antibody was non-reactive. There is no laboratory evidence of HCV infection. In most cases, no further action is required. However, if recent HCV exposure is suspected, a test for HCV RNA (test code 28367) is suggested. For additional information please refer to http://[employer] Connect.ActionPlanner/faq/EQD30u5 (This link is being provided for informational/ educational purposes only.) 01/08/2020 9:22 AM EDT Lisa Landeros MD HISTORICAL/NON ORDERA BLE LABS Final Result [facility] [address] * HIV 1/2 ANTIGEN/ANTIBODY,FOURTH GENERATION W/RFL (01/08/2020 9:22 AM EDT) HIV-1/2 ANTIGEN AND ANTIBODIES, 4TH GENERATION W/ REFLEX NON-REACT DONAVAN NON-REACT DONAVAN [facility] Comment: HIV-1 antigen and HIV-1/HIV-2 [...] purpose. For additional information please refer to http://[employer] Connect.ActionPlanner/faq/HCA659 (This link is being provided for informational/ educational purposes only.) The performance of this assay has not been clinically validated in patients less than 2 years old. HIV-1/2 ANTIGEN AND ANTIBODIES, 4TH GENERATION W/ REFLEX NON-REACT DONAVAN NON-REACT DONAVAN [facility] Comment: HIV-1 antigen and HIV-1/HIV-2 [...] purpose. For additional information please refer to http://education.ActionPlanner/faq/YIZ297 (This link is being provided for informational/ educational purposes only.) The performance of this assay has not been clinically validated in patients less than 2 years old. 01/08/2020 9:22 AM EDT Lisa Landeros MD LAB BLOOD ORDERABLES Final Result Performing Organization Address City/State/[facility] Co de Phone Number [facility] [address] [place] [address] * DIGITAL BILATERAL SCREEN 1 (10/05/2018 12:12 [...] Relevant to Health Maintenance Insurance [facility] CARE < 65 [facility] STAND ADULT Care Teams Sample Dye Mixer Relationship Specialty Start Date End Date Reina Seth MD [address] [place] [address] [phone] PCP - General Family Medicine 06/17/20 Taylor Oh MD [address] [place] [address] Referring Physician Internal Medicine 07/25/22
== END 2025-02-11 13:25 | disposition home or self-care (01) ==
LOC: HO.PMCPRC 12:15
PROVIDERS: PCP Family Medicine; Visit Provider Anesthesiology
DX: M53.3 Sacrococcygeal disorders, not elsewhere classified (principal); M46.1 Sacroiliitis, not elsewhere classified; M54.50 Low back pain, unspecified; G89.29 Other chronic pain; M47.817 Spondylosis without myelopathy or radiculopathy, lumbosacral region; M43.16 Spondylolisthesis, lumbar region; M54.9 Dorsalgia, unspecified; M79.7 Fibromyalgia
CPT/HCPCS: 27096

== ENCOUNTER 2025-02-24 14:29 | Outpatient (REF) | payer OTHER, SELFPAY ==
--- OUTSIDE RECORDS SUMMARY | 2025-02-24 16:49 | XMS_ITS | Clinical Summary ---
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 45 tablet 1 02/07/20 25 Active cholecalcifero l VITAMIN D (Vitamin D-3) 50 MCG (2000 UT) capsule TAKE 1 CAPSULE BY MOUTH ONCE DAILY IN THE MORNING 30 capsule 5 02/20/20 25 Active oxyCODONE-acet aminophen (Percocet) 5-325 MG tabletIndicati ons:Chronic pain syndrome Take 1 tablet by mouth every 6 (six) hours if needed for severe pain for up to 28 days. 112 tablet 02/19/20 25 025 Active clobetasol (Temovate) 0.05 % external solution Apply topically in the morning. Use in scalp once a day for 2 weeks topically 50 mL 01/31/20 025 Discontinued(T herapy completed) mupirocin (Bactroban) 2 % ointment Apply topically 2 times daily. 22 g 06/28/19 025 Discontinued(T herapy completed) clotrimazole (Lotrimin) 1 % cream Apply topically 2 times daily. 60 g 06/28/19 025 Discontinued(T herapy completed) Acetaminophen Extra Strength 500 MG tablet TAKE 2 TABLETS BY MOUTH EVERY 8 HOURS NEEDED FOR PAIN 60 tablet 02/07/20 025 Discontinued(T herapy completed) D3 Super Strength 50 MCG (2000 UT) capsule TAKE 1 CAPSULE BY MOUTH ONCE DAILY IN THE MORNING 30 capsule 5 07/09/19 Discontinued gabapentin (Neurontin) 100 MG capsuleIndicat ions:Myalgia Take 1 capsule by oral route nightly. May increase up to 3 capsules (300mg) if needed for symptom relief 270 capsule 07/18/19 025 Discontinued(T herapy completed) oxyCODONE-acet aminophen (Percocet) 5-325 MG tabletIndicati ons:Chronic pain syndrome Take 1 tablet by mouth every 6 (six) hours if needed for severe pain for up to 28 days. 112 tablet 01/24/20 Discontinued(R eorder (will not trigger notification to Pharmacy)) Active Problems Problem Noted Date Diagnosed Date Cervical cancer screening 02/18/2025 Assessment & Plan (02/18/2025 11:06 AM EST): 55 y.o. here for cervical cancer screening. Will continue monitoring following ASCCP guidelines. Long-term current use of opiate analgesic 2024 Chronic pain syndrome 12/27/2024 Assessment & Plan (12/27/2024 9:29 AM EDT): Pain specialist has recommended cycling opioid therapy to Percocet for improved pain control in a patient with chronic back pain. After reviewing the available evidence and current guidelines, there is not full agreement with this recommendation. The [place] [employer] and the [place] [...] medications (e.g., Celexa) - Submit referral for floor care specialist - Encourage continuation of psychiatric care (appointments [...] 07/18/2023 9:00 AM Paulina De Leon MD [facility] Chronic back pain 06/12/2023 Depressive disorder [...] recommended reduction of 20-30% of maintenance calories; rotor plate washer referral offered. Recommended to decrease soda and [...] recommended reduction of 20-30% of maintenance calories; rotor plate washer referral offered. Recommended to decrease soda and [...] Encounters Date Type Department Care Team Description 02/18/2025 10:20 AM EST Procedure Visit [facility] [address] [place] [address] Reina Seth MD Cervical cancer screening (Primary Dx); Chronic pain syndrome 02/18/2025 Travel 02/18/2025 Refill [facility] [address] [place] [address] Paulina De Leon MD 02/11/2025 Travel 02/06/2025 Results Follow-Up [facility] [address] [place] [address] Reina Seth MD Iron And Total Iron Binding Capacity, Ferritin, CBC auto differential, Additional followed-up results: 6 01/30/2025 11:15 AM EDT Office Visit [facility] [address] [place] [address] Reina Seth MD Chronic pain syndrome (Primary Dx); Encounter for immunization; Encounter for vaccination; Class 3 severe obesity due to excess calories with serious comorbidity and body mass index (BMI) of 40.0 to 44.9 in adult (HCC); Breast cancer screening by mammogram 01/30/2025 Travel 01/29/2025 Telephone [facility] [address] [place] [address] Reina Seth MD Chart Prep 01/23/2025 11:00 AM EDT Clinical Support [facility] [address] [place] [address] Sonja Weathers RN Chronic pain syndrome (Primary Dx); Long-term current use of opiate analgesic 01/23/2025 Refill [facility] [address] [place] [address] Sonja Weathers RN Chronic pain syndrome 01/23/2025 Travel 01/22/2025 Travel 01/17/2025 Refill [facility] [address] [place] [address] Reina Seth MD 01/11/2025 Refill [facility] [address] [place] [address] Reina Seth MD 12/27/2024 Telephone [facility] [address] [place] [address] Sonja Weathers, RN CUSTOMER RELATIONS ASSISTANT 12/26/2024 11:15 AM EDT Office Visit [facility] [address] [place] [address] Reina Seth MD Chronic pain syndrome (Primary Dx) 12/26/2024 Travel 12/25/2024 Travel 12/14/[address] [facility] [address] [place] [address] Paulina De Leon MD Hypertension, unspecified type 12/05/2024 1:00 PM EDT Office Visit [facility] [address] [place] [address] Ky Best DDS Resistant hypertension (Primary Dx) 12/04/2024 Travel 11/30/2024 Orders Only [facility] External Provider, [facility] from Last 3 Months Immunizations Immunization Administration Dates Next Due Influenza injectable quadriv alent IIV4 with preservative 01/31/2019 Influenza injectable quadriv alent preservative free 01/30/2023,12/31/2021,02/17/2021,12/13,01/27/2014,02/13/2013 Influenza, IIV3, injectable 01/19/2012, 1,01/22/2010 Influenza, seasonal, injecta ble, preservative free 01/30/2025 Novel [id number], all formulations 04/16/2009 Pfizer Covid-19 Vaccine 12+ [...] Sign Reading Time Taken Comments Blood Pressure 107/67 02/18/2025 10:48 AM EST Pulse 74 02/18/2025 10:48 AM EST Temperature 36.2 C (97.2 F) 02/18/2025 10:48 AM EST Respiratory Rate 20 02/18/2025 10:48 AM EST Oxygen Saturation 98% 02/18/2025 10:48 AM EST Inhaled Oxygen Concentration - - Weight 50.6 kg (111 lb 9.6 oz) 02/18/2025 10:48 AM EST Height 147.3 cm (4' 10 ) 02/18/2025 10:48 AM EST Body Mass Index 23.32 02/18/2025 10:48 AM EST Plan of Treatment Upcoming Encounters Date Type Department Care Team (Late st Contact Info) Description 03/26/2025 9:30 AM EST Clinical Support [facility] [address] [place] [address] Sonja Weathers, RN [address] [place] [address] Health Maintenance Due Date Last Done Comments CT Colonography 1972 Dental Oral Exam 1972 Dental Prophylaxis 1972 Dental X-Ray: Bitewings 1972 FIT DNA/Cologuard 1972 FIT 1972 FOBT 1970 Sigmoidoscopy 1970 Mammogram 10/05/2020 10/05/2018, 10/05/2018 Pneumococcal Vaccine: 50+ Years (2 of 2 - PCV) 03/06/2022 03/06/2021, 11/09/2007 SDOH Screening 08/28/2025 08/28/2024 Alcohol/Substance Use Screening 12/26/2025 12/26/2024 Depression Screening 12/26/2025 12/26/2024, 12/27/19 25 Disability Screening 12/26/2025 12/26/2024 Tobacco Screening 02/18/2026 02/18/2025 Dental X-Ray: Full Mouth 12/07/2027 12/05/2024 Pap Smear 02/19/2028 02/18/2025 Lipid Panel 06/15/2028 06/16/2023, 12/17, 10/12/2020 DTaP/Tdap/Td Vaccines (3 - Td or Tdap) 01/13/2030 01/14/2020, 10/23/2006 Cervical Cancer Screening 02/18/2030 HPV/Cotest 02/18/2030 02/18/2025 Colonoscopy 08/17/2030 Colorectal Cancer Screening 08/17/2030 RSV [...] Procedure Name Priority Date/Time Associated Diagnosis Comments PAP SMEAR Routine 02/18/2025 12:00 PM EST Cervical cancer screening HPV DNA, LOW/HIGH RISK Routine 02/18/2025 12:00 AM EST Cervical cancer screening HEPATITIS B SURFACE ANTIGEN, EIA Routine 01/30/2025 [...] (BMI) of 40.0 to 44.9 in adult ([facility]) CBC WITH AUTO DIFFERENTIAL Routine 01/30/2025 12:03 PM EDT Class 3 severe obesity due to excess calories with serious comorbidity and body mass index (BMI) of 40.0 to 44.9 in adult ([facility]) FERRITIN Routine 01/30/2025 12:03 PM EDT Class 3 severe obesity due to excess calories with serious comorbidity and body mass index (BMI) of 40.0 to 44.9 in adult ([facility]) IRON AND TOTAL IRON BINDING CAPACITY Routine 01/30/2025 12:03 PM EDT Class 3 severe obesity due to excess calories with serious comorbidity and body mass index (BMI) of 40.0 to 44.9 in adult ([facility]) POCT PATRICIA-14 URINE DRUG SCREEN Routine 01/23/2025 [...] (BMI) of 40.0 to 44.9 in adult ([facility]/HCC) ZZZ HISTORICAL HEPATITIS C AB W/REFL TO HCV RNA, QN, PCR Routine 01/08/2020 9:22 AM EDT HIV 1/2 ANTIGEN/ANTIBODY, FOURTH GENERATION W/RFL Routine 01/08/2020 9:22 AM EDT BI MAMMOGRAM SCREENING BILATERAL Routine 10/05/2018 12:12 PM EDT from Last 3 Months or Most Recently Relevant to Health Maintenance Results * Pap Smear (02/18/2025 12:00 PM EST) Swab 02/18/2025 12:0 0 PM EST 02/19/2025 6:18 AM EST [facility] - 02/21/2025 3:18 PM EST ----- ------- Name: Estephanie Smith Age/Sex: 55/F : 1970 Unit#: [id number] Attend Dr: Re02/18/25 Status: PRE [facility] Location: [facility] Disch: ----- ------- SPEC : [id number] RECD: 02/19/25 STATUS: LISET EPPERSON NUM: [id number] KEISHA: 02/18/25-1199 [facility] DR: Reina Seth MD ENTERED: 02/19/25 SP TYPE: Pap Smr OT DR: ORDERED: Pap Smear Interpretation Satisfactory for evaluation. Negative for intraepithelial lesion or malignancy. No endocervical cells seen. HPV High Risk: Negative HPV Genotyping 16: Negative HPV Genotyping 18: Positive Clinical Information LMP: Menopausal Previous PAP: Unknown date/findings Material Received ThinPrep-Cervical PAP Disclaimer As of February 07, 2024, the technical services to include automated prescreening performed by the ThinPrep Imaging System, PAP screening and HPV testing will be performed at [facility] (CLIA #[id number]), [address] [place] [address]. Testing for HPV was performed using the [employer] 6800 system. The presence of HPV in the female genital tract is associated with a number of diseases, including cervical carcinoma. The HPV DNA high risk pool tests for HPV 31, 33, 35, 39, 45, 51, 52, 56, 58, 59, 66 and 68. The testing for HPV 16 and 18 genotypes has also been performed. A positive result indicates detection of nucleic acid sequences from one or more subtypes, whereas a negative result indicates such sequences were not detected. All professional services are performed by [facility] ([address] [place] [address]; ; CLIA #[id number]). The PAP Test is a screening procedure with the inherent possibility of both false negative and false positive results. Results should be interpreted in the context of historic and current clinical findings. Reliability of the PAP Test is enhanced by performing the test on a regular repetitive basis. ----- ------- Signed (signature on file) KRISTA Quispe ([facility]) 02/21/25 1518 ----- ------- END OF REPORT Reina Seth MD LAB CYTOLOGY ORDERABLES Final Result Performing Organization Address City/[facility]/ZIP Co de Phone Number [facility] [address] [place] [address] [phone] * (ABNORMAL) HPV High Risk with Reflex to Subtypes (02/18/2025 12:00 AM EST) HPV High Risk Negative Negative [facility] HPV Genotype 16 Negative Negative [facility] HPV Genotype 18 Positive(A) Negative [facility] Comment:HPV testing performe d at [facility] (CLIA#[id number]), [address] [place] [address].Testing for HPV was performed using the [employer]system. The presence of HPV in the female genital tract isassociated with a number of diseases, including cervicalcarcinoma. The HPV DNA high risk pool tests for HPV 31, 33,35, 39, 45, 51, 52, 56, 58, 59, 66 and 68. The testing forHPV 16 and 18 genotypes has also been performed. A positiveresult indicates detection of nucleic acid sequences fromone or more subtypes, whereas a negative result indicatessuch sequences were not detected. Pap Vial 02/18/2025 02/19/2025 6:1 8 AM EST Reina Seth MD LAB BLOOD ORDERABLES Final Re sult Performing Organization Address City/[facility]/ZIP Co de Phone Number [facility] [address] [place] [address] [phone] * Vitamin D, 25-Hydroxy, Total, Immunoassay (01/30/2025 12:03 PM EDT) Vitamin D 25-OH Total 106.3 >30 ng/mL [facility] Comment: Health Based Reference Values*< 20 ng/mL Dydyvamhp16-47 ng/mL Insufficient> 30 ng/mL Sufficient*Donna COLLINS. N [...] ORDERABLES Final Re sult Performing Organization Address City/[facility]/ZIP Co de Phone Number [facility] [address] [place] [phone] * TSH W/Reflex to FT4 (01/30/2025 12:03 PM EDT) TSH reflex Free T4 2.04 0.32 - 4.0 uIU/mL [facility] Blood Venous blood specimen / Unknown 01/30/2025 12:03 PM EDT 01/30/2025 1:48 PM EDT us Reina Seth MD LAB BLOOD ORDERABLES Final Re sult Performing Organization Address City/[facility]/ZIP Co de Phone Number [facility] [address] [place] [phone] * (ABNORMAL) CBC auto differential (01/30/2025 12:03 PM EDT) White Blood Count 4.1(L) 4.8 - 10.8 X10*3/uL [facility] Red Blood Count 4.15(L) 4.20 - 5.50 X10*6/uL [facility] Hemoglobin 12.9 12.0 - 16.0 g/dl [facility] Hematocrit 38.8 37.0 - 47.0 % [facility] Mean Corpuscular Volume 93.5 80.0 - 98.0 fL [facility] Mean Corpuscular Hemoglobin 31.1 27.0 - 33.0 pg [facility] Mean Corpuscular HGB Conc 33.2 31.0 - 35.0 g/dl [facility] Red Cell Distribution Width 13.0 11.0 - 16.0 % [facility] Platelet Count 258 160 - 400 X10*3/uL [facility] Mean Platelet Volume 10.3 9.4 - 12.3 fL [facility] Neutrophils Percent Auto 38.0(L) 45 - 73 % [facility] Imm Gran Pct Auto 0.2 0.0 - 0.4 % [facility] Lymphocytes Percent Auto 51.4(H) 20 - 40 % [facility] Monocytes Percent Auto 7.4 2 - 11 % [facility] Eosinophils Percent Auto 2.0 0 - 4 % [facility] Basophils Percent Auto 1.0 0 - 2 % [facility] NRBC Pct Auto 0.0 0.0 - 0.2 /100WBC [facility] Neutrophils Absolute Auto 1.6(L) 2.0 - 8.3 x10*3/uL [facility] Imm Gran Abs Auto 0.01 0.00 - 0.03 X10*3/uL [facility] Lymphocytes Absolute Auto 2.1 1.2 - 4.9 X10*3/uL [facility] Monocytes Absolute Auto 0.3 0.1 - 1.2 X10*3/uL [facility] Eosinophils Absolute Auto 0.1 0.0 - 0.4 X10*3/uL [facility] Basophils Absolute Auto 0.0 0.0 - 0.2 X10*3/uL [facility] NRBC Abs Auto 0.000 0.0 - 0.012 X10*3/uL [facility] Blood Venous blood specimen / Unknown 01/30/2025 12:03 PM EDT 01/30/2025 1:48 PM EDT Reina Seth MD LAB BLOOD ORDERABLES Final Re sult Performing Organization Address [facility] Co de Phone Number [facility] [address] [place] [address] [phone] * (ABNORMAL) Iron And Total Iron Binding Capacity (01/30/2025 12:03 PM EDT) Iron 104 30 - 160 mcg/dL [facility] Total Iron Binding Capacity 180(L) 228 - 428 mcg/dL [facility] Percent Iron Saturation 58(H) 15 - 50 % [facility] Unsaturated Iron Binding 76 ug/dL [facility] Blood Venous blood specimen / Unknown 01/30/2025 12:03 PM EDT 01/30/2025 1:48 PM EDT Reina Seth MD LAB BLOOD ORDERABLES Final Re sult Performing Organization Address [facility] de Phone Number [facility] [address] [place] [phone] * Hepatitis B surface antigen, EIA (01/30/2025 12:03 PM EDT) Hepatitis B Surface Ag Negative Negative [facility] Blood Venous blood specimen / Unknown 01/30/2025 12:03 PM EDT 01/30/2025 1:48 PM EDT Reina Seth MD LAB BLOOD ORDERABLES Final Re sult Performing Organization Address [facility] Co de Phone Number [facility] [address] [place] [phone] * Hepatitis B Core Antibody, Total (01/30/2025 12:03 PM EDT) Pathologist [facility] Hepatitis B Core Antibody Nonreactive Nonreactive [facility] Blood Venous blood specimen / Unknown 01/30/2025 12:03 PM EDT 01/30/2025 1:48 PM EDT Reina Seth MD LAB BLOOD ORDERABLES Final Re sult Performing Organization Address [facility]/ZIP Co de Phone Number [facility] [address] [place] [phone] * Hepatitis B Surface Antibody, Qualitative (01/30/2025 12:03 PM EDT) Pathologist [facility] ~Hepatitis B Surface Antibody REACTIVE Nonreactive [facility] Comment:REACTIVE: > 11.99 mI U/mL Blood Venous blood specimen / Unknown 01/30/2025 12:03 PM EDT 01/30/2025 1:48 PM EDT Reina Seth MD LAB BLOOD ORDERABLES Final Re sult Performing Organization Address [facility] Co de Phone Number [facility] [address] [place] [phone] * Ferritin (01/30/2025 12:03 PM EDT) [facility] Ferritin 90 10 - 250 ng/mL [facility] Blood Venous blood specimen / Unknown 01/30/2025 12:03 PM EDT 01/30/2025 1:48 PM EDT Reina Seth MD LAB BLOOD ORDERABLES Final Re sult Performing Organization Address [facility] Co de Phone Number [facility] [address] [place] [phone] * (ABNORMAL) Comprehensive Metabolic Panel (01/30/2025 12:03 PM EDT) Sodium 140 135 - 145 mmol/L [facility] Potassium 4.1 3.3 - 5.1 mmol/L [facility] Chloride 108 96 - 108 mmol/L [facility] Carbon Dioxide 25 22 - 29 mmol/L [facility] Anion Gap 11(L) 12 - 20 [facility] Urea Nitrogen (BUN) 19(H) 9 - 16 mg/dL [facility] Creatinine, Serum 1.19 0.5 - 1.4 mg/dL [facility] Estimated Glomerular Filt Rate 47 [facility] Comment:Chronic Kidney Disea se: Estimated GFR < 60 mL/min/1.72z1Plwaoo Kidney Disease: Estimated GFR < 15 mL/min/1.73m2 Glucose 81 60 - 115 mg/dL [facility] Calcium 9.1 8.4 - 10.2 mg/dL [facility] Bilirubin, Total 0.3 0.0 - 1.0 mg/dL [facility] Aspartate Amino Transferase 26 5 - 31 U/L [facility] Alanine Aminotransferase 17 0 - 31 U/L [facility] Total Protein 6.0(L) 6.5 - 8.0 g/dL [facility] Albumin Level 3.8 3.5 - 5.0 g/dL [facility] Alkaline Phosphatase 79 39 - 117 U/L [facility] Blood Venous blood specimen / Unknown 01/30/2025 12:03 PM EDT 01/30/2025 1:48 PM EDT us Reina Seth MD LAB BLOOD ORDERABLES Final Re sult [facility] [address] [place] [phone] * (ABNORMAL) POCT PATRICIA-14 Urine Drug [...] AM EDT . Internal Pass Control Lot# [id number] Exp: 02-14-26 Reina Seth MD POINT OF CARE TEST ENTER/EDIT ORDERABLES Final Result * XR Sacroiliac Joints 3+ Views (11/30/2024 1:32 PM EDT) Anatomical Region Laterality Modality Sacroiliac joint, Pelvis Radiogr aphic Imaging 11/30/2024 1:32 PM EDT Narrative 12/02/2024 10:07 AM EDT [facility] [address] [place] [address] [place] [address] XRay Report Signed Patient: Estephanie Smith MR#: [id number] 661 : 1970 Acct:[id number] Age/Sex: 54 / F ADM Date: 11/30/24 Loc: HO.HMGCX Attending Dr: Rea VARNER Ordering Physician: Rea Flower Date of Service: 11/30/24 Procedure(s): XR sacroiliac joint min 3V Accession Number(s): [id number] cc: Rea Flower; Reina Seth MD EXAMINATION: [...] 12/02/24 1005 DD/ 1332 TD/TT: 11/30/24 1344 Tape Edge Machine Operator: Procedure Note Donotuseinterpreter, Image - 12/02/2024 [facility] [place] [address] XRay Report Signed Patient: Estephanie Smith LMR#: [id number] 661 : 1970Acct:[id number] Age/Sex: 54 / FADM Date: 11/30/24 Loc: .HMGCX Attending Dr: Rea VARNER Ordering Physician: Rea Flower Date of Service: 11/30/24 Procedure(s): XR sacroiliac joint min 3V Accession Number(s): [id number] cc: Rea Flower; Reina Seth MD EXAMINATION: [...] 12/02/24 1005 DD/ 1332 TD/TT: 11/30/24 1344 Tape Edge Machine Operator: [facility] External Provider IMG XR PROCEDURES Final Result * XR Lumbar Spine Complete 4+ Views (11/30/2024 1:32 PM EDT) Anatomical Region Laterality Modality Spine, L-spine Radiographic Jagruti ging 11/30/2024 1:32 PM EDT Narrative 12/02/2024 10:06 AM EDT [facility] [address] [place] [address] [place] [address] XRay Report Signed Patient: Estephanie Smith MR#: [id number] 661 : 1970 Acct:[id number] Age/Sex: 54 / F ADM Date: 11/30/24 Loc: HMGCX Attending Dr: Rea VARNER Ordering Physician: Rea Flower Date of Service: 11/30/24 Procedure(s): XR lumbar spine 4V min Accession Number(s): [id number] cc: Rea Flower; Reina Seth MD EXAMINATION: [...] 12/02/24 1003 DD/ 1332 TD/TT: 11/30/24 1344 Tape Edge Machine Operator: Procedure Note Donotuseinterpreter, Image - 12/02/2024 [facility] [address] [place] [address] [place] [address] XRay Report Signed Patient: Estephanie Smith LMR#: [id number] 661 : 1970Acct:[id number] Age/Sex: 54 / FADM Date: 11/30/24 [facility] Dr: Rea VARNER Ordering Physician: Rea Flower Date of Service: 11/30/24 Procedure(s): XR lumbar spine 4V min Accession Number(s): [id number] cc: Rea Flower; Reina Seth MD EXAMINATION: [...] 12/02/24 1003 DD/ 1332 TD/TT: 11/30/24 1344 Tape Edge Machine Operator: us [facility] External Provider IMG XR PROCEDURES Final Result * (ABNORMAL) Lipid Panel, Standard (06/16/2023 9:10 AM EST) Triglycerides 119 <150 mg/dL [facility] Comment:Desirable Triglyceri de: less than 150 mg/dLBorderline High Triglyceride 150-199 mg/dLHigh Triglyceride: 200-499 mg/dLVery High Triglyceride: greater than or equal to 5OO mg/dL Cholesterol 224(H) <200 mg/dL [facility] Comment:Desirable Cholestero l: less than 200 mg/dLBorderline High Cholesterol: 200-239 mg/dLHigh Cholesterol: greater than 239 mg/dL LDL Cholesterol Calculated 144(H) <100 mg/dL [facility] Comment:Desirable LDL: less than 100 mg/dLNear Optimal/Above Optimal LDL: 110- 129 mg/dLBorderline High LDL: 130-159 mg/dLHigh LDL: 160-189 mg/dLVery High LDL: greater than or equal to 190 mg/dL HDL Cholesterol 57 >40 mg/dL [facility] Comment:Desirable HDL: great er than 40 mg/dL Note: This HDL assay may give artificially low results in patients with liver disease. Blood Venous blood specimen / Unknown 06/16/2023 9:10 AM EST 06/16/2023 2:23 PM EST Reina Seth MD LAB BLOOD ORDERABLES Final Re sult [facility] [address] [place] [phone] * HEPATITIS C AB W/REFL TO HCV RNA, QN, PCR (01/08/2020 9:22 AM EDT) HEPATITIS C ANTIBODY NON-REACT [facility] NON-REACT [facility] INDEX 0.01 <1.00 [facility] Comment: HCV antibody was non-reactive. There is no laboratory evidence of HCV infection. In most cases, no further action is required. However, if recent HCV exposure is suspected, a test for HCV RNA (test code 81650) is suggested. For additional information please refer to http://Weeleo.ASOCS/faq/EYI60t3 (This link is being provided for informational/ educational purposes only.) 01/08/2020 9:22 AM EDT Lisa Landeros MD HISTORICAL/NON ORDERA BLE LABS Final Result [facility] [address] * HIV 1/2 ANTIGEN/ANTIBODY,FOURTH GENERATION W/RFL [...] purpose. For additional information please refer to http://Weeleo.Doppelgames.Dynamic Signal/faq/IHM210 (This link is being provided for informational/ educational purposes only.) The performance of this assay has not been clinically validated in patients less than 2 years old. HIV-1/2 ANTIGEN AND ANTIBODIES, 4TH GENERATION W/ REFLEX NON-REACT DON[facility]AN NON-REACT [facility] Comment: HIV-1 antigen and HIV-1/HIV-2 [...] purpose. For additional information please refer to http://education.Doppelgames.Dynamic Signal/faq/RNW821 (This link is being provided for informational/ educational purposes only.) The performance of this assay has not been clinically validated in patients less than 2 years old. 01/08/2020 9:22 AM EDT Lisa Landeros MD LAB BLOOD ORDERABLES Final Result [facility] [address] [place] [address] * DIGITAL BILATERAL SCREEN 1 (10/05/2018 12:12 [...] Recently Relevant to Health Maintenance Insurance [facility] ONE CARE < 65 [address] [id number] DENTAL [facility] [employer] STAND ADULT Care Teams Electrical Wiring Lineman Relationship Specialty Start Date End Date Reina Seth MD [address] [place] [address] PCP - General Family Medicine 06/17/20 Taylor Oh MD [address] [place] [address] Referring Physician Internal Medicine 07/25/22
--- OUTSIDE RECORDS SUMMARY | 2025-02-24 16:49 | XMS_ITS | Encounter Summary ---
Author Organization [employer] Address 75 [facility] 7t [place] [address] Care Team Providers Care Bathhouse Keeper Name Role Phone Reina Seth MD Primary Care Provider [phone] Taylor Oh MD Unavailable Reason for Visit * Reason Comments Med Refill Encounter Details Date Type Department Care Team ([facility] st Contact Info) Description 02/18/2025 Refill [facility] MED & PEDS [address] [place], [place] [phone] Paulina De Leon MD 505 [place] [address] Social History Tobacco Use Types Packs/Day Years [...] Description 03/26/2025 9:30 AM EST Clinical Support [facility] MED & PEDS [address] [place] [address] Sonja Weathers, SATHYA 505 [place] [address] documented as of this encounter Visit Diagnoses Not on filedocumented in this encounter Additional Health Concerns Assessment Noted Time PHQ-9 Depression Total Score: 4 12/27/19 25 11:47 AM EDT documented as of this encounter Care Teams Bathhouse Keeper Relationship Specialty Start Date End Date Reina Seth MD [address] [place] [address] PCP - General Family Medicine 06/17/20 Taylor Oh MD [address] [place] [address] Referring Physician Internal Medicine 07/25/22 documented as of this encounter
--- OUTSIDE RECORDS SUMMARY | 2025-02-24 16:49 | XMS_ITS | Encounter Summary ---
Author Organization [employer] Address 75 [facility] [address] 7t [place] [address] Care Team Providers Care In Tube Conversion Technician Name Role Phone Reina Seth MD Primary Care Provider [phone] Taylor Oh MD Unavailable Reason for Visit * Reason Onset Date Comments Appointment Request 06/22/2022 Encounter Details Date Type Department Care Team ([facility] st Contact Info) Description 06/22/2022 Telephone [facility] MEDICINE [address] [place] [address] Reina Seth MD [address] [place], [place] [phone] Appointment Request Social History Tobacco Use Types [...] in this Monday06/24/2022 Please contact pt at [phone] documented in this encounter Plan of Treatment Upcoming Encounters Date Type Department Care Team (Late st Contact Info) Description 03/26/2025 9:30 AM EST Clinical Support [facility] MED & PEDS 505 [place] [address] Sonja Weathers, RN 505 [place] [address] documented as of this encounter Visit Diagnoses Not on filedocumented in this encounter Care Teams In Tube Conversion Technician Relationship Specialty Start Date End Date Reina Seth MD [address] [place] [address] PCP - General Family Medicine 06/17/20 Taylor Oh MD [address] [place] [address] Referring Physician Internal Medicine 07/25/22 documented as of this encounter
--- OUTSIDE RECORDS SUMMARY | 2025-02-24 16:49 | XMS_ITS | Encounter Summary ---
Author Organization [employer] Address [address] [facility] [address] 7t [place] [address] Care Team Providers Care Biller Name Role Phone Reina Seth MD Primary Care Provider [phone] Taylor Oh MD Unavailable Encounter Details Date Type Department Care Team ([facility] st Contact Info) Description 09/04/2024 Telephone [facility] MEDICINE 230 [place], [place] [phone] Reina Seth MD [address] [place], [place] [phone] Social History Tobacco Use Types Packs/Day Years [...] Description 03/26/2025 9:30 AM EST Clinical Support [facility] MED & PEDS 505 [place] [address] Sonja Weathers, SATHYA 505 [place] [address] documented as of this encounter Visit Diagnoses Not on filedocumented in this encounter Additional Health Concerns Assessment Noted Time PHQ-9 Depression Total Score: 6 07/28/19 23 8:47 AM EDT documented as of this encounter Care Teams Biller Relationship Specialty Start Date End Date Reina Seth MD [address] [place] [address] PCP - General Family Medicine 06/17/20 Taylor Oh MD 73 [place] [address] Referring Physician Internal Medicine 07/25/22 documented as of this encounter
--- OUTSIDE RECORDS SUMMARY | 2025-02-24 16:49 | XMS_ITS | Encounter Summary ---
Author Organization [employer] Address [address] [facility] [address] 7t [place] [address] Care Team Providers Care Field Training Manager Name Role Phone Reina Seth MD Primary Care Provider [phone] Taylor Oh MD Unavailable Encounter Details Date Type Department Care Team ([facility] st Contact Info) Description 07/27/2022 Telephone [facility] MEDICINE 230 [place], [place] [phone] Reina Seth MD [address] [place], [place] [phone] Social History Tobacco Use Types Packs/Day Years [...] Description 03/26/2025 9:30 AM EST Clinical Support [facility] MED & PEDS 505 [place] [address] Sonja Weathers, RN [address] [place], [place] documented as of this encounter Visit Diagnoses Not on filedocumented in this encounter Additional Health Concerns Assessment Noted Time PHQ-9 Depression Total Score: 6 07/28/19 23 8:47 AM EDT documented as of this encounter Care Teams Field Training Manager Relationship Specialty Start Date End Date Reina Seth MD 230 [place] [address] PCP - General Family Medicine 06/17/20 Taylor Oh MD 73 [place] [address] Referring Physician Internal Medicine 07/25/22 documented as of this encounter
--- OUTSIDE RECORDS SUMMARY | 2025-02-24 16:49 | XMS_ITS | Encounter Summary ---
Author Organization [employer] Address [address] [place] [address] 7t [place] [address] Care Team Providers Care Project Manager Entertainment And Media Name Role Phone Reina Seth MD Primary Care Provider Taylor Oh MD Unavailable Reason for Visit * Reason Comments Med Refill Encounter Details Date Type Department Care Team ([facility] Contact Info) Description 09/23/2022 Refill [facility] CH[facility] MED & PEDS [address] [place], [place] [phone] Reina Seth MD 505 [place], [place] [phone] Neck pain, musculoskeletal Social History Tobacco Use [...] Upcoming Encounters Date Type Department Care Team ([facility] Contact Info) Description 03/26/2025 9:30 AM EST Clinical Support [facility] CHC MED & PEDS [address] [place] [address] Sonja Weathers, RN 505 [place] [address] documented as of this encounter Visit Diagnoses Diagnosis Neck pain, musculoskeletal documented in this encounter Additional Health Concerns Assessment Noted Time PHQ-9 Depression Total Score: 6 07/28/19 8:47 AM EDT documented as of this encounter Care Teams Project Manager Entertainment And Media Relationship Specialty Start Date End Date Reina Seth MD [address] [place] [address] PCP - General Family Medicine 06/17/20 Taylor Oh MD 73 [place] [address] Referring Physician Internal Medicine 07/25/22 documented as of this encounter
--- OUTSIDE RECORDS SUMMARY | 2025-02-24 16:49 | XMS_ITS | Encounter Summary ---
Author Organization [employer] Address [address] [place] [address] 7t [place] [address] Care Team Providers Care Lumber Sorter Name Role Phone Reina Seth MD Primary Care Provider [phone] Taylor Oh MD Unavailable Reason for Visit * Reason Comments Med Refill Encounter Details Date Type Department Care Team ([facility] Contact Info) Description 06/11/2022 Refill [facility] MED & PEDS 505 [place] [address] Reina Seth MD 505 [place] [address] Social History Tobacco Use Types Packs/Day Years [...] - [facility] Contact Info) Description 03/26/2025 9:30 AM EST Clinical Support [facility] MED & PEDS 505 [place] [address] Sonja Weathers, RN 505 [place] [address] documented as of this encounter Visit Diagnoses Not on filedocumented in this encounter Care Teams Lumber Sorter Relationship Specialty Start Date End Date Reina Seth MD [address] [place] [address] PCP - General Family Medicine 06/17/20 Taylor Oh MD [address] [place] [address] Referring Physician Internal Medicine 07/25/22 documented as of this encounter
--- OUTSIDE RECORDS SUMMARY | 2025-02-24 16:49 | XMS_ITS | Encounter Summary ---
Author Organization [employer] Address [address] [place] [address] 7t [place] [address] Care Team Providers Care Systems Analysis Manager Name Role Phone Reina Seth MD Primary Care Provider Taylor Oh MD Unavailable Reason for Visit * Reason Onset Date Comments triage 05/03/2022 Encounter Details Date Type Department Care Team ([facility] Contact Info) Description 05/03/2022 Telephone [facility] CH[facility] MED & PEDS 505 [place] [address] Reina Seht MD 505 [place] [address] triage Social History Tobacco Use Types Packs/Day [...] requesting antibiotic again. Advised to come to [facility] 05/04 @200pm [facility]. Pt agreed with disposition . Insurance [...] nodes in back of neck, please call [phone]. [place] documented in this encounter Plan of Treatment Upcoming Encounters Date Type Department Care Team (Late st Contact Info) Description 03/26/2025 9:30 AM EST Clinical Support [facility] MED & PEDS 505 [place] [address] Sonja Weathers, RN 505 [place] [address] documented as of this encounter Visit Diagnoses Diagnosis Other chronic pain documented in this encounter Care Teams Systems Analysis Manager Relationship Specialty Start Date End Date Reina Seth MD 230 [place] [address] PCP - General Family Medicine 06/17/20 Taylor Oh MD 73 [place] [address] Referring Physician Internal Medicine 07/25/22 documented as of this encounter
--- OUTSIDE RECORDS SUMMARY | 2025-02-24 16:49 | XMS_ITS | Encounter Summary ---
Author Organization [employer] Address [address] [place] [address] 7t [place] [address] Care Team Providers Care Cable Installation Manager Name Role Phone Reina Seth MD Primary Care Provider [phone] Taylor Oh MD Unavailable Reason for Visit * Reason Comments Med Refill Encounter Details Date Type Department Care Team ([facility] Contact Info) Description 07/08/2022 Refill [facility] MEDICINE 230 [place] [address] Reina Seth MD 505 [place], [place] [phone] Social History Tobacco Use Types Packs/Day Years [...] Upcoming Encounters Date Type Department Care Team ([facility] Contact Info) Description 03/26/2025 9:30 AM EST Clinical Support [facility] CH[facility] MED & PEDS 505 [place], [place] [phone] Sonja Weathers, SATHYA 505 [place] [address] documented as of this encounter Visit Diagnoses Not on filedocumented in this encounter Care Teams Cable Installation Manager Relationship Specialty Start Date End Date Reina Seth MD [address] [place] [address] PCP - General Family Medicine 06/17/20 Taylor Oh MD [address] [place] [address] Referring Physician Internal Medicine 07/25/22 documented as of this encounter
--- OUTSIDE RECORDS SUMMARY | 2025-02-24 16:50 | XMS_ITS | Encounter Summary ---
Author Organization [employer] Address [address] [place] [address] 7 [place] [address] Care Team Providers Care Fire Investigation Lieutenant Name Role Phone Reina Seth MD Primary Care Provider [phone] Taylor Oh MD Unavailable Reason for Visit * Reason Comments Med Refill Encounter Details Date Type Department Care Team (Late Contact Info) Description 10/31/2022 Refill [facility] MED & PEDS 505 [place] [address] Reina Seth MD 505 [place] [address] Social History Tobacco Use Types Packs/Day Years [...] Care Team ([facility] Contact Info) Description 03/26/2025 9:30 AM EST Clinical Support [facility] MED & PEDS 505 [place] [address] Sonja Weathers RN 505 [place] [address] documented as of this encounter Visit Diagnoses Not on filedocumented in this encounter Additional Health Concerns Assessment Noted Time PHQ-9 Depression Total Score: 6 07/28/19 23 8:47 AM EDT documented as of this encounter Care Teams Fire Investigation Lieutenant Relationship Specialty Start Date End Date Reina Seth MD [address] [place] [address] PCP - General Family Medicine 06/17/20 Taylor Oh MD 73 [place] [address] Referring Physician Internal Medicine 07/25/22 documented as of this encounter
--- OUTSIDE RECORDS SUMMARY | 2025-02-24 16:50 | XMS_ITS | Encounter Summary ---
Author Organization [employer] Address 75 [facility] 7t [place] [address] Care Team Providers Care Security Installation Sales Technician Name Role Phone Reina Seth MD Primary Care Provider [phone] Taylor Oh MD Unavailable Reason for Visit * Reason Comments Med Refill Encounter Details Date Type Department Care Team ([facility] Contact Info) Description 10/31/[address] [facility] CHC MED & PEDS 505 [place], [place] [phone] Reina Seth MD 505 [place], [place] [phone] Social History Tobacco Use Types Packs/Day Years [...] Description 03/26/2025 9:30 AM EST Clinical Support [facility] MED & PEDS 505 [place] [address] Sonja Weathers RN 505 [place] [address] documented as of this encounter Visit Diagnoses Not on filedocumented in this encounter Additional Health Concerns Assessment Noted Time PHQ-9 Depression Total Score: 6 07/28/19 23 8:47 AM EDT documented as of this encounter Care Teams Security Installation Sales Technician Relationship Specialty Start Date End Date Reina Seth MD [address] [place] [address] PCP - General Family Medicine 06/17/20 Taylor Oh MD [address] [place] [address] Referring Physician Internal Medicine 07/25/22 documented as of this encounter
--- OUTSIDE RECORDS SUMMARY | 2025-02-24 16:50 | XMS_ITS | Encounter Summary ---
Author Organization [employer] Address [address] [facility] 7t [place] [address] Care Team Providers Care Demonstrator Knitting Name Role Phone Reina Seth MD Primary Care Provider [phone] Taylor Oh MD Unavailable Reason for Visit * Reason Onset Date Comments ER Follow-up 06/20/2023 Encounter Details Date Type Department Care Team ([facility] Contact Info) Description 06/20/2023 Telephone [facility] CHC MED & PEDS 505 [place], [place] [phone] Reina Seth MD 505 [place] [address] ER Follow-up Social History Tobacco Use Types [...] 9:36 AM EST Tc to pt regarding [facility] ED visit om 06/19 for umbilical infection. [...] ED visit on : Date: 06/19 Hospital: [facility] Seen for: Wound/laceration Patient advised will forward to team nurse for follow up Please contact pt at [phone] documented in this encounter Plan of Treatment Upcoming Encounters Date Type Department Care Team ([facility] st Contact Info) Description 03/26/2025 9:30 AM EST Clinical Support [facility] MED & PEDS 505 [place] [address] Sonja Weathers, RN 505 [place] [address] documented as of this encounter Visit Diagnoses Not on filedocumented in this encounter Additional Health Concerns Assessment Noted Time PHQ-9 Depression Total Score: 6 07/28/19 23 8:47 AM EDT documented as of this encounter Care Teams Demonstrator Knitting Relationship Specialty Start Date End Date Reina Seth MD [address] [place] [address] PCP - General Family Medicine 06/17/20 Taylor Oh MD [address] [place] [address] Referring Physician Internal Medicine 07/25/22 documented as of this encounter
--- OUTSIDE RECORDS SUMMARY | 2025-02-24 16:50 | XMS_ITS | Clinical Summary ---
Author Organization [facility] Address [address] [place] [address] Phone Care Team Providers Care Manager Pediatric Name Role Phone Reina Seth MD Primary Care Provider [phone] Allergies Active Allergy Reactions Criticality Noted Date [...] she will obtain cardiac clearance from her financial risk manager on 06 January, she will obtain a [...] weight gain but since seeing me at [facility] and being placed on a lower [...] I do not have the records from [facility] as of yet. We have requested those records. I will schedule her for a consultation with a dietitian to help keep her on track in terms of her eating. The patient will continue the eating plan that I had given her previously which is a Bulgarian yogurt or cottage cheese at 6 AM, [...] (09/19/2022 10:40 AM EDT) HDL 56 mg/dL [facility] Comment: Interpretation <40 mg/dL: Low HDL cholesterol (major risk factor for CHD) Greater than or equal to 60 mg/dL: High HDL cholesterol ( negative risk factor for CHD) HDL - cholesterol is affected by a number of factors, e.g. smoking, excerise, hormones, sex and age. CHOLESTEROL 198 0 - 240 mg/dL [facility] TRIGLYCERIDES 246(H) 30 - 160 mg/dL [facility] LDL 93 50 - 129 mg/dL [facility] Comment: LDL levels in terms of risk for coronary heart disease: <100 mg/dL: Optimal 100-129 mg/dL: Near or above optimal 130-159 mg/dL: Borderline high 160-189 mg/dL: High >190 mg/dL: Very High CARDIAC RISK RATIO 3.5 3.3 - 4.4 C [facility] Blood 09/19/2022 10:4 0 AM EDT 09/19/2022 10:49 AM EDT us Analia Castro MD LAB BLOOD BKR ORDERABLES F inal Result [facility] [address] [place] [address] from Last 3 Months or Most Recently Relevant to Health Maintenance Insurance MEDICARE PART A & B [facility] ONE CARE MEDICARE REPLACEMENT MEDICARE PART A & B [id number] [place] [address] CARE MEDICARE REPLACEMENT MEDICARE PART A & B [facility] ONE CARE MEDICARE REPLACEMENT MEDICARE PART A & B [facility] DOMINIK OLSON [id number] MEDICARE PART A & B [facility] ONE CARE MEDICARE REPLACEMENT MEDICARE PART A & B [facility] ONE CARE MEDICARE REPLACEMENT MEDICARE PART A & B [facility] CARE MEDICARE REPLACEMENT MEDICARE PART A & B [facility] CARE MEDICARE REPLACEMENT MEDICARE PART A & B [facility] ONE CARE MEDICARE REPLACEMENT Member Subscriber Plan / Payer (Ef fective 2018-Present) Name:Estephanie Smith Relation to Subscriber:Self Name:Estephanie Smith Payer ID:[id number] (NAIC) Group ID:[id number] Type:Medicare Address: [facility] [address] [facility] Advance Directives For more information, please contact: [phone] (9AM - 5PM [facility], Monday-Monday) * Full Code (Latest Code Status on File) Date Activated Date Inactivated Comments 02/24/2022 5:16 PM Question Answer Comments Code Status Confirmed With: Patient * Full Code Date Activated Date Inactivated Comments 02/24/2022 8:36 AM 02/24/2022 5:16 PM Question Answer Comments Code Status Confirmed With: Patient Care Teams Manager Pediatric Relationship Specialty Start Date End Date Reina Seth MD PCP - General Family Medicine 11/22/21 Additional Source Comments The information contained in this document represents components of the legal health record. It is not the complete legal health record.[facility]
--- OUTSIDE RECORDS SUMMARY | 2025-02-24 16:50 | XMS_ITS | Encounter Summary ---
Author Organization [facility] Address [address] [place] [address] Phone Care Team Providers Care Service Employee Name Role Phone Reina Seth MD Primary Care Provider [phone] Encounter Details Date Type Department Care Team (Late st Contact Info) Description 02/24/2022 Procedure Pass OR Admitting Dept - Virtual Department [address] [place] [address] Social History Tobacco Use Types Packs/Day Years [...] 02/24/2022 4:32 PM Breanna Sears RN * [place] Suicide Severity Rating Scale (Screener/Recent Self-Report) Question [...] on filedocumented in this encounter Care Teams Service Employee Relationship Specialty Start Date End Date Reina Seth MD PCP - General Family Medicine 11/22/21 documented as of this encounter Additional Source Comments The information contained in this document represents components of the legal health record. It is not the complete legal health record.[facility]
--- OUTSIDE RECORDS SUMMARY | 2025-02-24 16:50 | XMS_ITS | Clinical Summary ---
Author Organization [facility] it Address [address] [place] [address] Care Team Providers Care Superintendent Tests Name Role Phone Reina Seth MD Primary Care Provider [phone] Surgical History Surgery Date Site/Laterality Comments GASTRIC BYPASS PROCEDURE: [place] GASTRIC RSTCV W/BYP W/SM INT RCNSTJ LIMIT ABSRPJ SECTION N/A PROCEDURE: [place] DELIVERY ONLY; COMMENT: X 2 Medical History [...] age to complete this topic Care Teams Superintendent Tests Relationship Specialty Start Date End Date Reina Seth MD [address] [place] [address] PCP - General 04/05/21
--- OUTSIDE RECORDS SUMMARY | 2025-02-24 16:50 | XMS_ITS | Encounter Summary ---
Author Organization [employer] Address [address] [place] [address] Care Team Providers Care Repair Specialist Name Role Phone Reina Seth MD Primary Care Provider [phone] Taylor Oh MD Unavailable Reason for Visit * Reason Onset Date Comments Appointment Request 10/07/2024 Encounter Details Date Type Department Care Team ([facility] st Contact Info) Description 10/07/2024 Telephone [facility] [address] [place] [address] Reina Seth MD [address] [place], [place] [phone] Appointment Request Social History Tobacco Use Types [...] message. Patient requests a return call at [phone] * Telephone Encounter - Porsha Dye - 10/07/2024 10:27 AM EDT Tc from pt requesting schedule f/u appointment. Unable to schedule due not availability. Recall date: 09/25/2024. [phone] documented in this encounter Plan of Treatment Upcoming Encounters Date Type Department Care Team (Late st Contact Info) Description 03/26/2025 9:30 AM EST Clinical Support [facility] [address] [place] [address] Sonja Weathers, SATHYA [address] [place] [address] documented as of this encounter Visit Diagnoses Not on filedocumented in this encounter Additional Health Concerns Assessment Noted Time PHQ-9 Depression Total Score: 6 07/28/19 8:47 AM EDT documented as of this encounter Care Teams Repair Specialist Relationship Specialty Start Date End Date Reina Seth MD [address] [place] [address] PCP - General Family Medicine 06/17/20 Taylor Oh MD [address] [place] [address] Referring Physician Internal Medicine 07/25/22 documented as of this encounter
--- OUTSIDE RECORDS SUMMARY | 2025-02-24 16:50 | XMS_ITS | Encounter Summary ---
Author Organization [employer] Address [address] [place] [address] Care Team Providers Care Glass Lined Tank Repairer Name Role Phone Reina Seth MD Primary Care Provider [phone] Taylor Oh MD Unavailable Reason for Visit * Reason Onset Date Comments Med Refill 10/08/2024 Encounter Details Date Type Department Care Team (Late st Contact Info) Description 10/08/2024 Telephone [facility] MED[facility]INE [address] [place] [address] Reina Seth MD [address] [place], [place] [phone] Med Refill Social History Tobacco Use Types [...] 50 MG tablet To be sent to: [facility] pharmacy documented in this encounter Plan of Treatment Upcoming Encounters Date Type Department Care Team (Late st Contact Info) Description 03/26/2025 9:30 AM EST Clinical Support [facility] PEDS [address] [place] [address] Sonja Weathers, SATHYA [address] [place] [address] documented as of this encounter Visit Diagnoses Not on filedocumented in this encounter Additional Health Concerns Assessment Noted Time PHQ-9 Depression Total Score: 6 07/28/19 23 8:47 AM EDT documented as of this encounter Care Teams Glass Lined Tank Repairer Relationship Specialty Start Date End Date Reina Seth MD [address] [place] [address] PCP - General Family Medicine 06/17/20 Taylor Oh MD [address] [place] [address] Referring Physician Internal Medicine 07/25/22 documented as of this encounter
== END 2025-02-24 14:30 | disposition home or self-care (01) ==
LOC: HO.LNP 14:29
PROVIDERS: Visit Provider Family Medicine
DX: Z12.4 Encounter for screening for malignant neoplasm of cervix (principal)
CPT/HCPCS: 87626; 88175

== ENCOUNTER 2025-03-21 13:35 | Outpatient (AMB) | payer OTHER, SELFPAY ==
--- NOTE | 2025-03-21 13:37 | A.OFFVIS_ITS ---
Vital Signs 03/21/25 13:41 Height 4 ft 11 in Weight 104 lb BMI 21.0 BP 112/54 L Blood Pressure Location Lt brachial Position Sitting Pulse 72 Pulse Source Pulse Oximeter Pulse Oximetry (%) 98 Oxygen Delivery Method Room Air Intake Visit Reasons: S/P Left Therapeutic Sacroiliac Joint Injection Intake Note: Pain today 8/10 Cq Developer Required: No Accompanied by: Self / Same As Patient Allergies latex Allergy (Severe, Verified 03/21/25 13:42) Rash lisinopril Allergy (Severe, Verified 03/21/25 13:42) anaphylaxis sulfamethoxazole (From Bactrim) Allergy (Intermediate, Verified 03/21/25 13:42) rash trimethoprim (From Bactrim) Allergy (Intermediate, Verified 03/21/25 13:42) rash NSAIDS (Non-Steroidal Anti-Inflamma Allergy (Mild, Verified 03/21/25 13:42) Diarrhea HPI Comments Details: The patient is a 55 year old female presenting for a one-month follow-up visit after a left therapeutic sacroiliac joint injection on 02/11/25 for evaluation of persistent pain. She reports significant pain relief from the procedure and rates her pain today as 8/10 for right sided low back and buttock pain and 2/10 for left buttock and back pain. Her pain is worse at night and movements, causing difficulty sleeping and walking. Since the left-sided injection, she notes that her right side is now hurting real bad with constant pain. She is interested to undergo right side SI joint injection. The patient has a history of significant weight loss. She underwent gastric bypass surgery in 2007 and a revision surgery five years ago. For the past two years, she has been taking Zepbound for weight loss, and has lost approximately 30 pounds since December, with a current weight of 104 pounds and BMI=21.0. This weight loss has resulted in painful bony prominences, including her chest and coccyx areas, and she feels constantly exhausted. She reports coccyx pain with sitting on hard surfaces. Her background includes a history of chronic pain, fibromyalgia, multilevel spondylosis and small bone spurs in the lower thoracic and lumbar spine. Imaging has also shown an L4-L5 slippage and an incidental finding of spina bifida occulta per most recent imaging. Denies any recent cough, cold, infection, fever or any other significant changes in medical history since last office visit. Past Procedures: 02/11/25: Left therapeutic SIJ injection- 75-80% ongoing pain relief PRIOR: The patient is a 54-year-old female presenting with chronic back pain radiating to the left buttock. The pain has been persistent and is associated with a history of sacroiliitis, which was confirmed by x-ray and provocative testing. 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 The patient also has a history of multilevel arthritis, which contributes to her chronic pain. She reports that the arthritis was known prior to the current visit and has been managed conservatively, including tramadol with partial relief. The patient has fibromyalgia, which exacerbates her pain symptoms. She has not undergone any injections previously but is considering sacroiliac joint injections for pain relief. The patient also experiences bursitis, particularly affecting her right hip, which flares up with weather changes. She notes that the bursitis pain is manageable but worsens during rainy weather. Denies any recent cough, cold, infection, fever or any other significant changes in medical history since last office visit. PRIOR: The patient is a 54-year-old female presenting with polyarthralgia and associated pain symptoms. She reports experiencing pain in her back, neck, knee, and joints for approximately two years, with no specific injury preceding the onset. The pain was progressive, initially attributed to aging, and has significantly impacted her quality of life, affecting sleep and daily activities. The patient has a history of significant weight loss following a Ada-en-Y gastric bypass surgery performed in [place], which contributed to her current weight of 130 pounds from an initial 358 pounds. She maintains a diet high in protein and low in carbohydrates, with no sugar intake, and takes various supplements including iron and vitamin D due to lifelong anemia. The patient reports that her pain is worse at night, particularly in the coccyx, right buttock and hip regions, and describes it as a constant, bruising, stabbing, throbbing, pinching, pulling, aching, and radiating sensations. She has tried various medications including gabapentin, which caused weight gain and blurred vision, and tramadol, which is partially effective. Previously, she was on Percocet, which provided relief, but was discontinued due to concerns about long-term use. The patient has a history of depression, anxiety, and PTSD, for which she is receiving therapy. She has undergone physical therapy, physician assistant primary care, and massage therapy for pain management, with limited success. - Onset: Progressive over two years, initially attributed to aging - Quality: Described as a constant, bruising, throbbing, aching, stabbing sensation - Location: Back, neck, knee, joints, right buttock, coccyx, and hip - Radiation: Pain radiates into the right leg - Exacerbating factors: Worse at night, particularly in the coccyx and hip regions - Relieving factors: Percocet was most effective; tramadol provides partial pain relief - Interference: Affects sleep, daily activities, and quality of life - Affect: Pain impacts sleep, daily activities, and mood - Analgesia: Current medications include tramadol, previously on gabapentin and Percocet - Adverse Effects: Gabapentin caused weight gain and blurred vision - Activities of Daily Living: Pain affects daily activities and quality of life - Aberrant Drug Related Behaviors: None reported PFS Medical History Iliotibial band syndrome of right side Fibromyalgia Insulin resistance Mastoiditis Intestinal malabsorption following gastrectomy Irritable bowel syndrome with diarrhea Chronic back pain Chronic diarrhea BMI 45.0-49.9, adult Insomnia Anxiety Hypercholesterolemia PCOS (polycystic ovarian syndrome) HTN (hypertension) COVID-19 vaccine administered Hx MRSA infection Arthritis Anemia Hx of renal calculi History of anxiety Depression Myocardial infarction Acid reflux PTSD (post-traumatic stress disorder) IBS (irritable bowel syndrome) Surgical History Hx of endoscopy Hx of colonoscopy Hx of section S/P panniculectomy Hx of cardiac catheterization Gastric bypass status for obesity Family History Father No problems noted. Mother No problems noted. Sister No problems noted. Brother MYLK2-related hypertropic cardiomyopathy Daughter Cystic fibrosis Daughter No problems noted. Social History Household Members: None Household Members Other:: Daughter has a cystic fibrosis Are you a primary laboratory animal care veterinarian to a significant other at home: No Do you presently have visiting nurse or other home services: No Alcohol intake: former Year quit: 5 Patient Tobacco Use Status: Never used Tobacco Current occupational status: unemployed Review of Systems Const Details: - Constitutional: Reports significant weight loss, fatigue, feeling exhausted, and feeling bony. - Musculoskeletal: Reports chronic low back pain, minimal pain in the left and severe right buttockand coccyx pain with sitting on hard surfaces. - Neurological: Reports difficulty sleeping due to pain. All systems reviewed & are unremarkable except as noted in HPI and below Physical Exam Vital Signs: Last Vital Signs Pulse 72 03/21/25 13:41 BP 112/54 L 03/21/25 13:41 Pulse Ox 98 03/21/25 13:41 Oxygen Delivery Method Room Air 03/21/25 13:41 BMI result Body Mass Index 21.0 General: Appears afebrile. Alert and oriented. Mood and affect appropriate. Clear speech. Follows and participates in conversation appropriately. Respiratory effort is unlabored. No cough. Able to transition from sit to stand unassisted. Ambulates with bilaterally normal heel strike and toe off. Thin body habitus with bony prominences. Eyes General: appearance normal, both eyes and all related structures General: Yes no CVA tenderness Back/Spine/Pelvis Other: Limited lumbar ROM due to pain. Lumbar extension and axial rotations reproduce mild to moderate pain, flexion reproduces mild pain. Demonstrates 5/5 strength of quadriceps bilaterally as well as flexion/dorsiflexion of bilateral feet against resistance. 2+ pedal pulses bilaterally. Straight leg rise with dorsiflexion negative bilaterally. +2 patellar and achilles reflexes bilaterally. Facet loading test positive bilaterally. Michael sign, Dillon?s, Gaenslen, Pelvic compression and Stinchfield tests are positive bilaterally, right>left. No groin pain with I/E hip rotations. Valsalva maneuver negative. Back: no CVA tenderness Cervical Spine: cervical ROM normal, No Lhermitte's sign positive, cervical muscular tenderness, pain with cervical ROM, No Cervical spine scars present, cervical spasm, No Cervical spine tenderness and No step off deformity Thoracic/Lumbar Spine: thoracic and lumbar spine normal to inspection, No Thoracic/lumbar spine scar(s), Lasegue's sign negative, straight leg raise n egative bilaterally, pain with thoraco-lumbar ROM, thoraco-lumbar ROM limited, No thoracic spinal tenderness and lumbar spinal tenderness at L4 and at L5 Pelvis: buttock tenderness bilaterally Sacroiliac joints: bilaterally (right>left) tender to palpation Sacrum: tenderness bilaterally Coccyx: Coccyx tenderness present (with sitting on hard surfaces) Extrem General: Yes capillary refill normal, Yes no clubbing, cyanosis or edema and Yes no calf tenderness Results Reviewed Results Reviewed: XR SACROILIAC JOINTS 11/30/24 CLINICAL INFORMATION: M54.50 - Low back pain, unspecified COMPARISON: Correlated to CT abdomen pelvis dated December 06, 2021 TECHNIQUE: AP and oblique views of the sacroiliac joints FINDINGS: No acute cortical disruption. Mild sclerosis and the inferior aspect of the left sacroiliac joint. No lytic or blastic lesions. Spina bifida occulta, S1, congenital. IMPRESSION: Mild sacroiliitis, left-sided. XR LUMBOSACRAL SPINE 11/30/24 CLINICAL INFORMATION: M54.50 - Low back pain, unspecified COMPARISON: Collated to CT abdomen and pelvis dated December 06, 2021. TECHNIQUE: AP oblique and lateral views FINDINGS: Grade 1 anterolisthesis L4-5 likely secondary to spondylolysis pars interarticularis. Multilevel endplate sclerosis and small marginal osteophyte formation throughout the lower thoracic spine and lumbar spine. No lytic or blastic lesions. Vascular calcifications, aorta. Rudimentary ribs, T12. Spina bifida occulta, S1. 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 Multilevel spondylosis. Atherosclerosis disease. Assessment & Plan Assessment & Plan (1) Chronic low back pain: Code(s): M54.50 - Low back pain, unspecified; G89.29 - Other chronic pain Category: Medical (2) Lumbosacral spondylosis: Code(s): M47.817 - Spondylosis without myelopathy or radiculopathy, lumbosacral region Category: Medical (3) Sacroiliac joint pain: Code(s): M53.3 - Sacrococcygeal disorders, not elsewhere classified Category: Medical (4) Spondylolisthesis, lumbar region: Code(s): M43.16 - Spondylolisthesis, lumbar region Category: Medical (5) Fibromyalgia: Code(s): M79.7 - Fibromyalgia Category: Medical Plan The patient's left sacroiliac joint injection one month ago provided good pain relief, and she now presents with worsening right-sided buttock and low back pain, which is constant. Physical exam maneuvers were positive for right sacroiliac joint pathology. Therefore, the plan is to proceed with a therapeutic right sacroiliac joint injection with steroids with local and fluoroscopy. Expectations, risks and benefits were reviewed. Patient is aware she will be contacted to schedule this procedure. The patient was counseled on her significant recent weight loss. Given that she is very thin, with painful bony prominences and fatigue, it was recommended that she stop her weight loss injections and discuss her current weight and health status with her PCP provider. All questions and concerns have been answered and patient agreed with the treatment plan. Follow up after injection and sooner as needed. Patient was informed and verbally consented to the use of an ambient scribe for clinic note documentation during this visit. Coding Level of Care Code Est Pt Level 3 (78120) Complex visit Add On G2211 Diagnoses Chronic low back pain M54.50; G89.29 Lumbosacral spondylosis M47.817 Sacroiliac joint pain M53.3 Spondylolisthesis, lumbar region M43.16 Fibromyalgia M79.7
[2025-03-21 13:41] VITALS: BP 112/54; PULSE 72; O2SAT 98; BMI 21.0
--- OUTSIDE RECORDS SUMMARY | 2025-03-21 17:43 | XMS_ITS | Encounter Summary ---
Author Organization [employer] Address [address] [place] [address] 7t [place] [address] Care Team Providers Care Acid Retort Operator Name Role Phone Reina Seth MD Primary Care Provider [phone] Taylor Oh MD Unavailable Reason for Visit * Reason Onset Date Comments triage 05/03/2022 Encounter Details Date Type Department Care Team ([facility] Contact Info) Description 05/03/2022 Telephone [facility] MED [facility] PEDS [address] [place] [address] Reina Seth MD [address] [place] [address] triage Social History Tobacco Use Types Packs/Day [...] requesting antibiotic again. Advised to come to [facility] 05/04 @200pm [facility] Pt agreed with disposition . Insurance is [...] nodes in back of neck, please call [phone]. [place] documented in this encounter Plan of Treatment Upcoming Encounters Date Type Department Care Team (Late st Contact Info) Description 03/26/2025 9:30 AM EST Clinical Support [facility] [address] [place] [address] Sonja Weathers, RN [address] [place] [address] documented as of this encounter Visit Diagnoses Diagnosis Other chronic pain documented in this encounter Care Teams Acid Retort Operator Relationship Specialty Start Date End Date Reina Seth MD [address] [place] [address] PCP - General Family Medicine 06/17/20 Taylor Oh MD [address] [place] [address] Referring Physician Internal Medicine 07/25/22 documented as of this encounter
--- OUTSIDE RECORDS SUMMARY | 2025-03-21 17:44 | XMS_ITS | Encounter Summary ---
Author Organization [employer] Address [address] [place] [address] Care Team Providers Care Manager Hvac Name Role Phone Reina Seth MD Primary Care Provider [phone] Taylor Oh MD Unavailable Reason for Visit * Reason Onset Date Comments Appointment Request 06/22/2022 Encounter Details Date Type Department Care Team ([facility] st Contact Info) Description 06/22/2022 Telephone [facility] MEDICINE [address] [place] [address] Reina Seth MD [address] [place], [place] [phone] Appointment Request Social History Tobacco Use Types [...] in this Monday06/24/2022 Please contact pt at [phone] documented in this encounter Plan of Treatment Upcoming Encounters Date Type Department Care Team (Late st Contact Info) Description 03/26/2025 9:30 AM EST Clinical Support [facility] [address] [place] [address] Sonja Weathers, RN [address] [place] [address] documented as of this encounter Visit Diagnoses Not on filedocumented in this encounter Care Teams Manager Hvac Relationship Specialty Start Date End Date Reina Seth MD [address] [place] [address] PCP - General Family Medicine 06/17/20 Taylor Oh MD [address] [place] [address] Referring Physician Internal Medicine 07/25/22 documented as of this encounter
--- OUTSIDE RECORDS SUMMARY | 2025-03-21 17:44 | XMS_ITS | Encounter Summary ---
Author Organization [employer] Address [address] [place] [address] Care Team Providers Care Poultry Pathologist Name Role Phone Reina Seth MD Primary Care Provider [phone] Taylor Oh MD Unavailable Reason for Visit * Reason Onset Date Comments Med Refill 10/08/2024 Encounter Details Date Type Department Care Team (Late st Contact Info) Description 10/08/2024 Telephone [facility] MEDICINE [address] [place] [address] Reina Seth MD [address] [place], [place] [phone] Med Refill Social History Tobacco Use Types [...] 50 MG tablet To be sent to: [facility] pharmacy documented in this encounter Plan of Treatment Upcoming Encounters Date Type Department Care Team (Late st Contact Info) Description 03/26/2025 9:30 AM EST Clinical Support [facility] [address] [place] [address] Sonja Weathers, SATHYA [address] [place] [address] documented as of this encounter Visit Diagnoses Not on filedocumented in this encounter Additional Health Concerns Assessment Noted Time PHQ-9 Depression Total Score: 6 07/28/19 23 8:47 AM EDT documented as of this encounter Care Teams Poultry Pathologist Relationship Specialty Start Date End Date Reina Seth MD [address] [place] [address] PCP - General Family Medicine 06/17/20 Taylor Oh MD [address] [place] [address] Referring Physician Internal Medicine 07/25/22 documented as of this encounter
--- OUTSIDE RECORDS SUMMARY | 2025-03-21 17:44 | XMS_ITS | Encounter Summary ---
Author Organization [employer] Address [address] [place] [address] 7t [place] [address] Care Team Providers Care Music Professor Name Role Phone Reina Seth MD Primary Care Provider [phone] Taylor Oh MD Unavailable Reason for Visit * Reason Onset Date Comments Med Refill 03/18/2025 Encounter Details Date Type Department Care Team ([facility] st Contact Info) Description 03/18/2025 Refill [facility] [address] [place] [address] Reina Seth MD [address] [place] [address] Chronic pain syndrome Social History Tobacco Use Types Packs/Day Years [...] your housing situation today? I have angy lillian 08/28/[address] you li [...] encounter Miscellaneous Notes * Telephone Encounter - Matheus Khan - 03/18/2025 8:41 AM EST TC from pt requesting medication refill. Medications needing refill : oxyCODONE-acetaminophen (Percocet) 5-325 MG tablet To be sent to: [facility] - [place], [place] - [address] [place] [address] documented in this encounter Plan of Treatment Upcoming Encounters Date Type Department Care Team ([facility] st Contact Info) Description 03/26/2025 9:30 AM EST Clinical Support [facility] [address] [place] [address] Sonja Weathers, SATHYA [address] [place] [address] documented as of this encounter Visit Diagnoses Diagnosis Chronic pain syndrome documented in this encounter Additional Health Concerns Assessment Noted Time PHQ-9 Depression Total Score: 4 12/27/19 25 11:47 AM EDT documented as of this encounter Care Teams Music Professor Relationship Specialty Start Date End Date Reina Seth MD [address] [place] [address] PCP - General Family Medicine 06/17/20 Taylor Oh MD [address] [place] [address] Referring Physician Internal Medicine 07/25/22 documented as of this encounter
--- OUTSIDE RECORDS SUMMARY | 2025-03-21 17:44 | XMS_ITS | Encounter Summary ---
Author Organization [employer] Address [address] [place] [address] Care Team Providers Care Sales Team Leader Name Role Phone Reina Seth MD Primary Care Provider [phone] Taylor Oh MD Unavailable Reason for Visit * Reason Onset Date Comments Appointment Request 10/07/2024 Encounter Details Date Type Department Care Team ([facility] st Contact Info) Description 10/07/2024 Telephone [facility] MEDICINE [address] [place] [address] Reina Seth MD [address] [place], [place] [phone] Appointment Request Social History Tobacco Use Types [...] message. Patient requests a return call at [phone] * Telephone Encounter - Porsha Dye - 10/07/2024 10:27 AM EDT Tc from pt requesting schedule f/u appointment. Unable to schedule due not availability. Recall date: 09/25/2024. [phone] documented in this encounter Plan of Treatment Upcoming Encounters Date Type Department Care Team (Late st Contact Info) Description 03/26/2025 9:30 AM EST Clinical Support [facility] MED & PEDS [address] [place] [address] Sonja Weathers, SATHYA [address] [place] [address] documented as of this encounter Visit Diagnoses Not on filedocumented in this encounter Additional Health Concerns Assessment Noted Time PHQ-9 Depression Total Score: 6 07/28/19 8:47 AM EDT documented as of this encounter Care Teams Sales Team Leader Relationship Specialty Start Date End Date Reina Seth MD [address] [place] [address] PCP - General Family Medicine 06/17/20 Taylor Oh MD [address] [place] [address] Referring Physician Internal Medicine 07/25/22 documented as of this encounter
--- OUTSIDE RECORDS SUMMARY | 2025-03-21 17:44 | XMS_ITS | Clinical Summary ---
Author Organization [facility] it Address [address] [place] [address] Care Team Providers Care Rail Car Painter/Sandblaster Name Role Phone Reina Seth MD Primary Care Provider [phone] Surgical History Surgery Date Site/Laterality Comments GASTRIC BYPASS PROCEDURE: [place] GASTRIC RSTCV W/BYP W/SM INT RCNSTJ LIMIT ABSRPJ SECTION N/A PROCEDURE: [place] DELIVERY ONLY; COMMENT: X 2 Medical History [...] Depression Screening 04/17/2024 COVID-19 Vaccine (1 - 2024-2 6 season) 2024 Influenza Vaccine (#1) 2024 RSV [...] age to complete this topic Care Teams Rail Car Painter/Sandblaster Relationship Specialty Start Date End Date Reina Seth MD [address] [place] [address] PCP - General 04/05/21
--- OUTSIDE RECORDS SUMMARY | 2025-03-21 17:44 | XMS_ITS | Encounter Summary ---
Author Organization [employer] Address [address] [place] [address] Care Team Providers Care Wool Hat Finisher Name Role Phone Reina Seth MD Primary Care Provider [phone] Taylor Oh MD Unavailable Reason for Visit * Reason Onset Date Comments ER Follow-up 06/20/2023 Encounter Details Date Type Department Care Team ([facility] Contact Info) Description 06/20/2023 Telephone [facility] MED & PEDS [address] [place], [place] [phone] Reina Seth MD [address] [place] [address] ER Follow-up Social History Tobacco Use Types [...] 9:36 AM EST Tc to pt regarding [facility] ED visit om 06/19 for umbilical infection. [...] ED visit on : Date: 06/19 Hospital: [facility] Seen for: Wound/laceration Patient advised will forward to team nurse for follow up Please contact pt at [phone] documented in this encounter Plan of Treatment Upcoming Encounters Date Type Department Care Team ([facility] st Contact Info) Description 03/26/2025 9:30 AM EST Clinical Support [facility] MED & PEDS [address] [place] [address] Sonja Weatehrs, RN [address] [place] [address] documented as of this encounter Visit Diagnoses Not on filedocumented in this encounter Additional Health Concerns Assessment Noted Time PHQ-9 Depression Total Score: 6 07/28/19 23 8:47 AM EDT documented as of this encounter Care Teams Wool Hat Finisher Relationship Specialty Start Date End Date Reina Seth MD [address] [place] [address] PCP - General Family Medicine 06/17/20 Taylor Oh MD [address] [place] [address] Referring Physician Internal Medicine 07/25/22 documented as of this encounter
--- OUTSIDE RECORDS SUMMARY | 2025-03-21 17:44 | XMS_ITS | Clinical Summary ---
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 We have requested those records. I will schedule her for a consultation with a dietitian to help keep her on track in terms of her eating. The patient will continue the eating plan that I had given her previously which is a Italian yogurt or cottage cheese at 6 AM, [...] (09/19/2022 10:40 AM EDT) HDL 56 mg/dL [facility] Comment: Interpretation <40 mg/dL: Low HDL cholesterol (major risk factor for CHD) Greater than or equal to 60 mg/dL: High HDL cholesterol ( negative risk factor for CHD) HDL - cholesterol is affected by a number of factors, e.g. smoking, excerise, hormones, sex and age. CHOLESTEROL 198 0 - 240 mg/dL [facility] TRIGLYCERIDES 246(H) 30 - 160 mg/dL [facility] LDL 93 50 - 129 mg/dL [facility] Comment: LDL levels in terms of risk for coronary heart disease: <100 mg/dL: Optimal 100-129 mg/dL: Near or above optimal 130-159 mg/dL: Borderline high 160-189 mg/dL: High >190 mg/dL: Very High CARDIAC RISK RATIO 3.5 3.3 - 4.4 [facility] Blood 09/19/2022 10:4 0 AM EDT 09/19/2022 10:49 AM EDT us Analia Castro MD LAB BLOOD BKR ORDERABLES F inal Result [facility] [address] [place] [address] from Last 3 Months or Most Recently Relevant to Health Maintenance Insurance MEDICARE PART A & B [facility] CARE MEDICARE REPLACEMENT MEDICARE PART A & B [id number] [place] [address] CARE MEDICARE REPLACEMENT MEDICARE PART A & B [facility] ONE CARE MEDICARE REPLACEMENT MEDICARE PART A & B [facility] ONE [facility] MEDIC[facility] REPLACEMENT [place] [id number] MEDICARE PART A & B [facility] ONE CARE MEDICARE REPLACEMENT MEDICARE PART A & B [facility] ONE CARE MEDICARE REPLACEMENT MEDICARE PART A & B [facility] CARE MEDICARE REPLACEMENT MEDICARE PART A & B [facility] CARE MEDICARE REPLACEMENT MEDICARE PART A & B [facility] ONE CARE MEDICARE REPLACEMENT Member Subscriber Plan / Payer (Ef fective 2018-Present) Name:Estephanie Smith Relation to Subscriber:Self Name:Estephanie Smith Payer ID:[id number] (NAIC) Group ID:[id number] Type:Medicare Address: [facility] [address] [facility] Advance Directives For more information, please contact: [phone] (9AM - 5PM [facility], Monday-Monday) * Full Code (Latest Code Status on File) Date Activated Date Inactivated Comments 02/24/2022 5:16 PM Question Answer Comments Code Status Confirmed With: Patient * Full Code Date Activated Date Inactivated Comments 02/24/2022 8:36 AM 02/24/2022 5:16 PM Question Answer Comments Code Status Confirmed With: Patient Care Teams Manager Wealth Management Relationship Specialty Start Date End Date Reina Seth MD PCP - General Family Medicine 11/22/21 Additional Source Comments The information contained in this document represents components of the legal health record. It is not the complete legal health record.[facility]
--- OUTSIDE RECORDS SUMMARY | 2025-03-21 17:44 | XMS_ITS | Encounter Summary ---
Author Organization [employer] Address [address] [facility] [address] [place] [address] Care Team Providers Care Belt Fixer Name Role Phone Reina Seth MD Primary Care Provider [phone] Taylor Oh MD Unavailable Encounter Details Date Type Department Care Team (Latest Contact Info) Description 03/19/2025 Travel Social History Tobacco Use Types Packs/Day [...] Description 03/26/2025 9:30 AM EST Clinical Support [facility] MED & PEDS [address] [place] [address] Sonja Weathers, SATHYA [address] [place] [address] documented as of this encounter Visit Diagnoses Not on filedocumented in this encounter Additional Health Concerns Assessment Noted Time PHQ-9 Depression Total Score: 4 12/27/19 25 11:47 AM EDT documented as of this encounter Care Teams Belt Fixer Relationship Specialty Start Date End Date Reina Seth MD [address] [place] [address] PCP - General Family Medicine 06/17/20 Taylor Oh MD [address] [place] [address] Referring Physician Internal Medicine 07/25/22 documented as of this encounter
--- OUTSIDE RECORDS SUMMARY | 2025-03-21 17:44 | XMS_ITS | Encounter Summary ---
Author Organization [employer] Address [address] [place] [address] Care Team Providers Care Delicatessen Store Manager Name Role Phone Reina Seth MD Primary Care Provider [phone] Taylor Oh MD Unavailable Encounter Details Date Type Department Care Team ([facility] st Contact Info) Description 07/27/2022 Telephone [facility] MEDICINE [address] [place], [place] [phone] Reina Seth MD [address] [place], [place] [phone] Social History Tobacco Use Types Packs/Day Years [...] Health Questionnaire-2 Score 0 07/16 8:47 AM EDT Fay Sanchez [place] * How difficult have these problems made it for you to do your work, take care of things at home, or get along with other people? Answer Date of Assessment Author Somewhat difficult 07/27/2022 8:47 AM EDT Fay Garcias [place] * Over the past 2 weeks, how often have you been bothered by any of the following problems? Question Answer Date of Assessment Author Little interest or pleasure in doing things Not at all 07/27/2022 8:47 AM EDT Colt Sanchez MA Feeling down, depressed, or hopeless Not at all 07/27/2022 8:47 AM EDT Fay Sanchez M A Trouble falling or staying asleep, or sleeping too much Not at all 07/27/2022 8:47 AM EDT Fay Sanchez M A Feeling tired or having little energy Nearly every day 07/27/2022 8:47 AM EDT Fay Sanchez M A Poor appetite or overeating Nearly every day 07/27/2022 8:47 AM EDT Fay Sanchez M A Feeling bad about yourself - or that you are a failure or have let yourself or your family down Not at all 07/27/2022 8:47 AM EDT Fay Sanchez M A Trouble concentrating on things, such as reading the newspaper or watching television Not at all 07/27/2022 8:47 AM EDT Fay Sanchez M A Moving or speaking so slowly that other people could have noticed? Or the opposite - being so fidgety or restless that you have been moving around a lot more than usual. Not at all 07/27/2022 8:47 AM EDT Fay Sanchez M A Thoughts that you would be better off or hurting yourself in some way Not at all 07/27/2022 8:47 AM Fay Carney MA Patient Health Questionnaire-9 Score 6 07/27/2022 8:47 AM Fay Carney [place] documented as of this encounter Plan of Treatment Upcoming Encounters Date Type Department Care Team (Late st Contact Info) Description 03/26/2025 9:30 AM EST Clinical Support [facility] MED & PEDS [address] [place] [address] Sonja Weathers, RN [address] [place] [address] documented as of this encounter Visit Diagnoses Not on filedocumented in this encounter Additional Health Concerns Assessment Noted Time PHQ-9 Depression Total Score: 6 07/28/19 23 8:47 AM EDT documented as of this encounter Care Teams Delicatessen Store Manager Relationship Specialty Start Date End Date Reina Seth MD [address] [place] [id number] PCP - General Family Medicine 06/17/20 Taylor Oh MD [address] [place] [address] Referring Physician Internal Medicine 07/25/22 documented as of this encounter
--- OUTSIDE RECORDS SUMMARY | 2025-03-21 17:44 | XMS_ITS | Clinical Summary ---
Author Organization [employer] Address [address] [place] [address] 7[address] [place] [address] Care Team Providers Care Business Functional Analyst Name Role Phone Reina Seth MD Primary Care Provider [phone] Taylor Oh MD Unavailable Allergies Active Allergy [...] AT BEDTIME FOR PAIN 200 g 1 5 12:32 PM EST 01/14/20 25 Active topiramate (Topamax) 100 MG tablet TAKE 1 TABLET BY MOUTH two (2) times a day 60 tablet 2 5 12:32 PM EST 01/18/20 25 Active naloxone (Narcan) 4 mg/0.1 [...] for up to 28 days. 112 tablet 5 1:29 PM EST 03/18/20 25 025 Active oxyCODONE-acet aminophen (Percocet) 5-325 MG tabletIndicati ons:Chronic pain syndrome Take 1 tablet by mouth every 6 (six) hours if needed for severe pain for up to 28 days. 112 tablet 02/19/20 25 025 Discontinued(R eorder (will not trigger [...] not full agreement with this recommendation. The [place] [employer] and the [place] [...] medications (e.g., Celexa) - Submit referral for career specialist - Encourage continuation of psychiatric care [...] recommended reduction of 20-30% of maintenance calories; curator medical museum referral offered. Recommended to decrease soda and [...] recommended reduction of 20-30% of maintenance calories; curator medical museum referral offered. Recommended to decrease soda and [...] Encounters Date Type Department Care Team Description 03/21/2025 Refill [facility] [address] [place] [address] Reina Seth MD 03/19/2025 Travel 03/18/2025 Refill [facility] [address] [place] [address] Reina Seth MD Chronic pain syndrome 02/18/2025 10:20 AM EST Procedure Visit [facility] [address] [place] [address] Reina Seth MD Cervical cancer screening (Primary Dx); Chronic pain syndrome 02/18/2025 Travel 02/18/2025 Refill [facility] [address] [place] [address] Paulina De Leon MD 02/11/2025 Travel 02/06/2025 Results Follow-Up [facility] [address] [place] [address] Reina Seth MD Iron And Total Iron Binding Capacity, Ferritin, CBC auto differential, Additional followed-up results: 6 01/30/2025 11:15 AM EDT Office Visit [facility] [address] [place] [address] Reina Seth MD Chronic pain syndrome (Primary Dx); Encounter for immunization; Encounter for vaccination; Class 3 severe obesity due to excess calories with serious comorbidity and body mass index (BMI) of 40.0 to 44.9 in adult (HCC); Breast cancer screening by mammogram 01/30/2025 Travel 01/29/2025 Telephone [facility] [address] [place] [address] Reina Seth MD Chart Prep 01/23/2025 11:00 AM EDT Clinical Support [facility] [address] [place] [address] Sonja Weathers RN Chronic pain syndrome (Primary Dx); Long-term current use of opiate analgesic 01/23/2025 Refill [facility] [address] [place] [address] Sonja Weathers RN Chronic pain syndrome 01/23/2025 Travel 01/22/2025 Travel 01/17/2025 Refill [facility] [address] [place] [address] Reina Seth MD 01/11/2025 Refill [facility] [address] [place] [address] Reina Seth MD 12/27/2024 Telephone [facility] [address] [place] [address] Sonja Weathers RN [employer] 12/26/2024 11:15 AM EDT Office Visit [facility] [address] [place] [address] Reina Seth MD Chronic pain syndrome (Primary Dx) 12/26/2024 Travel 12/25/2024 Travel from Last 3 Months Immunizations Immunization Administration Dates Next Due Influenza injectable quadriv alent IIV4 with preservative 01/31/2019 Influenza injectable quadriv alent preservative free 01/30/2023,12/31/2021,02/17/2021,12/13,01/27/2014,02/13/2013 Influenza, IIV3, injectable 01/19/2012, 1,01/22/2010 Influenza, seasonal, injecta ble, preservative free 01/30/2025 Novel [id number], all formulations 04/16/2009 Pfizer Covid-19 Vaccine 12+ [...] Description 03/26/2025 9:30 AM EST Clinical Support [facility] [address] [place] [address] Sonja Weathers, RN [address] [place] [address] Health Maintenance Due Date Last Done Comments [...] of 40.0 to 44.9 in adult (HCC) CBC WITH AUTO DIFFERENTIAL Routine 01/30/2025 12:03 PM EDT Class 3 severe obesity due to excess calories with serious comorbidity and body mass index (BMI) of 40.0 to 44.9 in adult (HCC) FERRITIN Routine 01/30/2025 12:03 PM EDT Class 3 severe obesity due to excess calories with serious comorbidity and body mass index (BMI) of 40.0 to 44.9 in adult (HCC) IRON AND TOTAL IRON BINDING CAPACITY Routine 01/30/2025 12:03 PM EDT Class 3 severe obesity due to excess calories with serious comorbidity and body mass index (BMI) of 40.0 to 44.9 in adult (HCC) POCT PATRICIA-14 URINE DRUG SCREEN Routine 01/23/2025 11:19 AM EDT Chronic pain syndrome PANORAMIC RADIOGRAPHIC IMAGE Routine 12/05/2024 1:00 PM EDT LIPID PANEL, STANDARD Routine 06/16/2023 [...] 0 PM EST 02/19/2025 6:18 AM EST [facility] - 02/21/2025 3:18 PM EST ----- ------- Name: SherinmichaelaEstephanie L Age/Sex: 55/F : 1970 Unit#: [id number] Attend Dr: Re02/18/25 Status: PRE REF Location: [facility] Disch: ----- ------- SPEC : [id number] RECD: 02/19/25 STATUS: LISET EPPERSON NUM: [id number] KEISHA: 02/18/[address] [facility] [address]: Reina Seth MD ENTERED: 02/19/25 [...] and HPV testing will be performed at [facility] (CLIA #[id number]), [address] [place] [address]. Testing for HPV was performed using the Henry RAQUEL Parallel Universe0 system. The presence of HPV in the [...] detected. All professional services are performed by [facility] ([address] [place] [address]; ; CLIA #[id number]). The PAP Test is a screening procedure with the inherent possibility of both false negative and false positive results. Results should be interpreted in the context of historic and current clinical findings. Reliability of the PAP Test is enhanced by performing the test on a regular repetitive basis. ----- ------- Signed (signature on file) Cookie Gerbergiuliana CT (ASCP) 02/21/25 1518 ----- ------- END OF REPORT Reina Seth MD LAB CYTOLOGY ORDERABLES Final Result Performing Organization Address City/[facility]/ZIP Co de Phone Number [facility] [address] [place] [phone] * (ABNORMAL) HPV High Risk with Reflex to Subtypes (02/18/2025 12:00 AM EST) HPV High Risk Negative Negative [facility] HPV Genotype 16 Negative Negative [facility] HPV Genotype 18 Positive(A) Negative [facility] Comment:HPV testing performe d at [facility] (CLIA#[id number]), [address] [place] [phone].Testing for HPV was performed using the Henry RAQUEL 6800system. The presence of HPV in the female [...] MD LAB BLOOD ORDERABLES Final Re sult [facility] [address] [place] [address] [phone] * Vitamin D, 25-Hydroxy, Total, Immunoassay (01/30/2025 12:03 PM EDT) Vitamin D 25-OH Total 106.3 >30 ng/mL [facility] Comment: Health Based Reference Values*< 20 ng/mL Armsumycm32-64 ng/mL Insufficient> 30 ng/mL Sufficient*Donna COLLINS. N [...] Final Re sult Performing Organization Address [facility]/ZIP Co de Phone Number [facility] [address] [place] [address] [phone] * TSH W/Reflex to FT4 (01/30/2025 12:03 PM EDT) TSH reflex Free T4 2.04 0.32 - 4.0 uIU/mL [facility] Blood Venous blood specimen / Unknown 01/30/2025 12:03 PM EDT 01/30/2025 1:48 PM EDT us Reina Seth MD LAB BLOOD ORDERABLES Final Re sult [facility] [address] [place] [address] [phone] * (ABNORMAL) CBC auto differential (01/30/2025 12:03 PM EDT) White Blood Count 4.1(L) 4.8 - 10.8 X10*3/uL [facility] Red Blood Count 4.15(L) 4.20 - 5.50 X10*6/uL [facility] Hemoglobin 12.9 12.0 - 16.0 g/dl [facility] Hematocrit 38.8 37.0 - 47.0 % [facility] Mean Corpuscular Volume 93.5 80.0 - 98.0 fL [facility] Mean Corpuscular Hemoglobin 31.1 27.0 - 33.0 pg [facility] Mean Corpuscular HGB Conc 33.2 31.0 - 35.0 g/dl [facility] Red Cell Distribution Width 13.0 11.0 - 16.0 % [facility] Platelet Count 258 160 - 400 X10*3/uL [facility] Mean Platelet Volume 10.3 9.4 - 12.3 fL [facility] Neutrophils Percent Auto 38.0(L) 45 - 73 % [facility] Imm Gran Pct Auto 0.2 0.0 - 0.4 % [facility] Lymphocytes Percent Auto 51.4(H) 20 - 40 % [facility] Monocytes Percent Auto 7.4 2 - 11 % [facility] Eosinophils Percent Auto 2.0 0 - 4 % [facility] Basophils Percent Auto 1.0 0 - 2 % [facility] NRBC Pct Auto 0.0 0.0 - 0.2 /100WBC [facility] Neutrophils Absolute Auto 1.6(L) 2.0 - 8.3 x10*3/uL [facility] Imm Gran Abs Auto 0.01 0.00 - 0.03 X10*3/uL [facility] Lymphocytes Absolute Auto 2.1 1.2 - 4.9 X10*3/uL [facility] Monocytes Absolute Auto 0.3 0.1 - 1.2 X10*3/uL [facility] Eosinophils Absolute Auto 0.1 0.0 - 0.4 X10*3/uL [facility] Basophils Absolute Auto 0.0 0.0 - 0.2 X10*3/uL [facility] NRBC Abs Auto 0.000 0.0 - 0.012 X10*3/uL [facility] Blood Venous blood specimen / Unknown 01/30/2025 12:03 PM EDT 01/30/2025 1:48 PM EDT Reina Seth MD LAB BLOOD ORDERABLES Final Re sult Performing Organization Address [facility]/ZIP Co de Phone Number [facility] [address] [place] [address] [phone] * (ABNORMAL) Iron And Total Iron Binding Capacity (01/30/2025 12:03 PM EDT) Iron 104 30 - 160 mcg/dL [facility] Total Iron Binding Capacity 180(L) 228 - 428 mcg/dL [facility] Percent Iron Saturation 58(H) 15 - 50 % [facility] Unsaturated Iron Binding 76 ug/dL [facility] Blood Venous blood specimen / Unknown 01/30/2025 12:03 PM EDT 01/30/2025 1:48 PM EDT Reina Seth MD LAB BLOOD ORDERABLES Final Re sult Performing Organization Address [facility]/ZIP Co de Phone Number [facility] [address] [place] [address] [phone] * Hepatitis B surface antigen, EIA (01/30/2025 12:03 PM EDT) Pathologist [facility] Hepatitis B Surface Ag Negative Negative [facility] Blood Venous blood specimen / Unknown 01/30/2025 12:03 PM EDT 01/30/2025 1:48 PM EDT Reina Seth MD LAB BLOOD ORDERABLES Final Re sult Performing Organization Address [facility] Co de Phone Number [facility] [address] [place] [phone] * Hepatitis B Core Antibody, Total (01/30/2025 12:03 PM EDT) [facility] Hepatitis B Core Antibody Nonreactive Nonreactive [facility] Blood Venous blood specimen / Unknown 01/30/2025 12:03 PM EDT 01/30/2025 1:48 PM EDT Reina Seth MD LAB BLOOD ORDERABLES Final Re sult Performing Organization Address [facility] de Phone Number [facility] [address] [place] [phone] * Hepatitis B Surface Antibody, Qualitative (01/30/2025 12:03 PM EDT) Pathologist [facility] ~Hepatitis B Surface Antibody REACTIVE Nonreactive [facility] Comment:REACTIVE: > 11.99 mI U/mL Blood Venous blood specimen / Unknown 01/30/2025 12:03 PM EDT 01/30/2025 1:48 PM EDT Reina Seth MD LAB BLOOD ORDERABLES Final Re sult Performing Organization Address [facility] de Phone Number [facility] [address] [place] [phone] * Ferritin (01/30/2025 12:03 PM EDT) Pathologist [facility] Ferritin 90 10 - 250 ng/mL [facility] Blood Venous blood specimen / Unknown 01/30/2025 12:03 PM EDT 01/30/2025 1:48 PM EDT us Reina Seth MD LAB BLOOD ORDERABLES Final Re sult [facility] [address] [place] [address] [phone] * (ABNORMAL) Comprehensive Metabolic Panel (01/30/2025 12:03 PM EDT) Sodium 140 135 - 145 mmol/L [facility] Potassium 4.1 3.3 - 5.1 mmol/L [facility] Chloride 108 96 - 108 mmol/L [facility] Carbon Dioxide 25 22 - 29 mmol/L [facility] Anion Gap 11(L) 12 - 20 [facility] Urea Nitrogen (BUN) 19(H) 9 - 16 mg/dL [facility] Creatinine, Serum 1.19 0.5 - 1.4 mg/dL [facility] Estimated Glomerular Filt Rate 47 [facility] Comment:Chronic Kidney Disea se: Estimated GFR < 60 mL/min/1.76u3Nnvtxe Kidney Disease: Estimated GFR < 15 mL/min/1.73m2 Glucose 81 60 - 115 mg/dL [facility] Calcium 9.1 8.4 - 10.2 mg/dL [facility] Bilirubin, Total 0.3 0.0 - 1.0 mg/dL [facility] Aspartate Amino Transferase 26 5 - 31 U/L [facility] Alanine Aminotransferase 17 0 - 31 U/L [facility] Total Protein 6.0(L) 6.5 - 8.0 g/dL [facility] Albumin Level 3.8 3.5 - 5.0 g/dL [facility] Alkaline Phosphatase 79 39 - 117 U/L [facility] Blood Venous blood specimen / Unknown 01/30/2025 12:03 PM EDT 01/30/2025 1:48 PM EDT us Reina Seth MD LAB BLOOD ORDERABLES Final Re sult [facility] [address] [place], [place] [phone] * (ABNORMAL) POCT PATRICIA-14 Urine Drug [...] AM EDT . Internal Pass Control Lot# [id number] Exp: 02-14-26 us Reina Seth MD POINT OF CARE TEST ENTER/EDIT ORDERABLES Final Result * (ABNORMAL) Lipid Panel, Standard (06/16/2023 9:10 AM EST) Triglycerides 119 <150 mg/dL [facility] Comment:Desirable Triglyceri de: less than 150 mg/dLBorderline High Triglyceride 150-199 mg/dLHigh Triglyceride: 200-499 mg/dLVery High Triglyceride: greater than or equal to 5OO mg/dL Cholesterol 224(H) <200 mg/dL [facility] Comment:Desirable Cholestero l: less than 200 mg/dLBorderline High Cholesterol: 200-239 mg/dLHigh Cholesterol: greater than 239 mg/dL LDL Cholesterol Calculated 144(H) <100 mg/dL [facility] Comment:Desirable LDL: less than 100 mg/dLNear Optimal/Above Optimal LDL: 110- 129 mg/dLBorderline High LDL: 130-159 mg/dLHigh LDL: 160-189 mg/dLVery High LDL: greater than or equal to 190 mg/dL HDL Cholesterol 57 >40 mg/dL [facility] Comment:Desirable HDL: great er than 40 mg/dL Note: This HDL assay may give artificially low results in patients with liver disease. Blood Venous blood specimen / Unknown 06/16/2023 9:10 AM EST 06/16/2023 2:23 PM EST us Reina Seth MD LAB BLOOD ORDERABLES Final Re sult Performing Organization Address [facility]/ZIP Co de Phone Number [facility] [address] [place] [address] [phone] * HEPATITIS C AB W/REFL TO HCV RNA, QN, PCR (01/08/2020 9:22 AM EDT) HEPATITIS C ANTIBODY NON-REACT DONAVAN NON-REACT DONAVAN [facility] INDEX 0.01 <1.00 [facility] Comment: HCV antibody was non-reactive. There is no laboratory evidence of HCV infection. In most cases, no further action is required. However, if recent HCV exposure is suspected, a test for HCV RNA (test code 94750) is suggested. For additional information please refer to http://education.248 SolidState.SpringCM/faq/NLD34t9 (This link is being provided for informational/ educational purposes only.) 01/08/2020 9:22 AM EDT us Lisa Landeros MD HISTORICAL/NON ORDERA BLE LABS Final Result [facility] [address] * HIV 1/2 ANTIGEN/ANTIBODY,FOURTH GENERATION W/RFL (01/08/2020 9:22 AM EDT) HIV-1/2 ANTIGEN AND ANTIBODIES, 4TH GENERATION W/ REFLEX NON-REACT DONAVAN NON-REACT DONAVAN [facility] Comment: HIV-1 antigen and HIV-1/HIV-2 [...] purpose. For additional information please refer to http://Psydex.WealthEngine/faq/CWL755 (This link is being provided for informational/ educational purposes only.) The performance of this assay has not been clinically validated in patients less than 2 years old. HIV-1/2 ANTIGEN AND ANTIBODIES, 4TH GENERATION W/ REFLEX NON-REACT DONAVAN NON-REACT DONAVAN [facility] Comment: HIV-1 antigen and HIV-1/HIV-2 [...] purpose. For additional information please refer to http://Psydex.248 SolidState.SpringCM/faq/TSQ289 (This link is being provided for informational/ educational purposes only.) The performance of this assay has not been clinically validated in patients less than 2 years old. 01/08/2020 9:22 AM EDT Lisa Landeros MD LAB BLOOD ORDERABLES Final Result [facility] [address] [place] [address], * DIGITAL BILATERAL SCREEN 1 (10/05/2018 12:12 [...] Most Recently Relevant to Health Maintenance Insurance [facility] < [address] [facility] STAND ADULT Care Teams Business Functional Analyst Relationship Specialty Start Date End Date Reina Seth MD [address] [place] [phone] PCP - General Family Medicine 06/17/20 Taylor Oh MD [address] [place] [phone] Referring Physician Internal Medicine 07/25/22
--- OUTSIDE RECORDS SUMMARY | 2025-03-21 17:44 | XMS_ITS | Encounter Summary ---
Author Organization [employer] Address [address] [place] [address] [address]t [place] [address] Care Team Providers Care [employer] Name Role Phone Reina Seth MD Primary Care Provider [phone] Taylor Oh MD Unavailable Reason for Visit * Reason Comments Med Refill Encounter Details Date Type Department Care Team ([facility] Contact Info) Description 09/23/2022 Refill [facility] [address] [place], [place] [phone] Reina Seth MD [address] [place], [place] [phone] Neck pain, musculoskeletal Social History Tobacco Use [...] Upcoming Encounters Date Type Department Care Team ([facility] Contact Info) Description 03/26/2025 9:30 AM EST Clinical Support [facility] [address] [place] [address] Sonja Weathers, RN [address] [place] [address] documented as of this encounter Visit Diagnoses Diagnosis Neck pain, musculoskeletal documented in this encounter Additional Health Concerns Assessment Noted Time PHQ-9 Depression Total Score: 6 07/28/19 8:47 AM EDT documented as of this encounter Care Teams [employer] Relationship Specialty Start Date End Date Reina Seth MD [address] [place] [address] PCP - General Family Medicine 06/17/20 Taylor Oh MD [address] [place] [address] Referring Physician Internal Medicine 07/25/22 documented as of this encounter
--- OUTSIDE RECORDS SUMMARY | 2025-03-21 17:44 | XMS_ITS | Encounter Summary ---
Author Organization [employer] Address [address] [facility] [address]t [place] [address] Care Team Providers Care Electrical Accessories Assembler Name Role Phone Reina Seth MD Primary Care Provider [phone] Taylor Oh MD Unavailable Reason for Visit * Reason Comments Med Refill Encounter Details Date Type Department Care Team ([facility] Contact Info) Description 03/21/2025 Refill [facility] [address] [place], [place] [phone] Reina Seth MD [address] [place], [place] [phone] Social History Tobacco Use Types Packs/Day Years [...] [facility] [address] [place] [address] Sonja Weathers, SATHYA [address] [place] [address] documented as of this encounter Visit Diagnoses Not on filedocumented in this encounter Additional Health Concerns Assessment Noted Time PHQ-9 Depression Total Score: 4 12/27/19 25 11:47 AM EDT documented as of this encounter Care Teams Electrical Accessories Assembler Relationship Specialty Start Date End Date Reina Seth MD [address] [place] [phone] PCP - General Family Medicine 06/17/20 Taylor Oh MD [address] [place] [address] Referring Physician Internal Medicine 07/25/22 documented as of this encounter
--- OUTSIDE RECORDS SUMMARY | 2025-03-21 17:44 | XMS_ITS | Encounter Summary ---
Author Organization [employer] Address [address] [place] [address] [address]t [place] [address] Care Team Providers Care Se[employer] Computer Name Role Phone Reina Seth MD Primary Care Provider [phone] Taylor Oh MD Unavailable Reason for Visit * Reason Comments Med Refill Encounter Details Date Type Department Care Team ([facility] Contact Info) Description 07/08/2022 Refill [facility] [address] [place] [address] Reina Seth MD [address] [place], [place] [phone] Social History Tobacco Use Types Packs/Day Years [...] Team ([facility] Contact Info) Description 03/26/2025 9:30 AM EST Clinical Support [facility] [address] [place], [place] [phone] Sonja Weathers, SATHYA [address] [place] [address] documented as of this encounter Visit Diagnoses Not on filedocumented in this encounter Care Teams Se[employer] Computer Relationship Specialty Start Date End Date Reina Seth MD [address] [place] [address] PCP - General Family Medicine 06/17/20 Taylor Oh MD [address] [place] [address] Referring Physician Internal Medicine 07/25/22 documented as of this encounter
--- OUTSIDE RECORDS SUMMARY | 2025-03-21 17:44 | XMS_ITS | Encounter Summary ---
Author Organization [employer] Address [address] [facility] [address] [place] [address] Care Team Providers Care Childcare Center Director Name Role Phone Reina Seth MD Primary Care Provider [phone] Taylor Oh MD Unavailable Encounter Details Date Type Department Care Team ([facility] st Contact Info) Description 09/04/2024 Telephone [facility] [address] [place], [place] [phone] Reina Seth MD [address] [place], [place] [phone] Social History Tobacco Use Types Packs/Day Years [...] Description 03/26/2025 9:30 AM EST Clinical Support [facility] [address] [place] [address] Sonja Weathers, SATHYA [address] [place] [address] documented as of this encounter Visit Diagnoses Not on filedocumented in this encounter Additional Health Concerns Assessment Noted Time PHQ-9 Depression Total Score: 6 07/28/19 23 8:47 AM EDT documented as of this encounter Care Teams Childcare Center Director Relationship Specialty Start Date End Date Reina Seth MD [address] [place] [phone] PCP - General Family Medicine 06/17/20 Taylor Oh MD [address] [place] [address] Referring Physician Internal Medicine 07/25/22 documented as of this encounter
--- OUTSIDE RECORDS SUMMARY | 2025-03-21 17:44 | XMS_ITS | Encounter Summary ---
Author Organization [employer] Address [address] [place] [address] 7t [place] [address] Care Team Providers Care Remelt Pan Tank Operator Name Role Phone Reina Seth MD Primary Care Provider Taylor Oh MD Unavailable Reason for Visit * Reason Comments Med Refill Encounter Details Date Type Department Care Team ([facility] Contact Info) Description 06/11/2022 Refill [facility] MED & PEDS [address] [place] [address] Reina Seth MD 505 [place] [address] Social History Tobacco Use Types Packs/Day Years [...] Upcoming Encounters Date Type Department Care Team ([facility] Contact Info) Description 03/26/2025 9:30 AM EST Clinical Support [facility] MED & PEDS [address] [place] [address] Sonja Weathers, RN 505 [place] [address] documented as of this encounter Visit Diagnoses Not on filedocumented in this encounter Care Teams Remelt Pan Tank Operator Relationship Specialty Start Date End Date Reina Seth MD [address] [place] [address] PCP - General Family Medicine 06/17/20 Taylor Oh MD [address] [place] [address] Referring Physician Internal Medicine 07/25/22 documented as of this encounter
--- OUTSIDE RECORDS SUMMARY | 2025-03-21 17:44 | XMS_ITS | Encounter Summary ---
Author Organization [employer] Address [address] [facility] 7t [place] [address] Care Team Providers Care College Recruiter Name Role Phone Reina Seth MD Primary Care Provider [phone] Taylor Oh MD Unavailable Reason for Visit * Reason Comments Med Refill Encounter Details Date Type Department Care Team ([facility] Contact Info) Description 10/31/[address] [facility] MED & PEDS 505 [place], [place] [phone] Reina Seth MD 505 [place], [place] [phone] Social History Tobacco Use Types Packs/Day Years [...] Description 03/26/2025 9:30 AM EST Clinical Support [facility] MED & PEDS 505 [place] [address] Sonja Weathers RN 505 [place] [address] documented as of this encounter Visit Diagnoses Not on filedocumented in this encounter Additional Health Concerns Assessment Noted Time PHQ-9 Depression Total Score: 6 07/28/19 23 8:47 AM EDT documented as of this encounter Care Teams College Recruiter Relationship Specialty Start Date End Date Reina Seth MD [address] [place] [address] PCP - General Family Medicine 06/17/20 Taylor Oh MD [address] [place] [address] Referring Physician Internal Medicine 07/25/22 documented as of this encounter
--- OUTSIDE RECORDS SUMMARY | 2025-03-21 17:44 | XMS_ITS | Encounter Summary ---
Author Organization [facility] Address [address] [place] [address] Phone Care Team Providers Care Campaign Fundraiser Name Role Phone Reina Seth MD Primary Care Provider Encounter Details Date Type Department Care Team (Late st Contact Info) Description 02/24/2022 Procedure Pass OR Admitting Dept - Virtual Department 30 [place] [address] Social History Tobacco Use Types Packs/Day Years [...] 02/24/2022 4:32 PM Breanna Sears RN * [place] Suicide Severity Rating Scale (Screener/Recent Self-Report) Question [...] on filedocumented in this encounter Care Teams Campaign Fundraiser Relationship Specialty Start Date End Date Reina Seth MD PCP - General Family Medicine 11/22/21 documented as of this encounter Additional Source Comments The information contained in this document represents components of the legal health record. It is not the complete legal health record.[facility]
--- OUTSIDE RECORDS SUMMARY | 2025-03-21 17:44 | XMS_ITS | Encounter Summary ---
Author Organization [employer] Address [address] [place] [address] 7 [place] [address] Care Team Providers Care Applications Chemist Name Role Phone Reina Seth MD Primary Care Provider [phone] Taylor Oh MD Unavailable Reason for Visit * Reason Comments Med Refill Encounter Details Date Type Department Care Team (Late Contact Info) Description 10/31/2022 Refill [facility] MED & PEDS 505 [place] [address] Reina Seth MD 505 [place] [address] Social History Tobacco Use Types Packs/Day Years [...] ([facility] Contact Info) Description 03/26/2025 9:30 AM EST Clinical Support [facility] MED & PEDS [address] [place] [address] Sonja Weathers RN 505 [place] [address] documented as of this encounter Visit Diagnoses Not on filedocumented in this encounter Additional Health Concerns Assessment Noted Time PHQ-9 Depression Total Score: 6 07/28/19 23 8:47 AM EDT documented as of this encounter Care Teams Applications Chemist Relationship Specialty Start Date End Date Reina Seth MD [address] [place] [address] PCP - General Family Medicine 06/17/20 Taylor Oh MD 73 [place] [address] Referring Physician Internal Medicine 07/25/22 documented as of this encounter
== END 2025-03-21 13:56 | disposition home or self-care (01) ==
PROVIDERS: PCP Family Medicine; Visit Provider Nurse Practitioner Family
DX: M54.50 Low back pain, unspecified (principal); G89.29 Other chronic pain; M47.817 Spondylosis without myelopathy or radiculopathy, lumbosacral region; M53.3 Sacrococcygeal disorders, not elsewhere classified; M43.16 Spondylolisthesis, lumbar region; M79.7 Fibromyalgia
CPT/HCPCS: 99213; G2211

== ENCOUNTER → 2025-03-21 13:35 | Outpatient (BNVA) | payer OTHER, SELFPAY | PROVIDERS: PCP Family Medicine; Visit Provider Nurse Practitioner Family | DX: G89.29 Other chronic pain (principal); M47.817 Spondylosis without myelopathy or radiculopathy, lumbosacral region; M53.3 Sacrococcygeal disorders, not elsewhere classified; M79.7 Fibromyalgia; Z79.891 Long term (current) use of opiate analgesic; Z79.899 Other long term (current) drug therapy | CPT/HCPCS: 99212 ==

== ENCOUNTER 2025-04-15 17:42 | Outpatient (REF) | payer OTHER, SELFPAY ==
--- OUTSIDE RECORDS SUMMARY | 2025-04-15 13:00 | XMS_ITS | Encounter Summary ---
Author Organization [employer] Address [address] [place] [address] 7t [place] [address] Care Team Providers Care Optician Manager Name Role Phone Reina Seth MD Primary Care Provider [phone] Taylor Oh MD Unavailable Reason for Visit * Reason Comments GRAPE PRUNER Encounter Details Date Type Department Care Team (Latest Contact Info) Description 04/15/2025 1:00 PM EST Clinical Support [facility] MED & PEDS 505 [place] [address] Sonja Weathers, SATHYA 505 [place] [address] Chronic pain syndrome (Primary Dx) Social History Tobacco Use Types Packs/Day Years [...] AM EDT documented as of this encounter Progress Notes * Sonja Weathers RN - 04/15/2025 1:00 PM EST SUBJECTIVE: Estephanie Smith is a 55 y.o. year old female who presents for GRAPE PRUNER Preferred language for medical information: Setswana Estephanie Smith does report adherence to Percocet 5-325 mg, take 1 tablet every 6 hours PRN, last refilled 03/18/25. The patient last took Percocet on: 04/15/25 Medication is: 80% % effective at alleviating pain. OBJECTIVE: BOWLING BALL FINISHER checked: 04/15/2025 Pill count completed for Percocet , count today is 0 , anticipated count should be 0, this is as expected. Vital Signs Pain Score: 7 Pain Loc: Back Pain Education: Yes Last PCP visit: 02/18/25 BPI completed on: 01/23/2025 , pain severity score: 8, activity interference score: 9 Controlled substance agreement signed: Controlled Substance Agreement 01/23/2025 GRAPE PRUNER Tier: 2 Smoking status: Denies ETOH use: Yes . Occasional ETOH use, pt educated of the risks associated with the combination of ETOH and opioids, verbalized understanding. Illicit substances: Denies Marijuana use: Denies, Lab Results Component Value Date POCTHC Negative 04/15/2025 POCCOCAINEUR Negative 04/15/2025 POCOPIATEUR Negative 04/15/2025 DOAUR Negative 04/15/2025 POCAMPHETAMI Negative 04/15/2025 POCBENZODIUR Positive (A) 04/15/2025 POCBARBSCRN Negative 04/15/2025 POCMETHADOUR Negative 04/15/2025 POCBUPSCRN Positive (A) 04/15/2025 POCTCAUR Positive (A) 04/15/2025 POCMDMAUR Negative 04/15/2025 POCOXYCODONE Positive (A) 04/15/2025 POCPHENCYCUR Negative 04/15/2025 PROPOXUR Negative 04/15/2025 FENTANYLURIN Negative 04/15/2025 Sending out urine to the lab for BUP, BZO confirmation. ASSESSMENT: Encounter Diagnosis Name Primary? Chronic pain syndrome Yes PLAN: Information on pain group given: Previously discussed Information on acupuncture given: Previously discussed Narcan education provided: Previously discussed Narcan prescription: active Estephanie Bravo Sarah will continue taking medication as prescribed and follow up at the next GRAPE PRUNER visit or sooner if needed. Estephanie Smith has verbalized understanding of care plan. Future Appointments Date Time Provider Department Center 05/29/2025 11:00 AM Sonja Weathers RN [facility] Sonja Weathers RN documented in this encounter Plan of Treatment Upcoming Encounters Date Type Department Care Team (Late st Contact Info) Description 05/29/2025 11:00 AM EST Clinical Support [facility] MED & PEDS [address] [place] [address] Sonja Weathers RN 505 [place] [address] Scheduled Orders Name Type Priority Associated Diagnoses Orde r Schedule Drug Monitoring, Panel 1, Screen, Urine Lab Routine Chronic pain syndrome Ordered: 04/15/2025 documented as of this encounter Procedures Procedure Name Priority Date/Time Associated Diagnosis Comments POCT PATRICIA-14 URINE DRUG SCREEN Routine 04/15/2025 1:20 PM EST Chronic pain syndrome documented in this encounter Results * (ABNORMAL) POCT PATRICIA-14 Urine Drug Screen (04/15/2025 1:20 PM EST) Amphetamine Screen, Urine Negative Negative Barbiturate Screen, Urine Negative Negative Buprenophine Screen, Urine Positive(A) Negative Benzodiazepines Screen, Urine Positive(A) Negative Cocaine Screen, Urine Negative Negative Fentanyl, Urine Negative Negative MDMA Urine Negative Negative ng/mL Methamphetamine Screen Urine Negative Negative Opiate Screen, Urine Negative Negative Methadone Screen, Urine Negative Negative Oxycodone Screen, Urine Positive(A) Negative Comment:Rx Phencyclidine (PCP), Urine Negative Negative TCA, Urine Positive(A) Negative THC Negative Negative Propoxyphene, Urine Negative Negative Urine Urine specimen obtained by clean catch procedure / Unknown 04/15/2025 1:20 PM EST Narrative Sonja Weathers RN - 04/15/2025 1:20 PM EST . Internal Pass Control Lot# [id number] Exp: 01-21-26 us Reina Seth MD POINT OF CARE TEST ENTER/EDIT ORDERABLES Final Result documented in this encounter Visit Diagnoses Diagnosis Chronic pain syndrome- Primary documented in this encounter Additional Health Concerns Assessment Noted Time PHQ-9 Depression Total Score: 4 12/27/19 25 11:47 AM EDT documented as of this encounter Care Teams Optician Manager Relationship Specialty Start Date End Date Reina Seth MD [address] [place] [address] PCP - General Family Medicine 06/17/20 Taylor Oh MD [address] [place] [address] Referring Physician Internal Medicine 07/25/22 documented as of this encounter
[2025-04-15 18:21] LABS: Cannabinoid Screen Urine Not Detected (Not Detect)
--- OUTSIDE RECORDS SUMMARY | 2025-04-15 19:14 | XMS_ITS | Encounter Summary ---
Author Organization [employer] Address [address] [facility] [address] 7t [place] [address] Care Team Providers Care Weaver Hand Name Role Phone Reina Seth MD Primary Care Provider [phone] Taylor Oh MD Unavailable Reason for Visit * Reason Onset Date Comments Appointment Request 06/22/2022 Encounter Details Date Type Department Care Team ([facility] st Contact Info) Description 06/22/2022 Telephone [facility] MEDICINE [address] [place] [address] Reina Seth MD [address] [place], [place] [phone] Appointment Request Social History Tobacco Use Types [...] in this Monday06/24/2022 Please contact pt at [phone] documented in this encounter Plan of Treatment Upcoming Encounters Date Type Department Care Team (Late st Contact Info) Description 05/29/2025 11:00 AM EST Clinical Support [facility] MED & PEDS 505 [place] [address] Sonja Weathers, RN 505 [place] [address] documented as of this encounter Visit Diagnoses Not on filedocumented in this encounter Care Teams Weaver Hand Relationship Specialty Start Date End Date Reina Seth MD [address] [place] [address] PCP - General Family Medicine 06/17/20 Taylor Oh MD [address] [place] [address] Referring Physician Internal Medicine 07/25/22 documented as of this encounter
--- OUTSIDE RECORDS SUMMARY | 2025-04-15 19:14 | XMS_ITS | Encounter Summary ---
Author Organization [employer] Address [address] [place] [address] 7t [place] [address] Care Team Providers Care Outreach Coordinator Name Role Phone Reina Seth MD Primary Care Provider [phone] Taylor Oh MD Unavailable Reason for Visit * Reason Comments Med Refill Encounter Details Date Type Department Care Team ([facility] Contact Info) Description 06/11/2022 Refill [facility] MED & PEDS 505 [place] [address] Reina Seth MD 505 [place] [address] Social History Tobacco Use Types Packs/Day Years [...] Upcoming Encounters Date Type Department Care Team ([facility] Contact Info) Description 05/29/2025 11:00 AM EST Clinical Support [facility] MED & PEDS 505 [place] [address] Sonja Weathers, RN 505 [place] [address] documented as of this encounter Visit Diagnoses Not on filedocumented in this encounter Care Teams Outreach Coordinator Relationship Specialty Start Date End Date Reina Seth MD [address] [place] [address] PCP - General Family Medicine 06/17/20 Taylor Oh MD [address] [place] [address] Referring Physician Internal Medicine 07/25/22 documented as of this encounter
--- OUTSIDE RECORDS SUMMARY | 2025-04-15 19:14 | XMS_ITS | Encounter Summary ---
Author Organization [employer] Address [address] [place] [address] 7t [place] [address] Care Team Providers Care Machine Pie Maker Name Role Phone Reina Seth MD Primary Care Provider [phone] Taylor Oh MD Unavailable Reason for Visit * Reason Onset Date Comments triage 05/03/2022 Encounter Details Date Type Department Care Team ([facility] Contact Info) Description 05/03/2022 Telephone [facility] CH[facility] MED & PEDS 505 [place] [address] Reina Seth MD 505 [place] [address] triage Social History Tobacco Use Types Packs/Day [...] antibiotic again. Advised to come [place] [facility] @200pm [facility]. Pt agreed with disposition . [...] nodes in back of neck, please call [phone]. Syrian documented in this encounter Plan of Treatment Upcoming Encounters Date Type Department Care Team (Late st Contact Info) Description 05/29/2025 11:00 AM EST Clinical Support [facility] MED & PEDS 505 [place] [address] Sonja Weathers, RN 505 [place] [address] documented as of this encounter Visit Diagnoses Diagnosis Other chronic pain documented in this encounter Care Teams Machine Pie Maker Relationship Specialty Start Date End Date Reina Seth MD 230 [place] [address] PCP - General Family Medicine 06/17/20 Taylor Oh MD 73 [place] [address] Referring Physician Internal Medicine 07/25/22 documented as of this encounter
--- OUTSIDE RECORDS SUMMARY | 2025-04-15 19:15 | XMS_ITS | Clinical Summary ---
Author Organization [facility] it Address [address] [place] [address] Care Team Providers Care Rat Trapper Name Role Phone Reina Seth MD Primary Care Provider [phone] Surgical History Surgery Date Site/Laterality Comments GASTRIC BYPASS PROCEDURE: [place] GASTRIC RSTCV W/BYP W/SM INT RCNSTJ LIMIT ABSRPJ SECTION N/A PROCEDURE: [place] DELIVERY ONLY; COMMENT: X 2 Medical History [...] age to complete this topic Care Teams Rat Trapper Relationship Specialty Start Date End Date Reina Seth MD [address] [place] [id number] PCP - General 04/05/21
--- OUTSIDE RECORDS SUMMARY | 2025-04-15 19:15 | XMS_ITS | Encounter Summary ---
Author Organization [employer] Address [address] [place] [address] 7 [place] [address] Care Team Providers Care Bronc Buster Name Role Phone Reina Seth MD Primary Care Provider [phone] Taylor Oh MD Unavailable Reason for Visit * Reason Comments Med Refill Encounter Details Date Type Department Care Team (Late Contact Info) Description 10/31/[address] [facility] MED & PEDS 505 [place] [address] Reina Seth MD 505 [place] [address] Social History Tobacco Use Types Packs/Day Years [...] Upcoming Encounters Date Type Department Care Team ([facility] Contact Info) Description 05/29/2025 11:00 AM EST Clinical Support [facility] MED & PEDS [address] [place] [address] Sonja Weathers RN 505 [place] [address] documented as of this encounter Visit Diagnoses Not on filedocumented in this encounter Additional Health Concerns Assessment Noted Time PHQ-9 Depression Total Score: 6 07/28/19 23 8:47 AM EDT documented as of this encounter Care Teams Bronc Buster Relationship Specialty Start Date End Date Reina Seth MD [address] [place] [address] PCP - General Family Medicine 06/17/20 Taylor Oh MD 73 [place] [address] Referring Physician Internal Medicine 07/25/22 documented as of this encounter
--- OUTSIDE RECORDS SUMMARY | 2025-04-15 19:15 | XMS_ITS | Encounter Summary ---
Author Organization [facility] Address [address] [facility] [address] [place] [address] Phone Care Team Providers Care Content Specialist Name Role Phone Reina Seth MD Primary Care Provider [phone] Encounter Details Date Type Department Care Team (Late st Contact Info) Description 02/24/2022 Procedure Pass OR Admitting Dept - Virtual Department [address] [place] [address] Social History Tobacco Use Types Packs/Day Years [...] on file documented as of this encounter Plan of Treatment Not on file documented as of this encounter Visit Diagnoses Not on filedocumented in this encounter Care Teams Content Specialist Relationship Specialty Start Date End Date Reina Seth MD PCP - General Family Medicine 11/22/21 documented as of this encounter Additional Source Comments The information contained in this document represents components of the legal health record. It is not the complete legal health record.[facility]
--- OUTSIDE RECORDS SUMMARY | 2025-04-15 19:15 | XMS_ITS | Encounter Summary ---
Author Organization [employer] Address [address] [facility] 7t [place] [address] Care Team Providers Care Heel Slugger Name Role Phone Reina Seth MD Primary Care Provider [phone] Taylor Oh MD Unavailable Reason for Visit * Reason Comments Med Refill Encounter Details Date Type Department Care Team ([facility] Contact Info) Description 10/31/2024 Refill [facility] MED & PEDS 505 [place], [place] [phone] Reina Seth MD 505 [place], [place] [phone] Social History Tobacco Use Types Packs/Day Years [...] Upcoming Encounters Date Type Department Care Team ([facility] st Contact Info) Description 05/29/2025 11:00 AM EST Clinical Support [facility] MED & PEDS 505 [place] [address] Sonja Weathers RN 505 [place] [address] documented as of this encounter Visit Diagnoses Not on filedocumented in this encounter Additional Health Concerns Assessment Noted Time PHQ-9 Depression Total Score: 6 07/28/19 23 8:47 AM EDT documented as of this encounter Care Teams Heel Slugger Relationship Specialty Start Date End Date Reina Seth MD [address] [place] [address] PCP - General Family Medicine 06/17/20 Taylor Oh MD [address] [place] [address] Referring Physician Internal Medicine 07/25/22 documented as of this encounter
--- OUTSIDE RECORDS SUMMARY | 2025-04-15 19:15 | XMS_ITS | Encounter Summary ---
Author Organization [employer] Address [address] [facility] [address] 7t [place] [address] Care Team Providers Care Ibm Bpm Architect Name Role Phone Reina Seth MD Primary Care Provider [phone] Taylor Oh MD Unavailable Encounter Details Date Type Department Care Team ([facility] Contact Info) Description 07/27/2022 Telephone [facility] MEDICINE [address] [place] [address] Reina Seth MD 505 [place], [place] [phone] Social History Tobacco Use Types Packs/Day Years [...] Type Department Care Team ([facility] Contact Info) Description 05/29/2025 11:00 AM EST Clinical Support [facility] MED & PEDS [address] [place] [address] Sonja Weathers, RN [address] [place] [address] documented as of this encounter Visit Diagnoses Not on filedocumented in this encounter Additional Health Concerns Assessment Noted Time PHQ-9 Depression Total Score: 6 07/28/19 23 8:47 AM EDT documented as of this encounter Care Teams Ibm Bpm Architect Relationship Specialty Start Date End Date Reina Seth MD [address] [place] [address] PCP - General Family Medicine 06/17/20 Taylor Oh MD [address] [place] [address] Referring Physician Internal Medicine 07/25/22 documented as of this encounter
--- OUTSIDE RECORDS SUMMARY | 2025-04-15 19:15 | XMS_ITS | Encounter Summary ---
Author Organization [employer] Address [address] [place] [address] 7t [place] [address] Care Team Providers Care It Program Manager Name Role Phone Reina Seth MD Primary Care Provider [phone] Taylor Oh MD Unavailable Reason for Visit * Reason Onset Date Comments Med Refill 04/15/2025 Encounter Details Date Type Department Care Team ([facility] st Contact Info) Description 04/15/2025 Refill [facility] MED & PEDS 505 [place] [address] Sonja Weathers, RN 505 [place] [address] Chronic pain syndrome Social History Tobacco Use [...] [facility] 505 [place] [address] Sonja Weathers, SATHYA 505 [place] [address] documented as of this encounter Visit Diagnoses Diagnosis Chronic pain syndrome documented in this encounter Additional Health Concerns Assessment Noted Time PHQ-9 Depression Total Score: 4 12/27/19 25 11:47 AM EDT documented as of this encounter Care Teams It Program Manager Relationship Specialty Start Date End Date Reina Seth MD [address] [place] [address] PCP - General Family Medicine 06/17/20 Taylor Oh MD 73 [place] [address] Referring Physician Internal Medicine 07/25/22 documented as of this encounter
--- OUTSIDE RECORDS SUMMARY | 2025-04-15 19:15 | XMS_ITS | Encounter Summary ---
Author Organization [employer] Address [address] [facility] [address] [address] 7t [place] [address] Care Team Providers Care Glass Cut Off Supervisor Name Role Phone Reina Seth MD Primary Care Provider [phone] Taylor Oh MD Unavailable Reason for Visit * Reason Onset Date Comments ER Follow-up 06/20/2023 Encounter Details Date Type Department Care Team ([facility] Contact Info) Description 06/20/2023 Telephone [facility] MED & PEDS 505 [place], [place] [phone] Reina Seth MD 505 [place] [address] ER Follow-up Social History Tobacco Use Types [...] 9:36 AM EST Tc to pt regarding [facility] ED visit om 06/19 [...] ED visit on : Date: 06/19 Hospital: [facility] Seen for: Wound/laceration Patient advised will forward to team nurse for follow up Please contact pt at [phone] documented in this encounter Plan of Treatment Upcoming Encounters Date Type Department Care Team ([facility] st Contact Info) Description 05/29/2025 11:00 AM EST Clinical Support [facility] MED & PEDS 505 [place] [address] Sonja Weathers, RN 505 [place] [address] documented as of this encounter Visit Diagnoses Not on filedocumented in this encounter Additional Health Concerns Assessment Noted Time PHQ-9 Depression Total Score: 6 07/28/19 23 8:47 AM EDT documented as of this encounter Care Teams Glass Cut Off Supervisor Relationship Specialty Start Date End Date Reina Seth MD [address] [place] [address] PCP - General Family Medicine 06/17/20 Taylor Oh MD [address] [place] [address] Referring Physician Internal Medicine 07/25/22 documented as of this encounter
--- OUTSIDE RECORDS SUMMARY | 2025-04-15 19:15 | XMS_ITS | Encounter Summary ---
Author Organization [employer] Address [address] [facility] [facility] [address] 7[address] [place] [address] Care Team Providers Care Recordist Chief Name Role Phone Reina Seth MD Primary Care Provider [phone] Taylor Oh MD Unavailable Reason for Visit * Reason Onset Date Comments Med Refill 10/08/2024 Encounter Details Date Type Department Care Team (Late st Contact Info) Description 10/08/2024 Telephone [facility] MEDICINE [address] [place] [address] Reina Seth MD [address] [place], [place] [phone] Med Refill Social History Tobacco Use Types [...] 50 MG tablet To be sent to: [facility] pharmacy documented in this encounter Plan of Treatment Upcoming Encounters Date Type Department Care Team (Late st Contact Info) Description 05/29/2025 11:00 AM EST Clinical Support [facility] CHC MED & PEDS 505 [place] [address] Sonja Weathers, SATHYA 505 [place] [address] documented as of this encounter Visit Diagnoses Not on filedocumented in this encounter Additional Health Concerns Assessment Noted Time PHQ-9 Depression Total Score: 6 07/28/19 23 8:47 AM EDT documented as of this encounter Care Teams Recordist Chief Relationship Specialty Start Date End Date Reina Seth MD [address] [place] [address] PCP - General Family Medicine 06/17/20 Taylor Oh MD [address] [place] [address] Referring Physician Internal Medicine 07/25/22 documented as of this encounter
--- OUTSIDE RECORDS SUMMARY | 2025-04-15 19:15 | XMS_ITS | Encounter Summary ---
Author Organization [employer] Address 75 [facility] 7t [place] [address] Care Team Providers Care Opal Polisher Name Role Phone Reina Seth MD Primary Care Provider [phone] Taylor Oh MD Unavailable Reason for Visit * Reason Comments Med Refill Encounter Details Date Type Department Care Team ([facility] Contact Info) Description 03/21/2025 Refill [facility] CHC MED & PEDS 505 [place], [place] [phone] Reina Seth MD 505 [place], [place] [phone] Social History Tobacco Use Types Packs/Day Years [...] Description 05/29/2025 11:00 AM EST Clinical Support [facility] MED & PEDS 505 [place] [address] Sonja Weathers, SATHYA 505 [place] [address] documented as of this encounter Visit Diagnoses Not on filedocumented in this encounter Additional Health Concerns Assessment Noted Time PHQ-9 Depression Total Score: 4 12/27/19 25 11:47 AM EDT documented as of this encounter Care Teams Opal Polisher Relationship Specialty Start Date End Date Reina Seth MD [address] [place] [address] PCP - General Family Medicine 06/17/20 Taylor Oh MD 73 [place] [address] Referring Physician Internal Medicine 07/25/22 documented as of this encounter
--- OUTSIDE RECORDS SUMMARY | 2025-04-15 19:15 | XMS_ITS | Clinical Summary ---
Author Organization [facility] Address [address] [place] [address] Phone Care Team Providers Care Wheel Setter Name Role Phone Reina Seth MD Primary Care Provider [phone] Allergies Active Allergy Reactions Criticality Noted Date [...] tablet Take 20 mg by mouth daily. 11/18/19 22 Active traZODone (DESYREL) 50 MG tablet [...] she will obtain cardiac clearance from her sheriff's officer on 06 January, she will obtain a [...] weight gain but since seeing me at [facility] and being placed on a lower [...] I do not have the records from [facility] as of yet. We have requested those records. I will schedule her for a consultation with a dietitian to help keep her on track in terms of her eating. The patient will continue the eating plan that I had given her previously which is a Ethiopian yogurt or cottage cheese at 6 AM, [...] (09/19/2022 10:40 AM EDT) HDL 56 mg/dL [facility] Comment: Interpretation <40 mg/dL: Low HDL cholesterol (major risk factor for CHD) Greater than or equal to 60 mg/dL: High HDL cholesterol ( negative risk factor for CHD) HDL - cholesterol is affected by a number of factors, e.g. smoking, excerise, hormones, sex and age. CHOLESTEROL 198 0 - 240 mg/dL [facility] TRIGLYCERIDES 246(H) 30 - 160 mg/dL [facility] LDL 93 50 - 129 mg/dL [facility] Comment: LDL levels in terms of risk for coronary heart disease: <100 mg/dL: Optimal 100-129 mg/dL: Near or above optimal 130-159 mg/dL: Borderline high 160-189 mg/dL: High >190 mg/dL: Very High CARDIAC RISK RATIO 3.5 3.3 - 4.4 C [facility] Blood 09/19/2022 10:4 0 AM EDT 09/19/2022 10:49 AM EDT us Analia Castro MD LAB BLOOD BKR ORDERABLES F inal Result [facility] [address] [place] [address] from Last 3 Months or Most Recently Relevant to Health Maintenance Insurance MEDICARE PART A & B [facility] ONE CARE MEDICARE REPLACEMENT MEDICARE PART A & B [id number] [place] [address] CARE MEDICARE REPLACEMENT MEDICARE PART A & B [facility] ONE CARE MEDICARE REPLACEMENT MEDICARE PART A & B [facility] ONE [facility] MEDICARE REPLACEMENT [place] [place] [id number] MEDICARE PART A & B [facility] ONE CARE MEDICARE REPLACEMENT MEDICARE PART A & B [facility] ONE CARE MEDICARE REPLACEMENT MEDICARE PART A & B [facility] CARE MEDICARE REPLACEMENT MEDICARE PART A & B [facility] CARE MEDICARE REPLACEMENT MEDICARE PART A & B [facility] ONE CARE MEDICARE REPLACEMENT Member Subscriber Plan / Payer (Ef fective 2018-Present) Name:Estephanie Smith Relation to Subscriber:Self Name:Estephanie Smith Payer ID:[id number] (NAIC) Group ID:[id number] Type:Medicare Address: [facility] [address] [facility] Advance Directives For more information, please contact: [phone] (9AM - 5PM [facility], Monday-Monday) * Full Code (Latest Code Status on File) Date Activated Date Inactivated Comments 02/24/2022 5:16 PM Question Answer Comments Code Status Confirmed With: Patient * Full Code Date Activated Date Inactivated Comments 02/24/2022 8:36 AM 02/24/2022 5:16 PM Question Answer Comments Code Status Confirmed With: Patient Care Teams Wheel Setter Relationship Specialty Start Date End Date Reina Seth MD PCP - General Family Medicine 11/22/21 Additional Source Comments The information contained in this document represents components of the legal health record. It is not the complete legal health record.[facility]
--- OUTSIDE RECORDS SUMMARY | 2025-04-15 19:15 | XMS_ITS | Encounter Summary ---
Author Organization [employer] Address [address] [facility] [address] 7t [place] [address] Care Team Providers Care Production Superintendent Name Role Phone Reina Seth MD Primary Care Provider [phone] Taylor Oh MD Unavailable Encounter Details Date Type Department Care Team ([facility] Contact Info) Description 04/15/2025 Telephone [facility] CHC MED & PEDS [address] [place] [address] Sonja Weathers, RN [address] [place], [place] Social History Tobacco Use Types Packs/Day Years [...] encounter Miscellaneous Notes * Telephone Encounter - Sonja Weathers RN - 04/15/2025 1:22 PM EST Fyi. Utox pos BUP, BZO. Sending out urine to the lab for BUP, BZO confirmation. documented in this encounter Plan of Treatment Upcoming Encounters Date Type Department Care Team (Late st Contact Info) Description 05/29/2025 11:00 AM EST Clinical Support [facility] CHC MED & PEDS [address] [place] [address] Sonja Weathers, SATHYA 505 [place] [address] documented as of this encounter Visit Diagnoses Not on filedocumented in this encounter Additional Health Concerns Assessment Noted Time PHQ-9 Depression Total Score: 4 12/27/19 25 11:47 AM EDT documented as of this encounter Care Teams Production Superintendent Relationship Specialty Start Date End Date Reina Seth MD [address] [place] [address] PCP - General Family Medicine 06/17/20 Taylor Oh MD [address] [place] [address] Referring Physician Internal Medicine 07/25/22 documented as of this encounter
--- OUTSIDE RECORDS SUMMARY | 2025-04-15 19:15 | XMS_ITS | Encounter Summary ---
Author Organization [employer] Address [address] [facility] [address] 7[address] [place] [address] Care Team Providers Care Dynamic Etching Processor Name Role Phone Reina Seth MD Primary Care Provider [phone] Taylor Oh MD Unavailable Encounter Details Date Type Department Care Team ([facility] st Contact Info) Description 09/04/2024 Telephone [facility] MEDICINE [address] [place], [place] [phone] Reina Seth MD [address] [place], [place] [phone] Social History Tobacco Use Types Packs/Day Years [...] Description 05/29/2025 11:00 AM EST Clinical Support [facility] MED & PEDS 505 [place] [address] Sonja Weathers, SATHYA 505 [place] [address] documented as of this encounter Visit Diagnoses Not on filedocumented in this encounter Additional Health Concerns Assessment Noted Time PHQ-9 Depression Total Score: 6 07/28/19 23 8:47 AM EDT documented as of this encounter Care Teams Dynamic Etching Processor Relationship Specialty Start Date End Date Reina Seth MD [address] [place] [address] PCP - General Family Medicine 06/17/20 Taylor Oh MD [address] [place] [address] Referring Physician Internal Medicine 07/25/22 documented as of this encounter
--- OUTSIDE RECORDS SUMMARY | 2025-04-15 19:15 | XMS_ITS | Encounter Summary ---
Author Organization [employer] Address [address] [facility] [address] [place] [address] Care Team Providers Care Credentialing Manager Name Role Phone Reina Seth MD Primary Care Provider [phone] Taylor Oh MD Unavailable Encounter Details Date Type Department Care Team ([facility] Contact Info) Description 04/09/2025 Results Follow-Up [facility] MEDICINE 230 [place] [address] Reina Seth MD [address] [place], [place] [phone] Pap Smear, HPV High Risk with Reflex to Subtypes Social History Tobacco Use Types Packs/Day Years [...] 11:00 AM EST Clinical Support [facility] MED & PEDS 505 [place] [address] Sonja Weathers, SATHYA [address] [place] [address] documented as of this encounter Visit Diagnoses Not on filedocumented in this encounter Additional Health Concerns Assessment Noted Time PHQ-9 Depression Total Score: 4 12/27/19 25 11:47 AM EDT documented as of this encounter Care Teams Credentialing Manager Relationship Specialty Start Date End Date Reina Seth MD [address] [place] [address] PCP - General Family Medicine 06/17/20 Taylor Oh MD [address] [place] [address] Referring Physician Internal Medicine 07/25/22 documented as of this encounter
--- OUTSIDE RECORDS SUMMARY | 2025-04-15 19:15 | XMS_ITS | Encounter Summary ---
Author Organization [employer] Address [address] [place] [address] 7t [place] [address] Care Team Providers Care Embedded Software Engineer Name Role Phone Reina Seth MD Primary Care Provider [phone] Taylor Oh MD Unavailable Reason for Visit * Reason Comments Med Refill Encounter Details Date Type Department Care Team ([facility] Contact Info) Description 07/08/2022 Refill [facility] MEDICINE [address] [place] [address] Reina Seth MD [address] [place], [place] [phone] Social History Tobacco Use Types Packs/Day Years [...] Upcoming Encounters Date Type Department Care Team ([facility] Contact Info) Description 05/29/2025 11:00 AM EST Clinical Support [facility] CHC MED & PEDS [address] [place], [place] [phone] Sonja Weathers, SATHYA [address] [place] [address] documented as of this encounter Visit Diagnoses Not on filedocumented in this encounter Care Teams Embedded Software Engineer Relationship Specialty Start Date End Date Reina Seth MD [address] [place] [address] PCP - General Family Medicine 06/17/20 Taylor Oh MD [address] [place] [address] Referring Physician Internal Medicine 07/25/22 documented as of this encounter
--- OUTSIDE RECORDS SUMMARY | 2025-04-15 19:15 | XMS_ITS | Encounter Summary ---
Author Organization [employer] Address 75 [facility] 7t [place] [address] Care Team Providers Care Rn Building Name Role Phone Reina Seth MD Primary Care Provider [phone] Taylor Oh MD Unavailable Encounter Details Date Type Department Care Team (Latest Contact Info) Description 04/15/2025 Travel Social History Tobacco Use Types Packs/Day [...] Description 05/29/2025 11:00 AM EST Clinical Support [facility] CHC MED & PEDS 505 [place] [address] Sonja Weathers, SATHYA 505 [place] [address] documented as of this encounter Visit Diagnoses Not on filedocumented in this encounter Additional Health Concerns Assessment Noted Time PHQ-9 Depression Total Score: 4 12/27/19 25 11:47 AM EDT documented as of this encounter Care Teams Rn Building Relationship Specialty Start Date End Date Reina Seth MD 230 [place] [address] PCP - General Family Medicine 06/17/20 Taylor Oh MD [address] [place] [address] Referring Physician Internal Medicine 07/25/22 documented as of this encounter
--- OUTSIDE RECORDS SUMMARY | 2025-04-15 19:15 | XMS_ITS | Encounter Summary ---
Author Organization [employer] Address [address] [place] [address] 7t [place] [address] Care Team Providers Care Cobbler Upper Name Role Phone Reina Seth MD Primary Care Provider [phone] Taylor Oh MD Unavailable Reason for Visit * Reason Comments Med Refill Encounter Details Date Type Department Care Team ([facility] Contact Info) Description 09/23/2022 Refill [facility] CHC MED & PEDS [address] [place], [place] [phone] Reina Seth MD [address] [place], [place] [phone] Neck pain, musculoskeletal Social History Tobacco Use [...] Upcoming Encounters Date Type Department Care Team ([facility] Contact Info) Description 05/29/2025 11:00 AM EST Clinical Support [facility] CHC MED & PEDS [address] [place] [address] Sonja Weathers, RN 505 [place] [address] documented as of this encounter Visit Diagnoses Diagnosis Neck pain, musculoskeletal documented in this encounter Additional Health Concerns Assessment Noted Time PHQ-9 Depression Total Score: 6 07/28/19 23 8:47 AM EDT documented as of this encounter Care Teams Cobbler Upper Relationship Specialty Start Date End Date Reina Seth MD [address] [place] [address] PCP - General Family Medicine 06/17/20 Taylor Oh MD [address] [place] [address] Referring Physician Internal Medicine 07/25/22 documented as of this encounter
--- OUTSIDE RECORDS SUMMARY | 2025-04-15 19:15 | XMS_ITS | Encounter Summary ---
Author Organization [employer] Address [address] [facility] [address] 7[address] [place] [address] Care Team Providers Care Clinical Cytopathologist Name Role Phone Reina Seth MD Primary Care Provider [phone] Taylor Oh MD Unavailable Reason for Visit * Reason Onset Date Comments Appointment Request 10/07/2024 Encounter Details Date Type Department Care Team ([facility] Contact Info) Description 10/07/2024 Telephone [facility] MEDICINE [address] [place] [address] Reina Seth MD [address] [place], [place] [phone] Appointment Request Social History Tobacco Use Types [...] message. Patient requests a return call at [phone] * Telephone Encounter - Porsha Dye - 10/07/2024 10:27 AM EDT Tc from pt requesting schedule f/u appointment. Unable to schedule due not availability. Recall date: 09/25/2024. [phone] documented in this encounter Plan of Treatment Upcoming Encounters Date Type Department Care Team (Late st Contact Info) Description 05/29/2025 11:00 AM EST Clinical Support [facility] MED & PEDS 505 [place] [address] Sonja Weathers, SATHYA 505 [place] [address] documented as of this encounter Visit Diagnoses Not on filedocumented in this encounter Additional Health Concerns Assessment Noted Time PHQ-9 Depression Total Score: 6 07/28/19 23 8:47 AM EDT documented as of this encounter Care Teams Clinical Cytopathologist Relationship Specialty Start Date End Date Reina Seth MD [address] [place] [address] PCP - General Family Medicine 06/17/20 Taylor Oh MD [address] [place] [address] Referring Physician Internal Medicine 07/25/22 documented as of this encounter
--- OUTSIDE RECORDS SUMMARY | 2025-04-15 19:15 | XMS_ITS | Clinical Summary ---
Author Organization [employer] Address [address] [place] [address] [address] [place] [address] Care Team Providers Care Car Usher Name Role Phone Reina Seth MD Primary Care Provider [phone] Taylor Oh MD Unavailable Allergies Active Allergy [...] (Wellbutrin SR) 200 MG 12 hr tablet 04/29/20 25 Active fexofenadine (Radha) 180 MG tablet [...] (one) time per week. 2 mL 3 5 1:29 PM EST 12/27/19 25 Active Diclofenac Sodium 1 % gel APPLY TO THE AFFECTED AREA TOPICALLY NEEDED IN THE MORNING, AT NOON, AND AT BEDTIME FOR PAIN 200 g 1 5 1:05 PM EST 01/14/20 25 Active topiramate (Topamax) 100 MG tablet TAKE 1 TABLET BY MOUTH two (2) times a day 60 tablet 2 5 1:05 PM EST 01/18/20 25 Active naloxone (Narcan) [...] up to 28 days. 112 tablet 5 1:45 PM EST 04/15/20 25 026 Active oxyCODONE-acet aminophen (Percocet) 5-325 MG tabletIndicati [...] 5 1:29 PM EST 03/18/20 25 025 Discontinued(R eorder (will not trigger [...] not full agreement with this recommendation. The [employer] and the [place] [...] medications (e.g., Celexa) - Submit referral for hospice care sales consultant - Encourage continuation of psychiatric care [...] 07/18/2023 9:00 AM Paulina De Leon MD [facility] Chronic back pain 06/12/2023 Depressive disorder [...] recommended reduction of 20-30% of maintenance calories; candy spreader referral offered. Recommended to decrease soda and [...] recommended reduction of 20-30% of maintenance calories; candy spreader referral offered. Recommended to decrease soda and [...] nor Monjauro. Irritable bowel syndrome with diarrhea 04/12/202 3 Nausea and vomiting 07/27/2022 S/P laparoscopic [...] Encounters Date Type Department Care Team Description 04/15/2025 1:00 PM EST Clinical Support [facility] [address] [place] [address] Sonja Weathers, alumina plant supervisor pain syndrome (Primary Dx) 04/15/2025 Telephone [facility] [address] [place], [place] [phone] Sonja Weathers RN 04/15/2025 Travel 04/15/2025 Refill [facility] [address] [place] [address] Sonja Weathers, alumina plant supervisor pain syndrome 04/15/[address] [phone] Reina Seth MD Med Refill 04/09/2025 Results Follow-Up [facility]IC[facility] [address] [place] [address] Reina Seth MD Pap Smear, HPV High Risk with Reflex to Subtypes 04/08/2025 Travel 03/26/2025 Telephone [facility] [address] [place] [address] Reina Seth MD Appointment Request 03/21/2025 Refill [facility] [address] [place] [address] Reina Seth MD 03/19/2025 Travel 03/18/2025 Refill [facility] [address] [place] [address] Reina Seth MD Chronic pain syndrome 02/18/2025 10:20 AM EST Procedure Visit [facility] [address] [place] [address] Reina Seth MD Cervical cancer screening (Primary Dx); Chronic pain syndrome 02/18/2025 Travel 02/18/2025 Refill [facility] [address] [place] [address] Paulina De Leon MD 02/11/2025 Travel 02/06/2025 Results Follow-Up [facility] [address] [place] [address] Reina Seth MD Iron And Total Iron Binding Capacity, Ferritin, CBC auto differential, Additional followed-up results: 6 01/30/2025 11:15 AM EDT Office Visit [facility] [address] [place] [address] Reina Seth MD Chronic pain syndrome (Primary Dx); Encounter for immunization; Encounter for vaccination; Class 3 severe obesity due to excess calories with serious comorbidity and body mass index (BMI) of 40.0 to 44.9 in adult (HCC); Breast cancer screening by mammogram 01/30/2025 Travel 01/29/2025 Telephone [facility] [address] [place] [address] Reina Seth MD Chart Prep 01/23/2025 11:00 AM EDT Clinical Support [facility] [address] [place] [address] Sonja Weathers RN Chronic pain syndrome (Primary Dx); Long-term current use of opiate analgesic 01/23/2025 Refill [facility] [address] [place] [address] Sonja Weathers RN Chronic pain syndrome 01/23/2025 Travel 01/22/2025 Travel 01/17/2025 Refill [facility] [address] [place] [address] Reina Seth MD from Last 3 Months Immunizations Immunization Administration Dates Next Due Influenza injectable quadriv alent IIV4 with preservative 01/31/2019 Influenza injectable quadriv alent preservative free 01/30/2023,12/31/2021,02/17/2021,12/13,01/27/2014,02/13/2013 Influenza, IIV3, injectable 01/19/2012, 1,01/22/2010 Influenza, seasonal, injecta ble, preservative free 01/30/2025 Novel [id number], all formulations 04/16/2009 Pfizer Covid-19 Vaccine 12+ [...] Upcoming Encounters Date Type Department Care Team ([facility] st Contact Info) Description 05/29/2025 11:00 AM EST Clinical Support [facility] [address] [facility] [place] [phone] Sonja Weathers, RN [address] [place] [address] Health Maintenance Due Date Last Done Comments CT Colonography 1972 Dental Oral Exam 1972 Dental Prophylaxis 1972 Dental X-Ray: Bitewings 1972 FIT DNA/Cologuard 1972 FIT 1972 FOBT 1970 Sigmoidoscopy 1972 Mammogram 10/05/2020 10/05/2018 Pneumococcal Vaccine: 50+ Years (2 of 2 - PCV) 03/06/2022 03/06/2021, 11/09/2007 SDOH Screening 08/28/2025 08/28/2024 Alcohol/Substance Use Screening 12/26/2025 12/26/2024 Depression Screening 12/26/2025 12/26/2024, 12/27/19 25 Disability Screening 12/26/2025 12/26/2024 Cervical Cancer Screening 02/18/2026 HPV/Cotest 02/18/2026 02/18/2025 Pap Smear 02/18/2026 02/18/2025 Tobacco Screening 02/18/2026 02/18/2025 Dental X-Ray: Full Mouth 12/07/2027 12/05/2024 Lipid [...] 04/15/2025 1:20 PM EST Chronic pain syndrome DRUG MONITOR, PANEL 1, SCREEN, URINE Routine 04/15/2025 1:19 PM EST PAP SMEAR Routine 02/18/2025 12:00 PM EST [...] (BMI) of 40.0 to 44.9 in adult ([facility]) CBC WITH AUTO DIFFERENTIAL Routine 01/30/2025 12:03 PM EDT Class 3 severe obesity due to excess calories with serious comorbidity and body mass index (BMI) of 40.0 to 44.9 in adult ([facility]) FERRITIN Routine 01/30/2025 12:03 PM EDT Class 3 severe obesity due to excess calories with serious comorbidity and body mass index (BMI) of 40.0 to 44.9 in adult ([facility]) IRON AND TOTAL IRON BINDING CAPACITY Routine 01/30/2025 12:03 PM EDT Class 3 severe obesity due to excess calories with serious comorbidity and body mass index (BMI) of 40.0 to 44.9 in adult ([facility]) POCT PATRICIA-14 URINE DRUG SCREEN Routine 01/23/2025 11:19 AM EDT Chronic pain syndrome PANORAMIC RADIOGRAPHIC IMAGE Routine 12/05/2024 1:00 PM EDT LIPID PANEL, STANDARD Routine 06/16/2023 9:10 AM EST Class 3 severe obesity due to excess calories with serious comorbidity and body mass index (BMI) of 40.0 to 44.9 in adult ([facility]/HCC) ZZZ HISTORICAL HEPATITIS C AB W/REFL TO HCV RNA, QN, PCR Routine 01/08/2020 9:22 AM EDT HIV 1/2 ANTIGEN/ANTIBODY, FOURTH GENERATION W/RFL Routine 01/08/2020 9:22 AM EDT BI MAMMOGRAM SCREENING BILATERAL Routine 10/05/2018 12:12 PM EDT from Last 3 Months or Most Recently Relevant to Health Maintenance Results * (ABNORMAL) POCT PATRICIA-14 Urine Drug Screen (04/15/2025 1:20 PM EST) Only the most recent of2 resultswithin the time period is included. Amphetamine Screen, Urine Negative Negative Barbiturate Screen, [...] PM EST . Internal Pass Control Lot# [id number] Exp: 01-21-26 Reina Seth MD POINT OF CARE TEST ENTER/EDIT ORDERABLES Final Result * (ABNORMAL) Drug Monitoring, Panel 1, Screen, Urine (04/15/2025 1:19 PM EST) Opiate Screen Urine Not Detected Not Detect [facility] Comment:Opiate cut-off is 30 0 ng/mL.Positive results are unconfirmed and should not be used fornon-medical purposes. Barbiturates, Urine Not Detected Not Detect [facility] Comment:Barbiturate cut-off is 200 ng/mL.Positive results are unconfirmed and should not be used fornon-medical purposes. Phencyclidine Screen Urine Not Detected Not Detect [facility] Comment:Phencyclidine cut-of f is 25 ng/mL.Positive results are unconfirmed and should not be used fornon-medical purposes. Amphetamine Screen Urine Not Detected Not Detect [facility] Comment:Amphetamine cut-off is 1000 ng/mL.Positive results are unconfirmed and should not be used fornon-medical purposes. Benzodiazepines Screen Urine Not Detected Not Detect [facility] Comment:Benzodiazepine cut-o ff is 200 ng/mL.Positive results are unconfirmed and should not be used fornon-medical purposes. Cocaine Screen Urine Not Detected Not Detect [facility] Comment:Cocaine cut-off is 3 00 ng/mL.Positive results are unconfirmed and should not be used fornon-medical purposes. Cannabinoid Screen Urine Not Detected Not Detect [facility] Comment:Cannabinoid cut-off is 50 ng/mL.Positive results are unconfirmed and should not be used fornon-medical purposes. Methadone Screen, Urine Not Detected Not Detect ng/mL [facility] Comment:Methadone cut-off is 300 ng/mL.Positive results are unconfirmed and should not be used fornon-medical purposes. FENTANYL URINE Not Detected Not Detect [facility] Comment:Fentanyl cut-off is 1 ng/mL.Positive results are unconfirmed and should not be used fornon-medical purposes. Oxycodone Urine Screen Positive(A) Not Detect ng/mL [facility] Comment:Oxycodone cut-off is 100 ng/mL.Positive results are unconfirmed and should not be used fornon-medical purposes. Buprenorphine Screen Not Detected Not Detect ng/mL [facility] Comment:Buprenorphine cut-of f is 5 ng/mL.Positive results are unconfirmed and should not be used fornon-medical purposes. 04/15/2025 1:19 PM EST 04/15/2025 5:42 PM EST us Reina Seth MD LAB URINE ORDERABLES Final Re sult [facility] [address] [place] [phone] * Pap Smear (02/18/2025 12:00 PM EST) Swab 02/18/2025 12:0 0 PM EST 02/19/2025 6:18 AM EST Narrative [facility] - 02/21/2025 3:18 PM EST ----- ------- Name: Estephanie Smith Age/Sex: 55/F : 1970 Unit#: [id number] Attend Dr: Re02/18/25 Status: PRE REF Location: [facility] Disch: ----- ------- SPEC : [id number] RECD: 02/19/25 STATUS: LISET NAVARROCrissy NUM: [id number] KEISHA: 02/18/25-[address] [facility] [address]: Reina Seth MD ENTERED: 02/19/25 SP TYPE: Pap Smr [facility] DR: ORDERED: Pap Smear Interpretation Satisfactory for [...] will be performed at [facility] (CLIA #[id number]), [address] [place] [address]. Testing for HPV was performed using the [...] detected. All professional services are performed by [facility] ([address] [place] [address], [place] [address]; ; CLIA #[id number]). The PAP Test is a screening procedure with the inherent possibility of both false negative and false positive results. Results should be interpreted in the context of historic and current clinical findings. Reliability of the PAP Test is enhanced by performing the test on a regular repetitive basis. ----- ------- Signed (signature on file) KRISTA Quispe (ASCP) 02/21/25 1518 ----- ------- END OF REPORT us Reina Seth MD LAB CYTOLOGY ORDERABLES Final Result [facility] [address] [place] [phone] * (ABNORMAL) HPV High Risk with Reflex to Subtypes (02/18/2025 12:00 AM EST) HPV High Risk Negative Negative [facility] HPV Genotype 16 Negative Negative [facility] HPV Genotype 18 Positive(A) Negative [facility] Comment:HPV testing performe d at [facility] (CLIA#[id number]), [address] [place] [phone].Testing for HPV was performed using the Henry [...] Vial 02/18/2025 02/19/2025 6:1 8 AM EST us Reina Seth MD LAB BLOOD ORDERABLES Final Re sult [facility] [address] [place] [phone] * Vitamin D, 25-Hydroxy, Total, Immunoassay (01/30/2025 12:03 PM EDT) Vitamin D 25-OH Total 106.3 >30 ng/mL [facility] Comment: Health Based Reference Values*< 20 ng/mL Onqghhthm56-14 ng/mL Insufficient> 30 ng/mL Sufficient*Donna COLLINS. N [...] ORDERABLES Final Re sult Performing Organization Address [facility]/ZIP Co de Phone Number [facility] [address] [place] [address] [phone] * TSH W/Reflex to FT4 (01/30/2025 12:03 PM EDT) Pathologist [facility] TSH reflex Free T4 2.04 0.32 - 4.0 uIU/mL [facility] Blood Venous blood specimen / Unknown 01/30/2025 12:03 PM EDT 01/30/2025 1:48 PM EDT Reina Seth MD LAB BLOOD ORDERABLES Final Re sult Performing Organization Address [facility]/ZIP Co de Phone Number [facility] [address] [place] [phone] * (ABNORMAL) CBC auto differential (01/30/2025 12:03 PM EDT) White Blood Count 4.1(L) 4.8 - 10.8 X10*3/uL [facility] Red Blood Count 4.15(L) 4.20 - 5.50 X10*6/uL [facility] Hemoglobin 12.9 12.0 - 16.0 g/dl [facility] Hematocrit 38.8 37.0 - 47.0 % [facility] Mean Corpuscular Volume 93.5 80.0 - 98.0 fL [facility] Mean Corpuscular Hemoglobin 31.1 27.0 - 33.0 pg [facility] Mean Corpuscular HGB Conc 33.2 31.0 - 35.0 g/dl [facility] Red Cell Distribution Width 13.0 11.0 - 16.0 % [facility] Platelet Count 258 160 - 400 X10*3/uL [facility] Mean Platelet Volume 10.3 9.4 - 12.3 fL [facility] Neutrophils Percent Auto 38.0(L) 45 - 73 % [facility] Imm Gran Pct Auto 0.2 0.0 - 0.4 % [facility] Lymphocytes Percent Auto 51.4(H) 20 - 40 % [facility] Monocytes Percent Auto 7.4 2 - 11 % [facility] Eosinophils Percent Auto 2.0 0 - 4 % [facility] Basophils Percent Auto 1.0 0 - 2 % [facility] NRBC Pct Auto 0.0 0.0 - 0.2 /100WBC [facility] Neutrophils Absolute Auto 1.6(L) 2.0 - 8.3 x10*3/uL [facility] Imm Gran Abs Auto 0.01 0.00 - 0.03 X10*3/uL [facility] Lymphocytes Absolute Auto 2.1 1.2 - 4.9 X10*3/uL [facility] Monocytes Absolute Auto 0.3 0.1 - 1.2 X10*3/uL [facility] Eosinophils Absolute Auto 0.1 0.0 - 0.4 X10*3/uL [facility] Basophils Absolute Auto 0.0 0.0 - 0.2 X10*3/uL [facility] NRBC Abs Auto 0.000 0.0 - 0.012 X10*3/uL [facility] Blood Venous blood specimen / Unknown 01/30/2025 12:03 PM EDT 01/30/2025 1:48 PM EDT us Reina Seth MD LAB BLOOD ORDERABLES Final Re sult [facility] [address] [place] [phone] [phone] * (ABNORMAL) Iron And Total Iron Binding Capacity (01/30/2025 12:03 PM EDT) Iron 104 30 - 160 mcg/dL [facility] Total Iron Binding Capacity 180(L) 228 - 428 mcg/dL [facility] Percent Iron Saturation 58(H) 15 - 50 % [facility] Unsaturated Iron Binding 76 ug/dL [facility] Blood Venous blood specimen / Unknown 01/30/2025 12:03 PM EDT 01/30/2025 1:48 PM EDT Reina Seth MD LAB BLOOD ORDERABLES Final Re sult Performing Organization Address [facility]/ZIP Co de Phone Number [facility] [address] [place] [phone] * Hepatitis B surface antigen, EIA (01/30/2025 12:03 PM EDT) Pathologist [facility] Hepatitis B Surface Ag Negative Negative [facility] Blood Venous blood specimen / Unknown 01/30/2025 12:03 PM EDT 01/30/2025 1:48 PM EDT Reina Seth MD LAB BLOOD ORDERABLES Final Re sult Performing Organization Address [facility] Co de Phone Number [facility] [address] [place] [phone] * Hepatitis B Core Antibody, Total (01/30/2025 12:03 PM EDT) Pathologist [facility] Hepatitis B Core Antibody Nonreactive Nonreactive [facility] Blood Venous blood specimen / Unknown 01/30/2025 12:03 PM EDT 01/30/2025 1:48 PM EDT Reina Seth MD LAB BLOOD ORDERABLES Final Re sult Performing Organization Address [facility] Co de Phone Number [facility] [address] [place] [phone] * Hepatitis B Surface Antibody, Qualitative (01/30/2025 12:03 PM EDT) [facility] ~Hepatitis B Surface Antibody REACTIVE Nonreactive [facility] Comment:REACTIVE: > 11.99 mI U/mL Blood Venous blood specimen / Unknown 01/30/2025 12:03 PM EDT 01/30/2025 1:48 PM EDT Reina Seth MD LAB BLOOD ORDERABLES Final Re sult Performing Organization Address City/[facility]/ZIP Co de Phone Number [facility] [address] [place] [address] [phone] * Ferritin (01/30/2025 12:03 PM EDT) [facility] Ferritin 90 10 - 250 ng/mL [facility] Blood Venous blood specimen / Unknown 01/30/2025 12:03 PM EDT 01/30/2025 1:48 PM EDT us Reina Seth MD LAB BLOOD ORDERABLES Final Re sult Performing Organization Address [facility] Co de Phone Number [facility] [address] [place] [phone] [phone] * (ABNORMAL) Comprehensive Metabolic Panel (01/30/2025 12:03 PM EDT) [facility] Sodium 140 135 - 145 mmol/L [facility] Potassium 4.1 3.3 - 5.1 mmol/L [facility] Chloride 108 96 - 108 mmol/L [facility] Carbon Dioxide 25 22 - 29 mmol/L [facility] Anion Gap 11(L) 12 - 20 [facility] Urea Nitrogen (BUN) 19(H) 9 - 16 mg/dL [facility] Creatinine, Serum 1.19 0.5 - 1.4 mg/dL [facility] Estimated Glomerular Filt Rate 47 [facility] Comment:Chronic Kidney Disea se: Estimated GFR < 60 mL/min/1.30e1Hnpokm Kidney Disease: Estimated GFR < 15 mL/min/1.73m2 Glucose 81 60 - 115 mg/dL [facility] Calcium 9.1 8.4 - 10.2 mg/dL [facility] Bilirubin, Total 0.3 0.0 - 1.0 mg/dL [facility] Aspartate Amino Transferase 26 5 - 31 U/L [facility] Alanine Aminotransferase 17 0 - 31 U/L [facility] Total Protein 6.0(L) 6.5 - 8.0 g/dL [facility] Albumin Level 3.8 3.5 - 5.0 g/dL [facility] Alkaline Phosphatase 79 39 - 117 U/L [facility] Blood Venous blood specimen / Unknown 01/30/2025 12:03 PM EDT 01/30/2025 1:48 PM EDT us Reina Seth MD LAB BLOOD ORDERABLES Final Re sult [facility] [address] [place] [phone] * (ABNORMAL) Lipid Panel, Standard (06/16/2023 9:10 AM EST) Triglycerides 119 <150 mg/dL [facility] Comment:Desirable Triglyceri de: less than 150 mg/dLBorderline High Triglyceride 150-199 mg/dLHigh Triglyceride: 200-499 mg/dLVery High Triglyceride: greater than or equal to 5OO mg/dL Cholesterol 224(H) <200 mg/dL [facility] Comment:Desirable Cholestero l: less than 200 mg/dLBorderline High Cholesterol: 200-239 mg/dLHigh Cholesterol: greater than 239 mg/dL LDL Cholesterol Calculated 144(H) <100 mg/dL [facility] Comment:Desirable LDL: less than 100 mg/dLNear Optimal/Above Optimal LDL: 110- 129 mg/dLBorderline High LDL: 130-159 mg/dLHigh LDL: 160-189 mg/dLVery High LDL: greater than or equal to 190 mg/dL HDL Cholesterol 57 >40 mg/dL [facility] Comment:Desirable HDL: great er than 40 mg/dL Note: This HDL assay may give artificially low results in patients with liver disease. Blood Venous blood specimen / Unknown 06/16/2023 9:10 AM EST 06/16/2023 2:23 PM EST us Reina Seth MD LAB BLOOD ORDERABLES Final Re sult Performing Organization Address City/[facility]/ZIP Co de Phone Number [facility] [address] [place] [phone] [phone] * HEPATITIS C AB W/REFL TO HCV RNA, QN, PCR (01/08/2020 9:22 AM EDT) HEPATITIS C ANTIBODY NON-REACT DONAVAN NON-REACT DONAVAN [facility] INDEX 0.01 <1.00 [facility] Comment: HCV antibody was non-reactive. There is no laboratory evidence of HCV infection. In most cases, no further action is required. However, if recent HCV exposure is suspected, a test for HCV RNA (test code 95362) is suggested. For additional information please refer to http://education.[employer]adem[employer].com/faq/FYJ37y7 (This link is being provided for informational/ educational purposes only.) 01/08/2020 9:22 AM EDT us Lisa Landeros MD HISTORICAL/NON ORDERA BLE LABS Final Result Performing Organization Address City/[facility]/ZIP Co de Phone Number [facility] [address] * HIV 1/2 ANTIGEN/ANTIBODY,FOURTH GENERATION W/RFL (01/08/2020 9:22 AM EDT) HIV-1/2 ANTIGEN AND ANTIBODIES, 4TH GENERATION W/ REFLEX NON-REACT DONAVAN NON-REACT DONAVAN [facility] Comment: HIV-1 antigen and HIV-1/HIV-2 [...] purpose. For additional information please refer to http://[employer].com/faq/AYT379 (This link is being provided for informational/ educational purposes only.) The performance of this assay has not been clinically validated in patients less than 2 years old. HIV-1/2 ANTIGEN AND ANTIBODIES, 4TH GENERATION W/ REFLEX NON-REACT DONAVAN NON-REACT DONAVAN [facility] Comment: HIV-1 antigen and HIV-1/HIV-2 [...] purpose. For additional information please refer to http://[email or web address]/faq/CXH345 (This link is being provided for informational/ educational purposes only.) The performance of this assay has not been clinically validated in patients less than 2 years old. 01/08/2020 9:22 AM EDT Lisa Landeros MD LAB BLOOD ORDERABLES Final Result Performing Organization Address City/State/[facility] Co de Phone Number [facility] [address] * DIGITAL BILATERAL SCREEN 1 (10/05/2018 12:12 PM EDT) Anatomical Region Laterality Modality Breast Bilateral Mammography 10/05/2018 12:1 2 PM EDT Narrative 10/05/2018 12:15 PM EDT Refer to the Notes tab for result details [facility] Procedure: DIGITAL BILATERAL SCREEN 1 Procedure Note ProviderMira MD - 07/09/2022 Refer to the Notes tab for result details [facility] Procedure: DIGITAL BILATERAL SCREEN 1 Lisa Landeros MD IMG BI PROCEDURES Fin al Result from Last 3 Months or Most Recently Relevant to Health Maintenance Insurance [facility] ONE CARE < 65 DENTAL [facility] MEDICAID [place] [address] Care Teams Car Usher Relationship Specialty Start Date End Date Reina Seth MD [address] [place] [id number] PCP - General Family Medicine 06/17/20 Taylor Oh MD [address] [place] [address] Referring Physician Internal Medicine 07/25/22
--- OUTSIDE RECORDS SUMMARY | 2025-04-15 19:15 | XMS_ITS | Encounter Summary ---
Author Organization [employer] Address [address] [place] [address] Care Team Providers Care Residential Insurance Inspector Name Role Phone Reina Baez MD Primary Care Provider [phone] Taylor Oh MD Unavailable Reason for Visit * Reason Onset Date Comments Med Refill 04/15/2025 Encounter Details Date Type Department Care Team ([facility] st Contact Info) Description 04/15/2025 Telephone [facility] [address] [place] [address] Reina Baez MD [address] [place], [place] [id number] Med Refill Social History Tobacco Use Types [...] encounter Miscellaneous Notes * Telephone Encounter - Sobeida Pickett - 04/15/2025 10:11 AM EST TC from pt requesting a med refill : oxyCODONE-acetaminophen (Percocet) 5-[address] baez documented in this encounter Plan of Treatment Upcoming Encounters Date Type Department Care Team (Late st Contact Info) Description 05/29/2025 11:00 AM EST Clinical Support [facility] [address] [place] [address] Sonja Weathers, SATHYA [address] [place] [address] documented as of this encounter Visit Diagnoses Not on filedocumented in this encounter Additional Health Concerns Assessment Noted Time PHQ-9 Depression Total Score: 4 12/27/19 25 11:47 AM EDT documented as of this encounter Care Teams Residential Insurance Inspector Relationship Specialty Start Date End Date Reina Baze MD [address] [place] [address] PCP - General Family Medicine 06/17/20 Taylor Oh MD [address] [facility] [place] [address] Referring Physician Internal Medicine 07/25/22 documented as of this encounter
== END 2025-04-15 17:43 ==
LOC: HO.HHCLNP 17:42
PROVIDERS: Visit Provider Family Medicine
DX: G89.4 Chronic pain syndrome (principal)
CPT/HCPCS: 80307